=== PATIENT | male | born 1945 | race Caucasian/White ===

== ENCOUNTER 2017-04-15 16:57 | Inpatient (IN) | payer OTHER ==
[~2017-04-15] VITALS: Ht 182.9 cm; Wt 113.2 kg
[~2017-04-15 16:57] MED LIST: AMLO-114 PO; AMOX500C3 PO; APR25 PO; ASPEC81 PO; ATOR-54 PO; CHLO50TA PO; CTP/1 PO; INSU1INJ7 SC; LISI-725 PO; METF850T PO; METO100T14 PO; METO50TA16 PO; NTRGSL/4 SL; POTA-327 PO
[2017-04-15 17:59] LABS: VEN BLOOD GAS BASE EXCESS 4.3 mmol/L; VENOUS BLOOD GAS PCO2 46 mmHg (38.0-50.0); VENOUS BLOOD GAS PO2 23 mmHg
[2017-04-15 18:00] LABS: VEN BLD GAS O2 SATURATION < 60.0 %
[2017-04-15 18:16] LABS: INR 1.1 (0.9-1.1); PARTIAL THROMBOPLASTIN RATIO 0.9; PROTHROMBIN TIME (PATIENT) 12.1 SECONDS (9.0-12.0)
--- NOTE | 2017-04-15 18:16 | EMERGENCY ROOM VISIT NOTE ---
ED Visit Note First contact with patient: 17:09 I have seen and examined this patient with Mark Murillo and generally agree with the treatment plan as discussed. Problem List Medical Problems: (1) Benign hypertension Status: Chronic (2) Chronic kidney disease stage 2 Status: Chronic (3) DIAB ALESSANDRO WO COMPL, TYPE II OR UNSPEC TYPE, NOT UNCNTRLD Status: Chronic (4) Hyperlipidemia Status: Chronic (5) Hypersomnia with sleep apnea Status: Chronic (6) MITRAL VALVE DISORDER Status: Chronic Current/Historical Medications Scheduled Amlodipine (Norvasc), 10 MG PO DAILY Amoxicillin (Amoxil), 2,000 MG PO DIRECTED Aspirin Enteric Coated (Ecotrin Or Generic *), 81 MG PO QAM Atorvastatin (Lipitor), 20 MG PO DAILY Chlorthalidone (Chlorthalidone), 25 MG PO DAILY Clonidine Hcl (Catapres), 0.1 MG PO TID Hydralazine Hcl (Apresoline *), 25 MG PO BID Insulin Glargine (Lantus), 60 UNITS SC HS Lisinopril (Zestril), 40 MG PO QAM Metformin Hcl (Glucophage), 850 MG PO BID Metoprolol Tartrate (Lopressor) (Lopressor), 50 MG PO HS Metoprolol Tartrate (Lopressor) (Lopressor), 100 MG PO AM Nitroglycerin (Nitrostat), 1 TAB SL UD Potassium Chloride (Micro-K Ext Rel), 10 MEQ PO BID Allergies Coded Allergies: No Known Allergies (Unverified , NONE, 06/09/15) Vital Signs Date Time Temp Pulse Resp B/P (MAP) Pulse Ox O2 Delivery O2 Flow Rate FiO2 04/15/17 17:53 65 04/15/17 17:39 97 Room Air 04/15/17 17:03 36.7 66 16 172/83 94 Room Air Laboratory Results Test 04/15/17 17:45 Venous Blood pH 7.43 (7.36-7.41) Venous Blood Partial Pressure CO2 46 mmHg (38.0-50.0) Venous Blood Partial Pressure O2 23 mmHg Venous Blood HCO3 29 mmol/L Venous Blood Oxygen Saturation < 60.0 % Venous Blood Base Excess 4.3 mmol/L Departure Information Referrals Delaney Lopez M.D. (PCP) Forms HOME CARE DOCUMENTATION FORM, IMPORTANT VISIT INFORMATION Patient Instructions My [facility]
[2017-04-15 18:31] LABS: BUN/CREATININE RATIO 12.9 (10-20); CALCIUM 9.6 mg/dl (8.5-10.1); CREATININE 1.3 mg/dl (0.60-1.40); POTASSIUM 3.3 mmol/L (3.5-5.1)
[2017-04-15] MEDS ORDERED: SODIUM CHLORIDE 0.9% 500ML 500 ML IV STA (18:32)
[2017-04-15] MEDS ORDERED: POTASSIUM CHLORIDE 10 MEQ / 100ML WTR IV STA (18:32)
[2017-04-15 18:39] LABS: POINT OF CARE PRO-BNP 2446 pg/ml (0-900); POINT OF CARE TROPONIN I < 0.030 ng/ml (0-0.045)
[2017-04-15 18:41] LABS: ALB/GLOB RATIO 1.1 (0.9-2); THYROID STIMULATING HORMONE 3.62 uIu/ml (0.300-4.500)
[2017-04-15 18:48] LABS: URINE APPEARANCE CLEAR (CLEAR); URINE BILIRUBIN NEG (NEG); URINE COLOR YELLOW; URINE NITRITE NEG (NEG); URINE PH 7.5 (4.5-7.5); UROBILINOGEN NEG (NEG); ZZUR CULT IF INDIC CLEAN CATCH NO
[2017-04-15 18:53] LABS: MANUAL MICROSCOPIC REQUIRED? NO; REVIEW REQ? NO; SULFASALICYLIC ACID POS (NEG)
[2017-04-15] MEDS ORDERED: HYDR-4716 PO (18:53)
[2017-04-15] MEDS ORDERED: GLIM4TAB PO (18:53)
[2017-04-15] MEDS ORDERED: POTA20TA16 PO (18:53)
[2017-04-15] MEDS ORDERED: ASPI81TA28 PO (18:53)
[2017-04-15] MEDS ORDERED: TPRSR/50 PO (18:53)
[2017-04-15] MEDS ORDERED: MULTCHW PO (18:53)
[2017-04-15] MEDS ORDERED: TPRSR/100 PO (18:53)
[2017-04-15] MEDS ORDERED: HYG25 PO (18:53)
[2017-04-15 19:24] LABS: HEMATOCRIT 41.7 % (42-52); MEAN CELL VOLUME 86.5 fL (80-100); MEAN CORPUSCULAR HEMOGLOBIN 30.1 pg (25-34); MEAN CORPUSCULAR HGB CONC 34.8 g/dl (32-36); MEAN PLATELET VOLUME 10.4 fL (7.4-10.4); PLATELET COUNT 270 K/uL (130-400); RED BLOOD COUNT 4.82 M/uL (4.7-6.1); WHITE BLOOD COUNT 10.57 K/uL (4.8-10.8)
--- NOTE | 2017-04-15 19:43 | DIAGNOSTIC IMAGING REPORT ---
CHEST 2 VIEWS ROUTINE HISTORY: Short of breath. COMPARISON: Chest 05/06/2012. FINDINGS: Mild diffuse interstitial thickening and mild cardiomegaly. This is consistent with mild pulmonary edema. Left-sided dual-chamber pacemaker. No pneumothorax. Small bilateral pleural effusions. IMPRESSION: Mild pulmonary edema and small bilateral pleural effusions. Electronically signed by: Iglesia Luu M.D. 04/15/2017 7:42 PM Dictated Date/Time: 04/15/2017 7:41 PM
[2017-04-15 19:48] LABS: BASO % 0.4 %; BASO ABS # 0.04 K/uL (0-0.2); COMPLETE YES; EOS % 2.5 %; IG% 0.2 %; LYMPH % 37.5 %; LYMPH ABS # 3.96 K/uL (1.2-3.4); MONO % 5.1 %; NEUT % 54.3 %; PLT ESTIMATE NORMAL
--- NOTE | 2017-04-15 19:59 | DIAGNOSTIC IMAGING REPORT ---
CHEST CTA for PULMONARY ARTERIES CT DOSE: 707.82 mGy.cm HISTORY: Short of breath. Elevated d-dimer. TECHNIQUE: Multiaxial CT images of the chest were performed following the intravenous administration of contrast to evaluate the pulmonary arteries. Maximal intensity projection images were also obtained. COMPARISON STUDY: Chest 04/15/2017. FINDINGS: Normal caliber thoracic aorta. No evidence for dissection within the ascending aorta or aortic arch. Descending thoracic aorta is not well opacified. The heart is mildly enlarged. Small to moderate bilateral pleural effusions. Mitral and aortic valve calcifications. Questionable filling defect within the left atrial appendage is seen on images 166 through 182. However, this could be due to poor opacification. Mild respiratory motion artifact. However, no definite filling defects within the pulmonary arteries to suggest embolus. Slightly nodular contour to the liver consistent with mild cirrhosis. The visualized spleen is unremarkable. Left-sided pacemaker. No hilar lymphadenopathy. A few mildly enlarged. No lymph node. Dominant AP window lymph node measures 2.6 x 1.4 cm. No pneumothorax. The central airways are patent. Diffuse interlobular septal thickening with scattered groundglass opacities. IMPRESSION: 1. No evidence for pulmonary embolus. 2. Interlobular septal thickening, scattered groundglass airspace opacities, small to moderate bilateral pleural effusions, and cardiomegaly. This is consistent with pulmonary edema. 3. A few mildly enlarged mediastinal lymph nodes. This is nonspecific but can also be seen in the setting of long-standing pulmonary edema. 3. Mild hepatic cirrhosis. This could be due to long-standing cardiac congestion. 5. Questionable filling defect within the left atrial appendage which could be due to a nonopacified area. However, follow-up echocardiogram should be performed to exclude an area of thrombus. Electronically signed by: Iglesia Luu M.D. 04/15/2017 7:57 PM Dictated Date/Time: 04/15/2017 7:46 PM
[2017-04-15] MEDS ORDERED: FUROSEMIDE 40 MG/4 ML VIAL IV STA (21:06)
--- NOTE | 2017-04-15 22:13 | DIAGNOSTIC IMAGING REPORT ---
ABDOMINAL ULTRASOUND, RIGHT UPPER QUADRANT HISTORY: RUQ abd pain. COMPARISON: None. FINDINGS: Pancreas: The pancreatic tail is obscured by overlying bowel gas. The remaining portions of the pancreas are within normal limits. Liver: Nodular contour to the liver consistent with cirrhosis. No hepatic masses. Gallbladder: Borderline thickening of the gallbladder wall measuring 3 mm. There are few small stones within the gallbladder. There is a 6 mm gallbladder polyp. There is a negative sonographic Bhagat's sign. CBD: 2 mm. Right kidney: No hydronephrosis. Miscellaneous: Right pleural effusion. IMPRESSION: 1. Mild cirrhosis. 2. Borderline thickening of the gallbladder wall. There are few small stones within the gallbladder. The technologist reported a negative sonographic Bhagat's sign. 3. Right pleural effusion. Electronically signed by: Iglesia Luu M.D. 04/15/2017 10:12 PM Dictated Date/Time: 04/15/2017 10:10 PM
[2017-04-15] MEDS ORDERED: NITROGLYCERIN 0.4 MG SL PER TAB CHARGE SL PRN (23:30)
--- NOTE | 2017-04-15 23:35 | History and Physical ---
History & Physical Date & Time of Service: Apr 15, 2017 at 23:35 Chief Complaint: SOB Primary Care Physician: Delaney Lopez M.D. History of Present Illness Source: patient, family, clinic records, hospital records 71 yo Male with PMH of Type 2 DM, HTN, CAD, CKD stage 3, Dyslipidemia, Cardiac pacemaker in situ, Systolic HF present to the ER with c/o worsening dyspnea on exertion. Pt saw his cardiology Dr. Elias on 04/10, he said at that time he was doing fine. Pt lives alone and cooks his food. Pt said that the next day on Saturday he started to have SOB on exertion. Pt said that SOB got worst over the weekend. Pt said that he cannot even walk to the mailbox without puffing and stopping to catch his breath. Pt said that from to March he got 12 lbs weight gained and he just added another 7 lbs since he saw Dr. Elias on . Pt said that he ate pizza and 4 hot dogs few days ago. Pt said that he was having some abdominal discomfort because his abdomen was distended. Pt said that the abdominal discomfort seems to improve after received the Lasix because he has been going to the bathroom a lot to urinate. Pt denies any chest pain, palpitation, dizziness, fever, chills and urinary symptoms. Past Medical/Surgical History Medical Problems: (1) Benign hypertension Status: Chronic (2) Chronic kidney disease stage 2 Status: Chronic (3) DIAB ALESSANDRO WO COMPL, TYPE II OR UNSPEC TYPE, NOT UNCNTRLD Status: Chronic (4) Hyperlipidemia Status: Chronic (5) Hypersomnia with sleep apnea Status: Chronic (6) MITRAL VALVE DISORDER Status: Chronic Social History Smoking Status: Never Smoker Alcohol Use: none Drug Use: none Marital Status: Housing status: lives alone Occupational Status: retired Immunizations History of Influenza Vaccine: N/A History of Tetanus Vaccine?: utd Tetanus Immunization Date: Oct 03, 2009 History of Pneumococcal: ~2009 History of Hepatitis B Vaccine: No Multi-Drug Resistant Organisms History of MDRO: No Allergies Coded Allergies: No Known Allergies (Unverified , NONE, 06/09/15) Home Medications Scheduled Amlodipine (Norvasc), 10 MG PO DAILY Amoxicillin (Amoxil), 2,000 MG PO DIRECTED Aspirin (Aspirin Ec), 81 MG PO DAILY Atorvastatin (Lipitor), 20 MG PO DAILY Chlorthalidone (Chlorthalidone), 25 MG PO DAILY Clonidine Hcl (Catapres), 0.1 MG PO TID Glimepiride (Amaryl), 4 MG PO DAILY Hydralazine HCl (Hydralazine HCl), 25 MG PO BID Lisinopril (Zestril), 40 MG PO QAM Metformin Hcl (Glucophage), 850 MG PO BID Metoprolol Succinate (Metoprolol Succinate ER), 100 MG PO DAILY Metoprolol Succinate (Metoprolol Succinate ER), 50 MG PO DAILY Multiple Vitamins W/ Minerals (Centrum Silver), 1 TAB PO DAILY Nitroglycerin (Nitrostat), 1 TAB SL UD Potassium Ext Rel (Klor-Con), 20 MEQ PO BID Review of Systems Constitutional: No fever, No chills, No sweats Eyes: No worsening of vision, No eye pain ENT: No nasal symptoms, No sore throat Respiratory: + dyspnea on exertion, No sputum Cardiovascular: No chest pain, No claudication, No palpitations Abdomen: No pain, No nausea, No vomiting Musculoskeletal: No calf pain Genitourinary - Male: No hematuria, No dysuria Neurologic: No memory loss, No vertigo Endocrine: No excessive thirst Hematologic / Lymphatic: No night sweats Integumentary: No rash, No itch Physical Exam Vital Signs Date Time Temp Pulse Resp B/P (MAP) Pulse Ox O2 Delivery O2 Flow Rate FiO2 04/15/17 22:51 36.8 68 20 176/78 92 Room Air 04/15/17 22:18 88 04/15/17 21:53 76 04/15/17 21:07 69 20 186/67 91 Room Air 04/15/17 19:08 68 20 177/88 92 Room Air 04/15/17 18:37 67 18 182/86 94 04/15/17 18:22 96 Room Air 04/15/17 17:53 65 04/15/17 17:39 97 Room Air 04/15/17 17:03 36.7 66 16 172/83 94 Room Air General Appearance: WD/WN, no apparent distress Head: normocephalic, atraumatic Eyes: PERRL, sclerae normal ENT: hearing grossly normal Neck: supple, no JVD Respiratory/Chest: chest non-tender, no respiratory distress, no accessory muscle use Cardiovascular: no JVD, + systolic murmur Abdomen/GI: normal bowel sounds, + tenderness (mild) Back: no CVA tenderness Extremities/Musculoskelatal: no calf tenderness, + swelling (trace) Neurologic/Psych: area attendant II-XII nml as tested, alert, normal mood/affect, oriented x 3 Skin: warm/dry, no rash Diagnostics Laboratory Results Results Past 24 Hours Test 04/15/17 17:45 04/15/17 18:20 04/15/17 18:25 04/15/17 18:51 Range/Units Prothrombin Time 12.1 9.0-12.0 SECONDS Prothromb Time International Ratio 1.1 0.9-1.1 Activated Partial Thromboplast Time 23.3 21.0-31.0 SECONDS Partial Thromboplastin Ratio 0.9 D-Dimer 540 0-500 ug/L FEU Venous Blood pH 7.43 7.36-7.41 Venous Blood Partial Pressure CO2 46 38.0-50.0 mmHg Venous Blood Partial Pressure O2 23 mmHg Venous Blood HCO3 29 mmol/L Venous Blood Oxygen Saturation < 60.0 % Venous Blood Base Excess 4.3 mmol/L Sodium Level 136 136-145 mmol/L Potassium Level 3.3 3.5-5.1 mmol/L Chloride Level 101 98-107 mmol/L Carbon Dioxide Level 24 21-32 mmol/L Anion Gap 11.0 3-11 mmol/L Blood Urea Nitrogen 17 7-18 mg/dl Creatinine 1.30 0.60-1.40 mg/dl Est Creatinine Clear Calc Drug Dose 70.1 ml/min Estimated GFR () 64.1 Estimated GFR (Non- 55.3 BUN/Creatinine Ratio 12.9 10-20 Random Glucose 155 70-99 mg/dl Calcium Level 9.6 8.5-10.1 mg/dl Magnesium Level 2.0 1.8-2.4 mg/dl Total Bilirubin 1.7 0.2-1 mg/dl Aspartate Amino Transf (AST/SGOT) 21 15-37 U/L Alanine Aminotransferase (ALT/SGPT) 29 12-78 U/L Alkaline Phosphatase 141 45-117 U/L Total Protein 8.1 6.4-8.2 gm/dl Albumin 4.2 3.4-5.0 gm/dl Globulin 3.9 2.5-4.0 gm/dl Albumin/Globulin Ratio 1.1 0.9-2 Thyroid Stimulating Hormone (TSH) 3.620 0.300-4.500 uIu/ml Bedside Troponin I < 0.030 0-0.045 ng/ml VP-[id number]-Type Natriuretic Peptide 2446 0-900 pg/ml Urine Color YELLOW Urine Appearance CLEAR CLEAR Urine pH 7.5 4.5-7.5 Urine Specific [place] 1.010 1.000-1.030 Urine Protein 1+ NEG Urine Glucose (UA) NEG NEG Urine Ketones NEG NEG Urine Occult Blood NEG NEG Urine Nitrite NEG NEG Urine Bilirubin NEG NEG Urine Urobilinogen NEG NEG Urine Leukocyte Esterase NEG NEG Urine WBC (Auto) 0 0-5 /hpf Urine RBC (Auto) 0-4 0-4 /hpf Urine Hyaline Casts (Auto) 0 0-5 /lpf Urine Epithelial Cells (Auto) 5-10 0-5 /lpf Urine Bacteria (Auto) NEG NEG White Blood Count 10.57 4.8-10.8 K/uL Red Blood Count 4.82 4.7-6.1 M/uL Hemoglobin 14.5 14.0-18.0 g/dL Hematocrit 41.7 42-52 % Mean Corpuscular Volume 86.5 80-100 fL Mean Corpuscular Hemoglobin 30.1 25-34 pg Mean Corpuscular Hemoglobin Concent 34.8 32-36 g/dl Platelet Count 270 130-400 K/uL Mean Platelet Volume 10.4 7.4-10.4 fL Neutrophils (%) (Auto) 54.3 % Lymphocytes (%) (Auto) 37.5 % Monocytes (%) (Auto) 5.1 % Eosinophils (%) (Auto) 2.5 % Basophils (%) (Auto) 0.4 % Neutrophils # (Auto) 5.75 1.4-6.5 K/uL Lymphocytes # (Auto) 3.96 1.2-3.4 K/uL Monocytes # (Auto) 0.54 0.11-0.59 K/uL Eosinophils # (Auto) 0.26 0-0.5 K/uL Basophils # (Auto) 0.04 0-0.2 K/uL RDW Standard Deviation 41.4 36.4-46.3 fL RDW Coefficient of Variation 13.1 11.5-14.5 % Immature Granulocyte % (Auto) 0.2 % Immature Granulocyte # (Auto) 0.02 0.00-0.02 K/uL Platelet Estimate NORMAL Diagnostic Radiology CHEST 2 VIEWS ROUTINE HISTORY: Short of breath. COMPARISON: Chest 05/06/2012. FINDINGS: Mild diffuse interstitial thickening and mild cardiomegaly. This is consistent with mild pulmonary edema. Left-sided dual-chamber pacemaker. No pneumothorax. Small bilateral pleural effusions. IMPRESSION: Mild pulmonary edema and small bilateral pleural effusions. Electronically signed by: Iglesia Luu M.D. 04/15/2017 7:42 PM Dictated Date/Time: 04/15/2017 7:41 PM ABDOMINAL ULTRASOUND, RIGHT UPPER QUADRANT HISTORY: RUQ abd pain. COMPARISON: None. FINDINGS: Pancreas: The pancreatic tail is obscured by overlying bowel gas. The remaining portions of the pancreas are within normal limits. Liver: Nodular contour to the liver consistent with cirrhosis. No hepatic masses. Gallbladder: Borderline thickening of the gallbladder wall measuring 3 mm. There are few small stones within the gallbladder. There is a 6 mm gallbladder polyp. There is a negative sonographic Bhagat's sign. CBD: 2 mm. Right kidney: No hydronephrosis. Miscellaneous: Right pleural effusion. IMPRESSION: 1. Mild cirrhosis. 2. Borderline thickening of the gallbladder wall. There are few small stones within the gallbladder. The technologist reported a negative sonographic Bhagat's sign. 3. Right pleural effusion. Electronically signed by: Iglesia Luu M.D. 04/15/2017 10:12 PM Dictated Date/Time: 04/15/2017 10:10 PM CHEST CTA for PULMONARY ARTERIES CT DOSE: 707.82 mGy.cm HISTORY: Short of breath. Elevated d-dimer. TECHNIQUE: Multiaxial CT images of the chest were performed following the intravenous administration of contrast to evaluate the pulmonary arteries. Maximal intensity projection images were also obtained. COMPARISON STUDY: Chest 04/15/2017. FINDINGS: Normal caliber thoracic aorta. No evidence for dissection within the ascending aorta or aortic arch. Descending thoracic aorta is not well opacified. The heart is mildly enlarged. Small to moderate bilateral pleural effusions. Mitral and aortic valve calcifications. Questionable filling defect within the left atrial appendage is seen on images 166 through 182. However, this could be due to poor opacification. Mild respiratory motion artifact. However, no definite filling defects within the pulmonary arteries to suggest embolus. Slightly nodular contour to the liver consistent with mild cirrhosis. The visualized spleen is unremarkable. Left-sided pacemaker. No hilar lymphadenopathy. A few mildly enlarged. No lymph node. Dominant AP window lymph node measures 2.6 x 1.4 cm. No pneumothorax. The central airways are patent. Diffuse interlobular septal thickening with scattered groundglass opacities. IMPRESSION: 1. No evidence for pulmonary embolus. 2. Interlobular septal thickening, scattered groundglass airspace opacities, small to moderate bilateral pleural effusions, and cardiomegaly. This is consistent with pulmonary edema. 3. A few mildly enlarged mediastinal lymph nodes. This is nonspecific but can also be seen in the setting of long-standing pulmonary edema. 3. Mild hepatic cirrhosis. This could be due to long-standing cardiac congestion. 5. Questionable filling defect within the left atrial appendage which could be due to a nonopacified area. However, follow-up echocardiogram should be performed to exclude an area of thrombus. Electronically signed by: Iglesia Luu M.D. 04/15/2017 7:57 PM Dictated Date/Time: 04/15/2017 7:46 PM Impression Assessment and Plan DYSPNEA ON EXERTION Mostly due to acute decompensated systolic heart failure Elevated pro BNP 2446 CXR showed Mild pulmonary edema and small bilateral pleural effusions CTA chest showed No evidence for pulmonary embolus. small to moderate bilateral pleural effusions Questionable filling defect within the left atrial appendage which could be due to a nonopacified area. Received 40mg IV lasix Continue lasix for now 1st of troponin negative will monitor 2 more sets Cardiology consult monitor I/O 2D echo report 12/2016: Normal LV chamber size with mild concentric LVH. Normal LV systolic function. Calculated LV ejection Fraction = 53% (biplane method of discs). Mild to moderate hypokinesis of the inferior and inferoseptal anderson, otherwise, normal wall motion. The aortic valve has three leaflets. The aortic valve is mildly calcified. Moderate aortic valve stenosis is present. Mild aortic valve regurgitation is present. There is moderate mitral annular calcification. The mitral valve leaflets thickness is moderately increased. Mitral stenosis is absent. Mild mitral regurgitation is present. Mild tricuspid regurgitation. Mild left atrial enlargement. Borderline pulmonary hypertension. The estimated pulmonary artery systolic pressure is 40mm Hg. QUESTIONABLE FILLING DEFECT WITHIN THE LEFT ATRIAL APPENDAGE SEEN ON CTA CHEST Need to r/o thrombus will get an echo HTN BP elevated continue hydralazine 25mg BID, clonidine 0.1mg TID, amlodipine 10mg metoprolol xl 150mg, lisinopril 40mg, chlorthalidone 25mg PRN IV hydralazine for SBP greater than 170 ELEVATED D-DIMER CTA chest showed no evidence for PE Questionable filling defect within the left atrial appendage which could be due to a nonopacified area on CTA chest Not a candidate for 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 due to ICH secondary to amyloid angiopathy ABDOMINAL DISCOMFORT Abd u/s showed mild cirrhosis Clinical improved DM TYPE 2 Last HBA1C 7.7 on 06/05 Hold oral meds Start on insulin coverage Monitor BS CAD Denies any chest pain Continue metoprolol, aspirin, and lipitor stable PERMANENT AFIB Rate is controlled Not on 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 due to ICH/amyloid angiopathy SICK SINUS SYNDROME S/P PPM PLACEMENT Normal function with adequate battery life per most recent interrogation as per cardiology report DYSLIPIDEMIA Continue Lipitor 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 Y/N: Yes Risk Level: Moderate Given or contraindicated: SCD's Additional Copies To Delaney Lopez M.D.
[2017-04-15] MEDS ORDERED: HydrALAZINE HCL 20 MG/ML VIAL IV. PRN (23:45)
[2017-04-15] MEDS ORDERED: DEXTROSE 50% 50 ML SYR IV PRN (23:45)
[2017-04-15] MEDS ORDERED: GLUCOSE 40% GEL 15 GM TUBE PO PRN (23:45)
[2017-04-15] MEDS ORDERED: CLONIDINE HCL 0.1 MG TAB PO ONE (23:45)
[2017-04-15] MEDS ORDERED: GLUCOSE 10 TABS/TUBE PO PRN (23:45)
[2017-04-15] MEDS ORDERED: GLUCAGON FOR INJ 1 MG VIAL SQ PRN (23:45)
[2017-04-16] VITALS (8 sets, daily range): BP systolic 139–175; BP diastolic 59–86; PULSE 58–92; TEMP 36.4–36.7; O2SAT 91–96; Ht 182.9 cm; Wt 113.2 kg
[2017-04-16 06:55] LABS: HEMATOCRIT 41.2 % (42-52); MEAN CELL VOLUME 86.4 fL (80-100); MEAN CORPUSCULAR HEMOGLOBIN 30.2 pg (25-34); MEAN PLATELET VOLUME 9.6 fL (7.4-10.4); PLATELET COUNT 263 K/uL (130-400); RED BLOOD COUNT 4.77 M/uL (4.7-6.1); WHITE BLOOD COUNT 10.57 K/uL (4.8-10.8)
[2017-04-16 07:30] LABS: BUN/CREATININE RATIO 12.3 (10-20); CREATININE 1.2 mg/dl (0.60-1.40); POTASSIUM 2.8 mmol/L (3.5-5.1)
[2017-04-16] MEDS: CEROVITE ADV FORMULA TAB PO SCH (08:12)
[2017-04-16] MEDS: ASPIRIN 81 MG ECTAB PO SCH (08:12)
[2017-04-16] MEDS: AMLODIPINE BESYLATE 5 MG TAB PO SCH (08:13)
[2017-04-16] MEDS: CLONIDINE HCL 0.1 MG TAB PO SCH ×3 (08:13→20:46)
[2017-04-16] MEDS: ATORVASTATIN 20 MG TAB PO SCH (08:14)
[2017-04-16] MEDS: POTASSIUM CHLORIDE 20 MEQ TABCR PO SCH ×2 (08:14→20:47)
[2017-04-16] MEDS: METOPROLOL SUCC 50MG EXT REL TAB PO SCH (08:14)
[2017-04-16] MEDS: LISINOPRIL 20 MG TAB PO SCH (08:15)
[2017-04-16] MEDS: INSULIN ASPART 100 UNITS/ML 3 ML PEN SC SCH ×4 (08:17→20:48)
[2017-04-16] MEDS ORDERED: NON-FORMULARY MEDICATION (Metoprolol Succinate (Metoprolol Succinate ER) 100 MG) PO SCH (09:00)
[2017-04-16] MEDS ORDERED: CHLORTHALIDONE 25 MG TAB PO SCH (09:00)
[2017-04-16] MEDS ORDERED: POTASSIUM CHLORIDE 10 MEQ TABCR PO STA (09:24)
--- NOTE | 2017-04-16 09:32 | Progress Note ---
Internal Med Progress Note Date of Service: Apr 16, 2017. Provider Documentation: SUBJECTIVE: The patient was seen and examined Feels a lot better Diuresing a lot and lost a few pounds OBJECTIVE: Vital Signs-as noted below Exam: General-Minimal distress at rest Eyes-normal ENT-normal Neck-supple Lungs-decreased breath sound bilaterally ,minimal crackles at the bases Heart-Irregular Abdomen-Benign,no masses,bowel sound present Extremities-Trace edema bilaterally Neuro-AAOx3 Lab data as noted below. ASSESSMENT & PLAN: Acute Decompensated combined heart failure Complicated by Aortic stenosis Presented with Dyspnea on Exertion and weight gain Elevated pro BNP 2446 CXR showed Mild pulmonary edema and small bilateral pleural effusions CTA chest showed No evidence for pulmonary embolus. small to moderate bilateral pleural effusions Questionable filling defect within the left atrial appendage which could be due to a nonopacified area. Received 40mg IV lasix Continue Lasix for now Serial Troponins are not indicative of Acs Cardiology consult -APPRECIATE INPUT 2D echo report 12/2016: Normal LV chamber size with mild concentric LVH. Normal LV systolic function. Calculated LV ejection Fraction = 53% (biplane method of discs). Mild to moderate hypokinesis of the inferior and inferoseptal anderson, otherwise, normal wall motion. The aortic valve has three leaflets. The aortic valve is mildly calcified. Moderate aortic valve stenosis is present. Mild aortic valve regurgitation is present. There is moderate mitral annular calcification. The mitral valve leaflets thickness is moderately increased. Mitral stenosis is absent. Mild mitral regurgitation is present. Mild tricuspid regurgitation. Mild left atrial enlargement. Borderline pulmonary hypertension. The estimated pulmonary artery systolic pressure is 40mm Hg. Supplement potassium QUESTIONABLE FILLING DEFECT WITHIN THE LEFT ATRIAL APPENDAGE SEEN ON CTA CHEST Need to r/o thrombus Await ECHO HTN BP elevated continue hydralazine 25mg BID, clonidine 0.1mg TID, amlodipine 10mg metoprolol xl 150mg, lisinopril 40mg, chlorthalidone 25mg PRN IV hydralazine for SBP greater than 170 Seems to be improving ELEVATED D-DIMER CTA chest showed no evidence for PE Questionable filling defect within the left atrial appendage which could be due to a nonopacified area on CTA chest Not a candidate for 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 due to ICH secondary to amyloid angiopathy ABDOMINAL DISCOMFORT Abd u/s showed mild cirrhosis Clinical improved and or stones No evidence of Acute Cholecystitis DM TYPE 2 Last HBA1C 7.7 on 06/05 Orakl Start on insulin coverage Monitor BS CAD with Aortic Stenosis Denies any chest pain Continue metoprolol, aspirin, and lipitor stable PERMANENT AFIB WIITH SSS S/P PPM Rate is controlled Not on 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 due to ICH/amyloid angiopathy May need to have PPM checked DYSLIPIDEMIA Continue Lipitor 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 Stable JT Continue CPAP OBESITY Diet and exercise DVT PX will do SCDs for now due to hx of ICH/amyloid angiopathy CODE STATUS FULL CODE as per patient Discussed with the Daughter in detailed Vital Signs: Date Time Temp Pulse Resp B/P (MAP) Pulse Ox O2 Delivery O2 Flow Rate FiO2 04/16/17 08:36 36.6 70 16 149/64 (92) 92 Room Air 04/16/17 08:00 Room Air 04/16/17 05:17 139/59 (85) 04/16/17 04:00 36.6 74 18 172/86 (114) 96 CPAP 04/16/17 04:00 Room Air 04/16/17 01:14 36.4 76 18 175/73 Room Air 04/16/17 00:19 36.8 77 20 167/94 91 04/16/17 00:11 77 20 167/94 91 Room Air 04/15/17 22:51 36.8 68 20 176/78 92 Room Air 04/15/17 22:18 88 04/15/17 21:53 76 04/15/17 21:07 69 20 186/67 91 Room Air 04/15/17 19:08 68 20 177/88 92 Room Air 04/15/17 18:37 67 18 182/86 94 04/15/17 18:22 96 Room Air 04/15/17 17:53 65 04/15/17 17:39 97 Room Air 04/15/17 17:03 36.7 66 16 172/83 94 Room Air Lab Results: Results Past 24 Hours Test 04/15/17 17:45 04/15/17 18:20 04/15/17 18:25 04/15/17 18:51 Range/Units Prothrombin Time 12.1 9.0-12.0 SECONDS Prothromb Time International Ratio 1.1 0.9-1.1 Activated Partial Thromboplast Time 23.3 21.0-31.0 SECONDS Partial Thromboplastin Ratio 0.9 D-Dimer 540 0-500 ug/L FEU Venous Blood pH 7.43 7.36-7.41 Venous Blood Partial Pressure CO2 46 38.0-50.0 mmHg Venous Blood Partial Pressure O2 23 mmHg Venous Blood HCO3 29 mmol/L Venous Blood Oxygen Saturation < 60.0 % Venous Blood Base Excess 4.3 mmol/L Sodium Level 136 136-145 mmol/L Potassium Level 3.3 3.5-5.1 mmol/L Chloride Level 101 98-107 mmol/L Carbon Dioxide Level 24 21-32 mmol/L Anion Gap 11.0 3-11 mmol/L Blood Urea Nitrogen 17 7-18 mg/dl Creatinine 1.30 0.60-1.40 mg/dl Est Creatinine Clear Calc Drug Dose 70.1 ml/min Estimated GFR () 64.1 Estimated GFR (Non- 55.3 BUN/Creatinine Ratio 12.9 10-20 Random Glucose 155 70-99 mg/dl Calcium Level 9.6 8.5-10.1 mg/dl Magnesium Level 2.0 1.8-2.4 mg/dl Total Bilirubin 1.7 0.2-1 mg/dl Aspartate Amino Transf (AST/SGOT) 21 15-37 U/L Alanine Aminotransferase (ALT/SGPT) 29 12-78 U/L Alkaline Phosphatase 141 45-117 U/L Total Protein 8.1 6.4-8.2 gm/dl Albumin 4.2 3.4-5.0 gm/dl Globulin 3.9 2.5-4.0 gm/dl Albumin/Globulin Ratio 1.1 0.9-2 Thyroid Stimulating Hormone (TSH) 3.620 0.300-4.500 uIu/ml Bedside Troponin I < 0.030 0-0.045 ng/ml NN-Gfr-[id number]-Type Natriuretic Peptide 2446 0-900 pg/ml Urine Color YELLOW Urine Appearance CLEAR CLEAR Urine pH 7.5 4.5-7.5 Urine Specific [place] 1.010 1.000-1.030 Urine Protein 1+ NEG Urine Glucose (UA) NEG NEG Urine Ketones NEG NEG Urine Occult Blood NEG NEG Urine Nitrite NEG NEG Urine Bilirubin NEG NEG Urine Urobilinogen NEG NEG Urine Leukocyte Esterase NEG NEG Urine WBC (Auto) 0 0-5 /hpf Urine RBC (Auto) 0-4 0-4 /hpf Urine Hyaline Casts (Auto) 0 0-5 /lpf Urine Epithelial Cells (Auto) 5-10 0-5 /lpf Urine Bacteria (Auto) NEG NEG White Blood Count 10.57 4.8-10.8 K/uL Red Blood Count 4.82 4.7-6.1 M/uL Hemoglobin 14.5 14.0-18.0 g/dL Hematocrit 41.7 42-52 % Mean Corpuscular Volume 86.5 80-100 fL Mean Corpuscular Hemoglobin 30.1 25-34 pg Mean Corpuscular Hemoglobin Concent 34.8 32-36 g/dl Platelet Count 270 130-400 K/uL Mean Platelet Volume 10.4 7.4-10.4 fL Neutrophils (%) (Auto) 54.3 % Lymphocytes (%) (Auto) 37.5 % Monocytes (%) (Auto) 5.1 % Eosinophils (%) (Auto) 2.5 % Basophils (%) (Auto) 0.4 % Neutrophils # (Auto) 5.75 1.4-6.5 K/uL Lymphocytes # (Auto) 3.96 1.2-3.4 K/uL Monocytes # (Auto) 0.54 0.11-0.59 K/uL Eosinophils # (Auto) 0.26 0-0.5 K/uL Basophils # (Auto) 0.04 0-0.2 K/uL RDW Standard Deviation 41.4 36.4-46.3 fL RDW Coefficient of Variation 13.1 11.5-14.5 % Immature Granulocyte % (Auto) 0.2 % Immature Granulocyte # (Auto) 0.02 0.00-0.02 K/uL Platelet Estimate NORMAL Test 04/16/17 00:30 04/16/17 01:22 04/16/17 06:30 04/16/17 06:46 Range/Units Creatine Kinase MB Ratio 0-3.0 Creatine Kinase MB 1.8 0.5-3.6 ng/ml Troponin I 0.050 0.070 0-0.045 ng/ml White Blood Count 10.57 4.8-10.8 K/uL Red Blood Count 4.77 4.7-6.1 M/uL Hemoglobin 14.4 14.0-18.0 g/dL Hematocrit 41.2 42-52 % Mean Corpuscular Volume 86.4 80-100 fL Mean Corpuscular Hemoglobin 30.2 25-34 pg Mean Corpuscular Hemoglobin Concent 35.0 32-36 g/dl RDW Standard Deviation 41.2 36.4-46.3 fL RDW Coefficient of Variation 13.0 11.5-14.5 % Platelet Count 263 130-400 K/uL Mean Platelet Volume 9.6 7.4-10.4 fL Sodium Level 140 136-145 mmol/L Potassium Level 2.8 3.5-5.1 mmol/L Chloride Level 102 98-107 mmol/L Carbon Dioxide Level 27 21-32 mmol/L Anion Gap 11.0 3-11 mmol/L Blood Urea Nitrogen 15 7-18 mg/dl Creatinine 1.20 0.60-1.40 mg/dl Est Creatinine Clear Calc Drug Dose 74.2 ml/min Estimated GFR () 70.6 Estimated GFR (Non- 60.9 BUN/Creatinine Ratio 12.3 10-20 Random Glucose 153 70-99 mg/dl Bedside Glucose 142 70-99 mg/dl
[2017-04-16 09:59] LABS: ESTIMATED AVERAGE GLUCOSE 183 mg/dl; HA1C FLAG Normal (Normal)
--- NOTE | 2017-04-16 10:07 | Cardiology Consultation ---
Cardiology Consultation Date of Consultation: Apr 16, 2017 Requesting Physician: Patricia Attending Manager Leadership Development: Alex (Jose Manuel Triplett PA-C) History of Present Illness Mr. Guerrero is a 71 year old male who is being seen at the request of Dr. Gomez. Reason for Consultation is dyspnea on exertion. Primary Manager Leadership Development is Dr. Elias with last evaluation on April 10, 2017. Mr. Guerrero notes feeling relatively well. Shortly after evaluation by Dr. Elias the patient began to notice dyspnea, first when walking back from getting the mail and then with activities of daily living. He describes feeling "like I was running full tilt" just with ambulation to the mailbox. He notes abdominal distention, mild lower extremity edema, and weight gain of 12-15 pounds since routine follow-up by his PCP (Dr. Roseline Lopez) in December. Notes recent dietary indiscretion, eating pizza with his 6 and 8 year old grand kids as well as recently baking baked beans with four cut up hot dogs. Blood pressures were elevated on presentation to the emergency room. Patient received 40 mg IV furosemide was administered in the ER with mild improvement in the abdominal distention as well as dyspnea. He notes chronic issues with hypokalemia, potassium of 2.8 mmol/L this morning. He denies chest pain or tachypalpitations. No orthopnea or PND. No lightheadedness , dizziness, near syncope, or syncope. No fevers or chills. (Jose Manuel Triplett PA-C) History Past Medical and Surgical History: Longstanding hypertension, hypertensive heart disease Chronic coronary artery disease Medically treated inferior wall STEMI, 04/2012 Ischemic cardiomyopathy with follow-up echocardiograms revealing normalization of systolic function Chronic atrial fibrillation. Contraindications to anticoagulation secondary to ICH/amyloid angiopathy. Sick sinus syndrome s/p PPM placement Moderate aortic stenosis Mitral and tricuspid regurgitation Dyslipidemia History of intracranial hemorrhage in 2007 secondary to amyloid angiopathy Obesity JT, CPAP since 1998. Type II diabetes mellitus with proteinuria, stage III chronic kidney disease Colonoscopy with adenomatous polypectomy in 07/2010. Right tibia/ankle fracture status post surgical repair Penile implant, 1999 Family History: Father with emphysema at the age of 56. He was noted to smoke 5 ppd. Mother at 68 with emphysema. Four paternal uncles were killed in WWII. Five prior to the age of 60. One brother and sister without cardiac issues. Brother with prostate cancer. Sister with thyroid issues. Social History: Nonsmoker though with significant second hand smoke exposure via his mother and father. No smokeless tobacco use/abuse. Rare alcohol. . Grown children. Lives alone near [employer]. Raised in [place]. 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 (Jose Manuel Triplett PA-C) Review Of Systems General: 12-15 lb weight gain since December. No fever, chills, or soaking night sweats. HEENT: Glasses. No Headache. Cardiovascular: +ROSARIO. + Mild edema. No chest pain or discomfort. No orthopnea, PND, near syncope, syncope. Pulmonary: Nonproductive cough. Longstanding JT. No wheeze. No hemoptysis Gastrointestinal: Abdominal bloating/congestion. Loose BM's chronically, attributed to metformin. No nausea or vomiting. No melena or hematochezia. : Nocturia x 2-3. Skin: No rash. Musculoskeletal: The patient denies joint pain, joint swelling, myalgia, back pain, neck pain and prior injuries. Neurological: ICH. No seizures. Balance issues since the hemorrhage in 2007, gradually progressive. Complete review of systems is as stated above, negative, or noncontributory. (Jose Manuel Triplett PA-C) Allergies Coded Allergies: No Known Allergies (Unverified , NONE, 06/09/15) Medications Reported Home Medications Medications Dose Route/Sig Max Daily Dose Days Date Category Dose Instructions Centrum Silver (Multiple Vitamins W/ Minerals) 1 Chw Chw 1 Tab PO DAILY 04/15/17 Reported Aspirin Ec (Aspirin) 81 Mg Tab 81 Mg PO DAILY 04/15/17 Reported Chlorthalidone 25 Mg Tab 25 Mg PO DAILY 04/15/17 Reported Amaryl (Glimepiride) 4 Mg Tab 4 Mg PO DAILY 04/15/17 Reported Hydralazine HCl 25 Mg Tab 25 Mg PO BID 04/15/17 Reported Klor-Con (Potassium Chloride) 20 Meq Tabcr 20 Meq PO BID 04/15/17 Reported Metoprolol Succinate ER (Metoprolol Succinate) 50 Mg Tabcr 50 Mg PO DAILY 04/15/17 Reported Metoprolol Succinate ER (Metoprolol Succinate) 100 Mg Tabcr 100 Mg PO DAILY 04/15/17 Reported Amoxil (Amoxicillin) 500 Mg Cap 2,000 Mg PO DIRECTED 06/09/15 Reported use before dental procedure Nitrostat (Nitroglycerin) 0.4 Mg Tab 1 Tab SL UD 06/09/15 Reported Zestril (Lisinopril) 20 Mg Tab 40 Mg PO QAM 30 05/07/12 Rx Lipitor (Atorvastatin) 20 Mg Tab 20 Mg PO DAILY 04/08/12 Reported Catapres (Clonidine Hcl) 0.1 Mg Tab 0.1 Mg PO TID 04/08/12 Reported Norvasc (Amlodipine Besylate) 10 Mg Tab 10 Mg PO DAILY 04/08/12 Reported Glucophage (Metformin Hcl) 850 Mg Tab 850 Mg PO BID 04/08/12 Reported (Jose Manuel Triplett PA-C) Physical Exam Vital Signs (Last 8hrs): Last 8 Hrs Date Time Temp Pulse Resp B/P (MAP) Pulse Ox O2 Delivery O2 Flow Rate FiO2 04/16/17 08:36 36.6 70 16 149/64 (92) 92 Room Air 04/16/17 08:00 Room Air 04/16/17 05:17 139/59 (85) 04/16/17 04:00 36.6 74 18 172/86 (114) 96 CPAP 04/16/17 04:00 Room Air General Appearance: Alert and Oriented x3. NAD. Head: Normocephalic Atraumatic. Eyes: PER, EOMI, conjunctiva and sclera clear Neck: Elevated JVP. + HJR. Bilateral carotid bruits versus transmitted systolic murmur. Respiratory: Decreased breath sounds throughout with faint bibasilar rales. No wheeze. Cardiovascular: Irregularly irregular in the 80's. Occasional ectopic beat. Grade III/ systolic ejection murmur. Apical systolic murmur. Soft diastolic murmur heard at the lower left sternal border when upright. PMI was not palpable. Abdomen: Obese. +BS. No abdominal bruits. Soft. Nontender. Extremities: Mild edema. No clubbing. No cyanosis. distal pulses 2/4 bilaterally. Neuro: No focal deficits. Psychiatric: Normal affect. (Jose Manuel Triplett PA-C) Data Last 24 Hours Test 04/15/17 17:45 04/15/17 18:20 04/15/17 18:25 04/15/17 18:51 Prothrombin Time 12.1 SECONDS Prothromb Time International Ratio 1.1 Activated Partial Thromboplast Time 23.3 SECONDS Partial Thromboplastin Ratio 0.9 D-Dimer 540 ug/L FEU Venous Blood pH 7.43 Venous Blood Partial Pressure CO2 46 mmHg Venous Blood Partial Pressure O2 23 mmHg Venous Blood HCO3 29 mmol/L Venous Blood Oxygen Saturation < 60.0 % Venous Blood Base Excess 4.3 mmol/L Sodium Level 136 mmol/L Potassium Level 3.3 mmol/L Chloride Level 101 mmol/L Carbon Dioxide Level 24 mmol/L Anion Gap 11.0 mmol/L Blood Urea Nitrogen 17 mg/dl Creatinine 1.30 mg/dl Est Creatinine Clear Calc Drug Dose 70.1 ml/min Estimated GFR () 64.1 Estimated GFR (Non- 55.3 BUN/Creatinine Ratio 12.9 Random Glucose 155 mg/dl Calcium Level 9.6 mg/dl Magnesium Level 2.0 mg/dl Total Bilirubin 1.7 mg/dl Aspartate Amino Transf (AST/SGOT) 21 U/L Alanine Aminotransferase (ALT/SGPT) 29 U/L Alkaline Phosphatase 141 U/L Total Protein 8.1 gm/dl Albumin 4.2 gm/dl Globulin 3.9 gm/dl Albumin/Globulin Ratio 1.1 Thyroid Stimulating Hormone (TSH) 3.620 uIu/ml Bedside Troponin I < 0.030 ng/ml GB-[id number]-[id number]-Type Natriuretic Peptide 2446 pg/ml Urine Color YELLOW Urine Appearance CLEAR Urine pH 7.5 Urine Specific [place] 1.010 Urine Protein 1+ Urine Glucose (UA) NEG Urine Ketones NEG Urine Occult Blood NEG Urine Nitrite NEG Urine Bilirubin NEG Urine Urobilinogen NEG Urine Leukocyte Esterase NEG Urine WBC (Auto) 0 /hpf Urine RBC (Auto) 0-4 /hpf Urine Hyaline Casts (Auto) 0 /lpf Urine Epithelial Cells (Auto) 5-10 /lpf Urine Bacteria (Auto) NEG White Blood Count 10.57 K/uL Red Blood Count 4.82 M/uL Hemoglobin 14.5 g/dL Hematocrit 41.7 % Mean Corpuscular Volume 86.5 fL Mean Corpuscular Hemoglobin 30.1 pg Mean Corpuscular Hemoglobin Concent 34.8 g/dl Platelet Count 270 K/uL Mean Platelet Volume 10.4 fL Neutrophils (%) (Auto) 54.3 % Lymphocytes (%) (Auto) 37.5 % Monocytes (%) (Auto) 5.1 % Eosinophils (%) (Auto) 2.5 % Basophils (%) (Auto) 0.4 % Neutrophils # (Auto) 5.75 K/uL Lymphocytes # (Auto) 3.96 K/uL Monocytes # (Auto) 0.54 K/uL Eosinophils # (Auto) 0.26 K/uL Basophils # (Auto) 0.04 K/uL RDW Standard Deviation 41.4 fL RDW Coefficient of Variation 13.1 % Immature Granulocyte % (Auto) 0.2 % Immature Granulocyte # (Auto) 0.02 K/uL Platelet Estimate NORMAL Test 04/16/17 00:30 04/16/17 01:22 04/16/17 06:30 04/16/17 06:46 Creatine Kinase MB Ratio Creatine Kinase MB 1.8 ng/ml Troponin I 0.050 ng/ml 0.070 ng/ml White Blood Count 10.57 K/uL Red Blood Count 4.77 M/uL Hemoglobin 14.4 g/dL Hematocrit 41.2 % Mean Corpuscular Volume 86.4 fL Mean Corpuscular Hemoglobin 30.2 pg Mean Corpuscular Hemoglobin Concent 35.0 g/dl RDW Standard Deviation 41.2 fL RDW Coefficient of Variation 13.0 % Platelet Count 263 K/uL Mean Platelet Volume 9.6 fL Sodium Level 140 mmol/L Potassium Level 2.8 mmol/L Chloride Level 102 mmol/L Carbon Dioxide Level 27 mmol/L Anion Gap 11.0 mmol/L Blood Urea Nitrogen 15 mg/dl Creatinine 1.20 mg/dl Est Creatinine Clear Calc Drug Dose 74.2 ml/min Estimated GFR () 70.6 Estimated GFR (Non- 60.9 BUN/Creatinine Ratio 12.3 Random Glucose 153 mg/dl Bedside Glucose 142 mg/dl Pacemaker interrogation on April 08, 2017 demonstrated appropriate function. Battery voltage was 2.93 with an COLTON of 2.81 V. RV paced 96%. Underlying rhythm was chronic atrial fibrillation with complete heart block and a junctional escape rhythm. Admission CXR: Mild pulmonary edema and small bilateral pleural effusions. As per Dr. Luu Admission EKG revealed atrial fibrillation, ventricular paced rhythm with frequent PVC's. Telemetry: Atrial fibrillation. Ventricular paced rhythm. Occasional PVC's in singles. Chest CTA Impressions (as per Dr. Luu): 1. No evidence for pulmonary embolus. 2. Interlobular septal thickening, scattered groundglass airspace opacities, small to moderate bilateral pleural effusions, and cardiomegaly. This is consistent with pulmonary edema. 3. A few mildly enlarged mediastinal lymph nodes. This is nonspecific but can also be seen in the setting of long-standing pulmonary edema. 4. Mild hepatic cirrhosis. This could be due to long-standing cardiac congestion. 5. Questionable filling defect within the left atrial appendage which could be due to a nonopacified area. However, follow-up echocardiogram should be performed to exclude an area of thrombus. TTE: Pending (Jose Manuel Triplett PA-C) Assessment & Plan Presentation with acute on chronic dyspnea felt to be due to acute decompensated diastolic congestive heart failure secondary to dietary sodium indirection in the setting of uncontrolled hypertension, longstanding hypertensive heart disease, valvular heart disease (aortic stenosis), chronic atrial fibrillation. RECOMMENDATIONS/PLAN: Resting echocardiography to assess systolic function and valvular status as well as to assess the questionable filling defect within the left atrial appendage observed on CT scan Supplement potassium orally Initiate spironolactone 25 mg/day IV furosemide 40 mg/day daily Hold Chlorthalidone (25 mg/day), likely transitioning to oral furosemide or torsemide prior to discharge. Strict I/O's, sodium and fluid restrictions, daily weights on the same standing scale, daily metabolic panels Increase/change Clonidine to 0.2 mg twice a day for additional blood pressure control. Check magnesium level Continue antiplatelet therapy with caution. He is not a candidate for anticoagulation secondary to his history of intracranial hemorrhage and amyloid angiopathy Further recommendations pending (Jose Manuel Triplett PA-C) Cardiology attending: Pt seen and examined, agree with findings and assessment as per Jose Manuel Espinoza. Acute decompensated systolic heart failure due to dietary indiscretion and ongoing hypertension. Lasix IV daily and oral spironolactone started. Diuresing well. Echo pending. Follow volume status clinically. Follow and replete lytes as necessary. (Javid Johnson D.O.)
[2017-04-16] MEDS ORDERED: PERFLUTREN LIPID MICROSPHERE (DEFINITY) IV ONE (11:17)
[2017-04-16] MEDS: SPIRONOLACTONE 25 MG TAB PO SCH (11:34)
--- NOTE | 2017-04-16 12:26 | ECHOCARDIOGRAM REPORT ---
*NOTICE TO RECEIVING CONSTITUTION PARTY AGENCY This information is strictly Confidential and protected under [place] law. [place] law prohibits you from making any further disclosure of this information unless further disclosure is expressly permitted by the written consent of the person to whom it pertains or is authorized by law. A general authorization for the release of medical or other information is not sufficient for this purpose. Hospital accepts no responsibility if the information is made available to any other person, INCLUDING THE PATIENT. Interpretation Summary * Name: NAINA ROSE Study Date: 04/16/2017 10:45 AM BP: 149/64 mmHg * Patient Location: C.2E\S\E210\S\1 HR: 70 * : 1945 (M/d/yyyy) Gender: Male Height: 72 in * Age: 71 yrs Ethnicity: [place] Weight: 259 lb * Ordering Physician: Fredy Gomez * Referring Physician: Delaney Lopez * Performed By: Marie Rose * * Reason For Study: R/O ATRIAL THROMBUS * BSA: 2.4 m2 * -- Conclusions -- * No significant change compared to previous study of 01/15/17. * Normal LV chamber size with mild concentric LVH. * Normal LV systolic function, EF 55-60%. * Mild hypokinesis of the the inferior and inferolateral anderson. * Apical wall motion abnormality may reflect pacemaker activation. * The aortic valve is not well visualized. Moderately calcified aortic valve. There is no significant aortic regurgitation. Mild valvular aortic stenosis. * Mild left atrial enlargement. Procedure Details * A complete two-dimensional transthoracic echocardiogram was performed (2D, M-mode, Doppler and color flow Doppler). * The study was technically difficult. * A contrast injection of Definity was performed to improve assessment of LV function. * Contrast was injected into an intravenous site in the right arm. * One vial of Definity ultrasound contrast was diluted in normal saline to a total volume of 10 ml. A total of '3' ml of solution was administered during imaging. * Lot # [id number] of Definity utilized for procedure. * Expiration date 05/07. * The attending nurse who injected the contrast agent was MARTHA DHILLON RN. Left Ventricle * The left ventricle is normal in size. * There is mild concentric left ventricular hypertrophy. * Ejection Fraction = 55-60%. * Left ventricular systolic function is normal. * Mild hypokinesis of the the inferior and inferolateral anderson. * Apical wall motion abnormality may reflect pacemaker activation. Right Ventricle * The right ventricular cavity size is normal (basal dimension <4.2 cm in right ventricular apical 4-chamber view). * There is a pacemaker lead in the right ventricle. * The right ventricular systolic function is normal as assessed by tricuspid annular plane systolic excursion (TAPSE) (normal >1.5 cm). Atria * The left atrium is mildly dilated. * Right atrial size is normal. * No ASD detected; PFO is not assessed. Mitral Valve * There is moderate mitral annular calcification. * There is no mitral valve stenosis. * There is no mitral regurgitation noted. Tricuspid Valve * The tricuspid valve anatomy is normal. * There is no tricuspid stenosis. * There is mild tricuspid regurgitation. Aortic Valve * The aortic valve is not well visualized. * Moderately calcified aortic valve. * Mild valvular aortic stenosis. * There is no significant aortic regurgitation. Pulmonic Valve * The pulmonary valve is not well seen, but the Doppler examination is normal without significant regurgitation or stenosis. Great Vessels * The aortic root and proximal ascending aorta are normal sized. Pericardium/Pleural * There is no pericardial effusion. MMode 2D Measurements and Calculations IVSd 2.4 cm IVSs 2.8 cm LVIDd 4.7 cm LVIDs 3.2 cm LVPWd 1.5 cm LVPWs 2.2 cm IVS/LVPW 1.6 FS 32.0 % EDV(Teich) 102.3 ml ESV(Teich) 40.8 ml EF(Teich) 60.1 % EDV(cubed) 103.7 ml ESV(cubed) 32.7 ml EF(cubed) 68.5 % % IVS thick 16.9 % % LVPW thick 46.7 % LV mass(C)d 442.5 grams LV mass(C)dI 186.1 grams/m\S\2 LV mass(C)s 430.5 grams LV mass(C)sI 181.1 grams/m\S\2 CO(Teich) 3.6 l/min CI(Teich) 1.5 l/min/m\S\2 SV(Teich) 61.4 ml SI(Teich) 25.8 ml/m\S\2 CO(cubed) 4.2 l/min CI(cubed) 1.8 l/min/m\S\2 SV(cubed) 71.0 ml SI(cubed) 29.9 ml/m\S\2 LA dimension 3.9 cm asc Aorta Diam 3.0 cm LVOT diam 1.9 cm LVOT area 2.9 cm\S\2 LVAd ap4 35.4 cm\S\2 LVLd ap4 8.5 cm EDV(MOD-sp4) 119.0 ml LVAs ap4 21.3 cm\S\2 LVLs ap4 8.2 cm ESV(MOD-sp4) 45.6 ml EF(MOD-sp4) 61.7 % LVAd ap2 47.0 cm\S\2 LVLd ap2 9.2 cm EDV(MOD-sp2) 201.0 ml LVAs ap2 26.6 cm\S\2 LVLs ap2 8.1 cm ESV(MOD-sp2) 72.6 ml EF(MOD-sp2) 63.9 % CO(MOD-sp4) 4.3 l/min CI(MOD-sp4) 1.8 l/min/m\S\2 SV(MOD-sp4) 73.4 ml SI(MOD-sp4) 30.9 ml/m\S\2 CO(MOD-sp2) 7.6 l/min CI(MOD-sp2) 3.2 l/min/m\S\2 SV(MOD-sp2) 128.4 ml SI(MOD-sp2) 54.0 ml/m\S\2 Doppler Measurements and Calculations MV E max kelley 190.4 cm/sec MV dec time 0.32 sec Ao V2 max 295.4 cm/sec Ao max PG 34.9 mmHg Ao max PG (full) 32.9 mmHg Ao V2 mean 200.1 cm/sec Ao mean PG 18.4 mmHg Ao V2 VTI 72.6 cm LOLITA(V,A) 0.70 cm\S\2 LOLITA(V,D) 0.70 cm\S\2 LV V1 max PG 2.0 mmHg LV V1 max 71.1 cm/sec MR max kelley 494.7 cm/sec MR max PG 97.9 mmHg PA V2 max 73.7 cm/sec PA max PG 2.2 mmHg TR max kelley 357.5 cm/sec
[2017-04-16 13:02] LABS: CALCIUM 9.1 mg/dl (8.5-10.1)
--- NOTE | 2017-04-16 13:56 | EMERGENCY ROOM VISIT NOTE ---
History First contact with patient: 17:09 Chief Complaint: SHORTNESS OF BREATH Stated Complaint: DYSPNEA ON EXERTION History of Present Illness The patient is a 71 year old male who presents to the Emergency Room with complaints of worsening dyspnea on exertion over the past 3-4 days. The patient states that he had an appointment with his encyclopedia research worker, Dr. Elias, 4 days ago, and was feeling well at the time of the appointment. The patient has an extensive medical history including cardiac pacemaker, diabetes, kidney disease, and spontaneous intracranial hemorrhage. He states that since the time of his appointment he has had difficulty with activities of daily living. He states that when he walks 30 yards to his mailbox he becomes significantly short of breath, and begins to sweat and breathing heavy. He is not reporting distinct chest pain with these events. His symptoms improved with rest. Unfortunately over the past 2 days his symptoms have worsened, and he is unable to walk more than 10 yards without feeling short of breath. This makes it difficult for him to use the bathroom or to care for himself at home. The patient has not had new medication changes. He does not report fever or chills. No coughing. He is not a tobacco user. The patient rates his discomfort at rest a 0/10 and 8/10 when attempting to move. He has not taken anything [id number] for his symptoms. The patient did contact his encyclopedia research worker today by [employer] email, and he was referred to the ER for further management. Review of Systems More than 10 systems were reviewed and otherwise negative with the exception of history of present illness. Past Medical/Surgical History Medical Problems: (1) Benign hypertension (2) Chronic kidney disease stage 2 (3) DIAB ALESSANDRO WO COMPL, TYPE II OR UNSPEC TYPE, NOT UNCNTRLD (4) Dyspnea on exertion (5) Hyperlipidemia (6) Hypersomnia with sleep apnea (7) MITRAL VALVE DISORDER Family History No pertinent family history Social History Smoking Status: Never Smoker Alcohol Use: none Drug Use: none Marital Status: Occupation Status: retired Current/Historical Medications Scheduled Amlodipine (Norvasc), 10 MG PO DAILY Amoxicillin (Amoxil), 2,000 MG PO DIRECTED Aspirin (Aspirin Ec), 81 MG PO DAILY Atorvastatin (Lipitor), 20 MG PO DAILY Chlorthalidone (Chlorthalidone), 25 MG PO DAILY Clonidine Hcl (Catapres), 0.1 MG PO TID Glimepiride (Amaryl), 4 MG PO DAILY Hydralazine HCl (Hydralazine HCl), 25 MG PO BID Lisinopril (Zestril), 40 MG PO QAM Metformin Hcl (Glucophage), 850 MG PO BID Metoprolol Succinate (Metoprolol Succinate ER), 100 MG PO DAILY Metoprolol Succinate (Metoprolol Succinate ER), 50 MG PO DAILY Multiple Vitamins W/ Minerals (Centrum Silver), 1 TAB PO DAILY Nitroglycerin (Nitrostat), 1 TAB SL UD Potassium Ext Rel (Klor-Con), 20 MEQ PO BID Allergies Coded Allergies: No Known Allergies (Unverified , NONE, 06/09/15) Physical Exam Vital Signs Date Time Temp Pulse Resp B/P (MAP) Pulse Ox O2 Delivery O2 Flow Rate FiO2 04/15/17 22:51 36.8 68 20 176/78 92 Room Air 04/15/17 22:18 88 04/15/17 21:53 76 04/15/17 21:07 69 20 186/67 91 Room Air 04/15/17 19:08 68 20 177/88 92 Room Air 04/15/17 18:37 67 18 182/86 94 04/15/17 18:22 96 Room Air 04/15/17 17:53 65 04/15/17 17:39 97 Room Air 04/15/17 17:03 36.7 66 16 172/83 94 Room Air Pain Rating (0-10): 0 Physical Exam VITALS: Vitals are noted on the nurse's note and reviewed by myself. Vital signs as above with hypertension and hypoxia GENERAL: Pleasant elderly appearing male in no acute distress when resting in his emergency Department bed. With ambulation to and from the bathroom the patient comes very short of breath and speaks in few word sentences. HEAD: Normocephalic atraumatic. HEART: Regular rate and rhythm with coarse systolic murmurs throughout LUNGS: Clear to auscultation bilaterally without wheezes, rales or rhonchi. No retractions or accessory muscle use. ABDOMEN: Positive normal bowel sounds x 4. Soft with mild right sided and right upper quadrant tenderness with deep palpation. No CVA tenderness. MUSCULOSKELETAL: 1+ pretibial edema bilateral. Negative Homans sign. NEURO: Patient was alert and oriented to person place and time. CN II through XII grossly intact. Medical Decision & Procedures ER Provider Diagnostic Interpretation: CHEST CTA for PULMONARY ARTERIES CT DOSE: 707.82 mGy.cm HISTORY: Short of breath. Elevated d-dimer. TECHNIQUE: Multiaxial CT images of the chest were performed following the intravenous administration of contrast to evaluate the pulmonary arteries. Maximal intensity projection images were also obtained. COMPARISON STUDY: Chest 04/15/2017. FINDINGS: Normal caliber thoracic aorta. No evidence for dissection within the ascending aorta or aortic arch. Descending thoracic aorta is not well opacified. The heart is mildly enlarged. Small to moderate bilateral pleural effusions. Mitral and aortic valve calcifications. Questionable filling defect within the left atrial appendage is seen on images 166 through 182. However, this could be due to poor opacification. Mild respiratory motion artifact. However, no definite filling defects within the pulmonary arteries to suggest embolus. Slightly nodular contour to the liver consistent with mild cirrhosis. The visualized spleen is unremarkable. Left-sided pacemaker. No hilar lymphadenopathy. A few mildly enlarged. No lymph node. Dominant AP window lymph node measures 2.6 x 1.4 cm. No pneumothorax. The central airways are patent. Diffuse interlobular septal thickening with scattered groundglass opacities. IMPRESSION: 1. No evidence for pulmonary embolus. 2. Interlobular septal thickening, scattered groundglass airspace opacities, small to moderate bilateral pleural effusions, and cardiomegaly. This is consistent with pulmonary edema. 3. A few mildly enlarged mediastinal lymph nodes. This is nonspecific but can also be seen in the setting of long-standing pulmonary edema. 3. Mild hepatic cirrhosis. This could be due to long-standing cardiac congestion. 5. Questionable filling defect within the left atrial appendage which could be due to a nonopacified area. However, follow-up echocardiogram should be performed to exclude an area of thrombus. ABDOMINAL ULTRASOUND, RIGHT UPPER QUADRANT HISTORY: RUQ abd pain. COMPARISON: None. FINDINGS: Pancreas: The pancreatic tail is obscured by overlying bowel gas. The remaining portions of the pancreas are within normal limits. Liver: Nodular contour to the liver consistent with cirrhosis. No hepatic masses. Gallbladder: Borderline thickening of the gallbladder wall measuring 3 mm. There are few small stones within the gallbladder. There is a 6 mm gallbladder polyp. There is a negative sonographic Bhagat's sign. CBD: 2 mm. Right kidney: No hydronephrosis. Miscellaneous: Right pleural effusion. IMPRESSION: 1. Mild cirrhosis. 2. Borderline thickening of the gallbladder wall. There are few small stones within the gallbladder. The technologist reported a negative sonographic Bhagat's sign. 3. Right pleural effusion. CHEST 2 VIEWS ROUTINE HISTORY: Short of breath. COMPARISON: Chest 05/06/2012. FINDINGS: Mild diffuse interstitial thickening and mild cardiomegaly. This is consistent with mild pulmonary edema. Left-sided dual-chamber pacemaker. No pneumothorax. Small bilateral pleural effusions. IMPRESSION: Mild pulmonary edema and small bilateral pleural effusions. Laboratory Results Test 04/15/17 17:45 04/15/17 18:20 04/15/17 18:25 04/15/17 18:51 Prothrombin Time 12.1 SECONDS (9.0-12.0) Prothromb Time International Ratio 1.1 (0.9-1.1) Activated Partial Thromboplast Time 23.3 SECONDS (21.0-31.0) Partial Thromboplastin Ratio 0.9 D-Dimer 540 ug/L FEU (0-500) Venous Blood pH 7.43 (7.36-7.41) Venous Blood Partial Pressure CO2 46 mmHg (38.0-50.0) Venous Blood Partial Pressure O2 23 mmHg Venous Blood HCO3 29 mmol/L Venous Blood Oxygen Saturation < 60.0 % Venous Blood Base Excess 4.3 mmol/L Total Bilirubin 1.7 mg/dl (0.2-1) Aspartate Amino Transf (AST/SGOT) 21 U/L (15-37) Alanine Aminotransferase (ALT/SGPT) 29 U/L (12-78) Alkaline Phosphatase 141 U/L (45-117) Total Protein 8.1 gm/dl (6.4-8.2) Albumin 4.2 gm/dl (3.4-5.0) Globulin 3.9 gm/dl (2.5-4.0) Albumin/Globulin Ratio 1.1 (0.9-2) Thyroid Stimulating Hormone (TSH) 3.620 uIu/ml (0.300-4.500) Bedside Troponin I < 0.030 ng/ml (0-0.045) NY-Ntl-Z-Type Natriuretic Peptide 2446 pg/ml (0-900) Urine Color YELLOW Urine Appearance CLEAR (CLEAR) Urine pH 7.5 (4.5-7.5) Urine Specific [place] 1.010 (1.000-1.030) Urine Protein 1+ (NEG) Urine Glucose (UA) NEG (NEG) Urine Ketones NEG (NEG) Urine Occult Blood NEG (NEG) Urine Nitrite NEG (NEG) Urine Bilirubin NEG (NEG) Urine Urobilinogen NEG (NEG) Urine Leukocyte Esterase NEG (NEG) Urine WBC (Auto) 0 /hpf (0-5) Urine RBC (Auto) 0-4 /hpf (0-4) Urine Hyaline Casts (Auto) 0 /lpf (0-5) Urine Epithelial Cells (Auto) 5-10 /lpf (0-5) Urine Bacteria (Auto) NEG (NEG) Immature Granulocyte % (Auto) 0.2 % White Blood Count 10.57 K/uL (4.8-10.8) Red Blood Count 4.82 M/uL (4.7-6.1) Hemoglobin 14.5 g/dL (14.0-18.0) Hematocrit 41.7 % (42-52) Mean Corpuscular Volume 86.5 fL (80-100) Mean Corpuscular Hemoglobin 30.1 pg (25-34) Mean Corpuscular Hemoglobin Concent 34.8 g/dl (32-36) Platelet Count 270 K/uL (130-400) Mean Platelet Volume 10.4 fL (7.4-10.4) Neutrophils (%) (Auto) 54.3 % Lymphocytes (%) (Auto) 37.5 % Monocytes (%) (Auto) 5.1 % Eosinophils (%) (Auto) 2.5 % Basophils (%) (Auto) 0.4 % Neutrophils # (Auto) 5.75 K/uL (1.4-6.5) Lymphocytes # (Auto) 3.96 K/uL (1.2-3.4) Monocytes # (Auto) 0.54 K/uL (0.11-0.59) Eosinophils # (Auto) 0.26 K/uL (0-0.5) Basophils # (Auto) 0.04 K/uL (0-0.2) Immature Granulocyte # (Auto) 0.02 K/uL (0.00-0.02) Platelet Estimate NORMAL Medications Administered Medications (Trade) Dose Ordered Sig/Jarad Route Start Time Stop Time Status Last Admin Dose Admin Sodium Chloride 500 ml @ 999 mls/hr Q31M STAT IV 04/15/17 18:32 04/15/17 19:02 DC 04/15/17 19:41 999 MLS/HR Potassium Chloride (Kcl 10 Meq / Wtr) 10 meq NOW STAT IV 04/15/17 18:32 04/15/17 18:35 DC 04/15/17 19:41 10 MEQ Furosemide (Lasix Inj) 40 mg NOW STAT IV 04/15/17 21:06 04/15/17 21:07 DC 04/15/17 21:32 40 MG ECG Change: Ventricular-paced rhythm with frequent Premature ventricular complexes @64 bpm Abnormal ECG When compared with ECG of 07-MAY-2012 06:17, Electronic ventricular pacemaker is now present Confirmed by TONY SOTO MD ([id number]) on 04/16/2017 1:37:47 PM ED Course Physical exam and history were performed. Nursing notes and EMR were reviewed. Patient appears to have an extensive medical history with worsening dyspnea on exertion over the past 3 days. At rest the patient appears quite comfortable but he is slightly hypertensive. IV access was established and labs were obtained. Chest x-ray was performed. EKG showed ventricular paced rhythm with PVCs at 64 bpm. The patient was placed on the surveillance monitor. The case was discussed with my attending physician, Dr. Corbett, who also independently evaluated the patient and remain closely involved in patient care and decision making. The patient's blood work is as above and was reviewed. He does not have a significantly elevated white blood cell count, gross anemia, or gross electrolyte imbalance. His potassium is slightly low, and considering that he is with multiple PVCs I did elect to provide him potassium through his IV. The patient's troponin 1 is negative. His BNP and d-dimer are both elevated. Chest x-ray is with some pleural effusion. As the patient did have some tenderness of his abdomen a right upper quadrant ultrasound was performed and does not show evidence of biliary etiology for the patient's symptoms. Because of the patient's chronic kidney disease I did elect to gently hydrate him with 500 MLS normal saline and perform a CT scan of his chest to rule out PE as this was a primary concern by the patient's encyclopedia research worker. CT scan is without evidence of pneumonia or PE, but does show fluid and possible anomaly in the atria that will require echo. The patient continued to feel short of breath with exertion, and on ambulatory pulse ox he very rapidly desaturated to 88% on room air. He does use a C Pap at home but does not wear oxygen on a regular basis. Considering that he has an elevated BNP and dyspnea on exertion, he appears to have issues with acute decompensated congestive heart failure. The patient was given an initial dose of Lasix here in the department. The case was discussed with the on-call [facility] hospitalist, who agreed to evaluate the patient here in the emergency department for further management. Please see their dictation for further patient course, plan, and disposition. The chart was completed utilizing [employer] Voice Recognition Software. Grammatical errors, random word insertions, pronoun errors, and incomplete sentences are an occasional consequence of this system due to software limitations, ambient noise, and hardware issues. Any formal questions or concerns about the content, text, or information contained within the body of this dictation should be directly addressed to the provider for clarification. . Medical Decision Differential diagnosis: Etiologies such as infections, reactive airway disease, pneumonia, pneumothorax , COPD, CHF, cardiac ischemia, pulmonary embolism, musculoskeletal, gastrointestinal, as well as others were entertained. Impression Primary Impression: Dyspnea on exertion Additional Impression: Hypoxia Departure Information Dispostion Admitted as an inpatient Condition FAIR Referrals Delaney Lopez M.D. (PCP) Forms HOME CARE DOCUMENTATION FORM, IMPORTANT VISIT INFORMATION Patient Instructions [facility] Health Problem Qualifiers
[2017-04-17 00:24] VITALS: BP 139/76; PULSE 60; TEMP 36.6; O2SAT 97
[2017-04-17 04:48] VITALS: BP 147/74; PULSE 60; TEMP 36.5; O2SAT 98
[2017-04-17 07:58] VITALS: BP 143/67; PULSE 57; TEMP 36.7; O2SAT 96
[2017-04-17 08:12] LABS: HEMATOCRIT 44.5 % (42-52); MEAN CELL VOLUME 86.6 fL (80-100); MEAN CORPUSCULAR HEMOGLOBIN 29.2 pg (25-34); MEAN CORPUSCULAR HGB CONC 33.7 g/dl (32-36); MEAN PLATELET VOLUME 9.5 fL (7.4-10.4); PLATELET COUNT 290 K/uL (130-400); RED BLOOD COUNT 5.14 M/uL (4.7-6.1); WHITE BLOOD COUNT 8.78 K/uL (4.8-10.8)
[2017-04-17] MEDS: AMLODIPINE BESYLATE 5 MG TAB PO SCH (08:17)
[2017-04-17] MEDS: ATORVASTATIN 20 MG TAB PO SCH (08:17)
[2017-04-17] MEDS: ASPIRIN 81 MG ECTAB PO SCH (08:17)
[2017-04-17] MEDS: POTASSIUM CHLORIDE 20 MEQ TABCR PO SCH (08:18)
[2017-04-17] MEDS: SPIRONOLACTONE 25 MG TAB PO SCH (08:19)
[2017-04-17] MEDS: CLONIDINE HCL 0.1 MG TAB PO SCH (08:19)
[2017-04-17] MEDS: CEROVITE ADV FORMULA TAB PO SCH (08:19)
[2017-04-17] MEDS: METOPROLOL SUCC 50MG EXT REL TAB PO SCH (08:19)
[2017-04-17] MEDS: LISINOPRIL 20 MG TAB PO SCH (08:20)
[2017-04-17] MEDS: INSULIN ASPART 100 UNITS/ML 3 ML PEN SC SCH ×2 (08:21→11:39)
[2017-04-17 08:55] LABS: BUN/CREATININE RATIO 13.4 (10-20); CALCIUM 9.8 mg/dl (8.5-10.1); CREATININE 1.4 mg/dl (0.60-1.40); MAGNESIUM 2.1 mg/dl (1.8-2.4); POTASSIUM 3.6 mmol/L (3.5-5.1)
[2017-04-17] MEDS ORDERED: POTASSIUM CHLORIDE 10 MEQ TABCR PO STA (10:15)
--- NOTE | 2017-04-17 10:25 | Progress Note ---
Internal Med Progress Note Date of Service: Apr 17, 2017. Provider Documentation: SUBJECTIVE: The patient was seen and examined Feels a lot better Diuresing a lot and lost a few pounds Ready to go home OBJECTIVE: Vital Signs-as noted below Exam: General-No distress at rest Eyes-normal ENT-normal Neck-supple Lungs-decreased breath sound bilaterally ,minimal crackles at the bases Heart-Irregular,2/6 ESM AA Abdomen-Benign,no masses,bowel sound present Extremities-Trace edema bilaterally Neuro-AAOx3 Lab data as noted below. ASSESSMENT & PLAN: Acute Decompensated combined heart failure Complicated by Aortic stenosis Presented with Dyspnea on Exertion and weight gain Elevated pro BNP 2446 CXR showed Mild pulmonary edema and small bilateral pleural effusions CTA chest showed No evidence for pulmonary embolus. small to moderate bilateral pleural effusions Questionable filling defect within the left atrial appendage which could be due to a nonopacified area. Received 40mg IV lasix Continue Lasix for now Serial Troponins are not indicative of Acs Cardiology consult -APPRECIATE INPUT 2D echo report 12/2016: Normal LV chamber size with mild concentric LVH. Normal LV systolic function. Calculated LV ejection Fraction = 53% (biplane method of discs). Mild to moderate hypokinesis of the inferior and inferoseptal anderson, otherwise, normal wall motion. The aortic valve has three leaflets. The aortic valve is mildly calcified. Moderate aortic valve stenosis is present. Mild aortic valve regurgitation is present. There is moderate mitral annular calcification. The mitral valve leaflets thickness is moderately increased. Mitral stenosis is absent. Mild mitral regurgitation is present. Mild tricuspid regurgitation. Mild left atrial enlargement. Borderline pulmonary hypertension. The estimated pulmonary artery systolic pressure is 40mm Hg. Supplement potassium QUESTIONABLE FILLING DEFECT WITHIN THE LEFT ATRIAL APPENDAGE SEEN ON CTA CHEST Need to r/o thrombus Await ECHO _No LA clot and is moderate HTN BP elevated continue hydralazine 25mg BID, clonidine 0.1mg TID, amlodipine 10mg metoprolol xl 150mg, lisinopril 40mg, chlorthalidone 25mg PRN IV hydralazine for SBP greater than 170 Seems to be improving Medication has been changed ELEVATED D-DIMER CTA chest showed no evidence for PE Questionable filling defect within the left atrial appendage which could be due to a nonopacified area on CTA chest Not a candidate for 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 due to ICH secondary to amyloid angiopathy ABDOMINAL DISCOMFORT Abd u/s showed mild cirrhosis Clinical improved and or stones No evidence of Acute Cholecystitis DM TYPE 2 Last HBA1C 7.7 on 06/05 Orakl Start on insulin coverage Monitor BS CAD with Aortic Stenosis Denies any chest pain Continue metoprolol, aspirin, and lipitor stable PERMANENT AFIB WIITH SSS S/P PPM Rate is controlled Not on 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 due to ICH/amyloid angiopathy May need to have PPM checked No acute issue DYSLIPIDEMIA Continue Lipitor 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 Stable JT Continue CPAP OBESITY Diet and exercise DVT PX will do SCDs for now due to hx of ICH/amyloid angiopathy CODE STATUS FULL CODE as per patient Discussed with the Daughter in detailed Likely home today Vital Signs: Date Time Temp Pulse Resp B/P (MAP) Pulse Ox O2 Delivery O2 Flow Rate FiO2 04/17/17 08:00 Room Air 04/17/17 07:58 36.7 57 18 143/67 (92) 96 Room Air 04/17/17 04:48 36.5 60 16 147/74 (98) 98 CPAP 04/17/17 04:00 Room Air 04/17/17 00:24 36.6 60 16 139/76 (97) 97 CPAP 04/17/17 00:00 Room Air 04/16/17 20:10 Room Air 04/16/17 19:10 36.7 92 20 156/72 (100) 96 CPAP 04/16/17 16:05 36.4 58 22 139/63 (88) 93 Room Air 04/16/17 16:00 Room Air 04/16/17 12:11 36.6 69 18 151/71 (97) 93 Room Air 04/16/17 12:00 Room Air Lab Results: Results Past 24 Hours Test 04/16/17 11:35 04/16/17 16:12 04/16/17 20:19 04/17/17 07:16 Range/Units Bedside Glucose 213 195 194 201 70-99 mg/dl Test 04/17/17 07:45 Range/Units White Blood Count 8.78 4.8-10.8 K/uL Red Blood Count 5.14 4.7-6.1 M/uL Hemoglobin 15.0 14.0-18.0 g/dL Hematocrit 44.5 42-52 % Mean Corpuscular Volume 86.6 80-100 fL Mean Corpuscular Hemoglobin 29.2 25-34 pg Mean Corpuscular Hemoglobin Concent 33.7 32-36 g/dl RDW Standard Deviation 41.2 36.4-46.3 fL RDW Coefficient of Variation 12.9 11.5-14.5 % Platelet Count 290 130-400 K/uL Mean Platelet Volume 9.5 7.4-10.4 fL Sodium Level 138 136-145 mmol/L Potassium Level 3.6 3.5-5.1 mmol/L Chloride Level 100 98-107 mmol/L Carbon Dioxide Level 30 21-32 mmol/L Anion Gap 8.0 3-11 mmol/L Blood Urea Nitrogen 19 7-18 mg/dl Creatinine 1.40 0.60-1.40 mg/dl Est Creatinine Clear Calc Drug Dose 63.8 ml/min Estimated GFR () 58.6 Estimated GFR (Non- 50.5 BUN/Creatinine Ratio 13.4 10-20 Random Glucose 201 70-99 mg/dl Calcium Level 9.8 8.5-10.1 mg/dl Magnesium Level 2.1 1.8-2.4 mg/dl
--- NOTE | 2017-04-17 11:16 | Cardiology Follow-Up ---
Subjective General Date of Service: Apr 17, 2017. Chief Complaint: Shortness of breath Pt evaluation today including: conversation w/ patient, conversation w/ family , physical exam, chart review, lab review, review of studies, review of inpatient medication list History of Present Illness Patient seen and examined. Multiple family members present at bedside No complaints. Feels back to baseline Slept well, without difficulty overnight. Denies chest pain or palpitations. Telemetry: Chronic atrial fibrillation. Ventricular paced. Occasional PVC's in singles. April 16, 2017 TTE Interpretation Summary ([facility], Dr. Johnson): No significant change compared to previous study of 01/15/17. Normal LV chamber size with mild concentric LVH. Normal LV systolic function, EF 55-60%. Mild hypokinesis of the the inferior and inferolateral anderson. Apical wall motion abnormality may reflect pacemaker activation. The aortic valve is not well visualized. Moderately calcified aortic valve. There is no significant aortic regurgitation. Mild valvular aortic stenosis. Mild left atrial enlargement. Allergies Coded Allergies: No Known Allergies (Unverified , NONE, 06/09/15) Social History Smoking Status: Never Smoker Hx Tobacco Use In Past Year?: No Hx Alcohol Use - Type And Amou: No Hx Substance Use - Type And Am: No Problem List Medical Problems: (1) Hypoxia Status: Acute Physical Exam Vital Signs Last Vital Signs Documentation Date Time Temp Pulse Resp B/P (MAP) Pulse Ox O2 Delivery O2 Flow Rate FiO2 04/17/17 08:00 Room Air 04/17/17 07:58 36.7 57 18 143/67 (92) 96 Physical Exam Psychiatric: Mental Status: active & alert Orientation: to time, to place, to person Memory: recent memory normal, remote memory normal Head: normocephalic, atraumatic Eyes: Pupils: PERRLA Neck: pertinent finding (Normal JVP) Lungs: Respiratory effort: no dyspnea Auscultation: breath sounds normal, no wheezing, no rales/crackles, no rhonchi Cardiovascular: Heart Auscultation: no rubs, III/ JANUARY, irregular rate rhythm Peripheral Pulses: Dorsalis Pedis Pulse: decreased on the left, decreased on the right Abdomen: Bowel Sounds: normal Inspection & Palpation: soft Extremities: no cyanosis, no edema, no clubbing Neurologic: Cranial Nerves: grossly intact Assessment and Plan Assessment and Plan Presentation with acute on chronic dyspnea felt to be due to acute decompensated diastolic congestive heart failure secondary to dietary sodium indirection in the setting of uncontrolled hypertension, longstanding hypertensive heart disease, valvular heart disease (aortic stenosis), chronic atrial fibrillation. RECOMMENDATIONS/PLAN: Discontinue IV furosemide Start oral furosemide, 20 mg/day Spironolactone 25 mg/day added this admission. Chlorthalidone (25 mg/day) discontinued. Clonidine changed/increased to 0.2 mg twice a day this admission. CHF tools discussed. Sodium and fluid restriction reviewed. Continue antiplatelet therapy with caution. He is not a candidate for anticoagulation secondary to his history of intracranial hemorrhage and amyloid angiopathy Close outpatient follow-up. Will arrange for hospital follow-up evaluation early next week. Laboratory Results Last 24 Hours Test 04/16/17 11:35 04/16/17 16:12 04/16/17 20:19 04/17/17 07:16 Bedside Glucose 213 mg/dl 195 mg/dl 194 mg/dl 201 mg/dl Test 04/17/17 07:45 White Blood Count 8.78 K/uL Red Blood Count 5.14 M/uL Hemoglobin 15.0 g/dL Hematocrit 44.5 % Mean Corpuscular Volume 86.6 fL Mean Corpuscular Hemoglobin 29.2 pg Mean Corpuscular Hemoglobin Concent 33.7 g/dl RDW Standard Deviation 41.2 fL RDW Coefficient of Variation 12.9 % Platelet Count 290 K/uL Mean Platelet Volume 9.5 fL Sodium Level 138 mmol/L Potassium Level 3.6 mmol/L Chloride Level 100 mmol/L Carbon Dioxide Level 30 mmol/L Anion Gap 8.0 mmol/L Blood Urea Nitrogen 19 mg/dl Creatinine 1.40 mg/dl Est Creatinine Clear Calc Drug Dose 63.8 ml/min Estimated GFR () 58.6 Estimated GFR (Non- 50.5 BUN/Creatinine Ratio 13.4 Random Glucose 201 mg/dl Calcium Level 9.8 mg/dl Magnesium Level 2.1 mg/dl
[2017-04-17 11:59] VITALS: BP 145/79; PULSE 63; TEMP 36.7; O2SAT 94
[2017-04-17] MEDS ORDERED: FUROSEMIDE 20 MG TAB PO SCH (12:00)
[2017-04-17] MEDS ORDERED: LSX20 PO (13:12)
[2017-04-17] MEDS ORDERED: SPR25 PO (13:12)
--- NOTE | 2017-04-17 13:14 | Discharge Instructions ---
Discharge Instructions Date of Service Apr 17, 2017. Admission Reason for Admission: Dyspnea On Exertion Discharge Discharge Diagnosis / Problem: Acute decompensated Combind Heart Failure Discharge Goals Goal(s): Prevent Disease Progression Activity Recommendations Activity Limitations: resume your previous activity . Instructions / Follow-Up Instructions / Follow-Up Dr Khoi Lopez on 04/25/17 at 11AM,Cardiology will call with appointment Call your Primary Care doctor if any of the following symptoms or problems start or get worse: * Shortness of breath or difficulty breathing * Wake up at night short of breath * Chest pain * Cough * Swelling of your hands, feet, or legs * More fatigued or tired with your normal activity * Palpitations - sudden fast heart beats WEIGHT * Weigh yourself every morning after using the bathroom. * Use the same scale. * Wear the same amount of clothing. * Write your weight down on a chart. * Call your Primary Care doctor if you gain more than 2-3 pounds in 1-2 days. MEDICATIONS * Use this discharge instruction sheet for medication instructions. * Take your medications at the time your doctor ordered. * Do not skip a dose of your medicines. * If you miss a dose of medicine, take it as soon as possible, but DO NOT DOUBLE A DOSE. * Read your medicine information when you get home. * Know all of the side effects of your medicine. If in doubt, ask your pharmacist * Call your Primary Care doctor's office if you have any side effects. * Be sure all of your doctors know what medicine and herbs you take (including cold, flu, and herbal medicine). Take the following with you to your follow-up doctor appointments: * Weight Chart * Medication List * List of questions Do not drink excessive alcohol, beer or wine. Current Hospital Diet Patient's current hospital diet: AHA Diet (Heart Healthy), Diabetes Type 2 Diet , Low Sodium Diet (2gm Na) Discharge Diet Recommended Diet: AHA Diet (Heart Healthy), Low Sodium Diet (2gm Na), Diabetes Type 2 Diet Fluid Restriction: 1500 ml (6 cups) Pending Studies Studies pending at discharge: no Laboratory Results Hemoglobin A1c Test 04/16/17 06:30 Range/Units Estimated Average Glucose 183 mg/dl Hemoglobin A1c 8.0 H 4.5-5.6 % Medical Emergencies . Who to Call and When: Call 911 or go to the Emergency Room if: * If at any time you feel your situation is an emergency * You have tightness or pain in your chest that does not go away with rest or Nitroglycerin * You are very short of breath even with rest . Non-Emergent Contact Non-Emergency issues call your: Primary Care Provider . 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 "Provider Documentation" section prepared by Aime Murphy. . VTE Core Measure Inpt VTE Proph given/why not?: SCD's
[2017-04-17 13:46] VITALS: BP 145/79; PULSE 63; TEMP 36.7; O2SAT 94
--- NOTE | 2017-04-18 07:07 | Discharge Summary ---
Discharge Summary Date of Service Apr 18, 2017. Discharge Summary Admission Date: Apr 15, 2017 at 23:34 Discharge Date: Apr 17, 2017 Discharge Disposition: Home Principal Diagnosis: Acute decompensated Combined Heart Failure Secondary Diagnoses/Problems: Please see H&P and Hospital Progress note Consultations: Cardiology Medication Reconciliation New Medications: Furosemide (Furosemide) 20 Mg Tab 20 MG PO QAM for 30 Days, #30 TAB Spironolactone (Spironolactone) 25 Mg Tab 25 MG PO QAM for 30 Days, #30 TAB Continued Medications: Amlodipine (Norvasc) 10 Mg Tab 10 MG PO DAILY, TAB Amoxicillin (Amoxil) 500 Mg Cap 2000 MG PO DIRECTED, #21 CAP use before dental procedure Aspirin (Aspirin Ec) 81 Mg Tab 81 MG PO DAILY Atorvastatin (Lipitor) 20 Mg Tab 20 MG PO DAILY, TAB Clonidine Hcl (Catapres) 0.1 Mg Tab 0.2 MG PO BID, TAB Glimepiride (Amaryl) 4 Mg Tab 4 MG PO DAILY Hydralazine HCl (Hydralazine HCl) 25 Mg Tab 25 MG PO BID Lisinopril (Zestril) 20 Mg Tab 40 MG PO QAM for 30 Days Metformin Hcl (Glucophage) 850 Mg Tab 850 MG PO BID, TAB Metoprolol Succinate (Metoprolol Succinate ER) 100 Mg Tabcr 100 MG PO DAILY Metoprolol Succinate (Metoprolol Succinate ER) 50 Mg Tabcr 50 MG PO DAILY Multiple Vitamins W/ Minerals (Centrum Silver) 1 Chw Chw 1 TAB PO DAILY Nitroglycerin (Nitrostat) 0.4 Mg Tab 1 TAB SL UD for Chest Pain, #100 TAB 3 Refills Potassium Ext Rel (Klor-Con) 20 Meq Tabcr 20 MEQ PO BID Discontinued Medications: Chlorthalidone (Chlorthalidone) 25 Mg Tab 25 MG PO DAILY Admission Information HPI (per Admitting provider): 71 yo Male with PMH of Type 2 DM, HTN, CAD, CKD stage 3, Dyslipidemia, Cardiac pacemaker in situ, Systolic HF present to the ER with c/o worsening dyspnea on exertion. Pt saw his cardiology Dr. Elias on 04/10, he said at that time he was doing fine. Pt lives alone and cooks his food. Pt said that the next day on Saturday he started to have SOB on exertion. Pt said that SOB got worst over the weekend. Pt said that he cannot even walk to the mailbox without puffing and stopping to catch his breath. Pt said that from to March he got 12 lbs weight gained and he just added another 7 lbs since he saw Dr. Elias on . Pt said that he ate pizza and 4 hot dogs few days ago. Pt said that he was having some abdominal discomfort because his abdomen was distended. Pt said that the abdominal discomfort seems to improve after received the Lasix because he has been going to the bathroom a lot to urinate. Pt denies any chest pain, palpitation, dizziness, fever, chills and urinary symptoms. Past Medical/Surgical History Medical Problems: (1) Benign hypertension Status: Chronic (2) Chronic kidney disease stage 2 Status: Chronic (3) DIAB ALESSANDRO WO COMPL, TYPE II OR UNSPEC TYPE, NOT UNCNTRLD Status: Chronic (4) Hyperlipidemia Status: Chronic (5) Hypersomnia with sleep apnea Status: Chronic (6) MITRAL VALVE DISORDER Status: Chronic Social History Smoking Status: Never Smoker Alcohol Use: none Drug Use: none Marital Status: Housing status: lives alone Occupational Status: retired Immunizations History of Influenza Vaccine: N/A History of Tetanus Vaccine?: utd Tetanus Immunization Date: Oct 03, 2009 History of Pneumococcal: ~2009 History of Hepatitis B Vaccine: No Multi-Drug Resistant Organisms History of MDRO: No Allergies Coded Allergies: No Known Allergies (Unverified , NONE, 06/09/15) Home Medications Scheduled Amlodipine (Norvasc), 10 MG PO DAILY Amoxicillin (Amoxil), 2,000 MG PO DIRECTED Aspirin (Aspirin Ec), 81 MG PO DAILY Atorvastatin (Lipitor), 20 MG PO DAILY Chlorthalidone (Chlorthalidone), 25 MG PO DAILY Clonidine Hcl (Catapres), 0.1 MG PO TID Glimepiride (Amaryl), 4 MG PO DAILY Hydralazine HCl (Hydralazine HCl), 25 MG PO BID Lisinopril (Zestril), 40 MG PO QAM Metformin Hcl (Glucophage), 850 MG PO BID Metoprolol Succinate (Metoprolol Succinate ER), 100 MG PO DAILY Metoprolol Succinate (Metoprolol Succinate ER), 50 MG PO DAILY Multiple Vitamins W/ Minerals (Centrum Silver), 1 TAB PO DAILY Nitroglycerin (Nitrostat), 1 TAB SL UD Potassium Ext Rel (Klor-Con), 20 MEQ PO BID Review of Systems Constitutional: No fever, No chills, No sweats Eyes: No worsening of vision, No eye pain ENT: No nasal symptoms, No sore throat Respiratory: + dyspnea on exertion, No sputum Cardiovascular: No chest pain, No claudication, No palpitations Abdomen: No pain, No nausea, No vomiting Musculoskeletal: No calf pain Genitourinary - Male: No hematuria, No dysuria Neurologic: No memory loss, No vertigo Endocrine: No excessive thirst Hematologic / Lymphatic: No night sweats Integumentary: No rash, No itch Physical Ex - H&P Physical Exam Vital Signs Date Time Temp Pulse Resp B/P (MAP) Pulse Ox O2 Delivery O2 Flow Rate FiO2 04/15/17 22:51 36.8 68 20 176/78 92 Room Air 04/15/17 22:18 88 04/15/17 21:53 76 04/15/17 21:07 69 20 186/67 91 Room Air 04/15/17 19:08 68 20 177/88 92 Room Air 04/15/17 18:37 67 18 182/86 94 04/15/17 18:22 96 Room Air 04/15/17 17:53 65 04/15/17 17:39 97 Room Air 04/15/17 17:03 36.7 66 16 172/83 94 Room Air General Appearance: WD/WN, no apparent distress Head: normocephalic, atraumatic Eyes: PERRL, sclerae normal ENT: hearing grossly normal Neck: supple, no JVD Respiratory/Chest: chest non-tender, no respiratory distress, no accessory muscle use Cardiovascular: no JVD, + systolic murmur Abdomen/GI: normal bowel sounds, + tenderness (mild) Back: no CVA tenderness Extremities/Musculoskelatal: no calf tenderness, + swelling (trace) 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, alert, normal mood/affect, oriented x 3 Skin: warm/dry, no rash Diagnostics - H&P Diagnostics Laboratory Results Results Past 24 Hours Test 04/15/17 17:45 04/15/17 18:20 04/15/17 18:25 04/15/17 18:51 Range/Units Prothrombin Time 12.1 9.0-12.0 SECONDS Prothromb Time International Ratio 1.1 0.9-1.1 Activated Partial Thromboplast Time 23.3 21.0-31.0 SECONDS Partial Thromboplastin Ratio 0.9 D-Dimer 540 0-500 ug/L FEU Venous Blood pH 7.43 7.36-7.41 Venous Blood Partial Pressure CO2 46 38.0-50.0 mmHg Venous Blood Partial Pressure O2 23 mmHg Venous Blood HCO3 29 mmol/L Venous Blood Oxygen Saturation < 60.0 % Venous Blood Base Excess 4.3 mmol/L Sodium Level 136 136-145 mmol/L Potassium Level 3.3 3.5-5.1 mmol/L Chloride Level 101 98-107 mmol/L Carbon Dioxide Level 24 21-32 mmol/L Anion Gap 11.0 3-11 mmol/L Blood Urea Nitrogen 17 7-18 mg/dl Creatinine 1.30 0.60-1.40 mg/dl Est Creatinine Clear Calc Drug Dose 70.1 ml/min Estimated GFR () 64.1 Estimated GFR (Non- 55.3 BUN/Creatinine Ratio 12.9 10-20 Random Glucose 155 70-99 mg/dl Calcium Level 9.6 8.5-10.1 mg/dl Magnesium Level 2.0 1.8-2.4 mg/dl Total Bilirubin 1.7 0.2-1 mg/dl Aspartate Amino Transf (AST/SGOT) 21 15-37 U/L Alanine Aminotransferase (ALT/SGPT) 29 12-78 U/L Alkaline Phosphatase 141 45-117 U/L Total Protein 8.1 6.4-8.2 gm/dl Albumin 4.2 3.4-5.0 gm/dl Globulin 3.9 2.5-4.0 gm/dl Albumin/Globulin Ratio 1.1 0.9-2 Thyroid Stimulating Hormone (TSH) 3.620 0.300-4.500 uIu/ml Bedside Troponin I < 0.030 0-0.045 ng/ml RV-[id number]-H-Type Natriuretic Peptide 2446 0-900 pg/ml Urine Color YELLOW Urine Appearance CLEAR CLEAR Urine pH 7.5 4.5-7.5 Urine Specific [place] 1.010 1.000-1.030 Urine Protein 1+ NEG Urine Glucose (UA) NEG NEG Urine Ketones NEG NEG Urine Occult Blood NEG NEG Urine Nitrite NEG NEG Urine Bilirubin NEG NEG Urine Urobilinogen NEG NEG Urine Leukocyte Esterase NEG NEG Urine WBC (Auto) 0 0-5 /hpf Urine RBC (Auto) 0-4 0-4 /hpf Urine Hyaline Casts (Auto) 0 0-5 /lpf Urine Epithelial Cells (Auto) 5-10 0-5 /lpf Urine Bacteria (Auto) NEG NEG White Blood Count 10.57 4.8-10.8 K/uL Red Blood Count 4.82 4.7-6.1 M/uL Hemoglobin 14.5 14.0-18.0 g/dL Hematocrit 41.7 42-52 % Mean Corpuscular Volume 86.5 80-100 fL Mean Corpuscular Hemoglobin 30.1 25-34 pg Mean Corpuscular Hemoglobin Concent 34.8 32-36 g/dl Platelet Count 270 130-400 K/uL Mean Platelet Volume 10.4 7.4-10.4 fL Neutrophils (%) (Auto) 54.3 % Lymphocytes (%) (Auto) 37.5 % Monocytes (%) (Auto) 5.1 % Eosinophils (%) (Auto) 2.5 % Basophils (%) (Auto) 0.4 % Neutrophils # (Auto) 5.75 1.4-6.5 K/uL Lymphocytes # (Auto) 3.96 1.2-3.4 K/uL Monocytes # (Auto) 0.54 0.11-0.59 K/uL Eosinophils # (Auto) 0.26 0-0.5 K/uL Basophils # (Auto) 0.04 0-0.2 K/uL RDW Standard Deviation 41.4 36.4-46.3 fL RDW Coefficient of Variation 13.1 11.5-14.5 % Immature Granulocyte % (Auto) 0.2 % Immature Granulocyte # (Auto) 0.02 0.00-0.02 K/uL Platelet Estimate NORMAL Diagnostic Radiology CHEST 2 VIEWS ROUTINE HISTORY: Short of breath. COMPARISON: Chest 05/06/2012. FINDINGS: Mild diffuse interstitial thickening and mild cardiomegaly. This is consistent with mild pulmonary edema. Left-sided dual-chamber pacemaker. No pneumothorax. Small bilateral pleural effusions. IMPRESSION: Mild pulmonary edema and small bilateral pleural effusions. Electronically signed by: Iglesia Luu M.D. 04/15/2017 7:42 PM Dictated Date/Time: 04/15/2017 7:41 PM ABDOMINAL ULTRASOUND, RIGHT UPPER QUADRANT HISTORY: RUQ abd pain. COMPARISON: None. FINDINGS: Pancreas: The pancreatic tail is obscured by overlying bowel gas. The remaining portions of the pancreas are within normal limits. Liver: Nodular contour to the liver consistent with cirrhosis. No hepatic masses. Gallbladder: Borderline thickening of the gallbladder wall measuring 3 mm. There are few small stones within the gallbladder. There is a 6 mm gallbladder polyp. There is a negative sonographic Bhagat's sign. CBD: 2 mm. Right kidney: No hydronephrosis. Miscellaneous: Right pleural effusion. IMPRESSION: 1. Mild cirrhosis. 2. Borderline thickening of the gallbladder wall. There are few small stones within the gallbladder. The technologist reported a negative sonographic Bhagat's sign. 3. Right pleural effusion. Electronically signed by: Iglesia Luu M.D. 04/15/2017 10:12 PM Dictated Date/Time: 04/15/2017 10:10 PM CHEST CTA for PULMONARY ARTERIES CT DOSE: 707.82 mGy.cm HISTORY: Short of breath. Elevated d-dimer. TECHNIQUE: Multiaxial CT images of the chest were performed following the intravenous administration of contrast to evaluate the pulmonary arteries. Maximal intensity projection images were also obtained. COMPARISON STUDY: Chest 04/15/2017. FINDINGS: Normal caliber thoracic aorta. No evidence for dissection within the ascending aorta or aortic arch. Descending thoracic aorta is not well opacified. The heart is mildly enlarged. Small to moderate bilateral pleural effusions. Mitral and aortic valve calcifications. Questionable filling defect within the left atrial appendage is seen on images 166 through 182. However, this could be due to poor opacification. Mild respiratory motion artifact. However, no definite filling defects within the pulmonary arteries to suggest embolus. Slightly nodular contour to the liver consistent with mild cirrhosis. The visualized spleen is unremarkable. Left-sided pacemaker. No hilar lymphadenopathy. A few mildly enlarged. No lymph node. Dominant AP window lymph node measures 2.6 x 1.4 cm. No pneumothorax. The central airways are patent. Diffuse interlobular septal thickening with scattered groundglass opacities. IMPRESSION: 1. No evidence for pulmonary embolus. 2. Interlobular septal thickening, scattered groundglass airspace opacities, small to moderate bilateral pleural effusions, and cardiomegaly. This is consistent with pulmonary edema. 3. A few mildly enlarged mediastinal lymph nodes. This is nonspecific but can also be seen in the setting of long-standing pulmonary edema. 3. Mild hepatic cirrhosis. This could be due to long-standing cardiac congestion. 5. Questionable filling defect within the left atrial appendage which could be due to a nonopacified area. However, follow-up echocardiogram should be performed to exclude an area of thrombus. Electronically signed by: Iglesia Luu M.D. 04/15/2017 7:57 PM Dictated Date/Time: 04/15/2017 7:46 PM Impression - H&P Impression Assessment and Plan DYSPNEA ON EXERTION Mostly due to acute decompensated systolic heart failure Elevated pro BNP 2446 CXR showed Mild pulmonary edema and small bilateral pleural effusions CTA chest showed No evidence for pulmonary embolus. small to moderate bilateral pleural effusions Questionable filling defect within the left atrial appendage which could be due to a nonopacified area. Received 40mg IV lasix Continue lasix for now 1st of troponin negative will monitor 2 more sets Cardiology consult monitor I/O 2D echo report 12/2016: Normal LV chamber size with mild concentric LVH. Normal LV systolic function. Calculated LV ejection Fraction = 53% (biplane method of discs). Mild to moderate hypokinesis of the inferior and inferoseptal anderson, otherwise, normal wall motion. The aortic valve has three leaflets. The aortic valve is mildly calcified. Moderate aortic valve stenosis is present. Mild aortic valve regurgitation is present. There is moderate mitral annular calcification. The mitral valve leaflets thickness is moderately increased. Mitral stenosis is absent. Mild mitral regurgitation is present. Mild tricuspid regurgitation. Mild left atrial enlargement. Borderline pulmonary hypertension. The estimated pulmonary artery systolic pressure is 40mm Hg. QUESTIONABLE FILLING DEFECT WITHIN THE LEFT ATRIAL APPENDAGE SEEN ON CTA CHEST Need to r/o thrombus will get an echo HTN BP elevated continue hydralazine 25mg BID, clonidine 0.1mg TID, amlodipine 10mg metoprolol xl 150mg, lisinopril 40mg, chlorthalidone 25mg PRN IV hydralazine for SBP greater than 170 ELEVATED D-DIMER CTA chest showed no evidence for PE Questionable filling defect within the left atrial appendage which could be due to a nonopacified area on CTA chest Not a candidate for 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 due to ICH secondary to amyloid angiopathy ABDOMINAL DISCOMFORT Abd u/s showed mild cirrhosis Clinical improved DM TYPE 2 Last HBA1C 7.7 on 06/05 Hold oral meds Start on insulin coverage Monitor BS CAD Denies any chest pain Continue metoprolol, aspirin, and lipitor stable PERMANENT AFIB Rate is controlled Not on 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 due to ICH/amyloid angiopathy SICK SINUS SYNDROME S/P PPM PLACEMENT Normal function with adequate battery life per most recent interrogation as per cardiology report DYSLIPIDEMIA Continue Lipitor 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 Y/N: Yes Risk Level: Moderate Given or contraindicated: SCD's Additional Copies To Delaney Lopez M.D. 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 small to moderate bilateral pleural effusions Questionable filling defect within the left atrial appendage which could be due to a nonopacified area. Received 40mg IV lasix Continue Lasix for now Serial Troponins are not indicative of Acs Cardiology consult -APPRECIATE INPUT 2D echo report 12/2016: Normal LV chamber size with mild concentric LVH. Normal LV systolic function. Calculated LV ejection Fraction = 53% (biplane method of discs). Mild to moderate hypokinesis of the inferior and inferoseptal anderson, otherwise, normal wall motion. The aortic valve has three leaflets. The aortic valve is mildly calcified. Moderate aortic valve stenosis is present. Mild aortic valve regurgitation is present. There is moderate mitral annular calcification. The mitral valve leaflets thickness is moderately increased. Mitral stenosis is absent. Mild mitral regurgitation is present. Mild tricuspid regurgitation. Mild left atrial enlargement. Borderline pulmonary hypertension. The estimated pulmonary artery systolic pressure is 40mm Hg. Supplement potassium QUESTIONABLE FILLING DEFECT WITHIN THE LEFT ATRIAL APPENDAGE SEEN ON CTA CHEST Need to r/o thrombus Await ECHO _No LA clot and is moderate HTN BP elevated continue hydralazine 25mg BID, clonidine 0.1mg TID, amlodipine 10mg metoprolol xl 150mg, lisinopril 40mg, chlorthalidone 25mg PRN IV hydralazine for SBP greater than 170 Seems to be improving Medication has been changed ELEVATED D-DIMER CTA chest showed no evidence for PE Questionable filling defect within the left atrial appendage which could be due to a nonopacified area on CTA chest Not a candidate for 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 due to ICH secondary to amyloid angiopathy ABDOMINAL DISCOMFORT Abd u/s showed mild cirrhosis Clinical improved and or stones No evidence of Acute Cholecystitis DM TYPE 2 Last HBA1C 7.7 on 06/05 Orakl Start on insulin coverage Monitor BS CAD with Aortic Stenosis Denies any chest pain Continue metoprolol, aspirin, and lipitor stable PERMANENT AFIB WIITH SSS S/P PPM Rate is controlled Not on 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 due to ICH/amyloid angiopathy May need to have PPM checked No acute issue DYSLIPIDEMIA Continue Lipitor 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 Discharge Instructions Date of Service Apr 17, 2017. Admission Reason for Admission: Dyspnea On Exertion Discharge Discharge Diagnosis / Problem: Acute decompensated Combind Heart Failure Discharge Goals Goal(s): Prevent Disease Progression Activity Recommendations Activity Limitations: resume your previous activity . Instructions / Follow-Up Instructions / Follow-Up Dr Khoi Lopez on 04/25/17 at 11AM,Cardiology will call with appointment Call your Primary Care doctor if any of the following symptoms or problems start or get worse: * Shortness of breath or difficulty breathing * Wake up at night short of breath * Chest pain * Cough * Swelling of your hands, feet, or legs * More fatigued or tired with your normal activity * Palpitations - sudden fast heart beats WEIGHT * Weigh yourself every morning after using the bathroom. * Use the same scale. * Wear the same amount of clothing. * Write your weight down on a chart. * Call your Primary Care doctor if you gain more than 2-3 pounds in 1-2 days. MEDICATIONS * Use this discharge instruction sheet for medication instructions. * Take your medications at the time your doctor ordered. * Do not skip a dose of your medicines. * If you miss a dose of medicine, take it as soon as possible, but DO NOT DOUBLE A DOSE. * Read your medicine information when you get home. * Know all of the side effects of your medicine. If in doubt, ask your pharmacist * Call your Primary Care doctor's office if you have any side effects. * Be sure all of your doctors know what medicine and herbs you take (including cold, flu, and herbal medicine). Take the following with you to your follow-up doctor appointments: * Weight Chart * Medication List * List of questions Do not drink excessive alcohol, beer or wine. Current Hospital Diet Patient's current hospital diet: AHA Diet (Heart Healthy), Diabetes Type 2 Diet , Low Sodium Diet (2gm Na) Discharge Diet Recommended Diet: AHA Diet (Heart Healthy), Low Sodium Diet (2gm Na), Diabetes Type 2 Diet Fluid Restriction: 1500 ml (6 cups) Pending Studies Studies pending at discharge: no Laboratory Results Hemoglobin A1c Test 04/16/17 06:30 Range/Units Estimated Average Glucose 183 mg/dl Hemoglobin A1c 8.0 H 4.5-5.6 % Medical Emergencies . Who to Call and When: Call 911 or go to the Emergency Room if: * If at any time you feel your situation is an emergency * You have tightness or pain in your chest that does not go away with rest or Nitroglycerin * You are very short of breath even with rest . Non-Emergent Contact Non-Emergency issues call your: Primary Care Provider . 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 "Provider Documentation" section prepared by Aime Murphy. . VTE Core Measure Inpt VTE Proph given/why not?: SCD's <Electronically signed by Aime Murphy M.D.> Signed: 04/17/17 [id number] Signed: The status of this report is Signed * If report status is Draft, the document has not been finalized by the responsible provider. Additional Copies To Delaney Lopez M.D.
== END 2017-04-17 14:22 | disposition home or self-care (01) | DRG 291 ==
LOC: C.EDB 16:58 → C.2E 23:34 → ENRESERV 23:51
PROVIDERS: ADMIT Internal Medicine; ATTEND Internal Medicine
DX: I13.0 Hypertensive heart and chronic kidney disease with heart failure and stage 1 through stage 4 chronic kidney disease, or unspecified chronic kidney disease (principal); I50.43 Acute on chronic combined systolic (congestive) and diastolic (congestive) heart failure; E85.4 Organ-limited amyloidosis; I68.0 Cerebral amyloid angiopathy; I48.2 Chronic atrial fibrillation; I35.0 Nonrheumatic aortic (valve) stenosis; I25.10 Atherosclerotic heart disease of native coronary artery without angina pectoris; R79.1 Abnormal coagulation profile; K74.60 Unspecified cirrhosis of liver; E11.9 Type 2 diabetes mellitus without complications; N18.3 Chronic kidney disease, stage 3 (moderate); E78.5 Hyperlipidemia, unspecified; G47.33 Obstructive sleep apnea (adult) (pediatric); I25.2 Old myocardial infarction; E66.9 Obesity, unspecified; Z79.899 Other long term (current) drug therapy; Z79.4 Long term (current) use of insulin; Z79.82 Long term (current) use of aspirin; Z95.0 Presence of cardiac pacemaker; Z86.79 Personal history of other diseases of the circulatory system; Z68.33 Body mass index [BMI] 33.0-33.9, adult; Z77.22 Contact with and (suspected) exposure to environmental tobacco smoke (acute) (chronic); Z82.5 Family history of asthma and other chronic lower respiratory diseases; Z80.42 Family history of malignant neoplasm of prostate; Z83.49 Family history of other endocrine, nutritional and metabolic diseases

== ENCOUNTER 2019-10-08 12:35 | Inpatient (IN) ==
[2019-10-08 13:27] LABS: Hematocrit (blood only) 29.5 % (42-52); Mean Corpuscular Hgb Conc 33.9 g/dL (32-36); Mean Corpuscular Volume 88.6 fL (80-100); Mean Platelet Volume 9.7 fL (7.4-10.4); Platelet Count 310 K/uL (130-400); RDW Coefficient of Variation 13.3 % (11.5-14.5); RDW Standard Deviation 42.9 fL (36.4-46.3); Red Blood Count 3.33 M/uL (4.7-6.1); White Blood Count 12.96 K/uL (4.8-10.8)
[2019-10-08] MEDS: XYLOCAINE 1%/SOD BICARB 20 ML VIAL INFIL ONE ×2 (13:34→15:15)
[2019-10-08 13:43] LABS: BUN Creatinine Ratio 10.7 (10-20); Creatinine Clr Calc Pharmacy 35.5 ml/min; Est GFR (Non-African American) 25.8; Potassium 3.6 mmol/L (3.5-5.1)
--- NOTE | 2019-10-08 13:45 | XRay Report ---
XR toe LT min 2V HISTORY: 73 years-old Male trauma eval for fx acute left great toe pain status post trauma COMPARISON: None available TECHNIQUE: 3 views of the left great toe FINDINGS: Acute comminuted intra-articular fracture involves the central and medial base of the first distal ph alanx with several centimeters of fracture separation seen best on the lateral projection. Subtle acu te nondisplaced linear longitudinal fracture involves the medial base of the first proximal phalanx. Moderate multifocal osteoarthritis. Subcortical cystic changes versus erosions involve the first tars al metatarsal joint. IMPRESSION: 1. Acute comminuted intra-articular minimally displaced fracture of the first distal phalanx. 2. Subtle acute nondisplaced fracture involves the medial base of the first proximal phalanx. ACT 112: Negative or not required by law. The above report was generated using voice recognition software. It may contain grammatical, syntax o r spelling errors. Electronically signed by: Herbert Mendoza M.D. 10/08/2019 1:43 PM
[2019-10-08 13:46] LABS: INR 4.4 (0.9-1.1); Partial Thromboplastin Ratio 1.6; Partial Thromboplastin Time 42.8 Seconds (21.0-31.0); Prothrombin Time 40.9 Seconds (9.0-12.0)
[2019-10-08] MEDS ORDERED: CEFAZOLIN 2000MG 2,000 MG/15 ML SYR IV STA (13:49)
[2019-10-08 14:12] LABS: Basophils # (auto) 0.04 K/uL (0-0.2); Basophils % (auto) 0.3 %; Eosinophils # (auto) 0.03 K/uL (0-0.5); Eosinophils % (auto) 0.2 %; Immature Granulocytes # (auto) 0.05 K/uL (0.00-0.02); Immature Granulocytes % (auto) 0.4 %; Lymphocytes # (auto) 5.33 K/uL (1.2-3.4); Lymphocytes % (auto) 41.1 %; Monocytes # (auto) 0.35 K/uL (0.11-0.59); Monocytes % (auto) 2.7 %; Neutrophils # (auto) 7.16 K/uL (1.4-6.5); Neutrophils % (auto) 55.3 %
[2019-10-08] MEDS ORDERED: PHYTONADIONE 5 MG in SODIUM CHLORIDE 0.9% 50 ML IV ONE (14:45)
[2019-10-08] MEDS: SODIUM CHLORIDE 0.9% 1000ML 1,000 ML IV SCH (15:33)
--- NOTE | 2019-10-08 16:09 | History & Physical Report ---
Date of Service October 08, 2019 Assessment & Plan (1) Open fracture of left great toe: This is a 73-year-old male who has significant PMH of IDDM type II, CAD, combined systolic and diastolic CHF, history of aortic valve stenosis status post TAVR, chronic atrial fibrillation anticoagulated on warfarin, history of SSS status post PPM, HTN, HLD, history of CVA, JT on CPAP who presents to ED secondary to, "stubbing my big toe," with laceration. In ED patient's INR was 4.4. He was noted to have significant laceration above left great toe nailbed, with open fracture of left great toe distal phalanx. His WBC 12.96, H&H 10.0 29.5, platelet 310, BUN 26, creatinine 2.41, glucose 269. Toe Xray: IMPRESSION: 1. Acute comminuted intra-articular minimally displaced fracture of the first distal phalanx. 2. Subtle acute nondisplaced fracture involves the medial base of the first proximal phalanx. Compressive dressing was placed to L great toe. He received 5mg IV Vit k, along with IV Ancef. admit to med/surg tele Continue IV antibiotics with IV cefepime for pseudomonal coverage given diabetic Did receive tetanus vaccination 06/2019 at local pharmacy per patient IVF 100 cc/h x 2 L Repeat H&H and INR at [address] Alvarado consulted -likely to OR in a.m. if medically stable N.p.o. after midnight Blood cultures consult cardiology for pre op clearance given co morbidities and new ecg changes (2) Supratherapeutic INR: INR 4.4 Hold warfarin Received 5 mg vitamin K in ED Repeat INR at 8 PM, if greater than 2.0 repeat K as patient likely to have surgical intervention in a.m. if medically cleared (3) BRIAN (acute kidney injury): Baseline creatinine 1.2 Bun/creatinine 26 and 2.41 today Obtain urinalysis and spot protein creatinine ratio Hold nephrotoxic agents including metformin, lisinopril, Lasix Gentle IV hydration 100 cc/h x 2 L, repeat BMP in a.m. (4) Anemia: H&H 10.0/ 29.5 Repeat H&H at 8 PM secondary to blood loss Last H&H 16.1 36.5 07/06/2019 (5) T2DM (type 2 diabetes mellitus): Last A1c 10 Home regimen Lantus 80 units in the morning, metformin 2 g daily Hold metformin given BRIAN Lantus/NovoLog per protocol A1c in the a.m. (6) Chronic atrial fibrillation: Continue Coreg with parameters INR supratherapeutic Hold warfarin Repeat INR at 8 PM and in a.m. ? If patient safe for warfarin, appears to have some underlying cognitive deficits as he does not recall seeing Coumadin clinic yesterday in which his INR was 5.0 and he was educated to hold warfarin until 10/10. He states he took 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: As above (8) CAD (coronary artery disease): History of medically treated inferior wall STEMI, 04/2012 Ischemic cardiomyopathy, last echo 10/2017 revealed EF 45% with combined diastolic and systolic dysfunction, biatrial enlargement and reduced right ventricular systolic function Last cardiac cath 05/2018 revealed nonobstructive CAD On ASA, Coreg, statin, lisinopril as outpatient hold ASA until hemostasis achieved Hold Lisinopril given BRIAN ecg changes as noted below - work up as noted below (9) Abnormal ECG: EKG reveals T wave inversions V3 through V6, leads II, III and aVF Patient denies chest pain, shortness of breath or cardiac symptoms New from prior tracing Obtain troponin every 6x3 Repeat ECG tonight and in a.m. Obtain echocardiogram percent of the morning, prior to surgical intervention of left great toe Possibly in setting of demand ischemia secondary to blood loss and BRIAN (10) Systolic heart failure secondary to coronary artery disease: Currently euvolemic Admit weight 110 kg Given BRIAN hold Lasix, lisinopril Heart healthy, low-sodium diet Daily weights, strict I's and O's Echocardiogram in a.m. (11) JT on CPAP: CPAP at HS (12) Cardiac pacemaker: pacer interrogation (13) DVT prophylaxis: SCD/TEDS to RLE Hold Coumadin given supratherapeutic INR INR at 8 PM Disposition: Admit to MedSurg/telemetry Follow-up: PCP Dr. Lopez upon discharge Patient was seen and examined in collaboration with Dr. Gomez, please see addendum History of Present Illness Chief Complaint: Status post fall with laceration to left great toe. Primary Care Provider: Delaney Lopez MD This is a 73-year-old male who has significant PMH of IDDM type II, CAD, combined systolic and diastolic CHF, history of aortic valve stenosis status post TAVR, chronic atrial fibrillation anticoagulated on warfarin, history of SSS status post PPM, HTN, HLD, history of CVA, JT on CPAP who presents to ED secondary to, "stubbing my big toe," with laceration. Sister is at bedside. Patient states he hit his L great toe on a piece of furniture two days ago. Last evening around 12am he was walking and hit his L great toe on a metal desk. He then got into bath tub to run cold water on it and hit it off the bath tub. This caused significant bleeding. Due to bleeding and unable to stop bleeding he presented to ED. He does complain of mild pain to L great toe, 3/10, lightheadedness. He denies fever, chills, sweats, dizziness, syncope, chest pain, shortness breath, shortness breath at rest, chills, cough, nausea, vomiting, abdominal pain, dysuria, increased urgency (urination, hematuria, melena, hematochezia. "I have broken bones moving toes twice in the past before." "I need to learn to wear shoes around."Last tetanus shot was 06/2019. He denies taking any medication this morning, except his insulin 80 units. Appetite has been normal. He lives alone at home. He currently is on warfarin secondary to chronic atrial fibrillation and stroke prevention. According to patient he thinks he missed his coagulation clinic appointment yesterday. According to [facility] records he was seen and INR was 5.0. He was instructed to continue holding his warfarin until 10/10. However, he states he took 10 mg last evening. Sister is at bedside who elicits that he has been coming increasingly more confused over the past year, "I think it is his old age." In ED patient's INR was 4.4. He was noted to have significant laceration above left great toe nailbed, with open fracture of left great toe distal phalanx. His WBC 12.96, H&H 10.0 29.5, platelet 310, BUN 26, creatinine 2.41, glucose 269. Toe Xray: IMPRESSION: 1. Acute comminuted intra-articular minimally displaced fracture of the first distal phalanx. 2. Subtle acute nondisplaced fracture involves the medial base of the first proximal phalanx. Compressive dressing was placed to L great toe. He received 5mg IV Vit k, along with IV Ancef. Allergies Allergy/AdvReac Type Severity Reaction Status Date / Time No Known Allergies Allergy Unknown NONE Verified 10/08/19 13:24 Home Medications Home Medications Medication Instructions Recorded Confirmed Type amlodipine 10 mg PO DAILY 10/08/19 10/08/19 History aspirin [Aspirin Low Dose] 81 mg PO DAILY 10/08/19 10/08/19 History atorvastatin 40 mg PO DAILY 10/08/19 10/08/19 History carvedilol 3.125 mg PO BID 10/08/19 10/08/19 History furosemide 40 mg PO DAILY 10/08/19 10/08/19 History insulin glargine [Lantus Solostar 0 unit SUBCUT DAILY 10/08/19 10/08/19 History U-100 Insulin] lisinopril 40 mg PO DAILY 10/08/19 10/08/19 History metformin 2,000 mg PO UD 10/08/19 10/08/19 History warfarin 0 mg PO UD 10/08/19 10/08/19 History Past Med/Surg History Medical History Aortic valve stenosis (Chronic) s/p TAVR Gregory esophagus (Chronic) CAD (coronary artery disease) (Chronic) Cardiac pacemaker (Chronic) Chronic atrial fibrillation CKD (chronic kidney disease), stage III (Chronic) Gastritis (Chronic) Hiatal hernia (Chronic) History of sick sinus syndrome s/p PPM HLD (hyperlipidemia) Intracerebral hemorrhage (Resolved) 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 of 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 JT on CPAP Systolic heart failure secondary to coronary artery disease (Chronic) T2DM (type 2 diabetes mellitus) Surgical History History of fracture of right ankle s/p ORIF History of orthopedic surgery (Chronic) "repair of fracture right ankle" History of throat surgery (Chronic) Hx of aortic valve replacement TAVR 2018 S/P placement of cardiac pacemaker (Chronic) Family History Father Coronary heart disease Stroke Brother Prostate cancer Social History Preferred Language: Wallisian Communication Ability: Effective Beliefs That Will Affect Care: None Current Living Situation: Alone Other Information That Helps Us Care for You: No Feels Safe at Home: Yes Safety Concerns: Feels Safe At This Time Smoking Status: Never smoker Hx Alcohol Use: No Hx Substance Use: No Review of Systems Review of Systems: All systems reviewed & are unremarkable except as noted in HPI & below Physical Exam Physical Exam: Constitutional: WD/WN, Morbidly obese, M, vitals as above, NAD, sitting up in bed, pleasant, conversing easily Head: Normocephalic, Atraumatic Eyes: PERRL, conjunctivae normal, anicteric sclerae ENMT: external ear and nose normal, oropharynx normal Neck: trachea midline, no thyromegaly normal visual inspection Respiratory: normal respiratory effort, lungs clear to auscultation, no wheeze, rales, rhonchi. Normal insp/exp effort, no accessory muscle use Cardiovascular: IRR/IRR, no murmur, no edema Vessels: no JVD or carotid bruit Chest: normal inspection of chest Abdomen: protuberant abd, +BS x 4, firm, nontender, no hepatosplenomegaly Musculoskeletal: no cyanosis or clubbing, extremities motor strength 5/5 except LLE not tested, L Great toe laceration to superior aspect of nail bed, open fx, significant serosanginous drainage, poor toe hygiene b/l Skin: no rashes, warm and dry normal turgor Neurologic: PERRL, EOMI, accommodation nl, no face palsy, no dysarthria CN's II-XI intact bilaterally and moves all extremities Psychiatric: A+Ox3, however, pt did repeat himself multiple times euthymic affect Lymphatic: no cervical or axillary lymphadenopathy : deferred Results & Data Vital Signs (Past 12 Hours) Vital Signs Temp Pulse Pulse Resp BP BP Pulse Ox 10/08/19 15:33 79 18 112/69 99 10/08/19 15:25 88 20 98/50 L 100 10/08/19 15:09 76 20 98/50 L 100 10/08/19 14:01 84 20 102/45 L 95 10/08/19 12:46 36.4 C L 87 18 106/61 100 Laboratory Results Short CBC 10/08/19 10/08/19 Range/Units 13:18 13:18 WBC 12.96 H (4.8-10.8) K/uL Hgb 10.0 L (14.0-18.0) g/dL Hct 29.5 L (42-52) % Plt Count 310 (130-400) K/uL Creatinine 2.41 H (0.6-1.4) mg/dl [facility] 10/08/19 13:18 Sodium 137 Potassium 3.6 Chloride 101 Carbon Dioxide 24 BUN 26 H Creatinine 2.41 H Glucose 269 H Calcium 9.0 Diagnostic Findings Toe Xray: IMPRESSION: 1. Acute comminuted intra-articular minimally displaced fracture of the first distal phalanx. 2. Subtle acute nondisplaced fracture involves the medial base of the first proximal phalanx. Medications Administered Sodium Chloride (Nss 1000ml) 1,000 mls @ 100 mls/hr IV .Q10H NEISHA Stop: 10/09/19 11:29 Last Admin: 10/08/19 15:33 Dose: 100 mls/hr Documented by: [id number] Discontinued Medications Cefazolin Sodium (Ancef 2000mg) 2,000 mg in 15 mls @ 3.75 mls/min IV NOW STA Stop: 10/08/19 13:52 Last Admin: 10/08/19 14:00 Dose: 3.75 mls/min Documented by: [id number] Phytonadione 5 mg/ Sodium (Chloride) 50.5 mls @ 101 mls/hr IV ONE ONE Stop: 10/08/19 15:14 Last Infusion: 10/08/19 15:46 Dose: 0 mls/hr Documented by: [id number] Admin: 10/08/19 15:10 Dose: 101 mls/hr Documented by: [id number] Lidocaine HCl (Buffered Lidocaine 1%) 20 ml INFIL NOW ONE Stop: 10/08/19 13:05 Last Admin: 10/08/19 15:15 Dose: Not Given Documented by: [id number] ECG Rate (beats per minute): 77 Rhythm: atrial fibrillation Findings: + nonspecific-ST abn Additional Comments: T wave depressions anterolaterally Code Status & VTE Plan Code Status Full Code VTE Prophylaxis Plan VTE Prophylaxis will be ordered: Yes Reason for no VTE drug order: Contraindicated Supervising Physician Co-Signing Physician Notes Pt was seen and examined. Agreed with Yessenia AVALOS exam, assessment and plan. 73-year-old male who has significant PMH of IDDM type II, CAD, combined systolic and diastolic CHF, history of aortic valve stenosis status post TAVR, chronic atrial fibrillation anticoagulated on warfarin, history of SSS status post PPM, HTN, HLD, history of CVA, JT on CPAP who presents to ED with toe laceration. Patient states he hit his L great toe on a piece of metal desk two days ago. Then last night he said that he hit the L great toe again. He said that he was bleeding a lot. Left toe xray showed acute comminuted intra-articular minimally displaced fracture of the first distal phalanx and subtle acute nondisplaced fracture involves the medial base of the first proximal phalanx. INR on admission 4.4 and hgb 10. Received vit K 5 mg IV. Received Ancef IV in the ER. Will continue cefepime IV for now. Orthopedic consult for eval of the acute nondisplaced fracture of the first proximal phalanx. EKG on admission showed T wave inversions in multiple lead. Will check troponin. Echo in am. Will monitor H/H and INR. Will make NPO after midnight in case if pt will require any surgical procedure. Continue monitor closely. MD Patricia (1) Anemia Anemia type: unspecified type Qualified Code(s): D64.9 - Anemia, unspecified (2) Open fracture of left great toe Encounter type: initial encounter Fracture alignment: displaced Phalanx: distal Qualified Code(s): S92.422B - Displaced fracture of distal phalanx of left great toe, initial encounter for open fracture
[2019-10-08] MEDS ORDERED: GLUCOSE 10 TABS/TUBE PO PRN (16:48)
[2019-10-08] MEDS ORDERED: DEXTROSE 50% 50 ML SYRINGE IV PRN (16:48)
[2019-10-08] MEDS ORDERED: POLYETHYLENE (MIRALAX) 17 GM PACK PO PRN (16:48)
[2019-10-08] MEDS ORDERED: ONDANSETRON INJ 2 MG/ML 2 ML VIAL IV PRN (16:48)
[2019-10-08] MEDS ORDERED: GLUCAGON FOR INJ 1 MG VIAL SQ PRN (16:48)
[2019-10-08] MEDS ORDERED: GLUCOSE 40% GEL 15 GM TUBE PO PRN (16:48)
[2019-10-08] MEDS ORDERED: CEFEPIME CONSULT ACTIVE PRN (16:48)
[2019-10-08] MEDS ORDERED: ACETAMINOPHEN 325 MG TAB PO PRN (16:48)
[2019-10-08] MEDS ORDERED: CARBOHYDRATES FOR HYPOGLYCEMIA PO PRN (16:48)
--- NOTE | 2019-10-08 17:10 | Emergency Department Note ---
Entered by Rambo Lopez acting as a scribe for Jose Voss MD History of Present Illness General Chief complaint: Foot Injury/Pain Time Seen by Provider: 10/08/19 12:55 Source: patient Limitations: no limitations History of Present Illness Onset (ago): hour(s) 2 Location: left (toe) Pain Consistency: + constant Quality: + constant (bleeding) Relieved By: not by cold therapy and not by other (direct pressure) Associated symptoms: + denies other symptoms (black or bloody stools) The patient is a 73 year old male who presents to the Emergency Room with complaints of constant bleeding from his left toe starting two days ago. The patient states two nights ago he was getting up out of bed and hit his toe against a metal object. He notes he developed a small cut at that time. He has had persistent intermittent bleeding from the toe. He states yesterday he was cleaning his toe in the bathtub when he slipped and fell. He notes his toe opened up more after he slipped and he hit his toe pretty hard. He states he ran cold water under his toe which did not help. He states he held direct pressure to the toe for a long time which did not help. He states he had a TAVR on Dece2017 and was put on Coumadin. He later admits that he was on Coumadin prior to this. He states he had a pacemaker installed in 2007. He notes his tetanus shot is UTD. The patient denies having headaches and black or bloody stools. He does bruise easily. Home Medications Home Medications Medication Instructions Recorded Confirmed Type amlodipine 10 mg PO DAILY 10/08/19 10/08/19 History aspirin [Aspirin Low Dose] 81 mg PO DAILY 10/08/19 10/08/19 History atorvastatin 40 mg PO DAILY 10/08/19 10/08/19 History carvedilol 3.125 mg PO BID 10/08/19 10/08/19 History furosemide 40 mg PO DAILY 10/08/19 10/08/19 History insulin glargine [Lantus Solostar 0 unit SUBCUT DAILY 10/08/19 10/08/19 History U-100 Insulin] lisinopril 40 mg PO DAILY 10/08/19 10/08/19 History metformin 2,000 mg PO UD 10/08/19 10/08/19 History warfarin 0 mg PO UD 10/08/19 10/08/19 History Allergies Allergy/AdvReac Type Severity Reaction Status Date / Time No Known Allergies Allergy Unknown NONE Verified 10/08/19 13:24 Past Med/Surg History Medical History Aortic valve stenosis (Chronic) s/p TAVR Gregory esophagus (Chronic) CAD (coronary artery disease) (Chronic) Cardiac pacemaker (Chronic) Chronic atrial fibrillation CKD (chronic kidney disease), stage III (Chronic) Gastritis (Chronic) Hiatal hernia (Chronic) History of sick sinus syndrome s/p PPM HLD (hyperlipidemia) Intracerebral hemorrhage (Resolved) 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 JT on CPAP Systolic heart failure secondary to coronary artery disease (Chronic) T2DM (type 2 diabetes mellitus) Surgical History History of fracture of right ankle s/p ORIF History of orthopedic surgery (Chronic) "repair of fracture right ankle" History of throat surgery (Chronic) Hx of aortic valve replacement TAVR 2018 S/P placement of cardiac pacemaker (Chronic) Family History Father Coronary heart disease Stroke Brother Prostate cancer Social History Preferred Language: Greenlandic Communication Ability: Effective Beliefs That Will Affect Care: None Current Living Situation: Alone Other Information That Helps Us Care for You: No Feels Safe at Home: Yes Safety Concerns: Feels Safe At This Time Smoking Status: Never smoker Hx Alcohol Use: No Hx Substance Use: No Review of Systems See HPI for pertinent positives & negatives. and A total of 10 systems reviewed and were otherwise negative Physical Exam Vital Signs Vital Signs - 24 hr 10/08/19 12:46 10/08/19 14:01 10/08/19 15:09 Temperature 36.4 C L Temperature Source Oral Pulse Rate 87 Pulse Rate [Right Finger] 84 76 Respiratory Rate 18 20 20 Respiratory Effort / Characteristics Non-Labored Non-Labored Non-Labored Spontaneous Respiratory Depth Normal Normal Normal Respiratory Pattern Regular Blood Pressure 106/61 Blood Pressure [Right Arm] 102/45 L 98/50 L Blood Pressure Mean 76 Blood Pressure Mean [Right Arm] 64 66 Blood Pressure Position [Right Arm] Lying Pulse Oximetry 100 95 100 Oxygen Delivery Method Room Air Room Air Room Air Sepsis Recent Fever Within 48 Hours No Sepsis Action Taken by Nursing No Action Required 10/08/19 15:25 10/08/19 15:33 Temperature Temperature Source Pulse Rate Pulse Rate [Right Finger] 88 79 Respiratory Rate 20 18 Respiratory Effort / Characteristics Non-Labored Spontaneous Non-Labored Spontaneous Respiratory Depth Normal Normal Respiratory Pattern Blood Pressure Blood Pressure [Right Arm] 98/50 L 112/69 Blood Pressure Mean Blood Pressure Mean [Right Arm] 66 83 Blood Pressure Position [Right Arm] Lying Lying Pulse Oximetry 100 99 Oxygen Delivery Method Room Air Room Air Sepsis Recent Fever Within 48 Hours Sepsis Action Taken by Nursing Constitutional: Vital signs reviewed. Eyes: Pupils are equal round reactive to light. Conjunctiva are noninjected. ENT: Pharynx is clear without erythema or exudate. Mucous membranes are moist. Neck supple without meningeal signs. Respiratory: Clear to auscultation bilaterally. Breath sounds are equal bilaterally. Cardiovascular: Regular rate and rhythm. No rubs or gallops. GI: Soft, nondistended and nontender. Bowel sounds are present. Musculoskeletal: Left toe with 3 laceration across the dorsum of the toe just proximal to the nail bed, with active bleeding. Integumentary: No cyanosis. Scattered bruising to the extremities. Neurological: The patient is awake and alert. No focal deficits. Psychiatric: Normal affect. Course Course 1258: The patient was evaluated in room C8, and a complete history and physical examination were performed. [id number]: I reevaluated the patient. He states he takes 10 mg of Coumadin everyday. I obtained blood work from [facility] [employer]. The patient had an INR of 5 yesterday. Creatinine from June was 1.2. Hemoglobin in June was 16. The patient sees [facility] for a right leg injury. 1408: I reevaluated the patient. I discussed the test results with the patient. 1416: I spoke with the pharmacist who states the patient takes 10 mg of Coumadin on Wednesdays and 5 mg every other day. When I asked the patient if that is what he takes he stated that is what he takes. The patient states he is sure he did not take any more Coumadin than what he is supposed to. He is on anticoagulation medication for a history of PE and STACI thrombus in 2017. 1422: The patient is bleeding through her bandage, so I reapplied the bandage and applied pressure. 1441: I spoke with Dr. Pippa Thakkar. She recommends giving the patient 5 mg Vitamin K IV. 1454: I spoke with Yessenia Oseguera PA-C. Dr. Gomez will further manage the care of the patient. 1552: I re-paged Dr. Christiano Oseguera Orthopedic Surgery. José Carlos, Orthopedic surgery ROBBIE, has been down to see the patient. 1557: I spoke with José Carlos. He states he would not take the patient to the OR today, but it is possible he takes the patient to the OR tomorrow. 1609: I spoke with Yessenia Cummings about my conversation with José Carlos. Administered Medications Sodium Chloride (Nss 1000ml) 1,000 mls @ 100 mls/hr IV .Q10H NEISHA Stop: 10/09/19 11:29 Last Admin: 10/08/19 15:33 Dose: 100 mls/hr Documented by: [id number] Discontinued Medications Cefazolin Sodium (Ancef 2000mg) 2,000 mg in 15 mls @ 3.75 mls/min IV NOW STA Stop: 10/08/19 13:52 Last Admin: 10/08/19 14:00 Dose: 3.75 mls/min Documented by: [id number] Phytonadione 5 mg/ Sodium (Chloride) 50.5 mls @ 101 mls/hr IV ONE ONE Stop: 10/08/19 15:14 Last Infusion: 10/08/19 15:46 Dose: 0 mls/hr Documented by: [id number] Admin: 10/08/19 15:10 Dose: 101 mls/hr Documented by: [id number] Lidocaine HCl (Buffered Lidocaine 1%) 20 ml INFIL NOW ONE Stop: 10/08/19 13:05 Last Admin: 10/08/19 15:15 Dose: Not Given Documented by: [id number] Critical Care Time Critical Care Time: Yes Total Critical Care Time: 35 I have personally spent approximately 35 minutes of critical care time in the direct management of this patient. This includes bedside care, interpretation of diagnostic studies, and testing, discussion with consultants, patient, and family members, and other required patient management activities. This 35 minutes is in excess of all separately billable procedures. Medical Decision Making Differential Diagnosis Differential Diagnosis includes but is not limited to open fracture, toe laceration, nail avulsion, supratherapeutic INR, and anemia. Medical Records Attestation: I reviewed the patient's medical records. I did perform a limited focused review of portions of the patient's old chart on the electronic medical record. The patient has had no recent pertinent visits to this hospital. Home Medications Current Medication List: was personally reviewed by me Laboratory Data Attestation: I reviewed the patient's lab results. Result diagrams: 10/08/19 13:18 10/08/19 13:18 Lab Results 10/08/19 10/08/19 10/08/19 Range/Units 13:18 13:18 13:18 WBC 12.96 H (4.8-10.8) K/uL RBC 3.33 L (4.7-6.1) M/uL Hgb 10.0 L (14.0-18.0) g/dL Hct 29.5 L (42-52) % MCV 88.6 (80-100) fL MCH 30.0 (25-34) pg MCHC 33.9 (32-36) g/dL RDW Std Deviation 42.9 (36.4-46.3) fL RDW Coeff of Solis 13.3 (11.5-14.5) % Plt Count 310 (130-400) K/uL MPV 9.7 (7.4-10.4) fL Immature Gran % (Auto) 0.4 % Neut % (Auto) 55.3 % Lymph % (Auto) 41.1 % Swift % (Auto) 2.7 % Eos % (Auto) 0.2 % Baso % (Auto) 0.3 % Immature Gran # (Auto) 0.05 H (0.00-0.02) K/uL Neut # (Auto) 7.16 H (1.4-6.5) K/uL Lymph # (Auto) 5.33 H (1.2-3.4) K/uL Swift # (Auto) 0.35 (0.11-0.59) K/uL Eos # (Auto) 0.03 (0-0.5) K/uL Baso # (Auto) 0.04 (0-0.2) K/uL PT 40.9 H (9.0-12.0) Seconds INR 4.4 H (0.9-1.1) APTT 42.8 H (21.0-31.0) Seconds PTT Ratio 1.6 Sodium 137 (136-145) mmol/L Potassium 3.6 (3.5-5.1) mmol/L Chloride 101 (98-107) mmol/L Carbon Dioxide 24 (21-32) mmol/L Anion Gap 11.0 (3-11) BUN 26 H (7-18) mg/dl Creatinine 2.41 H (0.6-1.4) mg/dl Est Cr Clr Drug Dosing 35.5 ml/min Est GFR ( Amer) 30.0 Est GFR (Non-Af Amer) 25.8 BUN/Creatinine Ratio 10.7 (10-20) Glucose 269 H (70-99) mg/dl Calcium 9.0 (8.5-10.1) mg/dl Imaging Data Radiologist's Impression: Radiology results as stated below per my review and the radiologist's interpretation: XR toe LT min 2V HISTORY: 73 years-old Male trauma eval for fx acute left great toe pain status post trauma COMPARISON: None available TECHNIQUE: 3 views of the left great toe FINDINGS: Acute comminuted intra-articular fracture involves the central and medial base of the first distal phalanx with several centimeters of fracture separation seen best on the lateral projection. Subtle acute nondisplaced linear longitudinal fracture involves the medial base of the first proximal phalanx. Moderate multifocal osteoarthritis. Subcortical cystic changes versus erosions involve the first tarsal metatarsal joint. IMPRESSION: 1. Acute comminuted intra-articular minimally displaced fracture of the first distal phalanx. 2. Subtle acute nondisplaced fracture involves the medial base of the first proximal phalanx. ACT 112: Negative or not required by law. The above report was generated using voice recognition software. It may contain grammatical, syntax or spelling errors. Electronically signed by: Herbert Mendoza M.D. 10/08/2019 1:43 PM Blood Pressure Blood Pressure Findings: Normal blood pressure Blood Pressure Disposition: further management by hospitalist RELL Ontiveros I did evaluate the patient as noted above. The patient is presenting with bleeding from a toe injury which originally occurred over 48 hours ago. He was washing it earlier today and reinjured it causing a greater laceration and likely fracture. He is on Coumadin and has not been able to control the bleeding. I was concerned about an open fracture. I did place a pressure bandage over it. His tetanus is up-to-date. He does state that he has lost a lot of blood since he injured his toe but denies being lightheaded or short of breath. IV access was established.I did order and personally reviewed the images of the patient's toe x-ray as described above. He has a comminuted int ra-articular fracture of the distal phalanx and a nondisplaced fracture of the proximal phalanx. I did treat the patient with Ancef IV. I did order and review the patient's blood work as noted in the electronic medical record. He is anemic with a hemoglobin of 10. His last hemoglobin in the [employer] system was 16.4 in June of this year. I am concerned this drop in hemoglobin is at least in part due to acute blood loss. He does remain hemodynamically stable. He also has acute kidney injury with an elevated creatinine of 2.4. His last creatinine was 1.2 in June of this year. He also has an INR of 4.4. According to the [employer] system it was 5 yesterday. He originally told me he took 10 mg of Coumadin daily. Review of the [employer] system shows that he takes 10 mg of Coumadin on Wednesdays and 5 mg every other day. He also stated that he had been placed on Coumadin for aortic valve replacement but he had a TAVR. I reviewed the old chart again and apparently he had a PE last year as well as a left atrial appendage thrombus for which she was placed on Coumadin. I did discuss the case with Dr. Das who recommended 5 mg of vitamin K IV. I did treat the patient with vitamin K IV. I did make several attempts to call orthopedics but was unsuccessful. I therefore discussed case with the hospitalist. They did evaluate the patient in the emergency department and hospitalized him. I did later get a hold of orthopedics who stated that they would likely take him to the OR tomorrow. I did reassess the patient multiple times. Hemostasis was achieved with pressure bandage. I did discuss the orthopedic recommendations with the hospitalist service and the patient. Impression & Plan Open fracture, Open fracture of left great toe, Supratherapeutic INR, Anemia, BRIAN (acute kidney injury) Discharge Plan Visit Data *Final* Discharge Date/Time: 10/08/19 16:19 Chief Complaint: Foot Injury/Pain ED Provider: Jose Voss Discharge Problem: Open fracture, Open fracture of left great toe, Supratherapeutic INR, Anemia, BRIAN (acute kidney injury) Patient Disposition: Admitted As Inpatient Discharge Instructions Interventions: ED Discharge Assessment Last Done: 10/08/19 16:19 Discharge Problem: Open fracture of left great toe Qualifiers: Encounter type: initial encounter Phalanx: distal Fracture alignment: displaced Qualified Code(s): S92.422B - Displaced fracture of distal phalanx of left great toe, initial encounter for open fracture Anemia Qualifiers: Anemia type: unspecified type Qualified Code(s): D64.9 - Anemia, unspecified The scribe's documentation has been prepared under my direction and personally reviewed by me in its entirety. I confirm that the note above accurately reflects all work, treatment, procedures, and medical decision making performed by me.
[2019-10-08] MEDS: INSULIN ASPART 100 UNITS/ML 3 ML PEN SC SCH ×2 (17:31→21:42)
[2019-10-08] MEDS: CEFEPIME 1,000 MG in SYRINGE 0 ML IV SCH (17:41)
[2019-10-08 20:20] LABS: Hemoglobin 8.6 g/dL (14.0-18.0)
[2019-10-08 20:30] LABS: Prothrombin Time 19.9 Seconds (9.0-12.0)
[2019-10-08] MEDS: INSULIN GLARGINE SOLOSTAR 100 UNITS/ML 3 ML PEN SC SCH (21:42)
[2019-10-08] MEDS: carvediloL 3.125 MG TAB PO SCH (21:43)
[2019-10-08] MEDS ORDERED: SODIUM CHLORIDE 0.9% 250 ML IV PRN (21:44)
[2019-10-08] MEDS ORDERED: PHYTONADIONE 2.5 MG in SODIUM CHLORIDE 0.9% 50 ML IV ONE (21:45)
[2019-10-08 21:55] LABS: Protein Creatinine Ratio Urine 0.3 (0-0.2); Total Protein Urine Random 70.4 mg/dl (0-11.9)
[2019-10-08 22:00] LABS: Appearance Urine Clear (Clear); Bacteria Urine Automated Negative (Negative); Bilirubin Urine Negative (Negative); Blood Urine Negative (Negative); Color Urine Dark Yellow; Glucose Urine UA 1+ (Negative); Ketones Urine Trace (Negative); Leukocyte Esterase Urine Negative (Negative); Nitrite Urine Negative (Negative); Protein Urine 2+ (Negative); RBC Urine Automated 0-4 /hpf (0-4); Urobilinogen Urine Negative (Negative)
[2019-10-08 22:19] LABS: Calcium Oxalate Crystals Urine Present (None Prsent); Cast Urine Automated 0 /lpf (0-5)
[2019-10-09] MEDS: SODIUM CHLORIDE 0.9% 1000ML 1,000 ML IV SCH (02:34)
[2019-10-09 05:05] LABS: Hematocrit (blood only) 25.2 % (42-52); Hemoglobin 8.8 g/dL (14.0-18.0); Mean Corpuscular Hgb Conc 34.9 g/dL (32-36); Mean Corpuscular Volume 88.7 fL (80-100); Mean Platelet Volume 9.3 fL (7.4-10.4); Platelet Count 228 K/uL (130-400); RDW Coefficient of Variation 13.3 % (11.5-14.5); RDW Standard Deviation 43.2 fL (36.4-46.3); Red Blood Count 2.84 M/uL (4.7-6.1); White Blood Count 15.14 K/uL (4.8-10.8)
[2019-10-09] MEDS: CEFEPIME 1,000 MG in SYRINGE 0 ML IV SCH ×2 (05:11→17:55)
[2019-10-09 05:14] LABS: INR 1.5 (0.9-1.1); Prothrombin Time 14.9 Seconds (9.0-12.0)
[2019-10-09 05:22] LABS: Albumin Level 2.8 gm/dl (3.4-5.0); BUN Creatinine Ratio 14.5 (10-20); Calcium 8.1 mg/dl (8.5-10.1); Creatinine Clr Calc Pharmacy 38.9 ml/min; Est GFR (African American) 32.9; Est GFR (Non-African American) 28.4; Potassium 3.4 mmol/L (3.5-5.1)
[2019-10-09 05:33] LABS: Albumin Globulin Ratio 0.9 (0.9-2); Bilirubin,Total 1.3 mg/dl (0.2-1); Globulin 3.1 gm/dl (2.5-4.0); Total Protein 5.9 gm/dl (6.4-8.2); Troponin I 0.056 ng/ml (0-0.045)
[2019-10-09 05:54] LABS: Basophils # (auto) 0.05 K/uL (0-0.2); Basophils % (auto) 0.3 %; Eosinophils # (auto) 0.37 K/uL (0-0.5); Eosinophils % (auto) 2.4 %; Immature Granulocytes # (auto) 0.04 K/uL (0.00-0.02); Immature Granulocytes % (auto) 0.3 %; Lymphocytes # (auto) 7.81 K/uL (1.2-3.4); Lymphocytes % (auto) 51.6 %; Monocytes # (auto) 0.82 K/uL (0.11-0.59); Monocytes % (auto) 5.4 %; Neutrophils # (auto) 6.05 K/uL (1.4-6.5)
[2019-10-09 06:39] LABS: Estimated Average Glucose 186 mg/dl; Hemoglobin A1C 8.1 % (4.5-5.6)
[2019-10-09] MEDS: INSULIN ASPART 100 UNITS/ML 3 ML PEN SC SCH ×4 (08:35→20:39)
[2019-10-09] MEDS: carvediloL 3.125 MG TAB PO SCH ×2 (08:39→20:37)
[2019-10-09] MEDS: AMLODIPINE BESYLATE 5 MG TAB PO SCH (08:39)
[2019-10-09] MEDS: ATORVASTATIN 40 MG TAB PO SCH (08:40)
[2019-10-09] MEDS: INSULIN GLARGINE SOLOSTAR 100 UNITS/ML 3 ML PEN SC SCH ×2 (08:41→20:40)
--- NOTE | 2019-10-09 08:46 | Cardiology Consultation ---
Date of Consultation October 09, 2019 Assessment & Plan (1) Preop cardiovascular exam: Currently Mr. Guerrero is without active cardiac complaint but he does have a longstanding history of coronary artery disease, mild ischemic cardiomyopathy, sick sinus syndrome status post permanent pacemaker placement, aortic stenosis status post Terrie TAVR, severe obstructive sleep apnea and chronic atrial fibrillation. Given the above the patient was counseled that I placed him as a moderate risk f or any adverse perioperative cardiovascular event with his wrist being approximately less than 5%. He was further counseled that no further cardiac testing or intervention would further lower that risk. He states he understands, he is accepting of the risk and wishes to proceed with the surgery. No need to delay from a cardiac standpoint. Obviously his Coumadin will be held for now. Otherwise, would continue his outpatient medical regimen specifically his beta-blockade to help reduce the risk of perioperative adverse events. (2) Abnormal ECG: Currently he is in a ventricularly paced rhythm Echocardiogram with unchanged wall motion I do not believe this represents any active cardiac pathology (3) Chronic atrial fibrillation: Rate controlled and asymptomatic. Obviously his Coumadin will be held for now Mr. Guerrero is questioning if he may be a candidate for an alternative 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 due to the significant bruising that he is occurring with Coumadin. We will consider initiation of direct oral 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 once his postoperative bleeding risk is acceptable (4) Aortic valve stenosis: Stable Functioning well by echocardiogram (5) CAD (coronary artery disease): Stable (6) Ischemic cardiomyopathy: Stable History of Present Illness Attending Physician: Roxane Ricks, DO History of Present Illness It was my pleasure to see Mr. Guerrero in consultation today October 09, 2019. He is a very pleasant 73-year-old gentleman who follows very closely with Dr. Castro and Jose Manuel Triplett of our cardiology practice. He presented to [facility] on 10/08/2019 with complaints of left foot pain. Patient states he got up in the middle the night to use the restroom and he hit his foot on the bedpost. He does have neuropathy at baseline and was not in any significant discomfort but he did have significant bleeding. He went to the bathroom tended to his foot and then try to go back to sleep upon awakening there is a significant mental blood and he came into the emergency department. Cardiac campoverde he states he feels fine. He has no complaints of chest pain, shortness of breath, palpitations, lightheadedness, dizziness or syncope. Unfortunately his INR was supratherapeutic. There is a tentative plan for surgical repair of his toe and cardiology was consulted for preop risk assessment. Again, he states he is been feeling well lately without any cardiac complaints. Past medical hx per Jose Manuel Triplett's note of 09/07/19: 1. Longstanding hypertension, hypertensive heart disease 2. Medically treated inferior wall STEMI, 04/2012 3. Ischemic cardiomyopathy with follow-up echocardiograms revealing normalization of systolic function 4. June 12, 2018 cardiac catheterization with diffuse minor irregularities, non-obstructive coronary artery disease. The left circumflex was noted to arise from the left sinus of valsalva and has a separate ostium. 5. Post catheterization patient hospitalized with renal dysfunction and diabetic issues, pulmonary embolism as well as a left atrial appendage thrombus. He was referred to Neurology and was evaluated by Dr. Nguyen who felt that there were no contraindications to anticoagulation despite is history of intracranial hemorrhage and the history of cerebral amyloid angiopathy. 6. Chronic atrial fibrillation. Coumadin anticoagulation managed by the [facility] anticoagulation clinic (see above) 7. Sick sinus syndrome s/p PPM placement 8. Aortic stenosis status post October 07, 2018 transcatheter aortic valve replacement with a 26 mm Robbins Terrie S3 valve 9. Dyslipidemia 10. Obesity 11. JT, CPAP since 1998. 12. Type II diabetes mellitus with proteinuria, stage III chronic kidney disease Allergies Allergy/AdvReac Type Severity Reaction Status Date / Time No Known Allergies Allergy Unknown NONE Verified 10/08/19 13:24 Home Medications Home Medications Medication Instructions Recorded Confirmed Type amlodipine 10 mg PO DAILY 10/08/19 10/08/19 History aspirin [Aspirin Low Dose] 81 mg PO DAILY 10/08/19 10/08/19 History atorvastatin 40 mg PO DAILY 10/08/19 10/08/19 History carvedilol 3.125 mg PO BID 10/08/19 10/08/19 History furosemide 40 mg PO DAILY 10/08/19 10/08/19 History insulin glargine [Lantus Solostar 0 unit SUBCUT DAILY 10/08/19 10/08/19 History U-100 Insulin] lisinopril 40 mg PO DAILY 10/08/19 10/08/19 History metformin 2,000 mg PO UD 10/08/19 10/08/19 History warfarin 0 mg PO UD 10/08/19 10/08/19 History Patient History Medical History Aortic valve stenosis (Chronic) s/p TAVR Gregory esophagus (Chronic) CAD (coronary artery disease) (Chronic) Cardiac pacemaker (Chronic) Chronic atrial fibrillation CKD (chronic kidney disease), stage III (Chronic) Gastritis (Chronic) Hiatal hernia (Chronic) History of sick sinus syndrome s/p PPM HLD (hyperlipidemia) Intracerebral hemorrhage (Resolved) group home current use of 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 TJ on CPAP Systolic heart failure secondary to coronary artery disease (Chronic) T2DM (type 2 diabetes mellitus) Surgical History History of fracture of right ankle s/p ORIF History of orthopedic surgery (Chronic) "repair of fracture right ankle" History of throat surgery (Chronic) Hx of aortic valve replacement TAVR 2018 S/P placement of cardiac pacemaker (Chronic) Family History Father Coronary heart disease Stroke Brother Prostate cancer Social History Preferred Language: Lithuanian Communication Ability: Effective Beliefs That Will Affect Care: None Current Living Situation: Alone Other Information That Helps Us Care for You: No Feels Safe at Home: Yes Safety Concerns: Feels Safe At This Time Smoking Status: Never smoker Hx Alcohol Use: No Hx Substance Use: No Review of Systems Review of Systems: All systems reviewed & are unremarkable except as noted in HPI & below Physical Exam Physical Exam: General: Awake, alert and oriented x 3. No acute distress. HEENT: Normocephalic, atraumatic. Pupils equal, round and reactive to light and accommodation. Extraocular muscles are intact. Anicteric sclera. Moist mucous membranes. Neck: No JVD. No bruit. Cardiovascular: irregularly irregular, unable to appreciate murmur, rub or gallop. Pulmonary: Clear to auscultation bilaterally. No rales, rhonchi, or wheezing. Abdomen: Bowel sounds x 4, soft. No rebound, guarding or tenderness. No organomegaly. Extremities: No clubbing, cyanosis or edema. +2 pedal pulses bilaterally. Skin: Warm and dry. Results & Data Vital Signs (Past 12 Hours) Vital Signs Temp Pulse Pulse Resp BP BP Pulse Ox 10/09/19 07:46 65 10/09/19 07:44 36.8 C 82 18 122/63 97 10/09/19 03:30 76 14 96 10/09/19 03:06 36.6 C 64 16 115/69 98 10/09/19 02:25 36.6 C 63 16 113/70 98 10/09/19 01:57 63 14 107/66 96 10/09/19 01:27 36.5 C 78 14 161/75 H 98 10/09/19 01:12 80 16 119/70 98 10/09/19 00:57 36.5 C 70 16 123/69 98 10/09/19 00:42 36.5 C 72 16 125/69 10/09/19 00:32 36.6 C 72 16 128/75 98 10/09/19 00:00 72 10/08/19 23:01 36.5 C 72 16 121/61 98 10/08/19 22:03 86 16 98 Laboratory Results Current Inpatient Medications Acetaminophen (Tylenol) 650 mg PO Q4H PRN PRN Reason: Pain or Fever Stop: 11/07/19 16:47 Amlodipine Besylate (Norvasc) 10 mg PO DAILY [facility] Stop: 11/08/19 08:59 Last Admin: 10/09/19 08:39 Dose: 10 mg Documented by: Atorvastatin Calcium (Lipitor) 40 mg PO DAILY [facility] Stop: 11/08/19 08:59 Last Admin: 10/09/19 08:40 Dose: 40 mg Documented by: Carvedilol (Coreg) 3.125 mg PO BID [facility] Stop: 11/07/19 20:59 Last Admin: 10/09/19 08:39 Dose: 3.125 mg Documented by: Dextrose (Dextrose 50%) 25 - 50 ml IV UD PRN; Protocol PRN Reason: Hypoglycemia Protocol Stop: 11/07/19 16:47 Glucagon (Glucagen) 1 mg SQ UD PRN; Protocol PRN Reason: Hypoglycemia Protocol Stop: 11/07/19 16:47 Glucose (Dex4 Glucose) 4 - 8 tabs PO UD PRN; Protocol PRN Reason: Hypoglycemia Protocol Stop: 11/07/19 16:47 Glucose (Glucose 40%) 15 - 30 gm PO UD PRN; Protocol PRN Reason: Hypoglycemia Protocol Stop: 11/07/19 16:47 Sodium Chloride (Nss 1000ml) 1,000 mls @ 100 mls/hr IV .Q10H [facility] Stop: 10/09/19 11:29 Last Admin: 10/09/19 02:34 Dose: 100 mls/hr Documented by: Cefepime HCl 1,000 mg/ Syringe 11.3 mls @ 5.5 mls/min IV Q12H [facility]; Protocol Stop: 10/18/19 17:59 Last Admin: 10/09/19 05:11 Dose: 5.5 mls/min Documented by: Insulin Aspart (Novolog Flexpen) 0 units SC ACHS [facility] Stop: 11/07/19 16:59 Last Admin: 10/09/19 08:35 Dose: 8 units Documented by: Insulin Glargine (Lantus Solostar Pen) 0 - 30 units SC BID [facility] Stop: 11/07/19 20:59 Last Admin: 10/09/19 08:41 Dose: 15 units Documented by: Miscellaneous (Carbohydrates For Hypoglycemia) 15 - 30 gm PO UD PRN PRN Reason: Hypoglycemia Protocol Stop: 11/07/19 16:47 Miscellaneous Information (Cefepime Consult Active) 1 ea N/A UD PRN PRN Reason: Consult Stop: 11/07/19 16:47 Ondansetron HCl (Zofran) 4 mg IV Q6H PRN PRN Reason: Nausea Stop: 11/07/19 16:47 Polyethylene Glycol (Miralax Powder Packet) 17 gm PO DAILY PRN PRN Reason: Constipation Stop: 11/07/19 16:47 Medications Administered Laboratory Results - last 24 hr 10/08/19 10/08/19 10/08/19 13:18 13:18 13:18 WBC 12.96 H RBC 3.33 L Hgb 10.0 L Hct 29.5 L MCV 88.6 MCH 30.0 MCHC 33.9 RDW Std Deviation 42.9 RDW Coeff of Solis 13.3 Plt Count 310 MPV 9.7 Immature Gran % (Auto) 0.4 Neut % (Auto) 55.3 Lymph % (Auto) 41.1 [place] % (Auto) 2.7 Eos % (Auto) 0.2 Baso % (Auto) 0.3 Immature Gran # (Auto) 0.05 H Neut # (Auto) 7.16 H Lymph # (Auto) 5.33 H [place] # (Auto) 0.35 Eos # (Auto) 0.03 Baso # (Auto) 0.04 Blood Smear Review PT 40.9 H INR 4.4 H APTT 42.8 H PTT Ratio 1.6 Sodium 137 Potassium 3.6 Chloride 101 Carbon Dioxide 24 Anion Gap 11.0 BUN 26 H Creatinine 2.41 H Est Cr Clr Drug Dosing 35.5 Est GFR ( Amer) 30.0 Est GFR (Non-Af Amer) 25.8 BUN/Creatinine Ratio 10.7 Glucose 269 H POC Glucose Estimat Average Glucose Hemoglobin A1c Calcium 9.0 Total Bilirubin AST ALT Alkaline Phosphatase Troponin I Total Protein Albumin Globulin Albumin/Globulin Ratio Urine Color Urine Appearance Urine pH Ur Specific [place] Urine Protein Urine Glucose (UA) Urine Ketones Urine Blood Urine Nitrite Urine Bilirubin Urine Urobilinogen Ur Leukocyte Esterase Urine WBC (Auto) Urine RBC (Auto) U Hyaline Cast (Auto) U Epithel Cells (Auto) Urine Bacteria (Auto) Urine Crystals Calcium Oxalate Crystal Ur Random Creatinine U Random Total Protein Protein/Creatinin Ratio ZAP70 Flow Cytometry Comment Blood Type Blood Type Recheck Antibody Screen Crossmatch 10/08/19 10/08/19 10/08/19 17:03 17:23 19:59 WBC RBC Hgb 8.6 L Hct 25.0 L MCV MCH MCHC RDW Std Deviation RDW Coeff of Solis Plt Count MPV Immature Gran % (Auto) Neut % (Auto) Lymph % (Auto) [place] % (Auto) Eos % (Auto) Baso % (Auto) Immature Gran # (Auto) Neut # (Auto) Lymph # (Auto) [place] # (Auto) Eos # (Auto) Baso # (Auto) Blood Smear Review PT INR APTT PTT Ratio Sodium Potassium Chloride Carbon Dioxide Anion Gap BUN Creatinine Est Cr Clr Drug Dosing Est GFR ( Amer) Est GFR (Non-Af Amer) BUN/Creatinine Ratio Glucose POC Glucose 299 H Estimat Average Glucose Hemoglobin A1c Calcium Total Bilirubin AST ALT Alkaline Phosphatase Troponin I 0.030 Total Protein Albumin Globulin Albumin/Globulin Ratio Urine Color Urine Appearance Urine pH Ur Specific [place] Urine Protein Urine Glucose (UA) Urine Ketones Urine Blood Urine Nitrite Urine Bilirubin Urine Urobilinogen Ur Leukocyte Esterase Urine WBC (Auto) Urine RBC (Auto) U Hyaline Cast (Auto) U Epithel Cells (Auto) Urine Bacteria (Auto) Urine Crystals Calcium Oxalate Crystal Ur Random Creatinine U Random Total Protein Protein/Creatinin Ratio ZAP70 Flow Cytometry Comment Blood Type Blood Type Recheck Antibody Screen Crossmatch 10/08/19 10/08/19 10/08/19 19:59 21:10 21:10 WBC RBC Hgb Hct MCV MCH MCHC RDW Std Deviation RDW Coeff of Slois Plt Count MPV Immature Gran % (Auto) Neut % (Auto) Lymph % (Auto) [place] % (Auto) Eos % (Auto) Baso % (Auto) Immature Gran # (Auto) Neut # (Auto) Lymph # (Auto) [place] # (Auto) Eos # (Auto) Baso # (Auto) Blood Smear Review PT 19.9 H INR 2.0 H APTT PTT Ratio Sodium Potassium Chloride Carbon Dioxide Anion Gap BUN Creatinine Est Cr Clr Drug Dosing Est GFR ( Amer) Est GFR (Non-Af Amer) BUN/Creatinine Ratio Glucose POC Glucose Estimat Average Glucose Hemoglobin A1c Calcium Total Bilirubin AST ALT Alkaline Phosphatase Troponin I Total Protein Albumin Globulin Albumin/Globulin Ratio Urine Color Dark Yellow Urine Appearance Clear Urine pH 5.0 Ur Specific [place] 1.020 Urine Protein 2+ H Urine Glucose (UA) 1+ H Urine Ketones Trace H Urine Blood Negative Urine Nitrite Negative Urine Bilirubin Negative Urine Urobilinogen Negative Ur Leukocyte Esterase Negative Urine WBC (Auto) 1-5 Urine RBC (Auto) 0-4 U Hyaline Cast (Auto) 0 U Epithel Cells (Auto) 10-20 H Urine Bacteria (Auto) Negative Urine Crystals Calcium Oxalate A Calcium Oxalate Crystal Present A Ur Random Creatinine 217.0 U Random Total Protein 70.4 H Protein/Creatinin Ratio 0.3 H ZAP70 Flow Cytometry Comment Blood Type Blood Type Recheck Antibody Screen Crossmatch 10/08/19 10/08/19 10/08/19 21:24 22:27 22:27 WBC RBC Hgb Hct MCV MCH MCHC RDW Std Deviation RDW Coeff of Solis Plt Count MPV Immature Gran % (Auto) Neut % (Auto) Lymph % (Auto) [place] % (Auto) Eos % (Auto) Baso % (Auto) Immature Gran # (Auto) Neut # (Auto) Lymph # (Auto) [place] # (Auto) Eos # (Auto) Baso # (Auto) Blood Smear Review PT INR APTT PTT Ratio Sodium Potassium Chloride Carbon Dioxide Anion Gap BUN Creatinine Est Cr Clr Drug Dosing Est GFR ( Amer) Est GFR (Non-Af Amer) BUN/Creatinine Ratio Glucose POC Glucose 240 H Estimat Average Glucose Hemoglobin A1c Calcium Total Bilirubin AST ALT Alkaline Phosphatase Troponin I 0.050 H* Total Protein Albumin Globulin Albumin/Globulin Ratio Urine Color Urine Appearance Urine pH Ur Specific [place] Urine Protein Urine Glucose (UA) Urine Ketones Urine Blood Urine Nitrite Urine Bilirubin Urine Urobilinogen Ur Leukocyte Esterase Urine WBC (Auto) Urine RBC (Auto) U Hyaline Cast (Auto) U Epithel Cells (Auto) Urine Bacteria (Auto) Urine Crystals Calcium Oxalate Crystal Ur Random Creatinine U Random Total Protein Protein/Creatinin Ratio ZAP70 Flow Cytometry Comment Blood Type A Positive Blood Type Recheck Antibody Screen NEGATIVE Crossmatch See Detail 10/08/19 10/09/19 10/09/19 23:12 04:53 04:53 WBC 15.14 H RBC 2.84 L Hgb 8.8 L Hct 25.2 L MCV 88.7 MCH 31.0 MCHC 34.9 RDW Std Deviation 43.2 RDW Coeff of Solis 13.3 Plt Count 228 MPV 9.3 Immature Gran % (Auto) 0.3 Neut % (Auto) 40.0 Lymph % (Auto) 51.6 [place] % (Auto) 5.4 Eos % (Auto) 2.4 Baso % (Auto) 0.3 Immature Gran # (Auto) 0.04 H Neut # (Auto) 6.05 Lymph # (Auto) 7.81 H [place] # (Auto) 0.82 H Eos # (Auto) 0.37 Baso # (Auto) 0.05 Blood Smear Review Pending PT 14.9 H INR 1.5 H APTT PTT Ratio Sodium Potassium Chloride Carbon Dioxide Anion Gap BUN Creatinine Est Cr Clr Drug Dosing Est GFR ( Amer) Est GFR (Non-Af Amer) BUN/Creatinine Ratio Glucose POC Glucose Estimat Average Glucose Hemoglobin A1c Calcium Total Bilirubin AST ALT Alkaline Phosphatase Troponin I Total Protein Albumin Globulin Albumin/Globulin Ratio Urine Color Urine Appearance Urine pH Ur Specific [place] Urine Protein Urine Glucose (UA) Urine Ketones Urine Blood Urine Nitrite Urine Bilirubin Urine Urobilinogen Ur Leukocyte Esterase Urine WBC (Auto) Urine RBC (Auto) U Hyaline Cast (Auto) U Epithel Cells (Auto) Urine Bacteria (Auto) Urine Crystals Calcium Oxalate Crystal Ur Random Creatinine U Random Total Protein Protein/Creatinin Ratio ZAP70 Flow Cytometry Comment Blood Type Blood Type Recheck A Positive Antibody Screen Crossmatch 10/09/19 10/09/19 10/09/19 04:53 04:53 04:53 WBC RBC Hgb Hct MCV MCH MCHC RDW Std Deviation RDW Coeff of Solis Plt Count MPV Immature Gran % (Auto) Neut % (Auto) Lymph % (Auto) [place] % (Auto) Eos % (Auto) Baso % (Auto) Immature Gran # (Auto) Neut # (Auto) Lymph # (Auto) [place] # (Auto) Eos # (Auto) Baso # (Auto) Blood Smear Review PT INR APTT PTT Ratio Sodium 138 Potassium 3.4 L Chloride 106 Carbon Dioxide 30 Anion Gap 2.0 L BUN 32 H Creatinine 2.23 H Est Cr Clr Drug Dosing 38.9 Est GFR ( Amer) 32.9 Est GFR (Non-Af Amer) 28.4 BUN/Creatinine Ratio 14.5 Glucose 128 H POC Glucose Estimat Average Glucose 186 Hemoglobin A1c 8.1 H Calcium 8.1 L Total Bilirubin 1.3 H AST 34 ALT 28 Alkaline Phosphatase 94 Troponin I 0.056 H* Total Protein 5.9 L Albumin 2.8 L Globulin 3.1 Albumin/Globulin Ratio 0.9 Urine Color Urine Appearance Urine pH Ur Specific [place] Urine Protein Urine Glucose (UA) Urine Ketones Urine Blood Urine Nitrite Urine Bilirubin Urine Urobilinogen Ur Leukocyte Esterase Urine WBC (Auto) Urine RBC (Auto) U Hyaline Cast (Auto) U Epithel Cells (Auto) Urine Bacteria (Auto) Urine Crystals Calcium Oxalate Crystal Ur Random Creatinine U Random Total Protein Protein/Creatinin Ratio ZAP70 Pending Flow Cytometry Comment Pending Blood Type Blood Type Recheck Antibody Screen Crossmatch
--- NOTE | 2019-10-09 08:52 | Orthopedic Consultation ---
Date of Consultation October 09, 2019 Assessment & Plan (1) Open fracture of left great toe: Patient's INR has been brought down to 1.5. Plans will be to irrigate and debride the lacerations with closure and either plan for ORIF versus question of need of distal phalanx amputation of the great toe. I will discuss the case today with Dr. Alvarado who is here to make further plans. Patient did eat his breakfast this morning and will have to wait approximately 8 hours most likely to do any surgery today. We will discuss it with anesthesia. If not today then we will plan for the OR tomorrow. Thank you for this consult. History of Present Illness Reason for Consultation: Left open comminuted distal first phalanx fracture Attending Physician: Roxane Ricks, History of Present Illness Patient is a 73-year-old white male who came to the emergency room last night after stubbing his toe on the corner of a desk at his home. The patient states that he was ambulating he did stub his toe and noticed some bleeding. He went into his bathroom and put the foot into the bathtub. He noticed a fair amount of bleeding from the great toe mostly secondary to him being on Coumadin. He states that his toenail was dangling off of the toe and he pulled it off. He noticed that there was some deformity to the toe and a laceration and felt he should be seen. He came into the emergency room and was seen by the staff. X- rays were taken and was found to have a first distal phalanx comminuted fracture that was likely open with also a laceration between the first and second toes. They were able to get the bleeding under control and put a compression dressing over the toe itself. Vitamin K was given. INR at the time was 4.4. This morning is 1.5. Currently, the patient is not having much in the way of pain. 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 We have been asked to see him for his great toe fracture/laceration. Allergies Allergy/AdvReac Type Severity Reaction Status Date / Time No Known Allergies Allergy Unknown NONE Verified 10/08/19 13:24 Home Medications Home Medications Medication Instructions Recorded Confirmed Type amlodipine 10 mg PO DAILY 10/08/19 10/08/19 History aspirin [Aspirin Low Dose] 81 mg PO DAILY 10/08/19 10/08/19 History atorvastatin 40 mg PO DAILY 10/08/19 10/08/19 History carvedilol 3.125 mg PO BID 10/08/19 10/08/19 History furosemide 40 mg PO DAILY 10/08/19 10/08/19 History insulin glargine [Lantus Solostar 0 unit SUBCUT DAILY 10/08/19 10/08/19 History U-100 Insulin] lisinopril 40 mg PO DAILY 10/08/19 10/08/19 History metformin 2,000 mg PO UD 10/08/19 10/08/19 History warfarin 0 mg PO UD 10/08/19 10/08/19 History Patient History Medical History Aortic valve stenosis (Chronic) s/p TAVR Gregory esophagus (Chronic) CAD (coronary artery disease) (Chronic) Cardiac pacemaker (Chronic) Chronic atrial fibrillation CKD (chronic kidney disease), stage III (Chronic) Gastritis (Chronic) Hiatal hernia (Chronic) History of sick sinus syndrome s/p PPM HLD (hyperlipidemia) Intracerebral hemorrhage (Resolved) 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 JT on CPAP Systolic heart failure secondary to coronary artery disease (Chronic) T2DM (type 2 diabetes mellitus) Surgical History History of fracture of right ankle s/p ORIF History of orthopedic surgery (Chronic) "repair of fracture right ankle" History of throat surgery (Chronic) Hx of aortic valve replacement TAVR 2018 S/P placement of cardiac pacemaker (Chronic) Family History Father Coronary heart disease Stroke Brother Prostate cancer Social History Preferred Language: German Communication Ability: Effective Beliefs That Will Affect Care: None Current Living Situation: Alone Other Information That Helps Us Care for You: No Feels Safe at Home: Yes Safety Concerns: Feels Safe At This Time Smoking Status: Never smoker Hx Alcohol Use: No Hx Substance Use: No Physical Exam Physical Exam: On examination, the toe is wrapped in gauze, Kerlix and Coban. This was all removed fairly easily. There is no active bleeding noted at this time. He has some moderate ecchymosis of the great toe that goes back to the first MP joint. He has a laceration that starts laterally at the base of the nailbed and crosses over to the medial aspect. He also has a approximately 2 cm laceration in the webspace of the first and second toes. He has decreased sensation noted at this time which she states is normal for him. Slightly manipulating the great toe does not cause him any discomfort. Capillary refill is less than 2 seconds. Results & Data Vital Signs (Past 12 Hours) Vital Signs Temp Pulse Pulse Resp BP BP Pulse Ox 10/09/19 07:46 65 10/09/19 07:44 36.8 C 82 18 122/63 97 10/09/19 03:30 76 14 96 10/09/19 03:06 36.6 C 64 16 115/69 98 10/09/19 02:25 36.6 C 63 16 113/70 98 10/09/19 01:57 63 14 107/66 96 10/09/19 01:27 36.5 C 78 14 161/75 H 98 10/09/19 01:12 80 16 119/70 98 10/09/19 00:57 36.5 C 70 16 123/69 98 10/09/19 00:42 36.5 C 72 16 125/69 10/09/19 00:32 36.6 C 72 16 128/75 98 10/09/19 00:00 72 10/08/19 23:01 36.5 C 72 16 121/61 98 10/08/19 22:03 86 16 98 Diagnostic Findings atient: NAINA ROSE AAdmit Date: 10/08/19 MR#: [id number]: [address] Acct ID:[id number]: Date: 1945[facility] Zip: [place] [address] Age: 73Location: ED Sex: M Room/Bed: Att Phy:Diagnosis: LT FOOT INJURY Bessy Phy: Delaney Lopez, MDService Date: 10/08/19 Fam Phy:Interpreting Phy: Merlin Mendoza Admit Phy: Ordering Phy: Jose Voss MD cc: ~ XR toe LT min 2V HISTORY: 73 years-old Male trauma eval for fx acute left great toe pain status post trauma COMPARISON: None available TECHNIQUE: 3 views of the left great toe FINDINGS: Acute comminuted intra-articular fracture involves the central and medial base of the first distal phalanx with several centimeters of fracture separation seen best on the lateral projection. Subtle acute nondisplaced linear longitudinal fracture involves the medial base of the first proximal phalanx. Moderate multifocal osteoarthritis. Subcortical cystic changes versus erosions involve the first tarsal metatarsal joint. IMPRESSION: 1. Acute comminuted intra-articular minimally displaced fracture of the first distal phalanx. 2. Subtle acute nondisplaced fracture involves the medial base of the first proximal phalanx. ACT 112: Negative or not required by law. The above report was generated using voice recognition software. It may contain grammatical, syntax or spelling errors. Electronically signed by: Herbert Mendoza M.D. 10/08/2019 1:43 PM (1) Open fracture of left great toe Encounter type: initial encounter Fracture alignment: displaced Phalanx: distal Qualified Code(s): S92.422B - Displaced fracture of distal phalanx of left great toe, initial encounter for open fracture
--- NOTE | 2019-10-09 16:29 | Hospitalist Progress Note ---
Date of Service October 09, 2019 Assessment & Plan (1) Open fracture of left great toe: Fracture 2/2 trauma. Ortho consulted and plans to take him to OR. NPO now. Cont pain control efforts as needed. Currently not in much pain. (2) Acute blood loss anemia: No need for blood transfusion. Cont to monitor H/H (3) Supratherapeutic INR: reversed with vitamin K and INR this am is 1.5. Cont to hold warfarin (4) BRIAN (acute kidney injury): Baseline creatinine 1.2, slightly improved, cont IVF and holding lisinopril and lasix. Trend BMP (5) T2DM (type 2 diabetes mellitus): cont basal bolus insulin, glucose numbers reflect good inpatient control. (6) Chronic atrial fibrillation: Cont holding warfarin, continue Coreg for rate control. (7) Elevated troponin: mild elevation of troponin. Echo performed and revealed EF 40-45% with chronic wall motion abnormalities. Cardiology reviewed the information and assessed the patient and recommended no further cardiac workup prior to the procedure which has acceptable perioperative risk to proceed. (8) CAD (coronary artery disease): Cont Coreg, statin and holding lisinopril in setting of BRIAN. ASA was also held. Will restart postoperatively. (9) Systolic heart failure secondary to coronary artery disease: holding Lasix in setting of BRIAN. Restart once creatinine improved. Cont daily weights and low sodium diet. (10) JT on CPAP: CPAP at HS (11) DVT prophylaxis: SCD/TEDS full Dispo-pending recovery post-operatively. Roxane Ricks DO [facility] Hospitalist Subjective doing well denies pain feeling well denies CP/SOB states that he goes on regular walks around his apt bldg without any symptoms or issues. awaiting procedure today Review of Systems Review of Systems: All systems reviewed & are unremarkable except as noted in HPI & below Physical Exam Physical Exam: CONSTITUTIONAL: WNWD, vitals as above, generally well- appearing EYES: normal conjunctivae, no scleral icterus ENT: MMM RESPIRATORY: clear to auscultation bilaterally, no crackles, rales or wheezes, normal respiratory effort CARDIOVASCULAR: regular rate and rhythm, 3/6 JANUARY heard, no gallops or rubs, no JVD, no peripheral edema GASTROINTESTINAL: soft, nontender, nondistended MUSCULOSKELETAL: strength 5/5 throughout, head is normocephalic and atraumatic SKIN: warm and dry, L toe injury that is wrapped-wound not visualized. No surrounding erythema. NEUROLOGIC: CN 2-12 grossly intact, no sensory deficit, normal cognition, no gross focal deficits. PSYCHIATRIC: alert cooperative and oriented to person, place and time. Results & Data Vital Signs (Past 12 Hours) Vital Signs Temp Pulse Pulse Pulse Resp BP Pulse Ox 10/09/19 15:18 36.4 C L 69 18 148/72 H 100 10/09/19 11:59 36.8 C 76 16 129/62 98 10/09/19 07:46 65 10/09/19 07:44 36.8 C 82 18 122/63 97 Laboratory Results Short CBC 10/08/19 10/09/19 Range/Units 19:59 04:53 WBC 15.14 H (4.8-10.8) K/uL Hgb 8.6 L 8.8 L (14.0-18.0) g/dL Hct 25.0 L 25.2 L (42-52) % Plt Count 228 (130-400) K/uL BMP 10/09/19 04:53 Sodium 138 Potassium 3.4 L Chloride 106 Carbon Dioxide 30 BUN 32 H Creatinine 2.23 H Glucose 128 H Calcium 8.1 L Cardiac Enzymes 10/08/19 10/08/19 10/09/19 Range/Units 17:23 22:27 04:53 Troponin I 0.030 0.050 H* 0.056 H* (0-0.045) ng/ml Liver Function 10/09/19 Range/Units 04:53 Total Bilirubin 1.3 H (0.2-1) mg/dl AST 34 (15-37) U/L ALT 28 (12-78) U/L Alkaline Phosphatase 94 (45-117) U/L Albumin 2.8 L (3.4-5.0) gm/dl Urine 10/08/19 Range/Units 21:10 Urine Color Dark Yellow Urine Appearance Clear (Clear) Urine pH 5.0 (4.5-7.5) Ur Specific [place] 1.020 (1.000-1.030) Urine Protein 2+ H (Negative) Urine Glucose (UA) 1+ H (Negative) Medications Administered Current Inpatient Medications Acetaminophen (Tylenol) 650 mg PO Q4H PRN PRN Reason: Pain or Fever Stop: 11/07/19 16:47 Amlodipine Besylate (Norvasc) 10 mg PO DAILY NEISHA Stop: 11/08/19 08:59 Last Admin: 10/09/19 08:39 Dose: 10 mg Documented by: Atorvastatin Calcium (Lipitor) 40 mg PO DAILY NEISHA Stop: 11/08/19 08:59 Last Admin: 10/09/19 08:40 Dose: 40 mg Documented by: Carvedilol (Coreg) 3.125 mg PO BID NEISHA Stop: 11/07/19 20:59 Last Admin: 10/09/19 08:39 Dose: 3.125 mg Documented by: Dextrose (Dextrose 50%) 25 - 50 ml IV UD PRN; Protocol PRN Reason: Hypoglycemia Protocol Stop: 11/07/19 16:47 Glucagon (Glucagen) 1 mg SQ UD PRN; Protocol PRN Reason: Hypoglycemia Protocol Stop: 11/07/19 16:47 Glucose (Dex4 Glucose) 4 - 8 tabs PO UD PRN; Protocol PRN Reason: Hypoglycemia Protocol Stop: 11/07/19 16:47 Glucose (Glucose 40%) 15 - 30 gm PO UD PRN; Protocol PRN Reason: Hypoglycemia Protocol Stop: 11/07/19 16:47 Cefepime HCl 1,000 mg/ Syringe 11.3 mls @ 5.5 mls/min IV Q12H [facility]; Protocol Stop: 10/18/19 17:59 Last Admin: 10/09/19 05:11 Dose: 5.5 mls/min Documented by: Insulin Aspart (Novolog Flexpen) 0 units SC ACHS NEISHA Stop: 11/07/19 16:59 Last Admin: 10/09/19 16:44 Dose: Not Given Documented by: Insulin Glargine (Lantus Solostar Pen) 0 - 30 units SC BID NEISHA Stop: 11/07/19 20:59 Last Admin: 10/09/19 08:41 Dose: 15 units Documented by: Miscellaneous (Carbohydrates For Hypoglycemia) 15 - 30 gm PO UD PRN PRN Reason: Hypoglycemia Protocol Stop: 11/07/19 16:47 Miscellaneous Information (Cefepime Consult Active) 1 ea N/A UD PRN PRN Reason: Consult Stop: 11/07/19 16:47 Ondansetron HCl (Zofran) 4 mg IV Q6H PRN PRN Reason: Nausea Stop: 11/07/19 16:47 Polyethylene Glycol (Miralax Powder Packet) 17 gm PO DAILY PRN PRN Reason: Constipation Stop: 11/07/19 16:47 (1) Open fracture of left great toe Encounter type: initial encounter Fracture alignment: displaced Phalanx: distal Qualified Code(s): S92.422B - Displaced fracture of distal phalanx of left great toe, initial encounter for open fracture
--- NOTE | 2019-10-09 18:03 | Anesthesiology Consultation ---
Date of Service October 09, 2019 Assessment & Plan Chart Review Chart Review: Acceptable Risk for Surgery Consults Requested none History Surgery Operation Date: 10/10/19 07:30 Proposed Procedures p Left Distal Great Toe Incision and Drainage, Possible Amputation - Sterling Alvarado DO Height/Weight Height: 6 ft Weight: 116.7 kg Allergies Allergy/AdvReac Type Severity Reaction Status Date / Time No Known Allergies Allergy Unknown NONE Verified 10/08/19 13:24 Medications Home Medications Medication Instructions Recorded Confirmed Last Taken amlodipine 10 mg PO DAILY 10/08/19 10/08/19 Unknown aspirin [Aspirin Low Dose] 81 mg PO DAILY 10/08/19 10/08/19 Unknown atorvastatin 40 mg PO DAILY 10/08/19 10/08/19 Unknown carvedilol 3.125 mg PO BID 10/08/19 10/08/19 Unknown furosemide 40 mg PO DAILY 10/08/19 10/08/19 Unknown insulin glargine [Lantus Solostar 0 unit SUBCUT DAILY 10/08/19 10/08/19 Unknown U-100 Insulin] lisinopril 40 mg PO DAILY 10/08/19 10/08/19 Unknown metformin 2,000 mg PO UD 10/08/19 10/08/19 Unknown warfarin 0 mg PO UD 10/08/19 10/08/19 Unknown Active Medications Generic Name Dose Route Start Last Admin Trade Name Yifan PRN Reason Stop Dose Admin Amlodipine Besylate 10 mg 10/09/19 09:00 10/09/19 08:39 Norvasc PO 11/08/19 08:59 10 mg DAILY NEISHA Administration Atorvastatin Calcium 40 mg 10/09/19 09:00 10/09/19 08:40 Lipitor PO 11/08/19 08:59 40 mg DAILY NEISHA Administration Carvedilol 3.125 mg 10/08/19 21:00 10/09/19 08:39 Coreg PO 11/07/19 20:59 3.125 mg BID NEISHA Administration Cefepime HCl 1,000 mg/ Syringe 11.3 mls @ 5.5 mls/min 10/08/19 18:00 10/09/19 17:55 IV 10/18/19 17:59 5.5 mls/min Q12H NEISHA Administration Protocol Insulin Aspart 0 units 10/08/19 17:00 10/09/19 16:44 Novolog Flexpen SC 11/07/19 16:59 Not Given ACHS [facility] Insulin Glargine 0 - 30 units 10/08/19 21:00 10/09/19 08:41 Lantus Solostar Pen SD 11/07/19 20:59 15 units BID NEISHA Administration Past Medical History Medical History Aortic valve stenosis (Chronic) s/p TAVR Gregory esophagus (Chronic) CAD (coronary artery disease) (Chronic) Cardiac pacemaker (Chronic) Chronic atrial fibrillation CKD (chronic kidney disease), stage III (Chronic) Gastritis (Chronic) Hiatal hernia (Chronic) History of sick sinus syndrome s/p PPM HLD (hyperlipidemia) Intracerebral hemorrhage (Resolved) residential current use of 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 JT on CPAP Systolic heart failure secondary to coronary artery disease (Chronic) T2DM (type 2 diabetes mellitus) Past Family History Family History Father Coronary heart disease Stroke Brother Prostate cancer Past Surgical History Surgical History History of fracture of right ankle s/p ORIF History of orthopedic surgery (Chronic) "repair of fracture right ankle" History of throat surgery (Chronic) Hx of aortic valve replacement TAVR 2018 S/P placement of cardiac pacemaker (Chronic) Social History Smoking Status: Never smoker Hx Alcohol Use: No Hx Substance Use: No Physical Exam Vital Signs Last Vital Signs Temp 36.4 C L 10/09/19 15:18 Pulse 69 10/09/19 15:18 Resp 18 10/09/19 15:18 BP 148/72 H 10/09/19 15:18 Pulse Ox 100 10/09/19 15:18 Testing Laboratory Results 10/09/19 04:53 10/09/19 04:53 PT 14.9 Seconds (9.0-12.0) H 10/09/19 04:53 INR 1.5 (0.9-1.1) H 10/09/19 04:53 APTT 42.8 Seconds (21.0-31.0) H 10/08/19 13:18 Hemoglobin A1c 8.1 % (4.5-5.6) H 10/09/19 04:53 Urine Color Dark Yellow 10/08/19 21:10 Urine Appearance Clear (Clear) 10/08/19 21:10 Urine pH 5.0 (4.5-7.5) 10/08/19 21:10 Ur Specific [place] 1.020 (1.000-1.030) 10/08/19 21:10 Urine Protein 2+ (Negative) H 10/08/19 21:10 Urine Glucose (UA) 1+ (Negative) H 10/08/19 21:10 Urine Ketones Trace (Negative) H 10/08/19 21:10 Urine Nitrite Negative (Negative) 10/08/19 21:10 Ur Leukocyte Esterase Negative (Negative) 10/08/19 21:10 Urine WBC (Auto) 1-5 /hpf (0-5) 10/08/19 21:10 Urine RBC (Auto) 0-4 /hpf (0-4) 10/08/19 21:10 U Hyaline Cast (Auto) 0 /lpf (0-5) 10/08/19 21:10 U Epithel Cells (Auto) 10-20 /lpf (0-5) H 10/08/19 21:10 Urine Bacteria (Auto) Negative (Negative) 10/08/19 21:10 Blood Type A Positive 10/08/19 22:27 Antibody Screen NEGATIVE 10/08/19 22:27 10/08/19 17:23 Aerobic Blood Culture - Preliminary Blood No growth in Aerobic bottle after 24 hours. Anaerobic Blood Culture - Preliminary No growth in Anaerobic bottle after 24 hours. 10/08/19 17:37 Aerobic Blood Culture - Preliminary Blood No growth in Aerobic bottle after 24 hours. Anaerobic Blood Culture - Preliminary No growth in Anaerobic bottle after 24 hours. 10/09/19 10/09/19 10/09/19 16:11 12:07 11:22 POC Glucose 142 H 210 H 233 H 10/09/19 07:28 POC Glucose 148 H
[2019-10-10] MEDS: CEFEPIME 1,000 MG in SYRINGE 0 ML IV SCH ×2 (05:21→17:21)
[2019-10-10 06:49] LABS: Est GFR (African American) 50.7; Est GFR (Non-African American) 43.7
[2019-10-10] MEDS ORDERED: fentaNYL citrate 100 MCG/2 ML VIAL ONE (08:57)
[2019-10-10] MEDS: AMLODIPINE BESYLATE 5 MG TAB PO SCH (08:59)
[2019-10-10] MEDS: ATORVASTATIN 40 MG TAB PO SCH (08:59)
[2019-10-10] MEDS: carvediloL 3.125 MG TAB PO SCH ×2 (08:59→20:20)
[2019-10-10] MEDS: INSULIN ASPART 100 UNITS/ML 3 ML PEN SC SCH ×4 (09:00→20:24)
[2019-10-10] MEDS: INSULIN GLARGINE SOLOSTAR 100 UNITS/ML 3 ML PEN SC SCH ×2 (09:54→20:21)
[2019-10-10] MEDS ORDERED: BACITRACIN INJ 50,000 UNIT VIAL ONE (10:13)
[2019-10-10] MEDS ORDERED: BUPIVACAINE 0.5 % 5 MG/1 ML MPF 30ML VIAL ONE (10:13)
--- NOTE | 2019-10-10 10:49 | History & Physical Bridge Note ---
Date of Service October 10, 2019 History & Physical Bridge Note I have examined the patient, reviewed the History & Physical and in the interval since the performance of the History & Physical I have noted the following changes of clinical significance:Will take to the OR for irrigation and debridement left great toe open fracture.
[2019-10-10] MEDS ORDERED: LIDOCAINE HCL 2% 2 ML VIAL/AMP(20MG/ML) INFIL ONE (11:12)
[2019-10-10] MEDS ORDERED: PROPOFOL IV EMULSION 10 MG/ML 20 ML VIAL IV ONE (11:12)
[2019-10-10] MEDS ORDERED: ePHEDrine sulfate 50 MG/ML AMP IV PRN (11:16)
[2019-10-10] MEDS ORDERED: ATROPINE SULFATE 0.1 MG/ML 10ML SYR IV PRN (11:16)
[2019-10-10] MEDS ORDERED: fentaNYL citrate 100 MCG/2 ML VIAL IV PRN (11:16)
--- NOTE | 2019-10-10 12:03 | Fluoroscopy Report ---
FL toe LT 2V CLINICAL HISTORY: 73 years-old Male presenting with LEFT GREAT TOE PINNING. TECHNIQUE: 2 fluoroscopic image(s) recorded as part of an intraoperative procedure. COMPARISON: Plain radiographs from 10/08/2019. FINDINGS/IMPRESSION: 2 K wire fixation across the interphalangeal joint of the first toe for the intra-articular fracture of the lateral base of the distal phalanx of the first toe. The previously demonstrated extra-articul ar fracture of the medial base of the proximal phalanx is not demonstrated on these fluoroscopic imag es. Please see surgical report for further details. Fluoroscopy dosage (mGy): 0.34. Fluoroscopy time: 20.8 seconds. Number or time of high level fluoroscopy (HLF), digital spot, or digital subtraction images: 0. ACT 112: Negative or not required by law. Electronically signed by: Orlin Diaz M.D. 10/10/2019 12:02 PM
--- NOTE | 2019-10-10 12:12 | Post Operative Brief Note ---
Immediate Post Op Note v1 Date of Surgery October 10, 2019 Pre & Post Diagnosis Operation Date: 10/10/19 07:30 Pre-Op Diagnosis: OPEN FX DISTAL PHALANX OF Left GREAT TOE, NAILBED LACERATION LEFT GREAT TOE Post-Op Diagnosis: OPEN FX DISTAL PHALANX OF Left GREAT TOE, NAILBED LACERATION LEFT GREAT TOE I identified the patient and participated in the time-out.: Yes Procedure Operation Date: 10/10/19 07:30 Actual Procedures p Left Distal Phalanx Great Toe irrigation and debridement of open fracture, Op en reduction internal fixation left great toe open distal phalanx fracture, repair nailbed left great toe (Left) - Sterling Alvarado DO Surgeon Sterling Alvarado DO [employer] None Estimated Blood Loss 1 Findings Consistent with Post-Op Diagnosis Specimens None Anesthesia Type MAC Regional Complications none Disposition Accompanied Patient To Recovery: Yes Disposition: Recovery Room
--- NOTE | 2019-10-10 12:20 | Anesthesiology Progress Note ---
Date of Service October 10, 2019 Anesthesia Post Procedure Vital Signs Vital Signs: Temp Pulse Pulse Pulse Resp BP BP 10/10/19 12:15 63 15 141/63 H 10/10/19 12:05 69 15 131/59 L 10/10/19 11:59 36.7 C 65 16 127/58 L 10/10/19 07:41 36.6 C 69 18 125/57 L 10/10/19 04:39 69 14 10/10/19 03:17 36.7 C 64 20 144/73 H 10/10/19 01:56 74 10/10/19 01:23 74 16 10/09/19 23:19 36.6 C 61 20 132/70 10/09/19 22:11 76 18 10/09/19 19:02 36.5 C 76 16 159/79 H 10/09/19 15:18 36.4 C L 69 18 148/72 H Pulse Ox 10/10/19 12:15 100 10/10/19 12:05 99 10/10/19 11:59 100 10/10/19 07:41 99 10/10/19 04:39 95 10/10/19 03:17 100 10/10/19 01:56 10/10/19 01:23 97 10/09/19 23:19 100 10/09/19 22:11 96 10/09/19 19:02 99 10/09/19 15:18 100 Pain Intensity Left Toe: Pain Intensity: 2 Transfer of Care Handoff Completed per policy Notes Mental Status: alert / awake / arousable and participated in evaluation Patient Amnestic to Procedure: Yes Nausea / Vomiting: adequately controlled Pain: adequately controlled Airway Patency, RR, SpO2: stable & adequate BP & HR: stable & adequate Hydration State: stable & adequate Anesthetic Complications: no major complications apparent
--- NOTE | 2019-10-10 12:49 | Operative Report ---
DATE OF OPERATION: 10/10/2019 PREOPERATIVE DIAGNOSES: 1. Left great toe open fracture of the distal phalanx. 2. Nail bed laceration, left great toe. POSTOPERATIVE DIAGNOSES: 1. Left great toe open fracture of the distal phalanx. 2. Nail bed laceration, left great toe. PROCEDURE: 1. Left foot irrigation and debridement, open fracture distal phalanx of the great toe. 2. Open reduction internal fixation open fracture distal phalanx, left great toe. 3. Repair of nail bed, left great toe. SURGEON: Sterling Alvarado DO STEEL ANALYST: None. ANESTHESIA: Regional with sedation monitored anesthesia care. SPECIMENS: None. DRAINS: None. COMPLICATIONS: None. BLOOD LOSS: 2 mL. PERTINENT HISTORY: This is a 73-year-old gentleman who sustained an injury to his left foot and great toe with an open fracture of his left great toe. He was stabilized and admitted to the hospital. He had other medical comorbidities, we stabilized and prepared for surgery. The patient was then scheduled for surgery as indicated. DESCRIPTION OF PROCEDURE: The patient was taken to the operative suite and placed supine on the operating room table. I reviewed consent and identification of proper operative site. The patient was sedated and the left great toe was then sterilely prepped and draped in usual fashion. Foot was elevated and exsanguinated with an Esmarch bandage and Esmarch tourniquet applied over sterile surgical towel at the level of the ankle. Next, a digital block was then performed at the base of the left great toe using approximately 10 mL 0.5% Marcaine plain. Next, the left great toe open fracture was then displaced slightly to gain visualization with a house retractor and then the open fracture was then carefully debrided using a rongeur and a small curette. Once the clot and locally devitalized tissue was then removed, the open fracture was then copiously irrigated with sterile normal saline with a pulsatile lavage In addition, there was noted to be a nail bed laceration at the base of the nail bed which was also carefully debrided with a 15 blade scalpel and forceps. Next, the nail bed was reduced and the fracture was also reduced under live fluoroscopic assistance after 3 liters total irrigation was performed. No significant tissue devitalization was noted at the fracture site nor at the eponychial fold. The great toe open fracture was then stabilized with 2 buried 0.062 inch K wires placed from the tip of the great toe through the distal phalanx and crossing into the proximal phalanx of the great toe correcting the alignment of the fracture, stabilizing the fracture into near anatomic reduction and position under live fluoroscopic assistance. Next, the pins were cut at the level of the distal toe and then a small bone tamp was then used to tamp the pins under the skin to avoid any skin irritation or any open areas for possible infection. Next, the nail bed laceration was then repaired using a through and through 4-0 nylon suture through the nail plate into the nail bed and into the proximal nail fold. This was gently tied and cut. Next, the medial and lateral eponychial folds were then reduced and closed using interrupted 4-0 nylon sutures. The final radiographs were obtained, AP and lateral projections. This was then followed by application of a sterile compressive forefoot dressing placed over the left forefoot. Tourniquet was released. Toes are pink and warm. The foot was then placed into a hard postoperative shoe and the patient was then awakened and taken to recovery in stable condition. I attest to the content of the Intraoperative Record and any orders documented therein. Any exception s are noted below.
--- NOTE | 2019-10-10 19:06 | Hospitalist Progress Note ---
Date of Service October 10, 2019 Assessment & Plan (1) Open fracture of left great toe: Fracture 2/2 trauma. Had procedure in OR today and is recovering well. Tolerating diet. Cont monitoring on telemetry for today and then transfer to Ortho floor for continued recovery. Pain is controlled now. (2) Acute blood loss anemia: No need for blood transfusion. Cont to monitor H/H (3) Supratherapeutic INR: reversed with vitamin K on admission. Cont to hold warfarin. (4) BRIAN (acute kidney injury): Baseline creatinine 1.2, slightly improved to 1.5 today. Cont IVF and holding lisinopril and lasix. Trend BMP (5) T2DM (type 2 diabetes mellitus): cont basal bolus insulin, glucose numbers reflect good inpatient control. (6) Chronic atrial fibrillation: Cont holding warfarin, continue Coreg for rate control. (7) Elevated troponin: mild elevation of troponin. Echo performed and revealed EF 40-45% with chronic wall motion abnormalities. Cardiology reviewed the information and assessed the patient and recommended no further cardiac workup at this time. (8) CAD (coronary artery disease): Cont Coreg, statin and holding lisinopril in setting of BRIAN. ASA was also held. Will restart postoperatively when ok with surgery. (9) Systolic heart failure secondary to coronary artery disease: holding Lasix in setting of BRIAN. Restart once creatinine improved. Cont daily weights and low sodium diet. (10) JT on CPAP: CPAP at HS (11) DVT prophylaxis: SCD/TEDS, will start chemoprophylaxis when ok with surgery. full Dispo-cont tele today and to Ortho floor in am. Roxane Ricks DO [facility] Hospitalist Subjective doing well post-op denies nausea or pain but feels the anesthesia is starting to wear off. denies chest pain Review of Systems Review of Systems: All systems reviewed & are unremarkable except as noted in HPI & below Physical Exam Physical Exam: CONSTITUTIONAL: WNWD, vitals as above, generally well- appearing EYES: normal conjunctivae, no scleral icterus ENT: MMM RESPIRATORY: clear to auscultation bilaterally, no crackles, rales or wheezes, normal respiratory effort CARDIOVASCULAR: regular rate and rhythm, 3/6 JANUARY heard, no gallops or rubs, no JVD, no peripheral edema GASTROINTESTINAL: soft, nontender, nondistended MUSCULOSKELETAL: strength 5/5 throughout, head is normocephalic and atraumatic SKIN: warm and dry, L toe injury that is wrapped-wound not visualized. No surrounding erythema. NEUROLOGIC: CN 2-12 grossly intact, no sensory deficit, normal cognition, no gross focal deficits. PSYCHIATRIC: alert cooperative and oriented to person, place and time. Results & Data Vital Signs (Past 12 Hours) Vital Signs Temp Pulse Pulse Pulse Pulse Resp BP 10/10/19 19:01 37.1 C 79 20 139/65 10/10/19 16:49 65 10/10/19 15:30 64 17 112/57 L 10/10/19 15:15 77 20 132/62 10/10/19 14:31 62 10/10/19 14:30 63 17 115/52 L 10/10/19 14:26 67 18 147/68 H 10/10/19 14:00 70 17 130/66 10/10/19 13:30 67 18 149/68 H 10/10/19 13:00 73 17 138/63 10/10/19 12:45 36.5 C 67 17 153/68 H 10/10/19 12:25 36.5 C 72 20 143/61 H 10/10/19 12:15 63 15 141/63 H 10/10/19 12:05 69 15 131/59 L 10/10/19 11:59 36.7 C 65 16 127/58 L 10/10/19 07:41 36.6 C 69 18 BP Pulse Ox 10/10/19 19:01 10/10/19 16:49 10/10/19 15:30 100 10/10/19 15:15 99 10/10/19 14:31 10/10/19 14:30 98 10/10/19 14:26 100 10/10/19 14:00 98 10/10/19 13:30 100 10/10/19 13:00 91 10/10/19 12:45 98 10/10/19 12:25 97 10/10/19 12:15 100 10/10/19 12:05 99 10/10/19 11:59 100 10/10/19 07:41 125/57 L 99 Laboratory Results BMP 10/10/19 05:40 Creatinine 1.56 H D Medications Administered Current Inpatient Medications Acetaminophen (Tylenol) 650 mg PO Q4H PRN PRN Reason: Pain or Fever Stop: 11/07/19 16:47 Amlodipine Besylate (Norvasc) 10 mg PO DAILY [facility] Stop: 11/08/19 08:59 Last Admin: 10/10/19 08:59 Dose: 10 mg Documented by: Atorvastatin Calcium (Lipitor) 40 mg PO DAILY [facility] Stop: 11/08/19 08:59 Last Admin: 10/10/19 08:59 Dose: 40 mg Documented by: Carvedilol (Coreg) 3.125 mg PO BID [facility] Stop: 11/07/19 20:59 Last Admin: 10/10/19 08:59 Dose: 3.125 mg Documented by: Dextrose (Dextrose 50%) 25 - 50 ml IV UD PRN; Protocol PRN Reason: Hypoglycemia Protocol Stop: 11/07/19 16:47 Glucagon (Glucagen) 1 mg SQ UD PRN; Protocol PRN Reason: Hypoglycemia Protocol Stop: 11/07/19 16:47 Glucose (Dex4 Glucose) 4 - 8 tabs PO UD PRN; Protocol PRN Reason: Hypoglycemia Protocol Stop: 11/07/19 16:47 Glucose (Glucose 40%) 15 - 30 gm PO UD PRN; Protocol PRN Reason: Hypoglycemia Protocol Stop: 11/07/19 16:47 Cefepime HCl 1,000 mg/ Syringe 11.3 mls @ 5.5 mls/min IV Q12H [facility]; Protocol Stop: 10/18/19 17:59 Last Admin: 10/10/19 17:21 Dose: 5.5 mls/min Documented by: Insulin Aspart (Novolog Flexpen) 0 units SC ACHS [facility] Stop: 11/07/19 16:59 Last Admin: 10/10/19 17:20 Dose: 12 units Documented by: Insulin Glargine (Lantus Solostar Pen) 0 - 30 units SC BID [facility] Stop: 11/07/19 20:59 Last Admin: 10/10/19 09:54 Dose: Not Given Documented by: Miscellaneous (Carbohydrates For Hypoglycemia) 15 - 30 gm PO UD PRN PRN Reason: Hypoglycemia Protocol Stop: 11/07/19 16:47 Miscellaneous Information (Cefepime Consult Active) 1 ea N/A UD PRN PRN Reason: Consult Stop: 11/07/19 16:47 Ondansetron HCl (Zofran) 4 mg IV Q6H PRN PRN Reason: Nausea Stop: 11/07/19 16:47 Polyethylene Glycol (Miralax Powder Packet) 17 gm PO DAILY PRN PRN Reason: Constipation Stop: 11/07/19 16:47 (1) Open fracture of left great toe Encounter type: initial encounter Fracture alignment: displaced Phalanx: distal Qualified Code(s): S92.422B - Displaced fracture of distal phalanx of left great toe, initial encounter for open fracture
[2019-10-11] MEDS: CEFEPIME 1,000 MG in SYRINGE 0 ML IV SCH (05:36)
[2019-10-11 06:13] LABS: Hematocrit (blood only) 24.1 % (42-52); Hemoglobin 8.1 g/dL (14.0-18.0); Mean Corpuscular Hemoglobin 30.3 pg (25-34); Mean Corpuscular Hgb Conc 33.6 g/dL (32-36); Mean Corpuscular Volume 90.3 fL (80-100); Mean Platelet Volume 9.4 fL (7.4-10.4); Platelet Count 223 K/uL (130-400); RDW Coefficient of Variation 13.8 % (11.5-14.5); RDW Standard Deviation 44.3 fL (36.4-46.3); Red Blood Count 2.67 M/uL (4.7-6.1)
[2019-10-11 06:49] LABS: BUN Creatinine Ratio 14.3 (10-20); Calcium 8.4 mg/dl (8.5-10.1); Creatinine Clr Calc Pharmacy 59.1 ml/min; Est GFR (African American) 53.6; Est GFR (Non-African American) 46.2; Potassium 3.1 mmol/L (3.5-5.1)
[2019-10-11] MEDS: ATORVASTATIN 40 MG TAB PO SCH (08:56)
[2019-10-11] MEDS: carvediloL 3.125 MG TAB PO SCH ×2 (08:56→20:44)
[2019-10-11] MEDS: AMLODIPINE BESYLATE 5 MG TAB PO SCH (08:57)
[2019-10-11] MEDS: INSULIN GLARGINE SOLOSTAR 100 UNITS/ML 3 ML PEN SC SCH ×2 (08:58→21:20)
[2019-10-11] MEDS: INSULIN ASPART 100 UNITS/ML 3 ML PEN SC SCH ×4 (08:59→21:14)
[2019-10-11] MEDS: POTASSIUM CHLORIDE 20 MEQ TABCR PO SCH ×2 (09:00→16:01)
--- NOTE | 2019-10-11 09:52 | Orthopedic Progress Note ---
Date of Service October 11, 2019 Assessment & Plan (1) Open fracture of left great toe: POD #1 s/p 1. Left foot irrigation and debridement, open fracture distal phalanx of the great toe. 2. Open reduction internal fixation open fracture distal phalanx, left great toe. 3. Repair of nail bed, left great toe WBAT LLE in post op shoe. Dressing can remain in place until follow up in office in 1 weeks. If dressing becomes saturated, may change with gauze dressing. Ice and elevate. Pain control D/C planning--per medicine. OK to discharge from ortho standpoint. Ortho to sign off and follow up in 1 week. Subjective States the left foot feels good. No pain within the great toe. States sometimes he has good sensation in his feet and he had significant pain at the time of the injury to the great toe. The pain is now controlled post operatively. No other complaints. Physical Exam Constitutional: WD/WN, vitals as above no acute distress Musculoskeletal: Left foot: Dressing clean/dry/intact on the great toe. No drainage noted. Toe well aligned. NV intact. Chronic venous stasis changes noted of the LLE. Psychiatric: A+Ox3, euthymic affect Speech: normal rate/rhythm/volume of speech Results & Data Vital Signs (Past 12 Hours) Vital Signs Temp Pulse Pulse Pulse Resp BP Pulse Ox 10/11/19 07:43 36.9 C 78 16 154/69 H 98 10/11/19 04:20 78 16 95 10/11/19 03:29 37.6 C H 66 16 159/70 H 96 10/10/19 23:51 74 18 96 10/10/19 23:20 65 10/10/19 23:06 36.3 C L 69 18 126/62 98 (1) Open fracture of left great toe Encounter type: initial encounter Fracture alignment: displaced Phalanx: distal Qualified Code(s): S92.422B - Displaced fracture of distal phalanx of left great toe, initial encounter for open fracture
--- NOTE | 2019-10-11 11:46 | Hospitalist Progress Note ---
Date of Service October 11, 2019 Assessment & Plan (1) Open fracture of left great toe: Fracture 2/2 trauma. POD#1 ORIF and is recovering well. Ortho recommends keeping dressing in place until follow-up in one week. Cont pain control efforts as needed. WBAT. PT/OT to assess in am. (2) Acute blood loss anemia: No need for blood transfusion. H/H stable. Warfarin reinitiated. PRP to monitor as outpatient. (3) BRIAN (acute kidney injury): Baseline creatinine 1.2, continues to improve. Cont holding lisinopril and lasix. Trend BMP (4) T2DM (type 2 diabetes mellitus): cont basal bolus insulin, glucose numbers reflect good inpatient control. (5) Chronic atrial fibrillation: Warfarin restarted, continue Coreg for rate control. (6) Elevated troponin: mild elevation of troponin. Echo performed and revealed EF 40-45% with chronic wall motion abnormalities. Cardiology reviewed the information and assessed the patient and recommended no further cardiac workup at this time. (7) CAD (coronary artery disease): Cont Coreg, statin and holding lisinopril in setting of BRIAN. Plan to restart ASA now. (8) Systolic heart failure secondary to coronary artery disease: chronic, holding Lasix in setting of BRIAN. Restart once creatinine improved. Cont daily weights and low sodium diet. (9) Hypokalemia: replace and repeat in am with magnesium. (10) JT on CPAP: CPAP at HS (11) DVT prophylaxis: SCD/TEDS, warfarin reinitiated. full Dispo-to Ortho floor. Likely to home in am. Roxane Ricks DO [facility] Hospitalist Subjective POD#1 s/p ORIF of left toe Doing well overall Denies any pain Tolerating PO Afebrile Review of Systems Review of Systems: All systems reviewed & are unremarkable except as noted in HPI & below Physical Exam Physical Exam: CONSTITUTIONAL: WNWD, vitals as above, generally well- appearing EYES: normal conjunctivae, no scleral icterus ENT: MMM RESPIRATORY: clear to auscultation bilaterally, no crackles, rales or wheezes, normal respiratory effort CARDIOVASCULAR: regular rate and rhythm, 3/6 JANUARY heard, no gallops or rubs, no JVD, no peripheral edema GASTROINTESTINAL: soft, nontender, nondistended MUSCULOSKELETAL: strength 5/5 throughout, head is normocephalic and atraumatic SKIN: warm and dry, L toe injury that is wrapped-wound not visualized. No surrounding erythema. NEUROLOGIC: CN 2-12 grossly intact, no sensory deficit, normal cognition, no gross focal deficits. PSYCHIATRIC: alert cooperative and oriented to person, place and time. Results & Data Vital Signs (Past 12 Hours) Vital Signs Temp Pulse Pulse Pulse Resp BP Pulse Ox 10/11/19 11:32 120/71 10/11/19 11:26 36.9 C 88 16 158/72 H 98 10/11/19 07:43 36.9 C 78 16 154/69 H 98 10/11/19 04:20 78 16 95 10/11/19 03:29 37.6 C H 66 16 159/70 H 96 10/10/19 23:51 74 18 96 Laboratory Results Short CBC 10/11/19 Range/Units 05:52 WBC 12.30 H (4.8-10.8) K/uL Hgb 8.1 L (14.0-18.0) g/dL Hct 24.1 L (42-52) % Plt Count 223 (130-400) K/uL [facility] 10/11/19 05:52 Sodium 139 Potassium 3.1 L Chloride 108 H Carbon Dioxide 27 BUN 21 H Creatinine 1.49 H Glucose 135 H Calcium 8.4 L Medications Administered Current Inpatient Medications Acetaminophen (Tylenol) 650 mg PO Q4H PRN PRN Reason: Pain or Fever Stop: 11/07/19 16:47 Amlodipine Besylate (Norvasc) 10 mg PO DAILY [facility] Stop: 11/08/19 08:59 Last Admin: 10/11/19 08:57 Dose: 10 mg Documented by: Atorvastatin Calcium (Lipitor) 40 mg PO DAILY [facility] Stop: 11/08/19 08:59 Last Admin: 10/11/19 08:56 Dose: 40 mg Documented by: Carvedilol (Coreg) 3.125 mg PO BID [facility] Stop: 11/07/19 20:59 Last Admin: 10/11/19 08:56 Dose: 3.125 mg Documented by: Dextrose (Dextrose 50%) 25 - 50 ml IV UD PRN; Protocol PRN Reason: Hypoglycemia Protocol Stop: 11/07/19 16:47 Glucagon (Glucagen) 1 mg SQ UD PRN; Protocol PRN Reason: Hypoglycemia Protocol Stop: 11/07/19 16:47 Glucose (Dex4 Glucose) 4 - 8 tabs PO UD PRN; Protocol PRN Reason: Hypoglycemia Protocol Stop: 11/07/19 16:47 Glucose (Glucose 40%) 15 - 30 gm PO UD PRN; Protocol PRN Reason: Hypoglycemia Protocol Stop: 11/07/19 16:47 Insulin Aspart (Novolog Flexpen) 0 units SC ACHS [facility] Stop: 11/07/19 16:59 Last Admin: 10/11/19 08:59 Dose: 9 units Documented by: Insulin Glargine (Lantus Solostar Pen) 0 - 30 units SC BID [facility] Stop: 11/07/19 20:59 Last Admin: 10/11/19 08:58 Dose: 15 units Documented by: Miscellaneous (Carbohydrates For Hypoglycemia) 15 - 30 gm PO UD PRN PRN Reason: Hypoglycemia Protocol Stop: 11/07/19 16:47 Ondansetron HCl (Zofran) 4 mg IV Q6H PRN PRN Reason: Nausea Stop: 11/07/19 16:47 Polyethylene Glycol (Miralax Powder Packet) 17 gm PO DAILY PRN PRN Reason: Constipation Stop: 11/07/19 16:47 Potassium Chloride (Klor-Con M20) 40 meq PO Q6H [facility] Stop: 10/11/19 15:01 Last Admin: 10/11/19 09:00 Dose: 40 meq Documented by: (1) Open fracture of left great toe Encounter type: initial encounter Fracture alignment: displaced Phalanx: distal Qualified Code(s): S92.422B - Displaced fracture of distal phalanx of left great toe, initial encounter for open fracture
--- NOTE | 2019-10-11 14:39 | Cardiology Progress Note ---
Date of Service October 11, 2019 Assessment & Plan (1) Preop cardiovascular exam: Tolerated procedure well Okay to discharge to home from a cardiac standpoint (2) Abnormal ECG: Currently he is in a ventricularly paced rhythm Echocardiogram with unchanged wall motion I do not believe this represents any active cardiac pathology (3) Chronic atrial fibrillation: Rate controlled and asymptomatic. Obviously his Coumadin will be held for now Mr. Guerrero is questioning if he may be a candidate for an alternative 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 due to the significant bruising that he is occurring with Coumadin. Unfortunately given his impaired renal function I do not believe he is a candidate for DOAC at this time. Coumadin should be restarted at this time. (4) Aortic valve stenosis: Stable Functioning well by echocardiogram (5) CAD (coronary artery disease): Stable (6) Ischemic cardiomyopathy: Stable Subjective Patient seen and examined with daughter at bedside states he is feeling well. Denies any cardiac complaints of chest pain, shortness of breath, palpitations, lightheadedness, dizziness or syncope. Telemetry reviewed: Atrial fibrillation rate controlled Review of Systems Review of Systems: All systems reviewed & are unremarkable except as noted in HPI & below Physical Exam Physical Exam: General: Awake, alert and oriented x 3. No acute distress. HEENT: Normocephalic, atraumatic. Pupils equal, round and reactive to light and accommodation. Extraocular muscles are intact. Anicteric sclera. Moist mucous membranes. Neck: No JVD. No bruit. Cardiovascular: irregularly irregular, unable to appreciate murmur, rub or gallop. Pulmonary: Clear to auscultation bilaterally. No rales, rhonchi, or wheezing. Abdomen: Bowel sounds x 4, soft. No rebound, guarding or tenderness. No organomegaly. Extremities: No clubbing, cyanosis or edema. +2 pedal pulses bilaterally. Left foot bandaged Skin: Warm and dry. Results & Data Vital Signs (Past 12 Hours) Vital Signs Temp Pulse Pulse Pulse Resp BP Pulse Ox 10/11/19 12:14 69 10/11/19 11:32 120/71 10/11/19 11:26 36.9 C 88 16 158/72 H 98 10/11/19 07:43 36.9 C 78 16 154/69 H 98 10/11/19 04:20 78 16 95 10/11/19 03:29 37.6 C H 66 16 159/70 H 96
[2019-10-11] MEDS: WARFARIN SOD 5 MG TAB PO SCH (16:00)
[2019-10-12 06:17] LABS: INR 1.1 (0.9-1.1); Prothrombin Time 11.4 Seconds (9.0-12.0)
[2019-10-12 06:30] LABS: BUN Creatinine Ratio 13.2 (10-20); Calcium 8.8 mg/dl (8.5-10.1); Creatinine Clr Calc Pharmacy 59.5 ml/min; Est GFR (Non-African American) 46.6; Magnesium 2.1 mg/dl (1.8-2.4); Potassium 3.6 mmol/L (3.5-5.1)
[2019-10-12 07:07] LABS: Hematocrit (blood only) 23.3 % (42-52); Hemoglobin 7.8 g/dL (14.0-18.0); Mean Corpuscular Hemoglobin 30.6 pg (25-34); Mean Corpuscular Volume 91.4 fL (80-100); Mean Platelet Volume 9.7 fL (7.4-10.4); Platelet Count 194 K/uL (130-400); RDW Coefficient of Variation 14.3 % (11.5-14.5); RDW Standard Deviation 44.9 fL (36.4-46.3); Red Blood Count 2.55 M/uL (4.7-6.1); White Blood Count 9.44 K/uL (4.8-10.8)
[2019-10-12 07:09] LABS: Mean Corpuscular Hgb Conc 33.5 g/dL (32-36)
[2019-10-12] MEDS ORDERED: ACETAMINOPHEN 325 MG TAB PO PRN (07:44)
[2019-10-12] MEDS: AMLODIPINE BESYLATE 5 MG TAB PO SCH (08:35)
[2019-10-12] MEDS: ATORVASTATIN 40 MG TAB PO SCH (08:35)
[2019-10-12] MEDS: carvediloL 3.125 MG TAB PO SCH (08:36)
[2019-10-12] MEDS: INSULIN GLARGINE SOLOSTAR 100 UNITS/ML 3 ML PEN SC SCH (08:40)
[2019-10-12] MEDS: INSULIN ASPART 100 UNITS/ML 3 ML PEN SC SCH (08:42)
[2019-10-12] MEDS ORDERED: ASPIRIN 81 MG ECTAB PO SCH (09:00)
--- NOTE | 2019-10-12 12:40 | Hospitalist Progress Note ---
Date of Service October 12, 2019 Assessment & Plan (1) Open fracture of left great toe: Open fracture of left great toe -on 10/10/19 had inpatient orthopedic procedure of: Left Distal Phalanx Great Toe irrigation and debridement of open fracture, Open reduction internal fixation left great toe open distal phalanx fracture, repair nailbed left great toe) -Patient may take acetaminphen 325 mg every 6 hours as needed for mild pain or fever Patient may take oxycodone 5 mg every 6 hours as needed for moderate to severe pain (16 tablets prescribed) [facility] [place] [address] 10/12/19 labs of Hemoglobin 7.8, creatinine 1.48, INR 1.1. Patient can resume coumadin and follow up with primary care doctor for repeat labs and pain control management as needed Patient has primary care doctor follow up scheduled: 10/19/2019 12:00 PM Provider Javier Patrick MD Department General Internal Medicine [facility] -ORTHOPEDIC ACTIVITY RECOMMENDATIONS: Limitations: Full weight bearing only if able to tolerate. SPECIAL CARE INSTRUCTIONS: * Some drainage onto the dressing is normal and is no cause for alarm. * Some swelling is natural especially after walking. * When resting, keep your foot elevated above the level of your heart. * Call [facility] if you notice: -Increased drainage -Fever over 101 degrees F -Severe constant pain BANDAGE: * Leave bandage/cast in place unless otherwise directed. * Keep bandage/cast dry at all times. PIN CARE: * Leave pins alone. * If pins come loose or fall out, notify physician. FOLLOW UP VISIT WITH DR. LEACH If appointment is not already scheduled: Please call [facility] after you get home today to schedule a follow-up appointment for [address] Leach at . (2) Acute blood loss anemia: -admission Hgb 10 -blood transfusions not needed on this hospital stay -10/12/19 labs of Hemoglobin 7.8, creatinine 1.48, INR 1.1. Patient can resume coumadin and follow up with primary care doctor for repeat labs and pain control management as needed (3) BRIAN (acute kidney injury): -Baseline creatinine 1.2 -admission creatinine 2.4 -creatinine downtrended and with holding lisinopril and lasix -10/12/19 labs of Hemoglobin 7.8, creatinine 1.48, INR 1.1 -patient may resume home dose lisinopril and Lasix and follow up with primary care doctor for repeat labs and pain control management as needed (4) T2DM (type 2 diabetes mellitus): Type 2 diabetes mellitus with nursing home current use of insulin -managed with insulin in the hospital -patient may resume home dose insulin and metformin on discharge (5) Chronic atrial fibrillation: 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 -10/12/19 labs of Hemoglobin 7.8, creatinine 1.48, INR 1.1 (6) Elevated troponin: -mild elevation of troponin on this admission. Echo performed and re vealed EF 40-45% with chronic wall motion abnormalities. Cardiology reviewed the information and assessed the patient and recommended no further cardiac workup at this time. (7) CAD (coronary artery disease): -Cont Coreg, statin, -continue aspirin -can resume lisinopril on discharge as renal function improved (8) Systolic heart failure secondary to coronary artery disease: chronic systolic and diastolic congestive heart failure (Ischemic cardiomyopathy), -can resume Lasix on discharge as renal function has improved (9) Hypokalemia: resolved (10) JT on CPAP: CPAP at HS (11) DVT prophylaxis: -SCD/TEDS while inpatient, warfarin reinitiated. 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 generally the feet are pain free. denies chest pain. no palpitations. no shortness of breath. no nausea. no vomiting. no dizziness. no headache. Review of Systems Review of Systems: All systems reviewed & are unremarkable except as noted in HPI & below Physical Exam Eyes: PERRL, conjunctivae normal, anicteric sclerae EOM intact bilaterally ENMT: external ear and nose normal, oropharynx normal Neck: normal visual inspection Respiratory: normal respiratory effort, lungs clear to auscultation Cardiovascular: Rate/Rhythm: regular rate Gastrointestinal (Abdomen): normal bowel sounds, soft, nontender, no hepatosplenomegaly Musculoskeletal: Head/Neck/Chest: normocephalic and head atraumatic Extremities: + lower leg abnormality (left foot in boot) Neurologic: PERRL, EOMI, accommodation nl, no face palsy, no dysarthria CN's II-XI intact bilaterally Psychiatric: A+Ox3, euthymic affect Results & Data Vital Signs (Past 12 Hours) Vital Signs Temp Pulse Pulse Resp BP Pulse Ox 10/12/19 07:05 36.8 C 60 18 137/75 99 10/12/19 03:40 61 16 95 10/12/19 01:30 66 15 95 (1) Open fracture of left great toe Encounter type: initial encounter Fracture alignment: displaced Phalanx: distal Qualified Code(s): S92.422B - Displaced fracture of distal phalanx of left great toe, initial encounter for open fracture
--- NOTE | 2019-10-12 12:53 | Discharge Summary ---
Date of Service October 12, 2019 Admission HPI Per Admitting Provider This is a 73-year-old male who has significant PMH of IDDM type II, CAD, combined systolic and diastolic CHF, history of aortic valve stenosis status post TAVR, chronic atrial fibrillation anticoagulated on warfarin, history of SSS status post PPM, HTN, HLD, history of CVA, JT on CPAP who presents to ED secondary to, "stubbing my big toe," with laceration. Sister is at bedside. Patient states he hit his L great toe on a piece of furniture two days ago. Last evening around 12am he was walking and hit his L great toe on a metal desk. He then got into bath tub to run cold water on it and hit it off the bath tub. This caused significant bleeding. Due to bleeding and unable to stop bleeding he presented to ED. He does complain of mild pain to L great toe, 3/10, lightheadedness. He denies fever, chills, sweats, dizziness, syncope, chest pain, shortness breath, shortness breath at rest, chills, cough, nausea, vomiting, abdominal pain, dysuria, increased urgency (urination, hematuria, melena, hematochezia. "I have broken bones moving toes twice in the past before." "I need to learn to wear shoes around."Last tetanus shot was 06/2019. He denies taking any medication this morning, except his insulin 80 units. Appetite has been normal. He lives alone at home. He currently is on warfarin secondary to chronic atrial fibrillation and stroke prevention. According to patient he thinks he missed his coagulation clinic appointment yesterday. According to [facility] records he was seen and INR was 5.0. He was instructed to continue holding his warfarin until 10/10. However, he states he took 10 mg last evening. Sister is at bedside who elicits that he has been coming increasingly more confused over the past year, "I think it is his old age." In ED patient's INR was 4.4. He was noted to have significant laceration above left great toe nailbed, with open fracture of left great toe distal phalanx. His WBC 12.96, H&H 10.0 29.5, platelet 310, BUN 26, creatinine 2.41, glucose 269. Toe Xray: IMPRESSION: 1. Acute comminuted intra-articular minimally displaced fracture of the first distal phalanx. 2. Subtle acute nondisplaced fracture involves the medial base of the first proximal phalanx. Compressive dressing was placed to L great toe. He received 5mg IV Vit k, along with IV Ancef. Admission Exam Per Admitting Provider Constitutional: WD/WN, Morbidly obese, M, vitals as above, NAD, sitting up in bed, pleasant, conversing easily Head: Normocephalic, Atraumatic Eyes: PERRL, conjunctivae normal, anicteric sclerae ENMT: external ear and nose normal, oropharynx normal Neck: trachea midline, no thyromegaly normal visual inspection Respiratory: normal respiratory effort, lungs clear to auscultation, no wheeze, rales, rhonchi. Normal insp/exp effort, no accessory muscle use Cardiovascular: IRR/IRR, no murmur, no edema Vessels: no JVD or carotid bruit Chest: normal inspection of chest Abdomen: protuberant abd, +BS x 4, firm, nontender, no hepatosplenomegaly Musculoskeletal: no cyanosis or clubbing, extremities motor strength 5/5 except LLE not tested, L Great toe laceration to superior aspect of nail bed, open fx, significant serosanginous drainage, poor toe hygiene b/l Skin: no rashes, warm and dry normal turgor Neurologic: PERRL, EOMI, accommodation nl, no face palsy, no dysarthria CN's II-XI intact bilaterally and moves all extremities Psychiatric: A+Ox3, however, pt did repeat himself multiple times euthymic affect Lymphatic: no cervical or axillary lymphadenopathy : deferred Principal Diagnosis Open fracture of left great toe (on 10/10/19 had inpatient orthopedic procedure of: Left Distal Phalanx Great Toe irrigation and debridement of open fracture, Open reduction internal fixation left great toe open distal phalanx fracture, repair nailbed left great toe), acute blood loss anemia, chronic atrial fibrillation with care home use of coumadin anticoagulation, supratherapeutic INR (resolved), acute kidney injury (treated), coronary artery disease, chronic systolic and diastolic congestive heart failure (Ischemic cardiomyopathy), Type 2 diabetes mellitus with care home current use of insulin Discharge Exam Eyes PERRL, conjunctivae normal, anicteric sclerae EOM intact bilaterally ENMT external ear and nose normal, oropharynx normal Neck normal visual inspection Respiratory normal respiratory effort, lungs clear to auscultation Cardiovascular Rate/Rhythm: regular rate Gastrointestinal (Abdomen) normal bowel sounds, soft, nontender, no hepatosplenomegaly Musculoskeletal Head/Neck/Chest: normocephalic and head atraumatic Extremities: + lower leg abnormality (left foot in boot) Neurologic PERRL, EOMI, accommodation nl, no face palsy, no dysarthria CN's II-XI intact bilaterally Psychiatric A+Ox3, euthymic affect Discharge Data Allergies Allergy/AdvReac Type Severity Reaction Status Date / Time No Known Allergies Allergy Unknown NONE Verified 10/08/19 13:24 Consultations 10/08/19 15:00 ED Decision to Admit Stat 10/08/19 15:55 Consult Orthopedic Surgery Routine 10/08/19 16:48 Consult Case Management - Discharge Planning Routine 10/08/19 16:50 Consult Cardiology Routine Procedures Performed Operation Date: 10/10/19 07:30 Actual Procedures p Left Distal Great Toe Incision and Drainage, Open reduction internal fixation(Left) - Sterling Alvarado DO Ordered Studies 10/10/19 10:49 FL fluoroscopy <1hr Routine FL toe LT 2V Routine Hospital Course (1) Open fracture of left great toe: Open fracture of left great toe -on 10/10/19 had inpatient orthopedic procedure of: Left Distal Phalanx Great Toe irrigation and debridement of open fracture, Open reduction internal fixation left great toe open distal phalanx fracture, repair nailbed left great toe) -Patient may take acetaminphen 325 mg every 6 hours as needed for mild pain or fever Patient may take oxycodone 5 mg every 6 hours as needed for moderate to severe pain (16 tablets prescribed) [facility] [place] [address] 10/12/19 labs of Hemoglobin 7.8, creatinine 1.48, INR 1.1. Patient can resume coumadin and follow up with primary care doctor for repeat labs and pain control management as needed Patient has primary care doctor follow up scheduled: 10/19/2019 12:00 PM Provider Javier Patrick MD Department General Internal Medicine [facility] -ORTHOPEDIC ACTIVITY RECOMMENDATIONS: Limitations: Full weight bearing only if able to tolerate. SPECIAL CARE INSTRUCTIONS: * Some drainage onto the dressing is normal and is no cause for alarm. * Some swelling is natural especially after walking. * When resting, keep your foot elevated above the level of your heart. * Call [facility] if you notice: -Increased drainage -Fever over 101 degrees F -Severe constant pain BANDAGE: * Leave bandage/cast in place unless otherwise directed. * Keep bandage/cast dry at all times. PIN CARE: * Leave pins alone. * If pins come loose or fall out, notify physician. FOLLOW UP VISIT WITH DR. ALVARADO If appointment is not already scheduled: Please call [facility] after you get home today to schedule a follow-up appointment for [address] Alvarado at . (2) Acute blood loss anemia: -admission Hgb 10 -blood transfusions not needed on this hospital stay -10/12/19 labs of Hemoglobin 7.8, creatinine 1.48, INR 1.1. Patient can resume coumadin and follow up with primary care doctor for repeat labs and pain control management as needed (3) BRIAN (acute kidney injury): -Baseline creatinine 1.2 -admission creatinine 2.4 -creatinine downtrended and with holding lisinopril and lasix -10/12/19 labs of Hemoglobin 7.8, creatinine 1.48, INR 1.1 -patient may resume home dose lisinopril and Lasix and follow up with primary care doctor for repeat labs and pain control management as needed (4) T2DM (type 2 diabetes mellitus): Type 2 diabetes mellitus with care home current use of insulin -managed with insulin in the hospital -patient may resume home dose insulin and metformin on discharge (5) Chronic atrial fibrillation: 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 -10/12/19 labs of Hemoglobin 7.8, creatinine 1.48, INR 1.1 (6) Elevated troponin: -mild elevation of troponin on this admission. Echo performed and revealed EF 40-45% with chronic wall motion abnormalities. Cardiology reviewed the information and assessed the patient and recommended no further cardiac workup at this time. (7) CAD (coronary artery disease): -Cont Coreg, statin, -continue aspirin -can resume lisinopril on discharge as renal function improved (8) Systolic heart failure secondary to coronary artery disease: chronic systolic and diastolic congestive heart failure (Ischemic cardiomyopathy), -can resume Lasix on discharge as renal function has improved (9) Hypokalemia: resolved (10) JT on CPAP: CPAP at HS (11) DVT prophylaxis: -SCD/TEDS while inpatient, warfarin reinitiated. Discharge Diagnosis: Open fracture of left great toe (on 10/10/19 had inpatient orthopedic procedure of: Left Distal Phalanx Great Toe irrigation and debridement of open fracture, Open reduction internal fixation left great toe open distal phalanx fracture, repair nailbed left great toe), acute blood loss anemia, chronic atrial fibrillation with care home use of coumadin anticoagulation, supratherapeutic INR (resolved), acute kidney injury (treated), coronary artery disease, chronic systolic and diastolic congestive heart failure (Ischemic cardiomyopathy), Type 2 diabetes mellitus with care home current use of insulin Total Time Total Time Spent Total Time Spent (In Minutes): 40 minutes Total Time Includes: Examination of the Patient, Discharge Planning, Medication Reconciliation and Communication With Other Providers Discharge Plan Discharge Items Patient Disposition: Home - Self-Care Reason For Visit: OPEN FX OF L GREAT TOE,SUPRATHERAPEUTIC INR Discharge Diagnosis: Open fracture of left great toe (on 10/10/19 had inpatient orthopedic procedure of: Left Distal Phalanx Great Toe irrigation and debridement of open fracture, Open reduction internal fixation left great toe open distal phalanx fracture, repair nailbed left great toe), acute blood loss anemia, chronic atrial fibrillation with roasterman use of 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 anticoagulation, supratherapeutic INR (resolved), acute kidney injury (treated), coronary artery disease, chronic systolic and diastolic congestive heart failure (Ischemic cardiomyopathy), Type 2 diabetes mellitus with care home current use of insulin Condition on Discharge: Good Activity: Per Instructions section Weightbearing: Full weightbearing Non-emergency contact: Primary Care Provider and Surgeon Call non-emergency contact if: you have any medication questions Follow-up/Referrals: Sterling Alvarado DO [Surgeon] - (Call to schedule a follow up for in 1 week for dressing change and wound evaluation.) Delaney Lopez MD [Primary Care Provider] - Diet: Carb Consistent or DM2 and Low Sodium (2gm) Addtl Attending Provider Instructions: Patient may take acetaminphen 325 mg every 6 hours as needed for mild pain or fever Patient may take oxycodone 5 mg every 6 hours as needed for moderate to severe pain (16 tablets prescribed) 10/12/19 labs of Hemoglobin 7.8, creatinine 1.48, INR 1.1. Patient can resume coumadin and follow up with primary care doctor for repeat labs and pain control management as needed Take warfarin 5 mg daily for now [facility] [place] [address] Patient has primary care doctor follow up scheduled: 10/19/2019 12:00 PM Provider Javier Patrick MD Department General Internal Medicine [facility] [employer] Provider Instructions: ORTHOPEDIC ACTIVITY RECOMMENDATIONS: Limitations: Full weight bearing only if able to tolerate. SPECIAL CARE INSTRUCTIONS: * Some drainage onto the dressing is normal and is no cause for alarm. * Some swelling is natural especially after walking. * When resting, keep your foot elevated above the level of your heart. * Call [facility] if you notice: -Increased drainage -Fever over 101 degrees F -Severe constant pain BANDAGE: * Leave bandage/cast in place unless otherwise directed. * Keep bandage/cast dry at all times. PIN CARE: * Leave pins alone. * If pins come loose or fall out, notify physician. FOLLOW UP VISIT WITH DR. ALVARADO If appointment is not already scheduled: Please call [facility] after you get home today to schedule a follow-up appointment for [address] Alvarado at . Pending Studies at Discharge: No Stand-Alone Forms: My [facility], Opioid Pain Management, Smoking Cessation Medications and DC Order Prescriptions: New oxycodone 5 mg tablet 5 mg PO Q6H PRN (Reason: moderate to severe pain) 4 Days Qty: 16 RF: 0 warfarin [Coumadin] 5 mg Tablet 5 mg PO DAILY@1600 10 Days Qty: 10 RF: 0 Continued furosemide 40 mg tablet 40 mg PO DAILY RF: 0 atorvastatin 40 mg tablet 40 mg PO DAILY RF: 0 carvedilol 3.125 mg tablet 3.125 mg PO BID RF: 0 amlodipine 10 mg tablet 10 mg PO DAILY RF: 0 warfarin 5 mg tablet 0 mg PO UD RF: 0 lisinopril 40 mg tablet 40 mg PO DAILY RF: 0 metformin 500 mg tablet extended release 24 hr 2,000 mg PO UD RF: 0 Lantus Solostar U-100 Insulin 100 unit/mL (3 mL) insulin pen 0 unit SUBCUT DAILY RF: 0 aspirin [Aspirin Low Dose] 81 mg Tablet,Delayed Release (Dr/Ec) 81 mg PO DAILY RF: 0 Discharge Orders: Discharge Order (Routine); Ordered 10/12/19 Ordered By: Danny Chavarria/Other Patient Handouts: Surgery Prevent DVT After Admission Data Admit Date/Time: 10/08/19 15:55 Attending Provider: Danny Self Admit Provider: Fredy Gomez Primary Care Provider: Delaney Lopez Other Providers: Fredy Gomez ; Sterling Alvarado ; Guillermo Villeda
[2019-10-12] MEDS: WARFARIN SOD 5 MG TAB PO SCH (14:20)
--- NOTE | 2019-10-23 10:09 | Coding Query ---
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 Please assist us with the question(s) below: Please place an X in the parenthesis (x). If other, please document the findin. This patient, diagnosed with open left great toe distal phalanx fracture, underwent open reduction with internal fixation (ORIF) of the distal phalanx bone. There is documentation that there was irrigation and debridement with removal of clot and devitalized tissue. Please specify below, as to the specific location and reason for the debridement (whether a separate excisional debridement versus cleaning of the open wound was done). ( ) Reason for Debridement was for cleaning of the open fracture wound ( ) Reason for Debridement was a separate excisional debridement (X ) Other: Please Specify__*debridement of devitalized tissue adjacent to and surrounding the open fracture of the great toe was performed. Debridement of nail bed laceration and eponychial fold was also performed. 2. Depth of Debridement: ( ) Skin ( X) Skin and Subcutaneous Tissue, eponychial fold and nail bed great toe ( ) Skin, Subcutaneous Tissue and Muscle ( ) Skin, Subcutaneous Tissue, Muscle and Bone ( ) Other (pl Thank you Gianna CHOW
--- NOTE | 2019-10-24 09:33 | Communication Note ---
Date of Service: October 24, 2019 Abnormal Flow cytometry reviewed by me. I placed a staff message in [employer] for his PCP, Dr. Delaney Lopez, and his Oyster Sorter, Ms. Camille Lua, for re ferral to Hematology. I also reached out to Dr. Artemio Lopez, architecture professor, who will try to work him onto the schedule in the next few weeks. I discussed the findings with the patient by phone, who verbalized understanding with intent to comply with follow-up. Rambo, DO
== END 2019-10-12 15:09 | disposition home or self-care (01) | DRG 464 ==
LOC: ED 12:35 → 2S 15:55 → SUATTDRO 15:55 → 2S 16:19 → 3N 10-11 16:11

== ENCOUNTER 2022-10-08 16:24 | Inpatient (IN) ==
[2022-10-08 18:43] LABS: Alanine Aminotransferase 21 U/L (7-52); Albumin Globulin Ratio 0.8 (0.9-2); Albumin Level 3.3 gm/dl (3.4-5.0); Alkaline Phosphatase 200 U/L (34-104); Anion Gap 9 (3-11); BUN Creatinine Ratio 18.1 (10-20); Bilirubin,Total 2.3 mg/dl (0.2-1.0); Blood Urea Nitrogen 31 mg/dl (6-23); Calcium 8.9 mg/dl (8.5-10.1); Carbon Dioxide 27 mmol/L (21-32); Chloride 103 mmol/L (98-107); Est GFR (African American) 44.4 ml/min; Est GFR (Non-African American) 38.3 ml/min; Globulin 4.2 gm/dl (2.5-4.0); Glucose 135 mg/dl (70-99(Fasting)); Sodium 139 mmol/L (136-145); Total Protein 7.5 gm/dl (6.0-8.3)
--- NOTE | 2022-10-08 19:17 | XRay Report ---
XR chest 1V portable CLINICAL HISTORY: weakness TECHNIQUE: Single frontal radiograph of the chest was obtained. Comparison: Comparison is made to chest radiograph 05/06/2012 FINDINGS: Dual lead pacemaker is seen. Cardiomegaly is noted. The aortic arch is calcified. The lungs are clear . Small bilateral pleural effusions are seen. IMPRESSION: Small bilateral pleural effusions are seen. There is cardiomegaly without acute pulmonary abnormality . ACT 112: Negative or not required by law. Electronically signed by: Rasta Dumont M.D. 10/08/2022 7:14 PM
--- NOTE | 2022-10-08 19:28 | Emergency Department Note ---
History of Present Illness General Chief complaint: Weakness Stated complaint: "sleeping a lot" Time Seen by Provider: 10/08/22 19:03 Source: patient and family Mode of arrival: EMS Limitations: altered mental status History of Present Illness Provider complaint: Confusion, weakness, fatigue This is a 76-year-old male presents emergency department due to family's concern for increased fatigue and sleeping a lot, edema, as well as confusion. Family bedside states they noticed this last week. They state over the weekend he did not respond to phone calls from multiple people and eventually today they sent police to perform a well check due to their concern. Patient was noted by family to be confused as well as to have increased edema. They state patient has a history of heart problems and is a diabetic. Patient denies any overt pain. Family states he doesn't always take him medication correctly. Home Medications Medication Instructions Recorded Confirmed Type atorvastatin 40 mg tablet 40 mg PO QAM 10/08/19 10/08/22 History furosemide 40 mg tablet 40 mg PO QAM 10/08/19 10/08/22 History lisinopril 40 mg tablet 40 mg PO QAM 10/08/19 10/08/22 History metformin 500 mg tablet,extended 500 mg PO QAM 10/08/19 10/08/22 History release 24 hr cyanocobalamin (vitamin B-12) 1,000 mcg PO QAM 12/06/20 10/08/22 History 1,000 mcg tablet ferrous sulfate 325 mg (65 mg 325 mg PO DAILY 12/06/20 10/08/22 History iron) tablet nitroglycerin 0.4 mg sublingual 0.4 mg sublingual UD PRN Chest Pain 12/06/20 10/08/22 History tablet amlodipine 10 mg tablet 5 mg PO QAM 06/02/21 10/08/22 History amoxicillin 500 mg capsule 2,000 mg PO DIRECTED PRN PRIOR 06/02/21 10/08/22 History TO DENTAL APPT. insulin glargine 100 unit/mL (3 66 unit subcut DAILY 06/02/21 10/08/22 History mL) subcutaneous pen (Lantus Solostar U-100 Insulin) omeprazole 20 mg capsule,delayed 20 mg PO DAILY 06/02/21 10/08/22 History release carvedilol 12.5 mg tablet 6.25 mg PO BID 10/08/22 10/08/22 History Allergies Allergy/AdvReac Type Severity Reaction Status Date / Time No Known Allergies Allergy Unknown NONE Verified 10/08/22 20:31 Past Med/Surg History Medical History Acute blood loss anemia BRIAN (acute kidney injury) Brain bleed 2010 CAD (coronary artery disease) Cardiac pacemaker "SINCE 1973" FOLLOWS WITH DR. 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 PROCEDURE History of colonoscopy History of esophagogastroduodenoscopy (EGD) History of orthopedic surgery "repair of fracture right ankle" History of throat surgery History of tonsillectomy and adenoidectomy History of tooth extraction Hx of aortic valve replacement TAVR 2017 AT [facility] (FOLLOWED BY [facility]) Family History Father Coronary heart disease Stroke Brother Prostate cancer Sister Family history of diabetes mellitus Other No family history of adverse response to anesthesia Social History Smoking Status: Never smoker Second Hand Exposure: Yes ( A CHILD); Hx Alcohol Use: Yes Alcohol type: wine Alcohol Intake Frequency Comment: very very rarely Hx Substance Use: No Preferred Language: Nigerien Communication Ability: Effective Visual Impairment: Limited Hearing Ability: Hard of Hearing Records Coordinator Required: No Beliefs That Will Affect Care: None marital status: Current Living Situation: Alone current occupational status: retired How many Children do You have: 3 How many Children do You have Comment: family involved with care and able to assist with care Feels Safe at Home: Yes during the past year weight has: decreased > 10 lbs Assistive Devices: CPAP and Glasses Review of Systems A total of 10 systems reviewed and were otherwise negative All systems reviewed & are unremarkable except as noted in HPI & below Physical Exam Vital Signs Vital Signs - 24 hr 10/08/22 16:26 10/08/22 19:23 10/08/22 20:12 Temperature 36.9 C Temperature Source Temporal Artery Scan Pulse Rate 90 Pulse Rate [Apical] 96 H Pulse Rhythm [Apical] Regular Respiratory Rate 16 18 Respiratory Effort / Characteristics Non-Labored Spontaneous Respiratory Depth Normal Blood Pressure 193/100 H Blood Pressure [Right Arm] 198/108 H Blood Pressure Mean 131 Blood Pressure Mean [Right Arm] 138 Pulse Oximetry 99 99 Oxygen Delivery Method Room Air Room Air Room Air Sepsis Recent Fever Within 48 Hours No Sepsis New/Unexplained Change in Mental Status N/A Sepsis Action Taken by Nursing No Action Required 10/08/22 20:50 10/08/22 21:19 10/08/22 21:52 Temperature Temperature Source Pulse Rate Pulse Rate [Apical] 71 75 64 Pulse Rhythm [Apical] Respiratory Rate 20 18 18 Respiratory Effort / Characteristics Non-Labored Respiratory Depth Normal Blood Pressure Blood Pressure [Right Arm] 197/98 H 202/96 H 156/99 H Blood Pressure Mean Blood Pressure Mean [Right Arm] 131 131 118 Pulse Oximetry 96 97 Oxygen Delivery Method Room Air Sepsis Recent Fever Within 48 Hours Sepsis New/Unexplained Change in Mental Status Sepsis Action Taken by Nursing 10/08/22 22:25 10/08/22 22:43 Temperature Temperature Source Pulse Rate Pulse Rate [Apical] 62 60 Pulse Rhythm [Apical] Respiratory Rate 20 18 Respiratory Effort / Characteristics Non-Labored Respiratory Depth Normal Blood Pressure Blood Pressure [Right Arm] 209/98 H 181/107 H Blood Pressure Mean Blood Pressure Mean [Right Arm] 135 131 Pulse Oximetry 98 98 Oxygen Delivery Method Room Air Room Air Sepsis Recent Fever Within 48 Hours Sepsis New/Unexplained Change in Mental Status Sepsis Action Taken by Nursing GENERAL: alert, well appearing, well nourished, no distress, non-toxic HEAD: nc/at EYE EXAM: normal conjunctiva, PERRL and EOM's grossly intact OROPHARYNX: no exudate, no erythema, lips, buccal mucosa, and tongue normal and mucous membranes are moist NECK: supple, no nuchal rigidity, no adenopathy, non-tender LUNGS: Decreased to auscultation. Normal chest wall mechanics, no w/r/r HEART: no murmurs, S1 normal and S2 normal ABDOMEN: abdomen soft, non-tender, normo-active bowel sounds, no masses, no rebound or guarding. Edema noted to lower abdomen. : edema noted at scrotum and penis, mild erythema to inferior aspect of scrotum, not consistent with acute cellulitis, no evidence of Shanna's BACK: Back is symmetrical on inspection and there is no deformity, no midline tenderness, no CVA tenderness. SKIN: no rashes and no bruising UPPER EXTREMITIES: upper extremities are grossly normal. FROM, nml pulses b/l. NO evidence of trauma or deformity. Pitting edema noted b/l UE, L>R. LOWER EXTREMITIES: No pitting edema. FROM, nml pulses b/l. No evidence of trauma or deformity. Chronic appearing skin changes b/l LE. NEURO EXAM: Oriented to person and place, confused to chronology of events and why he is here tonight, cranial nerves II-XII grossly intact, normal speech, no gross weakness of arms, no gross weakness of legs. Gross sensation intact. Course Course 2114: BP still elevated. Pt didn't take his meds today. Administered Medications Discontinued Medications Carvedilol (Carvedilol 6.25 Mg Tab) 6.25 mg PO NOW STA Stop: 10/09/22 00:03 Last Admin: 10/09/22 01:05 Dose: 6.25 mg Documented By: DANNY Furosemide (Furosemide 40 Mg/4 Ml Vial) 40 mg IV ONE ONE Stop: 10/08/22 22:31 Last Admin: 10/08/22 22:43 Dose: 40 mg Documented By: LISA Albumin Human (Albumin 25% 100 Ml) 25 gm in 100 mls @ 50 mls/hr IV ONE ONE Stop: 10/09/22 01:41 Last Admin: 10/09/22 01:05 Dose: 50 mls/hr Documented By: DANNY Labetalol HCl (Labetalol Hcl Iv 5 Mg/Ml 20ml) 10 mg IV NOW STA Stop: 10/08/22 21:25 Last Admin: 10/08/22 21:38 Dose: 10 mg Documented By: LISA Co-signed By: HERBERTH Medical Decision Making Differential Diagnosis Differential diagnoses includes but is not limited to toxic, metabolic, in fectious, traumatic, cardiac, neurologic, hematologic, psychiatric and inflammatory etiologies. Medical Records Attestation: I reviewed the patient's medical records. Home Medications Current Medication List: was personally reviewed by me Laboratory Data Attestation: I reviewed the patient's lab results. Result diagrams: 10/08/22 19:45 10/08/22 19:45 Lab Results 10/08/22 10/08/22 10/08/22 Range/Units 17:51 17:57 17:57 WBC Cancelled RBC Cancelled Hgb Cancelled Hct Cancelled MCV Cancelled MCH Cancelled MCHC Cancelled RDW Std Deviation Cancelled RDW Coeff of Solis Cancelled Plt Count Cancelled MPV Cancelled Immature Gran % (Auto) Cancelled Neut % (Auto) Cancelled Lymph % (Auto) Cancelled [place] % (Auto) Cancelled Eos % (Auto) Cancelled Baso % (Auto) Cancelled Neut # (Auto) Cancelled Lymph # (Auto) Cancelled [place] # (Auto) Cancelled Eos # (Auto) Cancelled Baso # (Auto) Cancelled Immature Gran # (Auto) Cancelled Absolute Nucleated RBC Cancelled Nucleated RBC % (auto) Cancelled Neutrophils % (Manual) Cancelled Band Neutrophils % Cancelled Lymphocytes % (Manual) Cancelled Prolymphocyte % Cancelled Reactive Lymphs % (Man) Cancelled Monocytes % (Manual) Cancelled Eosinophils % (Manual) Cancelled Basophils % (Manual) Cancelled Metamyelocytes % (Man) Cancelled Myelocytes % (Man) Cancelled Promyelocytes % (Man) Cancelled Blast Cells % (Manual) Cancelled Plasma Cell % (Manual) Cancelled Other Cells % Cancelled Nucleated RBC % Cancelled Neutrophils # (Manual) Cancelled Band Neutrophils # Cancelled Total Absolute Neuts Cancelled Lymphocytes # (Manual) Cancelled Prolymphocyte # Cancelled Reactive Lymphs # Cancelled Total Abs Lymphocytes Cancelled Monocytes # (Manual) Cancelled Eosinophils # (Manual) Cancelled Basophils # (Manual) Cancelled Metamyelocytes # (Man) Cancelled Myelocytes # (Manual) Cancelled Promyelocytes # (Man) Cancelled Blast Cells # (Man) Cancelled Plasma Cell # (Manual) Cancelled Other Cells # Cancelled Nucleated RBCs # (Man) Cancelled Hypersegmented Neuts Cancelled Hyposegmented Neuts Cancelled Hypogranular Neuts Cancelled Large Granular Lymphs Cancelled # Lrg Granular Lymphs Cancelled Hairy Cells Cancelled Smudge Cells Cancelled Toxic Granulation Cancelled Toxic Vacuolation Cancelled Dohle Bodies Cancelled Porsha Rods Cancelled Platelet Estimate Cancelled Hypogranular Platelets Cancelled Clumped Platelets Cancelled Giant Platelets Cancelled Platelet Satelliting Cancelled RBC Morphology Cancelled Polychromasia Cancelled Hypochromasia Cancelled Poikilocytosis Cancelled Basophilic Stippling Cancelled Anisocytosis Cancelled Microcytosis Cancelled Macrocytosis Cancelled Spherocytes Cancelled Pappenheimer Bodies Cancelled Sickle Cells Cancelled Target Cells Cancelled Tear Drop Cells Cancelled Ovalocytes Cancelled Stomatocytes Cancelled [place] Bodies Cancelled Echinocytes Cancelled Acanthocytes (Spur) Cancelled Rouleaux Cancelled RBC Agglutinates Cancelled Schistocytes Cancelled Sezary Cell Cancelled PT (9.0-12.0) Seconds INR (0.9-1.1) Sodium 139 (136-145) mmol/L Potassium TNP Chloride 103 (98-107) mmol/L Carbon Dioxide 27 (21-32) mmol/L Anion Gap 9 (3-11) BUN 31 H (6-23) mg/dl Creatinine 1.71 H (0.6-1.4) mg/dl Est Cr Clr Drug Dosing Not Reportable Est GFR ( Amer) 44.4 ml/min Est GFR (Non-Af Amer) 38.3 ml/min BUN/Creatinine Ratio 18.1 (10-20) Glucose 135 H (70-99(Fasting)) mg/dl Calcium 8.9 (8.5-10.1) mg/dl Magnesium (1.7-2.4) mg/dl Total Bilirubin 2.3 H (0.2-1.0) mg/dl AST TNP ALT 21 (7-52) U/L Alkaline Phosphatase 200 H (34-104) U/L Ammonia Troponin I High Sens 55.0 H* (0-20) pg/ml B-Natriuretic Peptide 1437 H (0-100) pg/ml Total Protein 7.5 (6.0-8.3) gm/dl Albumin 3.3 L (3.4-5.0) gm/dl Globulin 4.2 H (2.5-4.0) gm/dl Albumin/Globulin Ratio 0.8 L (0.9-2) Lipase (11-82) U/L TSH (0.300-4.500) uIu/ml Free T4 (0.61-1.60) ng/dl SARS-CoV-2 (PCR) (Negative) Influenza Type A (PCR) (Neg) Influenza Type B (PCR) (Neg) RSV (RT-PCR) (Neg) SARS-CoV-2, RNA, NAAT (NEGATIVE) Blood Parasites ID Cancelled 10/08/22 10/08/22 10/08/22 Range/Units 17:57 17:57 17:57 WBC RBC Hgb Hct MCV MCH MCHC RDW Std Deviation RDW Coeff of Solis Plt Count MPV Immature Gran % (Auto) Neut % (Auto) Lymph % (Auto) [place] % (Auto) Eos % (Auto) Baso % (Auto) Neut # (Auto) Lymph # (Auto) [place] # (Auto) Eos # (Auto) Baso # (Auto) Immature Gran # (Auto) Absolute Nucleated RBC Nucleated RBC % (auto) Neutrophils % (Manual) Band Neutrophils % Lymphocytes % (Manual) Prolymphocyte % Reactive Lymphs % (Man) Monocytes % (Manual) Eosinophils % (Manual) Basophils % (Manual) Metamyelocytes % (Man) Myelocytes % (Man) Promyelocytes % (Man) Blast Cells % (Manual) Plasma Cell % (Manual) Other Cells % Nucleated RBC % Neutrophils # (Manual) Band Neutrophils # Total Absolute Neuts Lymphocytes # (Manual) Prolymphocyte # Reactive Lymphs # Total Abs Lymphocytes Monocytes # (Manual) Eosinophils # (Manual) Basophils # (Manual) Metamyelocytes # (Man) Myelocytes # (Manual) Promyelocytes # (Man) Blast Cells # (Man) Plasma Cell # (Manual) Other Cells # Nucleated RBCs # (Man) Hypersegmented Neuts Hyposegmented Neuts Hypogranular Neuts Large Granular Lymphs # Lrg Granular Lymphs Hairy Cells Smudge Cells Toxic Granulation Toxic Vacuolation Dohle Bodies Porsha Rods Platelet Estimate Hypogranular Platelets Clumped Platelets Giant Platelets Platelet Satelliting RBC Morphology Polychromasia Hypochromasia Poikilocytosis Basophilic Stippling Anisocytosis Microcytosis Macrocytosis Spherocytes Pappenheimer Bodies Sickle Cells Target Cells Tear Drop Cells Ovalocytes Stomatocytes [place] Bodies Echinocytes Acanthocytes (Spur) Rouleaux RBC Agglutinates Schistocytes Sezary Cell PT 13.9 H (9.0-12.0) Seconds INR 1.3 H (0.9-1.1) Sodium (136-145) mmol/L Potassium Chloride (98-107) mmol/L Carbon Dioxide (21-32) mmol/L Anion Gap (3-11) BUN (6-23) mg/dl Creatinine (0.6-1.4) mg/dl Est Cr Clr Drug Dosing Est GFR ( Amer) ml/min Est GFR (Non-Af Amer) ml/min BUN/Creatinine Ratio (10-20) Glucose (70-99(Fasting)) mg/dl Calcium (8.5-10.1) mg/dl Magnesium (1.7-2.4) mg/dl Total Bilirubin (0.2-1.0) mg/dl AST ALT (7-52) U/L Alkaline Phosphatase (34-104) U/L Ammonia Troponin I High Sens (0-20) pg/ml B-Natriuretic Peptide (0-100) pg/ml Total Protein (6.0-8.3) gm/dl Albumin (3.4-5.0) gm/dl Globulin (2.5-4.0) gm/dl Albumin/Globulin Ratio (0.9-2) Lipase (11-82) U/L TSH 12.853 H (0.300-4.500) uIu/ml Free T4 (0.61-1.60) ng/dl SARS-CoV-2 (PCR) (Negative) Influenza Type A (PCR) (Neg) Influenza Type B (PCR) (Neg) RSV (RT-PCR) (Neg) SARS-CoV-2, RNA, NAAT NEGATIVE (NEGATIVE) Blood Parasites ID 10/08/22 10/08/22 10/08/22 Range/Units 17:57 19:45 19:45 WBC 5.35 RBC 4.80 Hgb 14.6 Hct 45.1 MCV 94.0 MCH 30.4 MCHC 32.4 RDW Std Deviation 55.8 H RDW Coeff of Solis 16.3 H Plt Count 149 MPV 11.1 Immature Gran % (Auto) 0.2 Neut % (Auto) 51.7 Lymph % (Auto) 40.0 [place] % (Auto) 6.2 Eos % (Auto) 1.5 Baso % (Auto) 0.4 Neut # (Auto) 2.77 Lymph # (Auto) 2.14 [place] # (Auto) 0.33 Eos # (Auto) 0.08 Baso # (Auto) 0.02 Immature Gran # (Auto) 0.01 Absolute Nucleated RBC Nucleated RBC % (auto) Neutrophils % (Manual) Band Neutrophils % Lymphocytes % (Manual) Prolymphocyte % Reactive Lymphs % (Man) Monocytes % (Manual) Eosinophils % (Manual) Basophils % (Manual) Metamyelocytes % (Man) Myelocytes % (Man) Promyelocytes % (Man) Blast Cells % (Manual) Plasma Cell % (Manual) Other Cells % Nucleated RBC % Neutrophils # (Manual) Band Neutrophils # Total Absolute Neuts Lymphocytes # (Manual) Prolymphocyte # Reactive Lymphs # Total Abs Lymphocytes Monocytes # (Manual) Eosinophils # (Manual) Basophils # (Manual) Metamyelocytes # (Man) Myelocytes # (Manual) Promyelocytes # (Man) Blast Cells # (Man) Plasma Cell # (Manual) Other Cells # Nucleated RBCs # (Man) Hypersegmented Neuts Hyposegmented Neuts Hypogranular Neuts Large Granular Lymphs # Lrg Granular Lymphs Hairy Cells Smudge Cells Toxic Granulation Toxic Vacuolation Dohle Bodies Porsha Rods Platelet Estimate Hypogranular Platelets Clumped Platelets Giant Platelets Platelet Satelliting RBC Morphology Polychromasia Hypochromasia Poikilocytosis Basophilic Stippling Anisocytosis Microcytosis Macrocytosis Spherocytes Pappenheimer Bodies Sickle Cells Target Cells Tear Drop Cells Ovalocytes Stomatocytes [place] Bodies Echinocytes Acanthocytes (Spur) Rouleaux RBC Agglutinates Schistocytes Sezary Cell PT (9.0-12.0) Seconds INR (0.9-1.1) Sodium (136-145) mmol/L Potassium 3.9 Chloride (98-107) mmol/L Carbon Dioxide (21-32) mmol/L Anion Gap (3-11) BUN (6-23) mg/dl Creatinine (0.6-1.4) mg/dl Est Cr Clr Drug Dosing Est GFR ( Amer) ml/min Est GFR (Non-Af Amer) ml/min BUN/Creatinine Ratio (10-20) Glucose (70-99(Fasting)) mg/dl Calcium (8.5-10.1) mg/dl Magnesium 2.0 (1.7-2.4) mg/dl Total Bilirubin (0.2-1.0) mg/dl AST 33 ALT (7-52) U/L Alkaline Phosphatase (34-104) U/L Ammonia Troponin I High Sens 58.7 H* (0-20) pg/ml B-Natriuretic Peptide (0-100) pg/ml Total Protein (6.0-8.3) gm/dl Albumin (3.4-5.0) gm/dl Globulin (2.5-4.0) gm/dl Albumin/Globulin Ratio (0.9-2) Lipase 7 L (11-82) U/L TSH 12.237 H (0.300-4.500) uIu/ml Free T4 1.23 (0.61-1.60) ng/dl SARS-CoV-2 (PCR) (Negative) Influenza Type A (PCR) (Neg) Influenza Type B (PCR) (Neg) RSV (RT-PCR) (Neg) SARS-CoV-2, RNA, NAAT (NEGATIVE) Blood Parasites ID 10/08/22 10/08/22 10/08/22 Range/Units 19:47 19:47 20:53 WBC RBC Hgb Hct MCV MCH MCHC RDW Std Deviation RDW Coeff of Solis Plt Count MPV Immature Gran % (Auto) Neut % (Auto) Lymph % (Auto) [place] % (Auto) Eos % (Auto) Baso % (Auto) Neut # (Auto) Lymph # (Auto) [place] # (Auto) Eos # (Auto) Baso # (Auto) Immature Gran # (Auto) Absolute Nucleated RBC Nucleated RBC % (auto) Neutrophils % (Manual) Band Neutrophils % Lymphocytes % (Manual) Prolymphocyte % Reactive Lymphs % (Man) Monocytes % (Manual) Eosinophils % (Manual) Basophils % (Manual) Metamyelocytes % (Man) Myelocytes % (Man) Promyelocytes % (Man) Blast Cells % (Manual) Plasma Cell % (Manual) Other Cells % Nucleated RBC % Neutrophils # (Manual) Band Neutrophils # Total Absolute Neuts Lymphocytes # (Manual) Prolymphocyte # Reactive Lymphs # Total Abs Lymphocytes Monocytes # (Manual) Eosinophils # (Manual) Basophils # (Manual) Metamyelocytes # (Man) Myelocytes # (Manual) Promyelocytes # (Man) Blast Cells # (Man) Plasma Cell # (Manual) Other Cells # Nucleated RBCs # (Man) Hypersegmented Neuts Hyposegmented Neuts Hypogranular Neuts Large Granular Lymphs # Lrg Granular Lymphs Hairy Cells Smudge Cells Toxic Granulation Toxic Vacuolation Dohle Bodies Porsha Rods Platelet Estimate Hypogranular Platelets Clumped Platelets Giant Platelets Platelet Satelliting RBC Morphology Polychromasia Hypochromasia Poikilocytosis Basophilic Stippling Anisocytosis Microcytosis Macrocytosis Spherocytes Pappenheimer Bodies Sickle Cells Target Cells Tear Drop Cells Ovalocytes Stomatocytes [place] Bodies Echinocytes Acanthocytes (Spur) Rouleaux RBC Agglutinates Schistocytes Sezary Cell PT (9.0-12.0) Seconds INR (0.9-1.1) Sodium (136-145) mmol/L Potassium Chloride (98-107) mmol/L Carbon Dioxide (21-32) mmol/L Anion Gap (3-11) BUN (6-23) mg/dl Creatinine (0.6-1.4) mg/dl Est Cr Clr Drug Dosing Est GFR ( Amer) ml/min Est GFR (Non-Af Amer) ml/min BUN/Creatinine Ratio (10-20) Glucose (70-99(Fasting)) mg/dl Calcium (8.5-10.1) mg/dl Magnesium (1.7-2.4) mg/dl Total Bilirubin (0.2-1.0) mg/dl AST ALT (7-52) U/L Alkaline Phosphatase (34-104) U/L Ammonia TNP 16.0 L Troponin I High Sens (0-20) pg/ml B-Natriuretic Peptide (0-100) pg/ml Total Protein (6.0-8.3) gm/dl Albumin (3.4-5.0) gm/dl Globulin (2.5-4.0) gm/dl Albumin/Globulin Ratio (0.9-2) Lipase (11-82) U/L TSH (0.300-4.500) uIu/ml Free T4 (0.61-1.60) ng/dl SARS-CoV-2 (PCR) NEGATIVE (Negative) Influenza Type A (PCR) Negative (Neg) Influenza Type B (PCR) Negative (Neg) RSV (RT-PCR) Negative (Neg) SARS-CoV-2, RNA, NAAT (NEGATIVE) Blood Parasites ID Imaging Data Radiologist's Impression: Chest X-Ray 10/08/22 16:29 XR chest 1V portable CLINICAL HISTORY: weakness TECHNIQUE: Single frontal radiograph of the chest was obtained. Comparison: Comparison is made to chest radiograph 05/06/2012 FINDINGS: Dual lead pacemaker is seen. Cardiomegaly is noted. The aortic arch is calcified. The lungs are clear. Small bilateral pleural effusions are seen. IMPRESSION: Small bilateral pleural effusions are seen. There is cardiomegaly without acute pulmonary abnormality. ACT 112: Negative or not required by law. Electronically signed by: Rasta Dumont M.D. 10/08/2022 7:[address] 10/08/22 19:10 CT head/brain wo con CLINICAL HISTORY: confusion Technique: Contiguous axial CT images of the head were acquired from the base of the skull to the vertex without intravenous contrast administration. Images were viewed in brain, subdural and bone windows. Automated dose lowering techniques and/or adjustment according to patient size were utilized for this exam. Comparison: Comparison is made to CT head 05/04/2012 Findings: Areas of decreased attenuation are present in the periventricular and subcortical white matter bilaterally consistent with small vessel ischemic disease. Generalized cerebral atrophy with commensurate enlargement of the ventricles, sulci, and cisterns is also present. There is no acute intracranial hemorrhage or evidence of acute territorial infarction. No shift of the midline structures, mass effect, or extra-axial abnormalities are shown. Atherosclerotic calcifications are present in the intracranial segments of the internal carotid arteries. Focal encephalomalacia is seen in the right parieto-occipital lobe and left parietal lobe. Imaged portions of the paranasal sinuses and mastoid air cells are clear. The orbits appear normal. There are no acute fractures of the calvaria or scalp swelling. Impression: No acute intracranial hemorrhage, no evidence of acute territorial infarction or other acute intracranial disease process. ACT 112: Negative or not required by law. Electronically signed by: Rasta Dumont M.D. 10/08/2022 7:51 PM ECG Data Attestation: I personally reviewed and interpreted this ECG as follows: Indication: + weakness Rate (beats per minute): 71 Rhythm: + atrial fibrillation and + other ECG Intervals/blocks: + IVCD and + Normal QT ECG [place]: + Right axis deviation ECG ST segments: + Nonspecific ST abnormalities MDM Narrative An order was placed for continuous cardiac monitoring. The monitor shows a rate of 78__ with _.afib__ rhythm. This is a 76-year-old male presents emergency department with family at bedside due to concern for confusion, weakness, and edema after performing a well check on the patient as he had not responded in 3 days. Patient with significant past medical history. Patient here with evidence of anasarca, and did seem confused to recent events. Patient found to have multiple lab abnormalities. Patient's creatinine appears close to baseline given history of CKD, patient found to have an elevated troponin, abnormal LFTs, and an elevated BNP. Patient's TSH was also elevated however free T4 was normal. CT and x-ray imaging reassuring. Patient remained hemodynamically stable in the emergency room. Due to multiple abnormalities and unclear overall etiology of the patient's confusion and recent increased weakness, case discussed with hospitalist for additional evaluation and management. Impression & Plan Confusion, Generalized weakness, Elevated troponin, Abnormal LFTs, Anasarca, Elevated brain natriuretic peptide (BNP) level, CKD (chronic kidney disease), stage III Discharge Plan Visit Data Chief Complaint: Weakness Stated Complaint: "sleeping a lot" ED Provider: Amalia Curran Discharge Problem: Confusion, Generalized weakness, Elevated troponin, Abnormal LFTs, Anasarca, Elevated brain natriuretic peptide (BNP) level, CKD (chronic kidney disease), stage III Discharge Instructions Interventions: ED Discharge Assessment Last Done: 10/09/22 02:54
[2022-10-08 19:46] LABS: INR 1.3 (0.9-1.1); Prothrombin Time 13.9 Seconds (9.0-12.0)
--- NOTE | 2022-10-08 19:52 | CT Scan Report ---
CT head/brain wo con CLINICAL HISTORY: confusion Technique: Contiguous axial CT images of the head were acquired from the base of the skull to the meli sonya without intravenous contrast administration. Images were viewed in brain, subdural and bone [facility] Automated dose lowering techniques and/or adjustment according to patient size were utilized for this exam. Comparison: Comparison is made to CT head 05/04/2012 Findings: Areas of decreased attenuation are present in the periventricular and subcortical white matter bilate rally consistent with small vessel ischemic disease. Generalized cerebral atrophy with commensurate e nlargement of the ventricles, sulci, and cisterns is also present. There is no acute intracranial hem orrhage or evidence of acute territorial infarction. No shift of the midline structures, mass effect, or extra-axial abnormalities are shown. Atherosclerotic calcifications are present in the intracran ial segments of the internal carotid arteries. Focal encephalomalacia is seen in the right parieto-oc cipital lobe and left parietal lobe. Imaged portions of the paranasal sinuses and mastoid air cells are clear. The orbits appear normal. There are no acute fractures of the calvaria or scalp swelling. Impression: No acute intracranial hemorrhage, no evidence of acute territorial infarction or other acute intracra nial disease process. ACT 112: Negative or not required by law. Electronically signed by: Rasta Dumont M.D. 10/08/2022 7:51 PM
[2022-10-08 19:59] LABS: Thyroid Stimulating Hormone 12.237 uIu/ml (0.300-4.500)
[2022-10-08 20:01] LABS: Basophils # (auto) 0.02 K/uL (0-0.2); Basophils % (auto) 0.4 %; Eosinophils # (auto) 0.08 K/uL (0-0.50); Eosinophils % (auto) 1.5 %; Hematocrit (blood only) 45.1 % (40.1-51.0); Hemoglobin 14.6 g/dl (14.0-18.0); Immature Granulocytes # (auto) 0.01 K/uL (0.00-0.02); Immature Granulocytes % (auto) 0.2 %; Lymphocytes # (auto) 2.14 K/uL (1.2-3.4); Mean Corpuscular Hemoglobin 30.4 pg (25.0-34.0); Mean Corpuscular Hgb Conc 32.4 g/dL (32.0-36.0); Mean Platelet Volume 11.1 fL (9.4-12.4); Monocytes # (auto) 0.33 K/uL (0.24-0.82); Monocytes % (auto) 6.2 %; Neutrophils # (auto) 2.77 K/uL (1.4-6.5); Neutrophils % (auto) 51.7 %; Platelet Count 149 K/uL (130-400); RDW Coefficient of Variation 16.3 % (11.5-14.5); RDW Standard Deviation 55.8 fL (36.4-46.3); White Blood Count 5.35 K/ul (4.8-10.8)
[2022-10-08 20:01] LABS: T4 Free Thyroxine 1.23 ng/dl (0.61-1.60)
[2022-10-08 20:21] LABS: Potassium 3.9 mmol/L (3.5-5.1)
[2022-10-08 20:32] LABS: Troponin I High Sensitivity 58.7 pg/ml (0-20)
[2022-10-08 20:50] LABS: Influenza A virus by PCR Negative (Neg); Influenza B virus by PCR Negative (Neg); RSV by PCR Negative (Neg); SARS CoV2 RNA(COVID-19) Ceph NEGATIVE (Negative)
[2022-10-08] MEDS ORDERED: LABETALOL HCL IV 5 MG/ML 20ML IV STA (21:24)
[2022-10-08] MEDS ORDERED: FUROSEMIDE 40 MG/4 ML VIAL IV ONE (22:30)
[2022-10-08] MEDS ORDERED: ALBUMIN 25% 100 mL 25 GM/100 ML VIAL IV ONE (23:42)
[2022-10-09] MEDS ORDERED: carvediloL 6.25 MG TAB PO STA (00:02)
--- NOTE | 2022-10-09 02:31 | History & Physical Report ---
Date of Service October 09, 2022 Assessment & Plan (1) Encephalopathy: Plan: Underlying cognitive impairment and functional disability Multifactorial : hypertensive crisis, secondary to medication noncompliance Decompensated heart failure, history systolic dysfunction, predominant subacute right-sided heart failure symptoms, underlying pulmonary hypertension, JT on CPAP ARF on CKD New onset hypothyroidism Abnormal CT chest initial read findings (right upper lobe density, mediastinal adenopathy) aortic stenosis status post bioprosthetic AVR valvular heart disease (moderate TR, mild MR, mild paravalvular aortic valve prosthesis regurgitation) SSS status post PPM, PAF not on anticoagulation secondary to bleeding risk DM2 insulin requiring, suboptimal control as of recent hemoglobin A1c of 8.7 last May 2022 hx CLL, per observation by local oncologist chronic anemia, hemoglobin better than baseline hx ICH, cerebral amyloid angiopathy as per records PCU Facilitate home BP meds and titrate as needed Lasix albumin Cardiology consult Re: Subacute heart failure Follow renal function; renal ultrasound, Nephrology consultation if with progressive kidney dysfunction Outpatient sleep medicine follow-up to check on current CPAP settings (patient overdue for visit, last visit was 2016) Initiate low-dose levothyroxine, TSH recheck outpatient next month Follow official CT chest results Basal bolus insulin, ISS BG goal 1 10-1 40, carb count coverage, update hemoglobin A1c PT OT eval DVT prophylaxis. Heparin subcu Full code Patient daughters requesting updates from providers. Ms. Sarthak Guerrero, contact #[phone]faye, contact #[phone] Text document was generated using [employer] voice recognition software. It may contain grammatical or spelling errors. Kindly contact undersigned for clarification of any documentation item in question. Admission and Anticipated Discharge Date Admission Date: October 09, 2022 History of Present Illness Chief Complaint: Weakness, swelling both arms, confusion as per records Primary Care Provider: Delaney Lopez MD History obtained from patient, family, and records. Medical history significant for chronic systolic heart failure (EF 40 to 44%, 2021), aortic stenosis status post bioprosthetic AVR, valvular heart disease (moderate TR, mild MR, mild paravalvular aortic valve prosthesis regurgitation), SSS status post PPM, PAF not on anticoagulation secondary to risk, pulmonary hypertension, JT on CPAP, DM2 insulin requiring, CRI (baseline creatinine 1.3- 1.4), CLL, chronic anemia (baseline hemoglobin 13), hx ICH/cerebral amyloid angiopathy as per records, memory changes as per records. Last confinement 2018 for open fracture left great toe status post surgery. Patient noted by family to be increasingly tired and fatigued the last 2 weeks. Patient sleeping a lot as per daughter. Patient did not respond to multiple phone calls from family members over the weekend. Patient son-in-law checked on patient today at his apartment. Patient noted to be somewhat confused. Patient denies chest pain. Usual shortness of breath on exertion as per patient. Patient not sure about weight gain. Both arms more swollen than usual. No headaches. Patient cannot recall the last time he took his medications. Family thinks patient not able to take his meds like he should. SBP 190s upon arrival at the ER. IV Lasix administered for CHF. 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 Allergies Allergy/AdvReac Type Severity Reaction Status Date / Time No Known Allergies Allergy Unknown NONE Verified 10/08/22 20:31 Home Medications Medication Instructions Recorded Confirmed Type atorvastatin 40 mg tablet 40 mg PO QAM 10/08/19 10/08/22 History furosemide 40 mg tablet 40 mg PO QAM 10/08/19 10/08/22 History lisinopril 40 mg tablet 40 mg PO QAM 10/08/19 10/08/22 History metformin 500 mg tablet,extended 500 mg PO QAM 10/08/19 10/08/22 History release 24 hr cyanocobalamin (vitamin B-12) 1,000 mcg PO QAM 12/06/20 10/08/22 History 1,000 mcg tablet ferrous sulfate 325 mg (65 mg 325 mg PO DAILY 12/06/20 10/08/22 History iron) tablet nitroglycerin 0.4 mg sublingual 0.4 mg sublingual UD PRN Chest Pain 12/06/20 10/08/22 History tablet amlodipine 10 mg tablet 5 mg PO QAM 06/02/21 10/08/22 History amoxicillin 500 mg capsule 2,000 mg PO DIRECTED PRN PRIOR 06/02/21 10/08/22 History TO DENTAL APPT. insulin glargine 100 unit/mL (3 66 unit subcut DAILY 06/02/21 10/08/22 History mL) subcutaneous pen (Lantus Solostar U-100 Insulin) omeprazole 20 mg capsule,delayed 20 mg PO DAILY 06/02/21 10/08/22 History release carvedilol 12.5 mg tablet 6.25 mg PO BID 10/08/22 10/08/22 History Past Med/Surg History Medical History Acute blood loss anemia BRIAN (acute kidney injury) Brain bleed 2010 CAD (coronary artery disease) Cardiac pacemaker "SINCE 1973" FOLLOWS WITH DR. POZO Chronic atrial fibrillation CKD (chronic kidney disease), stage III PT DENIES Diabetes mellitus, type 2 Diabetic peripheral neuropathy associated with type 2 diabetes mellitus History of sick sinus syndrome s/p PPM HLD (hyperlipidemia) Hx of gastritis Hypertension Intracerebral hemorrhage Memory deficit Myocardial Infarction 1973 JT on CPAP SEVERE SLEEP APNEA Poor historian Stroke 1973 AND 1978 (DENIES ANY RESIDENTIAL PROBLEMS FROM EVENTS) Surgical History History of anesthesia reaction PT STATES "THEY HAD A HARD TIME PUTTING ME TO SLEEP" 1973 ? PROCEDURE History of colonoscopy History of esophagogastroduodenoscopy (EGD) History of orthopedic surgery "repair of fracture right ankle" History of throat surgery History of tonsillectomy and adenoidectomy History of tooth extraction Hx of aortic valve replacement [facility]AVR 2017 AT [facility] (FOLLOWED BY [facility]) Family History Father Coronary heart disease Stroke Brother Prostate cancer Sister Family history of diabetes mellitus Other No family history of adverse response to anesthesia Social History Smoking Status: Never smoker Second Hand Exposure: Yes ( A CHILD); Hx Alcohol Use: Yes Alcohol type: wine Alcohol Intake Frequency Comment: very very rarely Hx Substance Use: No Preferred Language: Divehi Communication Ability: Effective Visual Impairment: Limited Hearing Ability: Hard of Hearing Webbing Weaver Required: No Beliefs That Will Affect Care: None marital status: Current Living Situation: Alone and Personal Care Facility current occupational status: retired How many Children do You have: 3 How many Children do You have Comment: family involved with care and able to assist with care Feels Safe at Home: Yes Safety Concerns: Feels Safe At This Time during the past year weight has: decreased > 10 lbs Assistive Devices: CPAP and Glasses Review of Systems Review of Systems: As per HPI, all other systems reviewed and negative Physical Exam Physical Exam: GENERAL: Comfortable, pleasant, morbidly obese, unkempt, no respiratory distress SKIN: Pallor, warm HEENT: Partial alopecia, bespectacled, pale palpebral conjunctivae, no ptosis, dry buccal mucosa NECK : Supple, short neck, no tenderness CHEST : Decreased breath sounds, no tenderness HEART : Irregular, no obvious murmurs ABDOMEN: distention, nontender EXTREMITIES : Bilateral upper extremity swelling (L>R), bilateral LE venous stasis, no LE tenderness, no other conspicuous deformities noted NEUROLOGIC : Coherent, no facial asymmetry, gait and stance not assessed Results & Data Results & Data ([facility]) Vital Signs (Past 12 Hours) Vital Signs Temp Pulse Pulse Resp BP BP Pulse Ox 10/08/22 22:43 60 18 181/107 H 98 10/08/22 22:25 62 20 209/98 H 98 10/08/22 21:52 64 18 156/99 H 10/08/22 21:19 75 18 202/96 H 97 10/08/22 20:50 71 20 197/98 H 96 10/08/22 20:12 96 H 18 198/108 H 99 10/08/22 19:23 10/08/22 16:26 36.9 C 90 16 193/100 H 99 O2 Del Method 10/08/22 22:43 Room Air 10/08/22 22:25 Room Air 10/08/22 21:52 10/08/22 21:19 Room Air 10/08/22 20:50 10/08/22 20:12 Room Air 10/08/22 19:23 Room Air 10/08/22 16:26 Room Air Laboratory Results 10/08/22 10/08/22 10/08/22 17:51 17:57 17:57 WBC Cancelled RBC Cancelled Hgb Cancelled Hct Cancelled MCV Cancelled MCH Cancelled MCHC Cancelled RDW Std Deviation Cancelled RDW Coeff of Solis Cancelled Plt Count Cancelled MPV Cancelled Immature Gran % (Auto) Cancelled Neut % (Auto) Cancelled Lymph % (Auto) Cancelled [place] % (Auto) Cancelled Eos % (Auto) Cancelled Baso % (Auto) Cancelled Neut # (Auto) Cancelled Lymph # (Auto) Cancelled [place] # (Auto) Cancelled Eos # (Auto) Cancelled Baso # (Auto) Cancelled Immature Gran # (Auto) Cancelled Absolute Nucleated RBC Cancelled Nucleated RBC % (auto) Cancelled Neutrophils % (Manual) Cancelled Band Neutrophils % Cancelled Lymphocytes % (Manual) Cancelled Prolymphocyte % Cancelled Reactive Lymphs % (Man) Cancelled Monocytes % (Manual) Cancelled Eosinophils % (Manual) Cancelled Basophils % (Manual) Cancelled Metamyelocytes % (Man) Cancelled Myelocytes % (Man) Cancelled Promyelocytes % (Man) Cancelled Blast Cells % (Manual) Cancelled Plasma Cell % (Manual) Cancelled Other Cells % Cancelled Nucleated RBC % Cancelled Neutrophils # (Manual) Cancelled Band Neutrophils # Cancelled Total Absolute Neuts Cancelled Lymphocytes # (Manual) Cancelled Prolymphocyte # Cancelled Reactive Lymphs # Cancelled Total Abs Lymphocytes Cancelled Monocytes # (Manual) Cancelled Eosinophils # (Manual) Cancelled Basophils # (Manual) Cancelled Metamyelocytes # (Man) Cancelled Myelocytes # (Manual) Cancelled Promyelocytes # (Man) Cancelled Blast Cells # (Man) Cancelled Plasma Cell # (Manual) Cancelled Other Cells # Cancelled Nucleated RBCs # (Man) Cancelled Hypersegmented Neuts Cancelled Hyposegmented Neuts Cancelled Hypogranular Neuts Cancelled Large Granular Lymphs Cancelled # Lrg Granular Lymphs Cancelled Hairy Cells Cancelled Smudge Cells Cancelled Toxic Granulation Cancelled Toxic Vacuolation Cancelled Dohle Bodies Cancelled Porsha Rods Cancelled Platelet Estimate Cancelled Hypogranular Platelets Cancelled Clumped Platelets Cancelled Giant Platelets Cancelled Platelet Satelliting Cancelled RBC Morphology Cancelled Polychromasia Cancelled Hypochromasia Cancelled Poikilocytosis Cancelled Basophilic Stippling Cancelled Anisocytosis Cancelled Microcytosis Cancelled Macrocytosis Cancelled Spherocytes Cancelled Pappenheimer Bodies Cancelled Sickle Cells Cancelled Target Cells Cancelled Tear Drop Cells Cancelled Ovalocytes Cancelled Stomatocytes Cancelled [place] Bodies Cancelled Echinocytes Cancelled Acanthocytes (Spur) Cancelled Rouleaux Cancelled RBC Agglutinates Cancelled Schistocytes Cancelled Sezary Cell Cancelled PT INR Sodium 139 Potassium TNP Chloride 103 Carbon Dioxide 27 Anion Gap 9 BUN 31 H Creatinine 1.71 H Est Cr Clr Drug Dosing Not Reportable Est GFR ( Amer) 44.4 Est GFR (Non-Af Amer) 38.3 BUN/Creatinine Ratio 18.1 Glucose 135 H Calcium 8.9 Magnesium Total Bilirubin 2.3 H AST TNP ALT 21 Alkaline Phosphatase 200 H Ammonia Troponin I High Sens 55.0 H* B-Natriuretic Peptide 1437 H Total Protein 7.5 Albumin 3.3 L Globulin 4.2 H Albumin/Globulin Ratio 0.8 L Lipase TSH Free T4 SARS-CoV-2 (PCR) Influenza Type A (PCR) Influenza Type B (PCR) RSV (RT-PCR) SARS-CoV-2, RNA, NAAT Blood Parasites ID Cancelled 10/08/22 10/08/22 10/08/22 17:57 17:57 17:57 WBC RBC Hgb Hct MCV MCH MCHC RDW Std Deviation RDW Coeff of Solis Plt Count MPV Immature Gran % (Auto) Neut % (Auto) Lymph % (Auto) [place] % (Auto) Eos % (Auto) Baso % (Auto) Neut # (Auto) Lymph # (Auto) [place] # (Auto) Eos # (Auto) Baso # (Auto) Immature Gran # (Auto) Absolute Nucleated RBC Nucleated RBC % (auto) Neutrophils % (Manual) Band Neutrophils % Lymphocytes % (Manual) Prolymphocyte % Reactive Lymphs % (Man) Monocytes % (Manual) Eosinophils % (Manual) Basophils % (Manual) Metamyelocytes % (Man) Myelocytes % (Man) Promyelocytes % (Man) Blast Cells % (Manual) Plasma Cell % (Manual) Other Cells % Nucleated RBC % Neutrophils # (Manual) Band Neutrophils # Total Absolute Neuts Lymphocytes # (Manual) Prolymphocyte # Reactive Lymphs # Total Abs Lymphocytes Monocytes # (Manual) Eosinophils # (Manual) Basophils # (Manual) Metamyelocytes # (Man) Myelocytes # (Manual) Promyelocytes # (Man) Blast Cells # (Man) Plasma Cell # (Manual) Other Cells # Nucleated RBCs # (Man) Hypersegmented Neuts Hyposegmented Neuts Hypogranular Neuts Large Granular Lymphs # Lrg Granular Lymphs Hairy Cells Smudge Cells Toxic Granulation Toxic Vacuolation Dohle Bodies Porsha Rods Platelet Estimate Hypogranular Platelets Clumped Platelets Giant Platelets Platelet Satelliting RBC Morphology Polychromasia Hypochromasia Poikilocytosis Basophilic Stippling Anisocytosis Microcytosis Macrocytosis Spherocytes Pappenheimer Bodies Sickle Cells Target Cells Tear Drop Cells Ovalocytes Stomatocytes [place] Bodies Echinocytes Acanthocytes (Spur) Rouleaux RBC Agglutinates Schistocytes Sezary Cell PT 13.9 H INR 1.3 H Sodium Potassium Chloride Carbon Dioxide Anion Gap BUN Creatinine Est Cr Clr Drug Dosing Est GFR ( Amer) Est GFR (Non-Af Amer) BUN/Creatinine Ratio Glucose Calcium Magnesium Total Bilirubin AST ALT Alkaline Phosphatase Ammonia Troponin I High Sens B-Natriuretic Peptide Total Protein Albumin Globulin Albumin/Globulin Ratio Lipase TSH 12.853 H Free T4 SARS-CoV-2 (PCR) Influenza Type A (PCR) Influenza Type B (PCR) RSV (RT-PCR) SARS-CoV-2, RNA, NAAT NEGATIVE Blood Parasites ID 10/08/22 10/08/22 10/08/22 17:57 19:45 19:45 WBC 5.35 RBC 4.80 Hgb 14.6 Hct 45.1 MCV 94.0 MCH 30.4 MCHC 32.4 RDW Std Deviation 55.8 H RDW Coeff of Solis 16.3 H Plt Count 149 MPV 11.1 Immature Gran % (Auto) 0.2 Neut % (Auto) 51.7 Lymph % (Auto) 40.0 [place] % (Auto) 6.2 Eos % (Auto) 1.5 Baso % (Auto) 0.4 Neut # (Auto) 2.77 Lymph # (Auto) 2.14 [place] # (Auto) 0.33 Eos # (Auto) 0.08 Baso # (Auto) 0.02 Immature Gran # (Auto) 0.01 Absolute Nucleated RBC Nucleated RBC % (auto) Neutrophils % (Manual) Band Neutrophils % Lymphocytes % (Manual) Prolymphocyte % Reactive Lymphs % (Man) Monocytes % (Manual) Eosinophils % (Manual) Basophils % (Manual) Metamyelocytes % (Man) Myelocytes % (Man) Promyelocytes % (Man) Blast Cells % (Manual) Plasma Cell % (Manual) Other Cells % Nucleated RBC % Neutrophils # (Manual) Band Neutrophils # Total Absolute Neuts Lymphocytes # (Manual) Prolymphocyte # Reactive Lymphs # Total Abs Lymphocytes Monocytes # (Manual) Eosinophils # (Manual) Basophils # (Manual) Metamyelocytes # (Man) Myelocytes # (Manual) Promyelocytes # (Man) Blast Cells # (Man) Plasma Cell # (Manual) Other Cells # Nucleated RBCs # (Man) Hypersegmented Neuts Hyposegmented Neuts Hypogranular Neuts Large Granular Lymphs # Lrg Granular Lymphs Hairy Cells Smudge Cells Toxic Granulation Toxic Vacuolation Dohle Bodies Porsha Rods Platelet Estimate Hypogranular Platelets Clumped Platelets Giant Platelets Platelet Satelliting RBC Morphology Polychromasia Hypochromasia Poikilocytosis Basophilic Stippling Anisocytosis Microcytosis Macrocytosis Spherocytes Pappenheimer Bodies Sickle Cells Target Cells Tear Drop Cells Ovalocytes Stomatocytes [place] Bodies Echinocytes Acanthocytes (Spur) Rouleaux RBC Agglutinates Schistocytes Sezary Cell PT INR Sodium Potassium 3.9 Chloride Carbon Dioxide Anion Gap BUN Creatinine Est Cr Clr Drug Dosing Est GFR ( Amer) Est GFR (Non-Af Amer) BUN/Creatinine Ratio Glucose Calcium Magnesium 2.0 Total Bilirubin AST 33 ALT Alkaline Phosphatase Ammonia Troponin I High Sens 58.7 H* B-Natriuretic Peptide Total Protein Albumin Globulin Albumin/Globulin Ratio Lipase 7 L TSH 12.237 H Free T4 1.23 SARS-CoV-2 (PCR) Influenza Type A (PCR) Influenza Type B (PCR) RSV (RT-PCR) SARS-CoV-2, RNA, NAAT Blood Parasites ID 10/08/22 10/08/22 10/08/22 19:47 19:47 20:53 WBC RBC Hgb Hct MCV MCH MCHC RDW Std Deviation RDW Coeff of Solis Plt Count MPV Immature Gran % (Auto) Neut % (Auto) Lymph % (Auto) [place] % (Auto) Eos % (Auto) Baso % (Auto) Neut # (Auto) Lymph # (Auto) [place] # (Auto) Eos # (Auto) Baso # (Auto) Immature Gran # (Auto) Absolute Nucleated RBC Nucleated RBC % (auto) Neutrophils % (Manual) Band Neutrophils % Lymphocytes % (Manual) Prolymphocyte % Reactive Lymphs % (Man) Monocytes % (Manual) Eosinophils % (Manual) Basophils % (Manual) Metamyelocytes % (Man) Myelocytes % (Man) Promyelocytes % (Man) Blast Cells % (Manual) Plasma Cell % (Manual) Other Cells % Nucleated RBC % Neutrophils # (Manual) Band Neutrophils # Total Absolute Neuts Lymphocytes # (Manual) Prolymphocyte # Reactive Lymphs # Total Abs Lymphocytes Monocytes # (Manual) Eosinophils # (Manual) Basophils # (Manual) Metamyelocytes # (Man) Myelocytes # (Manual) Promyelocytes # (Man) Blast Cells # (Man) Plasma Cell # (Manual) Other Cells # Nucleated RBCs # (Man) Hypersegmented Neuts Hyposegmented Neuts Hypogranular Neuts Large Granular Lymphs # Lrg Granular Lymphs Hairy Cells Smudge Cells Toxic Granulation Toxic Vacuolation Dohle Bodies Porsha Rods Platelet Estimate Hypogranular Platelets Clumped Platelets Giant Platelets Platelet Satelliting RBC Morphology Polychromasia Hypochromasia Poikilocytosis Basophilic Stippling Anisocytosis Microcytosis Macrocytosis Spherocytes Pappenheimer Bodies Sickle Cells Target Cells Tear Drop Cells Ovalocytes Stomatocytes [place] Bodies Echinocytes Acanthocytes (Spur) Rouleaux RBC Agglutinates Schistocytes Sezary Cell PT INR Sodium Potassium Chloride Carbon Dioxide Anion Gap BUN Creatinine Est Cr Clr Drug Dosing Est GFR ( Amer) Est GFR (Non-Af Amer) BUN/Creatinine Ratio Glucose Calcium Magnesium Total Bilirubin AST ALT Alkaline Phosphatase Ammonia TNP 16.0 L Troponin I High Sens B-Natriuretic Peptide Total Protein Albumin Globulin Albumin/Globulin Ratio Lipase TSH Free T4 SARS-CoV-2 (PCR) NEGATIVE Influenza Type A (PCR) Negative Influenza Type B (PCR) Negative RSV (RT-PCR) Negative SARS-CoV-2, RNA, NAAT Blood Parasites ID Diagnostic Findings CT chest initial read: Possible pulmonaryarterial hypertension. Moderate-sized bilateral pleural effusionswith compressive atelectasis or pneumonia. Mild bronchiectasis in the lingula and left lower lobe maybe due to chronic aspiration and/or DANIA infection. Next a mild nonspecific mediastinal adenopathy. 2.3 cmovoid opacityin the base of the right upper lobe could represent atelectasis, fibrosis, pneumonia or mass. Moderate ascites. Possible anasarca. EKG as per my interpretation : Rate 70, A. fib with paced complexes, RAD, diffuse T wave flattening with PVCs, low voltage Code Status & VTE Plan VTE Prophylaxis Plan VTE Prophylaxis will be ordered: Yes
[2022-10-09] MEDS ORDERED: PROMETHAZINE HCL 12.5 MG in SODIUM CHLORIDE 0.9% 50 ML IV PRN (02:53)
[2022-10-09] MEDS ORDERED: DEXTROSE 50% 50 ML SYRINGE IV PRN (02:53)
[2022-10-09] MEDS ORDERED: GLUCOSE 10 TAB/TUBE PO PRN (02:53)
[2022-10-09] MEDS ORDERED: GLUCAGON FOR INJ 1 MG VIAL SQ PRN (02:53)
[2022-10-09] MEDS ORDERED: NITROGLYCERIN SL 0.4 MG/TAB TAB SL PRN (02:53)
[2022-10-09] MEDS ORDERED: ACETAMINOPHEN 325 MG TAB PO PRN (02:53)
[2022-10-09] MEDS ORDERED: INFLUENZA VACCINE HIGH DOSE PF 65+ 0.7 ML SYR IM ONE (03:51)
[2022-10-09] MEDS: INSULIN ASPART PER UNIT SC SCH ×4 (04:19→16:30)
[2022-10-09 04:26] LABS: Appearance Urine Clear (Clear); Bacteria Urine Automated Negative (Negative); Bilirubin Urine Negative (Negative); Blood Urine Trace (Negative); Color Urine Yellow; Glucose Urine UA Negative (Negative); Ketones Urine Negative (Negative); Leukocyte Esterase Urine Negative (Negative); Nitrite Urine Negative (Negative); Protein Urine 2+ (Negative); RBC Urine Automated 0-4 /hpf (0-4); Specific Gravity Urine 1.008 (1.000-1.030); Urobilinogen Urine Negative (Negative)
[2022-10-09] MEDS: amLODIPine BESYLATE 5 MG TAB PO SCH (05:54)
[2022-10-09] MEDS: MICONAZOLE NITRATE POWDER 43 GM EXT SCH ×2 (05:55→21:54)
[2022-10-09] MEDS: HEPARIN SOD 5,000 UNIT/0.5 ML VIAL SQ SCH ×3 (06:32→21:55)
[2022-10-09] MEDS: LEVOTHYROXINE SODIUM 25 MCG TABLET PO SCH (06:32)
[2022-10-09 07:16] LABS: Basophils # (auto) 0.02 K/uL (0-0.2); Basophils % (auto) 0.4 %; Eosinophils # (auto) 0.08 K/uL (0-0.50); Eosinophils % (auto) 1.7 %; Hematocrit (blood only) 43.4 % (40.1-51.0); Hemoglobin 13.8 g/dl (14.0-18.0); Immature Granulocytes # (auto) 0.01 K/uL (0.00-0.02); Immature Granulocytes % (auto) 0.2 %; Lymphocytes # (auto) 1.77 K/uL (1.2-3.4); Lymphocytes % (auto) 37.8 %; Mean Corpuscular Hemoglobin 30.2 pg (25.0-34.0); Mean Corpuscular Hgb Conc 31.8 g/dL (32.0-36.0); Mean Platelet Volume 11.3 fL (9.4-12.4); Monocytes # (auto) 0.15 K/uL (0.24-0.82); Monocytes % (auto) 3.2 %; Neutrophils # (auto) 2.65 K/uL (1.4-6.5); Neutrophils % (auto) 56.7 %; Platelet Count 141 K/uL (130-400); RDW Coefficient of Variation 16.4 % (11.5-14.5); RDW Standard Deviation 56.4 fL (36.4-46.3); Red Blood Count 4.57 M/uL (4.63-6.08); White Blood Count 4.68 K/ul (4.8-10.8)
[2022-10-09 07:48] LABS: Anion Gap 7 (3-11); BUN Creatinine Ratio 17.1 (10-20); Blood Urea Nitrogen 31 mg/dl (6-23); Carbon Dioxide 31 mmol/L (21-32); Chloride 102 mmol/L (98-107); Creatinine Clr Calc Pharmacy 46.7 ml/min; Est GFR (African American) 41.5 ml/min; Est GFR (Non-African American) 35.8 ml/min; Glucose 147 mg/dl (70-99(Fasting)); Sodium 140 mmol/L (136-145)
--- NOTE | 2022-10-09 07:51 | CT Scan Report ---
CT OF THE CHEST WITHOUT IV CONTRAST CLINICAL HISTORY: Bilateral arm swelling. Evaluate for central venous obstruction. COMPARISON STUDY: Chest CT April 15, 2017 and chest radiograph October 08, 2022. CT DOSE: 728.49 mGy.cm TECHNIQUE: Axial images of the chest were obtained without IV contrast. Images were reviewed in the axial, sagittal, and coronal planes. IV contrast was not administered for this examination. Automat ed exposure control was utilized for the study. A dose lowering technique was utilized adhering to t he principles of ALARA. FINDINGS: A dual-lead left subclavian pacemaker is in place. Prosthetic aortic valve is noted. There is moderate cardiomegaly and coronary artery calcification. No pericardial effusion is present. Ther e is no pneumothorax. Moderate bilateral pleural effusions, right larger than left, are noted. Subple ural opacity represents compressive atelectasis. Although suboptimally assessed on this unenhanced ex am, there is no evidence for central venous occlusion. A 2.4 cm water attenuation focus within the ri ght middle lobe is noted. This is new since prior CT. There is mild bronchiectasis within the right m iddle lobe and lingula. Mild groundglass opacities within the superior segment of the right lower lob e are present. Central airways are patent. Prominent mediastinal and left axillary lymph nodes are no jamaal. These are likely benign. There is pulmonary vascular congestion with possible mild pulmonary glenn ma. Anasarca is noted. Small to moderate upper abdominal ascites is partially imaged on this exam. IMPRESSION: 1. Moderate bilateral pleural effusions, right larger than left. Anasarca with small to moderate uppe r abdominal ascites. Suspected mild pulmonary edema. 2. No evidence for central venous occlusion on unenhanced exam. 3. 2.4 cm water attenuation focus within the right middle lobe. This is likely benign. However, a fol low-up chest CT in 3 months to ensure resolution is recommended. 4. Mild lingular and right middle lobe bronchiectasis. Mild groundglass opacity within the superior s egment of right lower lobe. This may reflect a chronic infectious/inflammatory process. ACT 112: Negative or not required by law. Electronically signed by: Sebastian An M.D. 10/09/2022 7:49 AM
[2022-10-09] MEDS: FUROSEMIDE 40 MG/4 ML VIAL IV SCH ×2 (08:36→21:54)
[2022-10-09] MEDS: ATORVASTATIN 40 MG TAB PO SCH (08:36)
[2022-10-09] MEDS: ALBUMIN 25% 12.5 GM/50 ML VIAL IV SCH ×2 (08:39→21:53)
[2022-10-09] MEDS: FERROUS SULFATE 325 MG TAB PO SCH (08:41)
[2022-10-09] MEDS: carvediloL 6.25 MG TAB PO SCH ×2 (08:41→21:54)
[2022-10-09] MEDS: CYANOCOBALAMIN (B-12) 500 MCG TABLET PO SCH (08:41)
--- NOTE | 2022-10-09 08:55 | Cardiology Consultation ---
Date of Consultation October 09, 2022 Assessment & Plan (1) Encephalopathy: (2) Confusion: (3) Generalized weakness: (4) Aortic valve stenosis: (5) Ischemic cardiomyopathy: (6) Systolic heart failure secondary to coronary artery disease: Plan The patient will most likely need placement long-term. The patient's family seems to be agreeable and headed in that direction. I would make sure that she resume his cardiac meds. No additional recommendations at this time. History of Present Illness Attending Physician: Fredy Gomez MD History of Present Illness This is a 76-year-old male patient with the below past medical history. He lives at a independent half-way area. His family was not able to get a hold of him for the past 3 days and went over to his apartment and found him somnolent with mental status to changes. Unknown as to how many days he was without his medications. The apartment was also in disarray. Currently in the emergency department he is stable and expresses no complaints. He is alert but confused. Past Medical and Surgical History: 1.Longstanding hypertension, hypertensive heart disease 2.Medically treated inferior wall STEMI, 04/2012 3.Ischemic cardiomyopathy 4.Systolic heart failure 5.June 12, 2018 cardiac catheterization with diffuse minor irregularities, non-obstructive coronary artery disease. The left circumflex was noted to arise from the left sinus of valsalva and has a separate ostium. 6.Post catheterization patient hospitalized with renal dysfunction and diabetic issues, pulmonary embolism as well as a left atrial appendage thrombus. 7.Chronic atrial fibrillation. Anticoagulation risks felt to be greater than the benefit secondary to ambulatory dysfunction, iron deficiency anemia, history of intracranial hemorrhage, history of amyloid angiopathy 8.Sick sinus syndrome s/p permanent pacemaker implantation. 9.Aortic stenosis status post October 07, 2018 transcatheter aortic valve replacement with a 26 mm Robbins Terrie S3 valve 10.Cerebral amyloid angiopathy. 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 20.Type II diabetes mellitus with retinopathy, proteinuria 21.Stage III chronic kidney disease 22.Right tibia/ankle fracture status post surgical repair 23.Penile implant, 1999 Allergies Allergy/AdvReac Type Severity Reaction Status Date / Time No Known Allergies Allergy Unknown NONE Verified 12/19/22 20:31 Home Medications Medication Instructions Recorded Confirmed Type atorvastatin 40 mg tablet 40 mg PO QAM 10/08/19 10/08/22 History furosemide 40 mg tablet 40 mg PO QAM 10/08/19 10/08/22 History lisinopril 40 mg tablet 40 mg PO QAM 10/08/19 10/08/22 History metformin 500 mg tablet,extended 500 mg PO QAM 10/08/19 10/08/22 History release 24 hr cyanocobalamin (vitamin B-12) 1,000 mcg PO QAM 12/06/20 10/08/22 History 1,000 mcg tablet ferrous sulfate 325 mg (65 mg 325 mg PO DAILY 12/06/20 10/08/22 History iron) tablet nitroglycerin 0.4 mg sublingual 0.4 mg sublingual UD PRN Chest Pain 12/06/20 10/08/22 History tablet amlodipine 10 mg tablet 5 mg PO QAM 06/02/21 10/08/22 History amoxicillin 500 mg capsule 2,000 mg PO DIRECTED PRN PRIOR 06/02/21 10/08/22 History TO DENTAL APPT. omeprazole 20 mg capsule,delayed 20 mg PO DAILY 06/02/21 10/08/22 History release carvedilol 12.5 mg tablet 6.25 mg PO BID 10/08/22 10/08/22 History Patient History Medical History Acute blood loss anemia BRIAN (acute kidney injury) Brain bleed 2010 CAD (coronary artery disease) Cardiac pacemaker "SINCE 1973" FOLLOWS WITH DR. POZO Chronic atrial fibrillation CKD (chronic kidney disease), stage III PT DENIES Diabetes mellitus, type 2 Diabetic peripheral neuropathy associated with type 2 diabetes mellitus History of sick sinus syndrome s/p PPM HLD (hyperlipidemia) Hx of gastritis Hypertension Intracerebral hemorrhage Memory deficit Myocardial Infarction 1973 JT on CPAP SEVERE SLEEP APNEA Poor historian Stroke 1973 AND 1978 (DENIES ANY [employer]IMINAL [employer]ENSE [employer]ER PROBLEMS FROM EVENTS) Surgical History History of anesthesia reaction PT STATES "THEY HAD A HARD TIME PUTTING ME TO SLEEP" 1973 ? PROCEDURE History of colonoscopy History of esophagogastroduodenoscopy (EGD) History of orthopedic surgery "repair of fracture right ankle" History of throat surgery History of tonsillectomy and adenoidectomy History of tooth extraction Hx of aortic valve replacement TAVR 2018 AT [facility] (FOLLOWED BY [facility]) Family History Father Coronary heart disease Stroke Brother Prostate cancer Sister Family history of diabetes mellitus Other No family history of adverse response to anesthesia Social History Smoking Status: Never smoker Second Hand Exposure: Yes ( A CHILD); Hx Alcohol Use: Yes Alcohol type: wine Alcohol Intake Frequency Comment: very very rarely Hx Substance Use: No Preferred Language: Mosotho Communication Ability: Effective Visual Impairment: Limited Hearing Ability: Hard of Hearing Glove Boarder Required: No Beliefs That Will Affect Care: None marital status: Current Living Situation: Alone and Personal Care Facility current occupational status: retired How many Children do You have: 3 How many Children do You have Comment: family involved with care and able to assist with care Feels Safe at Home: Yes Safety Concerns: Feels Safe At This Time during the past year weight has: decreased > 10 lbs Assistive Devices: CPAP Review of Systems Review of Systems: Review of Systems: See HPI for pertinent positives. All other 10 point review of systems are negative. Physical Exam Physical Exam: General: no acute distress and stated age Head: normocephalic, no masses, lesions, tenderness or abnormalities Eyes: conjunctiva are pink and non-injected, sclera clear Neck: supple, no adenopathy, no bruits, normal jugular venous pulse, no hepatojugular reflux Chest: normal shape and normal respiratory effort Lungs: clear to auscultation and percussion Cardiac Exam: - regular rate & rhythm, no murmurs gallops or rubs - normal S1, normal S2 Pulses: 2(+) throughout Abdomen: abdomen soft, non-tender, no abnormal masses and no hepatosplenomegaly Musculoskeletal: no gait disturbance, no joint inflammation, no deforming arthritis Extremities: no edema and no cyanosis Neuro: grossly normal exam Results & Data ([facility]) Vital Signs (Past 12 Hours) Vital Signs Temp Pulse Pulse Resp BP BP Pulse Ox 10/09/22 08:32 65 18 162/90 H 97 10/09/22 08:00 10/09/22 05:55 64 18 173/105 H 96 10/09/22 04:12 65 22 166/92 H 96 10/09/22 03:53 10/09/22 03:28 36.7 C 66 20 182/117 H 96 10/09/22 01:02 75 19 190/118 H 99 10/08/22 22:43 60 18 181/107 H 98 10/08/22 22:25 62 20 209/98 H 98 10/08/22 21:52 64 18 156/99 H 10/08/22 21:19 75 18 202/96 H 97 Pulse Ox O2 Del Method O2 Del Method 10/09/22 08:32 Room Air 10/09/22 08:00 97 Room Air 10/09/22 05:55 Room Air 10/09/22 04:12 Room Air 10/09/22 03:53 96 Room Air 10/09/22 03:28 Room Air 10/09/22 01:02 Room Air 10/08/22 22:43 Room Air 10/08/22 22:25 Room Air 10/08/22 21:52 10/08/22 21:19 Room Air Laboratory Results Laboratory Results - last 24 hr 10/08/22 10/08/22 10/08/22 17:51 17:57 17:57 WBC Cancelled RBC Cancelled Hgb Cancelled Hct Cancelled MCV Cancelled MCH Cancelled MCHC Cancelled RDW Std Deviation Cancelled RDW Coeff of Solis Cancelled Plt Count Cancelled MPV Cancelled Immature Gran % (Auto) Cancelled Neut % (Auto) Cancelled Lymph % (Auto) Cancelled Snyder % (Auto) Cancelled Eos % (Auto) Cancelled Baso % (Auto) Cancelled Neut # (Auto) Cancelled Lymph # (Auto) Cancelled Snyder # (Auto) Cancelled Eos # (Auto) Cancelled Baso # (Auto) Cancelled Immature Gran # (Auto) Cancelled Absolute Nucleated RBC Cancelled Nucleated RBC % (auto) Cancelled Neutrophils % (Manual) Cancelled Band Neutrophils % Cancelled Lymphocytes % (Manual) Cancelled Prolymphocyte % Cancelled Reactive Lymphs % (Man) Cancelled Monocytes % (Manual) Cancelled Eosinophils % (Manual) Cancelled Basophils % (Manual) Cancelled Metamyelocytes % (Man) Cancelled Myelocytes % (Man) Cancelled Promyelocytes % (Man) Cancelled Blast Cells % (Manual) Cancelled Plasma Cell % (Manual) Cancelled Other Cells % Cancelled Nucleated RBC % Cancelled Neutrophils # (Manual) Cancelled Band Neutrophils # Cancelled Total Absolute Neuts Cancelled Lymphocytes # (Manual) Cancelled Prolymphocyte # Cancelled Reactive Lymphs # Cancelled Total Abs Lymphocytes Cancelled Monocytes # (Manual) Cancelled Eosinophils # (Manual) Cancelled Basophils # (Manual) Cancelled Metamyelocytes # (Man) Cancelled Myelocytes # (Manual) Cancelled Promyelocytes # (Man) Cancelled Blast Cells # (Man) Cancelled Plasma Cell # (Manual) Cancelled Other Cells # Cancelled Nucleated RBCs # (Man) Cancelled Hypersegmented Neuts Cancelled Hyposegmented Neuts Cancelled Hypogranular Neuts Cancelled Large Granular Lymphs Cancelled # Lrg Granular Lymphs Cancelled Hairy Cells Cancelled Smudge Cells Cancelled Toxic Granulation Cancelled Toxic Vacuolation Cancelled Dohle Bodies Cancelled Porsha Rods Cancelled Platelet Estimate Cancelled Hypogranular Platelets Cancelled Clumped Platelets Cancelled Giant Platelets Cancelled Platelet Satelliting Cancelled RBC Morphology Cancelled Polychromasia Cancelled Hypochromasia Cancelled Poikilocytosis Cancelled Basophilic Stippling Cancelled Anisocytosis Cancelled Microcytosis Cancelled Macrocytosis Cancelled Spherocytes Cancelled Pappenheimer Bodies Cancelled Sickle Cells Cancelled Target Cells Cancelled Tear Drop Cells Cancelled Ovalocytes Cancelled Stomatocytes Cancelled [place] Bodies Cancelled Echinocytes Cancelled Acanthocytes (Spur) Cancelled Rouleaux Cancelled RBC Agglutinates Cancelled Schistocytes Cancelled Sezary Cell Cancelled PT INR Sodium 139 Potassium TNP Chloride 103 Carbon Dioxide 27 Anion Gap 9 BUN 31 H Creatinine 1.71 H Est Cr Clr Drug Dosing Not Reportable Est GFR ( Amer) 44.4 Est GFR (Non-Af Amer) 38.3 BUN/Creatinine Ratio 18.1 Glucose 135 H POC Glucose Calcium 8.9 Magnesium Total Bilirubin 2.3 H AST TNP ALT 21 Alkaline Phosphatase 200 H Ammonia Troponin I High Sens 55.0 H* B-Natriuretic Peptide 1437 H Total Protein 7.5 Albumin 3.3 L Globulin 4.2 H Albumin/Globulin Ratio 0.8 L Lipase TSH Free T4 Urine Color Urine Appearance Urine pH Ur Specific [place] Urine Protein Urine Glucose (UA) Urine Ketones Urine Blood Urine Nitrite Urine Bilirubin Urine Urobilinogen Ur Leukocyte Esterase Urine WBC (Auto) Urine RBC (Auto) U Hyaline Cast (Auto) U Epithel Cells (Auto) Urine Bacteria (Auto) SARS-CoV-2 (PCR) Influenza Type A (PCR) Influenza Type B (PCR) RSV (RT-PCR) SARS-CoV-2, RNA, NAAT Blood Parasites ID Cancelled 10/08/22 10/08/22 10/08/22 17:57 17:57 17:57 WBC RBC Hgb Hct MCV MCH MCHC RDW Std Deviation RDW Coeff of Solis Plt Count MPV Immature Gran % (Auto) Neut % (Auto) Lymph % (Auto) Snyder % (Auto) Eos % (Auto) Baso % (Auto) Neut # (Auto) Lymph # (Auto) Snyder # (Auto) Eos # (Auto) Baso # (Auto) Immature Gran # (Auto) Absolute Nucleated RBC Nucleated RBC % (auto) Neutrophils % (Manual) Band Neutrophils % Lymphocytes % (Manual) Prolymphocyte % Reactive Lymphs % (Man) Monocytes % (Manual) Eosinophils % (Manual) Basophils % (Manual) Metamyelocytes % (Man) Myelocytes % (Man) Promyelocytes % (Man) Blast Cells % (Manual) Plasma Cell % (Manual) Other Cells % Nucleated RBC % Neutrophils # (Manual) Band Neutrophils # Total Absolute Neuts Lymphocytes # (Manual) Prolymphocyte # Reactive Lymphs # Total Abs Lymphocytes Monocytes # (Manual) Eosinophils # (Manual) Basophils # (Manual) Metamyelocytes # (Man) Myelocytes # (Manual) Promyelocytes # (Man) Blast Cells # (Man) Plasma Cell # (Manual) Other Cells # Nucleated RBCs # (Man) Hypersegmented Neuts Hyposegmented Neuts Hypogranular Neuts Large Granular Lymphs # Lrg Granular Lymphs Hairy Cells Smudge Cells Toxic Granulation Toxic Vacuolation Dohle Bodies Porsha Rods Platelet Estimate Hypogranular Platelets Clumped Platelets Giant Platelets Platelet Satelliting RBC Morphology Polychromasia Hypochromasia Poikilocytosis Basophilic Stippling Anisocytosis Microcytosis Macrocytosis Spherocytes Pappenheimer Bodies Sickle Cells Target Cells Tear Drop Cells Ovalocytes Stomatocytes [place] Bodies Echinocytes Acanthocytes (Spur) Rouleaux RBC Agglutinates Schistocytes Sezary Cell PT 13.9 H INR 1.3 H Sodium Potassium Chloride Carbon Dioxide Anion Gap BUN Creatinine Est Cr Clr Drug Dosing Est GFR ( Amer) Est GFR (Non-Af Amer) BUN/Creatinine Ratio Glucose POC Glucose Calcium Magnesium Total Bilirubin AST ALT Alkaline Phosphatase Ammonia Troponin I High Sens B-Natriuretic Peptide Total Protein Albumin Globulin Albumin/Globulin Ratio Lipase TSH 12.853 H Free T4 Urine Color Urine Appearance Urine pH Ur Specific [place] Urine Protein Urine Glucose (UA) Urine Ketones Urine Blood Urine Nitrite Urine Bilirubin Urine Urobilinogen Ur Leukocyte Esterase Urine WBC (Auto) Urine RBC (Auto) U Hyaline Cast (Auto) U Epithel Cells (Auto) Urine Bacteria (Auto) SARS-CoV-2 (PCR) Influenza Type A (PCR) Influenza Type B (PCR) RSV (RT-PCR) SARS-CoV-2, RNA, NAAT NEGATIVE Blood Parasites ID 10/08/22 10/08/22 10/08/22 17:57 19:45 19:45 WBC 5.35 RBC 4.80 Hgb 14.6 Hct 45.1 MCV 94.0 MCH 30.4 MCHC 32.4 RDW Std Deviation 55.8 H RDW Coeff of Solis 16.3 H Plt Count 149 MPV 11.1 Immature Gran % (Auto) 0.2 Neut % (Auto) 51.7 Lymph % (Auto) 40.0 Snyder % (Auto) 6.2 Eos % (Auto) 1.5 Baso % (Auto) 0.4 Neut # (Auto) 2.77 Lymph # (Auto) 2.14 Snyder # (Auto) 0.33 Eos # (Auto) 0.08 Baso # (Auto) 0.02 Immature Gran # (Auto) 0.01 Absolute Nucleated RBC Nucleated RBC % (auto) Neutrophils % (Manual) Band Neutrophils % Lymphocytes % (Manual) Prolymphocyte % Reactive Lymphs % (Man) Monocytes % (Manual) Eosinophils % (Manual) Basophils % (Manual) Metamyelocytes % (Man) Myelocytes % (Man) Promyelocytes % (Man) Blast Cells % (Manual) Plasma Cell % (Manual) Other Cells % Nucleated RBC % Neutrophils # (Manual) Band Neutrophils # Total Absolute Neuts Lymphocytes # (Manual) Prolymphocyte # Reactive Lymphs # Total Abs Lymphocytes Monocytes # (Manual) Eosinophils # (Manual) Basophils # (Manual) Metamyelocytes # (Man) Myelocytes # (Manual) Promyelocytes # (Man) Blast Cells # (Man) Plasma Cell # (Manual) Other Cells # Nucleated RBCs # (Man) Hypersegmented Neuts Hyposegmented Neuts Hypogranular Neuts Large Granular Lymphs # Lrg Granular Lymphs Hairy Cells Smudge Cells Toxic Granulation Toxic Vacuolation Dohle Bodies Porsha Rods Platelet Estimate Hypogranular Platelets Clumped Platelets Giant Platelets Platelet Satelliting RBC Morphology Polychromasia Hypochromasia Poikilocytosis Basophilic Stippling Anisocytosis Microcytosis Macrocytosis Spherocytes Pappenheimer Bodies Sickle Cells Target Cells Tear Drop Cells Ovalocytes Stomatocytes [place] Bodies Echinocytes Acanthocytes (Spur) Rouleaux RBC Agglutinates Schistocytes Sezary Cell PT INR Sodium Potassium 3.9 Chloride Carbon Dioxide Anion Gap BUN Creatinine Est Cr Clr Drug Dosing Est GFR ( Amer) Est GFR (Non-Af Amer) BUN/Creatinine Ratio Glucose POC Glucose Calcium Magnesium 2.0 Total Bilirubin AST 33 ALT Alkaline Phosphatase Ammonia Troponin I High Sens 58.7 H* B-Natriuretic Peptide Total Protein Albumin Globulin Albumin/Globulin Ratio Lipase 7 L TSH 12.237 H Free T4 1.23 Urine Color Urine Appearance Urine pH Ur Specific [place] Urine Protein Urine Glucose (UA) Urine Ketones Urine Blood Urine Nitrite Urine Bilirubin Urine Urobilinogen Ur Leukocyte Esterase Urine WBC (Auto) Urine RBC (Auto) U Hyaline Cast (Auto) U Epithel Cells (Auto) Urine Bacteria (Auto) SARS-CoV-2 (PCR) Influenza Type A (PCR) Influenza Type B (PCR) RSV (RT-PCR) SARS-CoV-2, RNA, NAAT Blood Parasites ID 10/08/22 10/08/22 10/08/22 19:47 19:47 20:53 WBC RBC Hgb Hct MCV MCH MCHC RDW Std Deviation RDW Coeff of Solis Plt Count MPV Immature Gran % (Auto) Neut % (Auto) Lymph % (Auto) Snyder % (Auto) Eos % (Auto) Baso % (Auto) Neut # (Auto) Lymph # (Auto) Snyder # (Auto) Eos # (Auto) Baso # (Auto) Immature Gran # (Auto) Absolute Nucleated RBC Nucleated RBC % (auto) Neutrophils % (Manual) Band Neutrophils % Lymphocytes % (Manual) Prolymphocyte % Reactive Lymphs % (Man) Monocytes % (Manual) Eosinophils % (Manual) Basophils % (Manual) Metamyelocytes % (Man) Myelocytes % (Man) Promyelocytes % (Man) Blast Cells % (Manual) Plasma Cell % (Manual) Other Cells % Nucleated RBC % Neutrophils # (Manual) Band Neutrophils # Total Absolute Neuts Lymphocytes # (Manual) Prolymphocyte # Reactive Lymphs # Total Abs Lymphocytes Monocytes # (Manual) Eosinophils # (Manual) Basophils # (Manual) Metamyelocytes # (Man) Myelocytes # (Manual) Promyelocytes # (Man) Blast Cells # (Man) Plasma Cell # (Manual) Other Cells # Nucleated RBCs # (Man) Hypersegmented Neuts Hyposegmented Neuts Hypogranular Neuts Large Granular Lymphs # Lrg Granular Lymphs Hairy Cells Smudge Cells Toxic Granulation Toxic Vacuolation Dohle Bodies Porsha Rods Platelet Estimate Hypogranular Platelets Clumped Platelets Giant Platelets Platelet Satelliting RBC Morphology Polychromasia Hypochromasia Poikilocytosis Basophilic Stippling Anisocytosis Microcytosis Macrocytosis Spherocytes Pappenheimer Bodies Sickle Cells Target Cells Tear Drop Cells Ovalocytes Stomatocytes [place] Bodies Echinocytes Acanthocytes (Spur) Rouleaux RBC Agglutinates Schistocytes Sezary Cell PT INR Sodium Potassium Chloride Carbon Dioxide Anion Gap BUN Creatinine Est Cr Clr Drug Dosing Est GFR ( Amer) Est GFR (Non-Af Amer) BUN/Creatinine Ratio Glucose POC Glucose Calcium Magnesium Total Bilirubin AST ALT Alkaline Phosphatase Ammonia TNP 16.0 L Troponin I High Sens B-Natriuretic Peptide Total Protein Albumin Globulin Albumin/Globulin Ratio Lipase TSH Free T4 Urine Color Urine Appearance Urine pH Ur Specific [place] Urine Protein Urine Glucose (UA) Urine Ketones Urine Blood Urine Nitrite Urine Bilirubin Urine Urobilinogen Ur Leukocyte Esterase Urine WBC (Auto) Urine RBC (Auto) U Hyaline Cast (Auto) U Epithel Cells (Auto) Urine Bacteria (Auto) SARS-CoV-2 (PCR) NEGATIVE Influenza Type A (PCR) Negative Influenza Type B (PCR) Negative RSV (RT-PCR) Negative SARS-CoV-2, RNA, NAAT Blood Parasites ID 10/09/22 10/09/22 10/09/22 01:09 04:01 04:14 WBC RBC Hgb Hct MCV MCH MCHC RDW Std Deviation RDW Coeff of Solis Plt Count MPV Immature Gran % (Auto) Neut % (Auto) Lymph % (Auto) Snyder % (Auto) Eos % (Auto) Baso % (Auto) Neut # (Auto) Lymph # (Auto) Snyder # (Auto) Eos # (Auto) Baso # (Auto) Immature Gran # (Auto) Absolute Nucleated RBC Nucleated RBC % (auto) Neutrophils % (Manual) Band Neutrophils % Lymphocytes % (Manual) Prolymphocyte % Reactive Lymphs % (Man) Monocytes % (Manual) Eosinophils % (Manual) Basophils % (Manual) Metamyelocytes % (Man) Myelocytes % (Man) Promyelocytes % (Man) Blast Cells % (Manual) Plasma Cell % (Manual) Other Cells % Nucleated RBC % Neutrophils # (Manual) Band Neutrophils # Total Absolute Neuts Lymphocytes # (Manual) Prolymphocyte # Reactive Lymphs # Total Abs Lymphocytes Monocytes # (Manual) Eosinophils # (Manual) Basophils # (Manual) Metamyelocytes # (Man) Myelocytes # (Manual) Promyelocytes # (Man) Blast Cells # (Man) Plasma Cell # (Manual) Other Cells # Nucleated RBCs # (Man) Hypersegmented Neuts Hyposegmented Neuts Hypogranular Neuts Large Granular Lymphs # Lrg Granular Lymphs Hairy Cells Smudge Cells Toxic Granulation Toxic Vacuolation Dohle Bodies Porsha Rods Platelet Estimate Hypogranular Platelets Clumped Platelets Giant Platelets Platelet Satelliting RBC Morphology Polychromasia Hypochromasia Poikilocytosis Basophilic Stippling Anisocytosis Microcytosis Macrocytosis Spherocytes Pappenheimer Bodies Sickle Cells Target Cells Tear Drop Cells Ovalocytes Stomatocytes [place] Bodies Echinocytes Acanthocytes (Spur) Rouleaux RBC Agglutinates Schistocytes Sezary Cell PT INR Sodium Potassium Chloride Carbon Dioxide Anion Gap BUN Creatinine Est Cr Clr Drug Dosing Est GFR ( Amer) Est GFR (Non-Af Amer) BUN/Creatinine Ratio Glucose POC Glucose 122 H Calcium Magnesium Total Bilirubin AST ALT Alkaline Phosphatase Ammonia Troponin I High Sens 52.2 H* B-Natriuretic Peptide Total Protein Albumin Globulin Albumin/Globulin Ratio Lipase TSH Free T4 Urine Color Yellow Urine Appearance Clear Urine pH 5.0 Ur Specific [place] 1.008 Urine Protein 2+ H Urine Glucose (UA) Negative Urine Ketones Negative Urine Blood Trace H Urine Nitrite Negative Urine Bilirubin Negative Urine Urobilinogen Negative Ur Leukocyte Esterase Negative Urine WBC (Auto) 1-5 Urine RBC (Auto) 0-4 U Hyaline Cast (Auto) 1-5 U Epithel Cells (Auto) 5-10 H Urine Bacteria (Auto) Negative SARS-CoV-2 (PCR) Influenza Type A (PCR) Influenza Type B (PCR) RSV (RT-PCR) SARS-CoV-2, RNA, NAAT Blood Parasites ID 10/09/22 10/09/22 10/09/22 06:42 06:42 08:29 WBC 4.68 L RBC 4.57 L Hgb 13.8 L Hct 43.4 MCV 95.0 MCH 30.2 MCHC 31.8 L RDW Std Deviation 56.4 H RDW Coeff of Solis 16.4 H Plt Count 141 MPV 11.3 Immature Gran % (Auto) 0.2 Neut % (Auto) 56.7 Lymph % (Auto) 37.8 Snyder % (Auto) 3.2 Eos % (Auto) 1.7 Baso % (Auto) 0.4 Neut # (Auto) 2.65 Lymph # (Auto) 1.77 Snyder # (Auto) 0.15 L Eos # (Auto) 0.08 Baso # (Auto) 0.02 Immature Gran # (Auto) 0.01 Absolute Nucleated RBC Nucleated RBC % (auto) Neutrophils % (Manual) Band Neutrophils % Lymphocytes % (Manual) Prolymphocyte % Reactive Lymphs % (Man) Monocytes % (Manual) Eosinophils % (Manual) Basophils % (Manual) Metamyelocytes % (Man) Myelocytes % (Man) Promyelocytes % (Man) Blast Cells % (Manual) Plasma Cell % (Manual) Other Cells % Nucleated RBC % Neutrophils # (Manual) Band Neutrophils # Total Absolute Neuts Lymphocytes # (Manual) Prolymphocyte # Reactive Lymphs # Total Abs Lymphocytes Monocytes # (Manual) Eosinophils # (Manual) Basophils # (Manual) Metamyelocytes # (Man) Myelocytes # (Manual) Promyelocytes # (Man) Blast Cells # (Man) Plasma Cell # (Manual) Other Cells # Nucleated RBCs # (Man) Hypersegmented Neuts Hyposegmented Neuts Hypogranular Neuts Large Granular Lymphs # Lrg Granular Lymphs Hairy Cells Smudge Cells Toxic Granulation Toxic Vacuolation Dohle Bodies Porsha Rods Platelet Estimate Hypogranular Platelets Clumped Platelets Giant Platelets Platelet Satelliting RBC Morphology Polychromasia Hypochromasia Poikilocytosis Basophilic Stippling Anisocytosis Microcytosis Macrocytosis Spherocytes Pappenheimer Bodies Sickle Cells Target Cells Tear Drop Cells Ovalocytes Stomatocytes [place] Bodies Echinocytes Acanthocytes (Spur) Rouleaux RBC Agglutinates Schistocytes Sezary Cell PT INR Sodium 140 Potassium TNP Chloride 102 Carbon Dioxide 31 Anion Gap 7 BUN 31 H Creatinine 1.81 H Est Cr Clr Drug Dosing 46.7 Est GFR ( Amer) 41.5 Est GFR (Non-Af Amer) 35.8 BUN/Creatinine Ratio 17.1 Glucose 147 H POC Glucose 137 H Calcium 9.0 Magnesium Total Bilirubin AST ALT Alkaline Phosphatase Ammonia Troponin I High Sens B-Natriuretic Peptide Total Protein Albumin Globulin Albumin/Globulin Ratio Lipase TSH Free T4 Urine Color Urine Appearance Urine pH Ur Specific [place] Urine Protein Urine Glucose (UA) Urine Ketones Urine Blood Urine Nitrite Urine Bilirubin Urine Urobilinogen Ur Leukocyte Esterase Urine WBC (Auto) Urine RBC (Auto) U Hyaline Cast (Auto) U Epithel Cells (Auto) Urine Bacteria (Auto) SARS-CoV-2 (PCR) Influenza Type A (PCR) Influenza Type B (PCR) RSV (RT-PCR) SARS-CoV-2, RNA, NAAT Blood Parasites ID 10/09/22 10/09/22 08:51 13:11 WBC RBC Hgb Hct MCV MCH MCHC RDW Std Deviation RDW Coeff of Solis Plt Count MPV Immature Gran % (Auto) Neut % (Auto) Lymph % (Auto) Snyder % (Auto) Eos % (Auto) Baso % (Auto) Neut # (Auto) Lymph # (Auto) Snyder # (Auto) Eos # (Auto) Baso # (Auto) Immature Gran # (Auto) Absolute Nucleated RBC Nucleated RBC % (auto) Neutrophils % (Manual) Band Neutrophils % Lymphocytes % (Manual) Prolymphocyte % Reactive Lymphs % (Man) Monocytes % (Manual) Eosinophils % (Manual) Basophils % (Manual) Metamyelocytes % (Man) Myelocytes % (Man) Promyelocytes % (Man) Blast Cells % (Manual) Plasma Cell % (Manual) Other Cells % Nucleated RBC % Neutrophils # (Manual) Band Neutrophils # Total Absolute Neuts Lymphocytes # (Manual) Prolymphocyte # Reactive Lymphs # Total Abs Lymphocytes Monocytes # (Manual) Eosinophils # (Manual) Basophils # (Manual) Metamyelocytes # (Man) Myelocytes # (Manual) Promyelocytes # (Man) Blast Cells # (Man) Plasma Cell # (Manual) Other Cells # Nucleated RBCs # (Man) Hypersegmented Neuts Hyposegmented Neuts Hypogranular Neuts Large Granular Lymphs # Lrg Granular Lymphs Hairy Cells Smudge Cells Toxic Granulation Toxic Vacuolation Dohle Bodies Porsha Rods Platelet Estimate Hypogranular Platelets Clumped Platelets Giant Platelets Platelet Satelliting RBC Morphology Polychromasia Hypochromasia Poikilocytosis Basophilic Stippling Anisocytosis Microcytosis Macrocytosis Spherocytes Pappenheimer Bodies Sickle Cells Target Cells Tear Drop Cells Ovalocytes Stomatocytes [place] Bodies Echinocytes Acanthocytes (Spur) Rouleaux RBC Agglutinates Schistocytes Sezary Cell PT INR Sodium Potassium 3.2 L Chloride Carbon Dioxide Anion Gap BUN Creatinine Est Cr Clr Drug Dosing Est GFR ( Amer) Est GFR (Non-Af Amer) BUN/Creatinine Ratio Glucose POC Glucose 94 Calcium Magnesium Total Bilirubin AST ALT Alkaline Phosphatase Ammonia Troponin I High Sens B-Natriuretic Peptide Total Protein Albumin Globulin Albumin/Globulin Ratio Lipase TSH Free T4 Urine Color Urine Appearance Urine pH Ur Specific [place] Urine Protein Urine Glucose (UA) Urine Ketones Urine Blood Urine Nitrite Urine Bilirubin Urine Urobilinogen Ur Leukocyte Esterase Urine WBC (Auto) Urine RBC (Auto) U Hyaline Cast (Auto) U Epithel Cells (Auto) Urine Bacteria (Auto) SARS-CoV-2 (PCR) Influenza Type A (PCR) Influenza Type B (PCR) RSV (RT-PCR) SARS-CoV-2, RNA, NAAT Blood Parasites ID Medications Administered Current Inpatient Medications Acetaminophen (Acetaminophen 325 Mg Tab) 650 mg PO Q4H PRN PRN Reason: Pain or Fever Stop: 11/08/22 02:52 Amlodipine Besylate (Amlodipine Besylate 5 Mg Tab) 5 mg PO QAM [facility] Stop: 11/08/22 04:09 Last Admin: 10/09/22 05:54 Dose: 5 mg Atorvastatin Calcium (Atorvastatin 40 Mg Tab) 40 mg PO QAM [facility] Stop: 11/08/22 08:59 Last Admin: 10/09/22 08:36 Dose: 40 mg Carvedilol (Carvedilol 6.25 Mg Tab) 6.25 mg PO BID [facility] Stop: 11/08/22 08:59 Last Admin: 10/09/22 08:41 Dose: 6.25 mg Cyanocobalamin (Cyanocobalamin (B-12) 500 Mcg Tablet) 1,000 mcg PO QAM [facility] Stop: 11/08/22 08:59 Last Admin: 10/09/22 08:41 Dose: 1,000 mcg Dextrose (Dextrose 50% 50 Ml Syringe) 25 - 50 ml IV UD PRN; Protocol PRN Reason: Hypoglycemia Protocol Stop: 11/08/22 02:52 Ferrous Sulfate (Ferrous Sulfate 325 Mg Tab) 325 mg PO DAILY [facility] Stop: 11/08/22 08:59 Last Admin: 10/09/22 08:41 Dose: 325 mg Furosemide (Furosemide 40 Mg/4 Ml Vial) 60 mg IV BID [facility] Stop: 10/10/22 08:59 Last Admin: 10/09/22 08:36 Dose: 60 mg Glucagon (Glucagon For Inj 1 Mg Vial) 1 mg SQ UD PRN; Protocol PRN Reason: Hypoglycemia Protocol Stop: 11/08/22 02:52 Glucose (Glucose 40% Gel 15 Gm Tube) 15 - 30 gm PO UD PRN; Protocol PRN Reason: Hypoglycemia Protocol Stop: 11/08/22 02:52 Glucose (Glucose 10 Tab/Tube) 4 - 8 tab PO UD PRN; Protocol PRN Reason: Hypoglycemia Treatment Stop: 11/08/22 02:52 Heparin Sodium (Porcine) (Heparin Sod 5,000 Unit/0.5 Ml Vial) 5,000 units SQ Q8 [facility] Stop: 11/08/22 05:59 Last Admin: 10/09/22 13:40 Dose: 5,000 units Albumin Human (Albumin 25%) 12.5 gm in 50 mls @ 50 mls/hr IV BID [facility] Stop: 10/10/22 08:59 Last Infusion: 10/09/22 10:24 Dose: Infused Promethazine HCl 12.5 mg/ (Sodium Chloride) 50.5 mls @ 202 mls/hr IV Q6H PRN PRN Reason: Nausea And Vomiting Stop: 11/08/22 02:52 Insulin Aspart (Insulin Aspart Per Unit) 0 units SC ACHS [facility] Stop: 11/08/22 02:52 Last Admin: 10/09/22 13:40 Dose: 2 units Insulin Glargine (Lantus Per Unit Charge) 60 units SQ DAILY [facility] Stop: 11/08/22 08:59 Last Admin: 10/09/22 10:34 Dose: 60 units Levothyroxine Sodium (Levothyroxine Sodium 25 Mcg Tablet) 25 mcg PO DAILYBB [facility] Stop: 11/08/22 06:29 Last Admin: 10/09/22 06:32 Dose: 25 mcg Miconazole Nitrate (Miconazole Nitrate Powder 43 Gm) 1 appln EXT BID [facility] Stop: 11/08/22 04:09 Last Admin: 10/09/22 05:55 Dose: 1 appln Miscellaneous (Carbohydrates For Hypoglycemia ) 15 - 30 gm PO UD PRN PRN Reason: Hypoglycemia Protocol Stop: 11/08/22 02:52 Nitroglycerin (Nitroglycerin Sl 0.4 Mg/Tab Tab) 0.4 mg SL UD PRN PRN Reason: Chest Pain Stop: 11/08/22 02:52
[2022-10-09] MEDS ORDERED: LANTUS PER UNIT CHARGE SQ SCH (09:00)
[2022-10-09] MEDS ORDERED: amLODIPine BESYLATE 5 MG TAB PO SCH (09:00)
[2022-10-09] MEDS: CARBOHYDRATES FOR HYPOGLYCEMIA PO PRN ×3 (16:31→20:15)
[2022-10-09] MEDS: GLUCOSE 40% GEL 15 GM TUBE PO PRN ×2 (16:32→16:51)
--- NOTE | 2022-10-09 17:01 | Communication Note ---
Date of Service: October 09, 2022 Patient was seen and examined. Lying in bed with no acute distress watching TV with 2 sisters at bedside. Patient said that his breathing feels a lot better. Daughter said his left arm and his lower extremities are swollen. CT chest showed Moderate bilateral pleural effusions, right larger than left. Anasarca with small to moderate upper abdominal ascites. Suspected mild pulmonary edema. 2.4 cm water attenuation focus within the right middle lobe. BNP on admission elevated at 1437 troponin mildly elevated at 55 then trending down to 52.2. Received Lasix 40 mg IV on admission. Cardiology on board. Continue IV Lasix 60 mg IV twice daily. Monitor input and output while on IV diuretic. Will not repeat echo since he was done 1 month ago. Potassium 3.4 this morning. K replaced. Continue monitor BMP while on IV Lasix. Recent echo on 09/05/22 showed LV wall thickness is moderately increased. There was mild diffuse LV hypokinesis. Ejection fraction 40 to 44% (mildly reduced). He has an episode of hypoglycemia with blood sugar in the 60s. Most recent hemoglobin A1c 8.4 on 06/14/2022. we will discontinue insulin sliding scale and basal insulin for now. Will consult pharmacy for glycemic management. Continue monitor BS. CT chest showed 2.4 cm water attenuation focus within the right middle lobe. He will need follow-up chest CT in 3 months to ensure resolution is recommended. Patient care discussed in detail with 2 daughters at bedside and answered all the questions. MD Patricia
[2022-10-09] MEDS ORDERED: PHARMACY GLYCEMIC MGMT CONSULT PRN (17:36)
[2022-10-09] MEDS ORDERED: Nursing to Pharmacy Communication SCH (17:45)
--- NOTE | 2022-10-09 17:48 | Pharmacy Report ---
Pharmacy Glycemic Sign Off Nt - Date of Service October 09, 2022 - Assessment & Plan ASSESSMENT: * Pharmacy was consulted by Dr. Gomez on 10/09/22 for glycemic control and to write orders per [facility] inpatient glycemic control protocol. * Major changes made by pharmacy to antidiabetic regimen include: * Discontinuing all insulin * Starting Metformin from home * Patient does not take insulin at home but med rec did show 66 units of Lantus daily. * Patient received 60 units of Lantus today and now is experiencing hypoglycemia. * Hypoglycemia is being treated appropriately. * Do not anticipate further changes in patient status that would quickly deteriorate glycemic control (i.e. patient to be NPO for upcoming procedure, steroids tapering, starting tube feedings, etc). PLAN FOR INPATIENT GLYCEMIC CONTROL: * Discontinue all insulin while inpatient. * Will resume home Metformin ER 500 mg PO AM - resume this upon discharge * Pharmacy is signing off of glycemic consult and will no longer be making adjustments to inpatient regimen. Please feel free to re-consult if needed. Thank you.
[2022-10-09] MEDS: D5W AND 1/2NSS 1,000 ML IV SCH (20:53)
[2022-10-09] MEDS ORDERED: POTASSIUM CHLORIDE CRTAB 20 MEQ TABCR PO STA (22:06)
[2022-10-10] MEDS ORDERED: DEXTROSE 50% 50 ML SYRINGE IV STA (01:06)
[2022-10-10] MEDS: NITROGLYCERIN 2% OINTMENT 30GM TUBE EXT SCH ×4 (02:47→20:41)
[2022-10-10] MEDS: LEVOTHYROXINE SODIUM 25 MCG TABLET PO SCH (06:07)
[2022-10-10] MEDS: HEPARIN SOD 5,000 UNIT/0.5 ML VIAL SQ SCH ×3 (06:07→22:47)
[2022-10-10] MEDS: metFORMIN HCL ER 500 MG TABCR PO SCH (07:25)
[2022-10-10] MEDS: amLODIPine BESYLATE 5 MG TAB PO SCH (07:25)
[2022-10-10] MEDS: ATORVASTATIN 40 MG TAB PO SCH (07:25)
[2022-10-10] MEDS: CYANOCOBALAMIN (B-12) 500 MCG TABLET PO SCH (07:25)
[2022-10-10] MEDS: carvediloL 6.25 MG TAB PO SCH ×2 (07:25→20:26)
[2022-10-10] MEDS: FERROUS SULFATE 325 MG TAB PO SCH (07:26)
[2022-10-10] MEDS: MICONAZOLE NITRATE POWDER 43 GM EXT SCH ×2 (07:26→20:27)
[2022-10-10 08:40] LABS: Estimated Average Glucose 180 mg/dl; Hemoglobin A1C 7.9 % (4.5-5.6)
--- NOTE | 2022-10-10 08:41 | Communication Note ---
Date of Service: October 10, 2022 placed on fluids d5ns@80ml/hr for perisistent hypoglycemia. Placed on nitro paste for elevated BP. Notified am providers. thanks
[2022-10-10] MEDS: D5W AND 1/2NSS 1,000 ML IV SCH ×2 (08:53→22:47)
--- NOTE | 2022-10-10 09:18 | Cardiology Progress Note ---
Date of Service October 10, 2022 Assessment & Plan (1) Encephalopathy: (2) Confusion: (3) Generalized weakness: (4) Aortic valve stenosis: (5) Ischemic cardiomyopathy: (6) Systolic heart failure secondary to coronary artery disease: Plan From a cardiac standpoint the patient is stable however, he has been having nausea and vomiting. He has not been able to take his pills. It seems like a continuation of problems starting at home prior to admission. GI work-up for at least KUB may be indicated. I have consulted case management to start placement process. Admission and Anticipated Discharge Date Admission Date: October 09, 2022 Subjective The patient is sleeping. His daughters in the room and she states he has been sleeping now for several hours. Earlier he had vomiting and has not been able to take his medications. Review of Systems Review of Systems: Review of Systems: See HPI for pertinent positives. All other 10 point review of systems are negative. Physical Exam Physical Exam: General: no acute distress and stated age Head: normocephalic, no masses, lesions, tenderness or abnormalities Eyes: conjunctiva are pink and non-injected, sclera clear Neck: supple, no adenopathy, no bruits, normal jugular venous pulse, no hepatojugular reflux Chest: normal shape and normal respiratory effort Lungs: clear to auscultation and percussion Cardiac Exam: - regular rate & rhythm, no murmurs gallops or rubs - normal S1, normal S2 Pulses: 2(+) throughout Abdomen: abdomen soft, non-tender, no abnormal masses and no hepatosplenomegaly Musculoskeletal: no gait disturbance, no joint inflammation, no deforming arthritis Extremities: no edema and no cyanosis Neuro: grossly normal exam Results & Data ([facility]) Vital Signs (Past 12 Hours) Vital Signs Temp Pulse Pulse Resp BP Pulse Ox Pulse Ox 10/10/22 07:59 60 18 176/96 H 98 10/10/22 07:45 60 10/10/22 07:45 10/10/22 07:45 99 10/10/22 06:08 182/102 H 10/10/22 02:19 36.8 C 61 18 194/113 H 99 10/10/22 02:12 62 15 95 10/10/22 00:47 60 10/09/22 22:59 60 15 96 10/09/22 23:35 12/20/22 22:33 36.7 C 61 16 162/71 H 97 O2 Del Method O2 Del Method FiO2 10/10/22 07:59 CPAP 10/10/22 07:45 10/10/22 07:45 Room Air, CPAP 10/10/22 07:45 CPAP 10/10/22 06:08 10/10/22 02:19 CPAP 10/10/22 02:12 21 10/10/22 00:47 10/09/22 22:59 21 10/09/22 23:35 Room Air 10/09/22 22:33 Room Air Laboratory Results Laboratory Results - last 24 hr 10/09/22 10/09/22 10/09/22 08:51 13:11 16:28 Potassium 3.2 L POC Glucose 94 61 L* Estimat Average Glucose Hemoglobin A1c 10/09/22 10/09/22 10/09/22 16:29 16:48 16:49 Potassium POC Glucose 62 L* 66 L* 62 L* Estimat Average Glucose Hemoglobin A1c 10/09/22 10/09/22 10/09/22 17:08 17:09 17:30 Potassium POC Glucose 62 L* 61 L* 74 Estimat Average Glucose Hemoglobin A1c 10/09/22 10/09/22 10/09/22 19:54 19:56 20:15 Potassium POC Glucose 54 L* 54 L* 62 L* Estimat Average Glucose Hemoglobin A1c 10/09/22 10/09/22 10/10/22 20:33 20:55 00:57 Potassium POC Glucose 61 L* 94 70 Estimat Average Glucose Hemoglobin A1c 10/10/22 10/10/22 10/10/22 01:45 06:49 07:22 Potassium POC Glucose 96 94 Estimat Average Glucose 180 Hemoglobin A1c 7.9 H Medications Administered Current Inpatient Medications Acetaminophen (Acetaminophen 325 Mg Tab) 650 mg PO Q4H PRN PRN Reason: Pain or Fever Stop: 11/08/22 02:52 Amlodipine Besylate (Amlodipine Besylate 5 Mg Tab) 5 mg PO [facility] Stop: 11/08/22 04:09 Last Admin: 10/10/22 07:25 Dose: 5 mg Atorvastatin Calcium (Atorvastatin 40 Mg Tab) 40 mg PO [facility] Stop: 11/08/22 08:59 Last Admin: 10/10/22 07:25 Dose: 40 mg Carvedilol (Carvedilol 6.25 Mg Tab) 6.25 mg PO BID [facility] Stop: 11/08/22 08:59 Last Admin: 10/10/22 07:25 Dose: 6.25 mg Cyanocobalamin (Cyanocobalamin (B-12) 500 Mcg Tablet) 1,000 mcg PO QAM [facility] Stop: 11/08/22 08:59 Last Admin: 10/10/22 07:25 Dose: 1,000 mcg Dextrose (Dextrose 50% 50 Ml Syringe) 25 - 50 ml IV UD PRN; Protocol PRN Reason: Hypoglycemia Protocol Stop: 11/08/22 02:52 Last Admin: 10/09/22 20:40 Dose: 25 ml Ferrous Sulfate (Ferrous Sulfate 325 Mg Tab) 325 mg PO DAILY [facility] Stop: 11/08/22 08:59 Last Admin: 10/10/22 07:26 Dose: 325 mg Glucagon (Glucagon For Inj 1 Mg Vial) 1 mg SQ UD PRN; Protocol PRN Reason: Hypoglycemia Protocol Stop: 11/08/22 02:52 Glucose (Glucose 40% Gel 15 Gm Tube) 15 - 30 gm PO UD PRN; Protocol PRN Reason: Hypoglycemia Protocol Stop: 11/08/22 02:52 Last Admin: 10/09/22 16:51 Dose: 15 gm Glucose (Glucose 10 Tab/Tube) 4 - 8 tab PO UD PRN; Protocol PRN Reason: Hypoglycemia Treatment Stop: 11/08/22 02:52 Heparin Sodium (Porcine) (Heparin Sod 5,000 Unit/0.5 Ml Vial) 5,000 units SQ Q8 [facility] Stop: 11/08/22 05:59 Last Admin: 10/10/22 06:07 Dose: 5,000 units Promethazine HCl 12.5 mg/ (Sodium Chloride) 50.5 mls @ 202 mls/hr IV Q6H PRN PRN Reason: Nausea And Vomiting Stop: 11/08/22 02:52 Dextrose/Sodium Chloride (D5w And 1/2nss) 1,000 mls @ 80 mls/hr IV .[id number] [facility] Stop: 11/08/22 20:44 Last Admin: 10/10/22 08:53 Dose: 80 mls/hr Levothyroxine Sodium (Levothyroxine Sodium 25 Mcg Tablet) 25 mcg PO DAILYBB [facility] Stop: 11/08/22 06:29 Last Admin: 10/10/22 06:07 Dose: 25 mcg Metformin HCl (Metformin Hcl Er 500 Mg Tabcr) 500 mg PO QAM [facility] Stop: 11/09/22 08:59 Last Admin: 10/10/22 07:25 Dose: 500 mg Miconazole Nitrate (Miconazole Nitrate Powder 43 Gm) 1 appln EXT BID [facility] Stop: 11/08/22 04:09 Last Admin: 10/10/22 07:26 Dose: 1 appln Miscellaneous (Carbohydrates For Hypoglycemia ) 15 - 30 gm PO UD PRN PRN Reason: Hypoglycemia Protocol Stop: 11/08/22 02:52 Last Admin: 10/09/22 20:15 Dose: 15 gm Nitroglycerin (Nitroglycerin Sl 0.4 Mg/Tab Tab) 0.4 mg SL UD PRN PRN Reason: Chest Pain Stop: 11/08/22 02:52 Nitroglycerin (Nitroglycerin 2% Ointment 30gm Tube) 0.5 inch EXT Q6H [facility] Stop: 11/09/22 02:29 Last Admin: 10/10/22 07:32 Dose: 0.5 inch
[2022-10-10] MEDS ORDERED: ONDANSETRON INJ 2 MG/ML 2 ML VIAL IV PRN (09:44)
[2022-10-10] MEDS: POTASSIUM CHLORIDE / WTR 10 MEQ/100 ML PLCT IV SCH ×2 (10:20→11:28)
--- NOTE | 2022-10-10 13:36 | Hospitalist Progress Note ---
Date of Service October 10, 2022 Assessment & Plan (1) Encephalopathy: Plan: Underlying cognitive impairment and functional disability Multifactorial : Hypertensive crisis, secondary to medication noncompliance Decompensated heart failure, history systolic dysfunction, predominant subacute right-sided heart failure symptoms, underlying pulmonary hypertension, JT on CPAP ARF on CKD New onset hypothyroidism Initiate low-dose levothyroxine, TSH recheck outpatient next month Abnormal CT chest initial read findings (right upper lobe density, mediastinal adenopathy):: 1. Moderate bilateral pleural effusions, right larger than left. Anasarca with small to moderate upper abdominal ascites. Suspected mild pulmonary edema. 2. No evidence for central venous occlusion on unenhanced exam. 3. 2.4 cm water attenuation focus within the right middle lobe. This is likely benign. However, a follow-up chest CT in 3 months to ensure resolution is recommended. 4. Mild lingular and right middle lobe bronchiectasis. Mild groundglass opacity within the superior segment of right lower lobe. This may reflect a chronic infectious/inflammatory process. Remains stable clinically with drowsiness hx CLL, per observation by local oncologist Chronic anemia, hemoglobin better than baseline hx ICH, cerebral amyloid angiopathy as per records (2) T2DM (type 2 diabetes mellitus): Plan: DM2 insulin requiring, suboptimal control as of recent hemoglobin A1c of 8.7 last May 2022 Blood sugar has been running low and the patient is not eating and drinking enough and now requiring intravenous dextrose Basal bolus insulin, ISS BG goal 1 10-1 40, carb count coverage, update hemoglobin A1c Appreciate telehealth nurse educator input and recommended Will likely to stop insulin and metformin Plan to restart Ozempic on discharge (3) Ischemic cardiomyopathy: Plan: Aortic stenosis status post bioprosthetic AVR Valvular heart disease (moderate TR, mild MR, mild paravalvular aortic valve prosthesis regurgitation) SSS status post PPM, PAF not on anticoagulation secondary to bleeding risk Appreciate cardiology input and recommendation (4) JT on CPAP: Plan: Outpatient sleep medicine follow-up to check on current CPAP settings (patient overdue for visit, last visit was 2017) (5) Chronic atrial fibrillation: Plan: Rate remains controlled Plan PT OT eval DVT prophylaxis. Heparin subcu Full code Patient daughters requesting updates from providers. [address] S[address] Yolanda, contact #[phone], contact #[phone] Discussed with the daughter Admission and Anticipated Discharge Date Admission Date: October 09, 2022 Subjective 10/10/2022 The patient was seen and examined in telemetry unit in presence of the daughter He has been very drowsy and does not want to talk Much Not in any distress and denies any significant symptoms but wanted to take rest He has not been drinking and eating much and the blood sugar level remains low Review of Systems Review of Systems: All systems reviewed and are unremarkable except as noted below Physical Exam Physical Exam: Lying in bed comfortably though remains very weak and lethargic Constitutional: well developed, well nourished, + ill appearing and + obese Eyes: PERRL, conjunctivae normal, anicteric sclerae ENMT: external ear and nose normal, oropharynx normal Neck: trachea midline, no thyromegaly Respiratory: no respiratory distress Auscultation: lungs clear to auscul tation bilaterally Cardiovascular: Rate/Rhythm: regular rate and regular rhythm; not tachycardic Heart Sounds: normal S1 and normal S2; no murmur Extremities: no edema Gastrointestinal (Abdomen): Inspection/Auscultation: normal bowel sounds; abdomen not distended Percussion/Palpation: abdomen soft; abdomen nontender Musculoskeletal: No acute arthritis in any joint Neurologic: Alert and awake. Very weak and lethargic but not in any distress. Moving all limbs equally. No focal neurodeficit Lymphatic: no cervical or axillary lymphadenopathy Results & Data Results & Data ([facility]) Vital Signs (Past 12 Hours) Vital Signs Temp Pulse Pulse Resp BP Pulse Ox Pulse Ox 10/10/22 11:38 36.3 C L 60 20 161/99 H 97 10/10/22 07:59 60 18 176/96 H 98 10/10/22 07:45 60 10/10/22 07:45 10/10/22 07:45 99 10/10/22 06:08 182/102 H 10/10/22 02:19 36.8 C 61 18 194/113 H 99 10/10/22 02:12 62 15 95 O2 Del Method O2 Del Method FiO2 10/10/22 11:38 Room Air 10/10/22 07:59 CPAP 10/10/22 07:45 10/10/22 07:45 Room Air, CPAP 10/10/22 07:45 CPAP 10/10/22 06:08 10/10/22 02:19 CPAP 10/10/22 02:12 21 Medications Administered Current Inpatient Medications Acetaminophen (Acetaminophen 325 Mg Tab) 650 mg PO Q4H PRN PRN Reason: Pain or Fever Stop: 11/08/22 02:52 Amlodipine Besylate (Amlodipine Besylate 5 Mg Tab) 5 mg PO QAM [facility] Stop: 11/08/22 04:09 Last Admin: 10/10/22 07:25 Dose: 5 mg Atorvastatin Calcium (Atorvastatin 40 Mg Tab) 40 mg PO QAM [facility] Stop: 11/08/22 08:59 Last Admin: 10/10/22 07:25 Dose: 40 mg Carvedilol (Carvedilol 6.25 Mg Tab) 6.25 mg PO BID [facility] Stop: 11/08/22 08:59 Last Admin: 10/10/22 07:25 Dose: 6.25 mg Cyanocobalamin (Cyanocobalamin (B-12) 500 Mcg Tablet) 1,000 mcg PO QAM [facility] Stop: 11/08/22 08:59 Last Admin: 10/10/22 07:25 Dose: 1,000 mcg Dextrose (Dextrose 50% 50 Ml Syringe) 25 - 50 ml IV UD PRN; Protocol PRN Reason: Hypoglycemia Protocol Stop: 11/08/22 02:52 Last Admin: 10/09/22 20:40 Dose: 25 ml Ferrous Sulfate (Ferrous Sulfate 325 Mg Tab) 325 mg PO DAILY [facility] Stop: 11/08/22 08:59 Last Admin: 10/10/22 07:26 Dose: 325 mg Glucagon (Glucagon For Inj 1 Mg Vial) 1 mg SQ UD PRN; Protocol PRN Reason: Hypoglycemia Protocol Stop: 11/08/22 02:52 Glucose (Glucose 40% Gel 15 Gm Tube) 15 - 30 gm PO UD PRN; Protocol PRN Reason: Hypoglycemia Protocol Stop: 11/08/22 02:52 Last Admin: 10/09/22 16:51 Dose: 15 gm Glucose (Glucose 10 Tab/Tube) 4 - 8 tab PO UD PRN; Protocol PRN Reason: Hypoglycemia Treatment Stop: 11/08/22 02:52 Heparin Sodium (Porcine) (Heparin Sod 5,000 Unit/0.5 Ml Vial) 5,000 units SQ Q8 [facility] Stop: 11/08/22 05:59 Last Admin: 10/10/22 06:07 Dose: 5,000 units Promethazine HCl 12.5 mg/ (Sodium Chloride) 50.5 mls @ 202 mls/hr IV Q6H PRN PRN Reason: Nausea And Vomiting Stop: 11/08/22 02:52 Dextrose/Sodium Chloride (D5w And 1/2nss) 1,000 mls @ 80 mls/hr IV .[id number] [facility] Stop: 11/08/22 20:44 Last Admin: 10/10/22 08:53 Dose: 80 mls/hr Levothyroxine Sodium (Levothyroxine Sodium 25 Mcg Tablet) 25 mcg PO DAILYBB [facility] Stop: 11/08/22 06:29 Last Admin: 10/10/22 06:07 Dose: 25 mcg Metformin HCl (Metformin Hcl Er 500 Mg Tabcr) 500 mg PO QAM [facility] Stop: 11/09/22 08:59 Last Admin: 10/10/22 07:25 Dose: 500 mg Miconazole Nitrate (Miconazole Nitrate Powder 43 Gm) 1 appln EXT BID [facility] Stop: 11/08/22 04:09 Last Admin: 10/10/22 07:26 Dose: 1 appln Miscellaneous (Carbohydrates For Hypoglycemia ) 15 - 30 gm PO UD PRN PRN Reason: Hypoglycemia Protocol Stop: 11/08/22 02:52 Last Admin: 10/09/22 20:15 Dose: 15 gm Nitroglycerin (Nitroglycerin Sl 0.4 Mg/Tab Tab) 0.4 mg SL UD PRN PRN Reason: Chest Pain Stop: 11/08/22 02:52 Nitroglycerin (Nitroglycerin 2% Ointment 30gm Tube) 0.5 inch EXT Q6H [facility] Stop: 11/09/22 02:29 Last Admin: 10/10/22 07:32 Dose: 0.5 inch Ondansetron HCl (Ondansetron Inj 2 Mg/Ml 2 Ml Vial) 4 mg IV Q6H PRN PRN Reason: Nausea And Vomiting Stop: 11/09/22 09:43 Last Admin: 10/10/22 10:00 Dose: 4 mg
--- NOTE | 2022-10-10 21:25 | Electrocardiogram Report ---
Test Reason : Blood Pressure : / mmHG Vent. Rate : 071 BPM Atrial Rate : 089 BPM P-R Int : 000 ms QRS Dur : 128 ms QT Int : 414 ms P-R-T Axes : 000 098 082 degrees QTc Int : 449 ms Atrial fibrillation with frequent ventricular-paced complexes and with premature ventricular or aberr antly conducted complexes Rightward axis Nonspecific T wave abnormality Abnormal ECG When compared with ECG of 10-OCT-2019 07:04, Vent. rate has increased BY 2 BPM Confirmed by Juve Horvath ([id number]) on 10/10/2022 9:25:45 PM Referred By: REFERRED SELF Confirmed By:Juve Horvath
[2022-10-11] MEDS: NITROGLYCERIN 2% OINTMENT 30GM TUBE EXT SCH ×4 (02:29→21:37)
[2022-10-11] MEDS: HEPARIN SOD 5,000 UNIT/0.5 ML VIAL SQ SCH ×3 (06:00→21:39)
[2022-10-11] MEDS: LEVOTHYROXINE SODIUM 25 MCG TABLET PO SCH (06:01)
[2022-10-11 06:23] LABS: Hematocrit (blood only) 39.8 % (40.1-51.0); Hemoglobin 13.4 g/dl (14.0-18.0); Mean Corpuscular Hemoglobin 30.6 pg (25.0-34.0); Mean Corpuscular Hgb Conc 33.7 g/dL (32.0-36.0); Mean Corpuscular Volume 90.9 fL (80.0-100.0); Mean Platelet Volume 10.8 fL (9.4-12.4); Platelet Count 148 K/uL (130-400); RDW Coefficient of Variation 15.9 % (11.5-14.5); Red Blood Count 4.38 M/uL (4.63-6.08)
[2022-10-11 06:40] LABS: BUN Creatinine Ratio 19.3 (10-20); Calcium 8.2 mg/dl (8.5-10.1); Creatinine Clr Calc Pharmacy 52.1 ml/min; Est GFR (African American) 47.8 ml/min; Est GFR (Non-African American) 41.2 ml/min; Magnesium 1.7 mg/dl (1.7-2.4); Phosphorus 3.4 mg/dl (2.5-4.9)
[2022-10-11 07:16] LABS: Basophils # (auto) 0.01 K/uL (0-0.2); Basophils % (auto) 0.2 %; Eosinophils # (auto) 0.11 K/uL (0-0.50); Eosinophils % (auto) 1.9 %; Immature Granulocytes # (auto) 0.01 K/uL (0.00-0.02); Immature Granulocytes % (auto) 0.2 %; Lymphocytes # (auto) 2.47 K/uL (1.2-3.4); Lymphocytes % (auto) 43.3 %; Monocytes # (auto) 0.36 K/uL (0.24-0.82); Monocytes % (auto) 6.3 %; Neutrophils # (auto) 2.74 K/uL (1.4-6.5); Neutrophils % (auto) 48.1 %; Smudge Cells Present
[2022-10-11] MEDS: amLODIPine BESYLATE 5 MG TAB PO SCH (07:46)
[2022-10-11] MEDS: carvediloL 6.25 MG TAB PO SCH ×2 (07:47→21:39)
[2022-10-11] MEDS: ATORVASTATIN 40 MG TAB PO SCH (07:47)
[2022-10-11] MEDS: FERROUS SULFATE 325 MG TAB PO SCH (07:48)
[2022-10-11] MEDS: CYANOCOBALAMIN (B-12) 500 MCG TABLET PO SCH (07:48)
[2022-10-11] MEDS: metFORMIN HCL ER 500 MG TABCR PO SCH (07:49)
[2022-10-11] MEDS: MICONAZOLE NITRATE POWDER 43 GM EXT SCH ×2 (07:49→21:40)
[2022-10-11] MEDS ORDERED: POTASSIUM CHLORIDE CRTAB 20 MEQ TABCR PO STA (07:52)
[2022-10-11] MEDS: POTASSIUM CHLORIDE / WTR 10 MEQ/100 ML PLCT IV SCH ×3 (08:37→11:16)
--- NOTE | 2022-10-11 11:00 | Cardiology Progress Note ---
Date of Service October 11, 2022 Assessment & Plan (1) Encephalopathy: (2) Confusion: (3) Generalized weakness: (4) Aortic valve stenosis: (5) Ischemic cardiomyopathy: (6) Systolic heart failure secondary to coronary artery disease: Plan Hemodynamically stable. The patient is to start physical therapy today. Admission and Anticipated Discharge Date Admission Date: October 09, 2022 Subjective The patient seems to be more alert today. According nursing he is eating. No additional vomiting. Review of Systems Review of Systems: Review of Systems: See HPI for pertinent positives. All other 10 point review of systems are negative. Physical Exam Physical Exam: General: no acute distress and stated age Head: normocephalic, no masses, lesions, tenderness or abnormalities Eyes: conjunctiva are pink and non-injected, sclera clear Neck: supple, no adenopathy, no bruits, normal jugular venous pulse, no hepatojugular reflux Chest: normal shape and normal respiratory effort Lungs: clear to auscultation and percussion Cardiac Exam: - regular rate & rhythm, no murmurs gallops or rubs - normal S1, normal S2 Pulses: 2(+) throughout Abdomen: abdomen soft, non-tender, no abnormal masses and no hepatosplenomegaly Musculoskeletal: no gait disturbance, no joint inflammation, no deforming arthritis Extremities: no edema and no cyanosis Neuro: grossly normal exam Results & Data ([facility]) Vital Signs (Past 12 Hours) Vital Signs Temp Pulse Pulse Resp BP BP Pulse Ox 10/11/22 10:16 36.7 C 59 L 17 148/76 H 96 10/11/22 08:00 62 10/11/22 08:00 10/11/22 07:02 36.3 C L 60 17 122/70 97 10/11/22 05:07 143/83 H 10/11/22 03:16 36.4 C L 60 18 143/80 H 96 10/11/22 02:22 60 178/102 H 10/11/22 02:12 61 15 96 10/11/22 00:05 36.3 C L 60 20 172/83 H 96 10/10/22 23:40 61 O2 Del Method FiO2 10/11/22 10:16 Room Air 10/11/22 08:00 10/11/22 08:00 Room Air 10/11/22 07:02 Room Air 10/11/22 05:07 10/11/22 03:16 Room Air, CPAP 10/11/22 02:22 10/11/22 02:12 21 10/11/22 00:05 CPAP 10/10/22 23:40 Laboratory Results Laboratory Results - last 24 hr 10/10/22 10/10/22 10/10/22 11:22 16:18 20:16 WBC RBC Hgb Hct MCV MCH MCHC RDW Std Deviation RDW Coeff of Solis Plt Count MPV Immature Gran % (Auto) Neut % (Auto) Lymph % (Auto) [place] % (Auto) Eos % (Auto) Baso % (Auto) Neut # (Auto) Lymph # (Auto) [place] # (Auto) Eos # (Auto) Baso # (Auto) Immature Gran # (Auto) Smudge Cells Sodium Potassium Chloride Carbon Dioxide Anion Gap BUN Creatinine Est Cr Clr Drug Dosing Est GFR ( Amer) Est GFR (Non-Af Amer) BUN/Creatinine Ratio Glucose POC Glucose 84 84 81 Calcium Phosphorus Magnesium 10/11/22 10/11/22 10/11/22 05:38 05:38 07:05 WBC 5.70 RBC 4.38 L Hgb 13.4 L Hct 39.8 L MCV 90.9 MCH 30.6 MCHC 33.7 RDW Std Deviation 53.0 H RDW Coeff of Solis 15.9 H Plt Count 148 MPV 10.8 Immature Gran % (Auto) 0.2 Neut % (Auto) 48.1 Lymph % (Auto) 43.3 [place] % (Auto) 6.3 Eos % (Auto) 1.9 Baso % (Auto) 0.2 Neut # (Auto) 2.74 Lymph # (Auto) 2.47 [place] # (Auto) 0.36 Eos # (Auto) 0.11 Baso # (Auto) 0.01 Immature Gran # (Auto) 0.01 Smudge Cells Present Sodium 138 Potassium 3.0 L Chloride 103 Carbon Dioxide 30 Anion Gap 5 BUN 31 H Creatinine 1.61 H Est Cr Clr Drug Dosing 52.1 Est GFR ( Amer) 47.8 Est GFR (Non-Af Amer) 41.2 BUN/Creatinine Ratio 19.3 Glucose 95 POC Glucose 120 H Calcium 8.2 L Phosphorus 3.4 Magnesium 1.7 Medications Administered Current Inpatient Medications Acetaminophen (Acetaminophen 325 Mg Tab) 650 mg PO Q4H PRN PRN Reason: Pain or Fever Stop: 11/08/22 02:52 Amlodipine Besylate (Amlodipine Besylate 5 Mg Tab) 5 mg PO QAM [facility] Stop: 11/08/22 04:09 Last Admin: 10/11/22 07:46 Dose: 5 mg Atorvastatin Calcium (Atorvastatin 40 Mg Tab) 40 mg PO QAM [facility] Stop: 11/08/22 08:59 Last Admin: 10/11/22 07:47 Dose: 40 mg Carvedilol (Carvedilol 6.25 Mg Tab) 6.25 mg PO BID [facility] Stop: 11/08/22 08:59 Last Admin: 10/11/22 07:47 Dose: 6.25 mg Cyanocobalamin (Cyanocobalamin (B-12) 500 Mcg Tablet) 1,000 mcg PO QAM [facility] Stop: 11/08/22 08:59 Last Admin: 10/11/22 07:48 Dose: 1,000 mcg Dextrose (Dextrose 50% 50 Ml Syringe) 25 - 50 ml IV UD PRN; Protocol PRN Reason: Hypoglycemia Protocol Stop: 11/08/22 02:52 Last Admin: 10/09/22 20:40 Dose: 25 ml Ferrous Sulfate (Ferrous Sulfate 325 Mg Tab) 325 mg PO DAILY [facility] Stop: 11/08/22 08:59 Last Admin: 10/11/22 07:48 Dose: 325 mg Glucagon (Glucagon For Inj 1 Mg Vial) 1 mg SQ UD PRN; Protocol PRN Reason: Hypoglycemia Protocol Stop: 11/08/22 02:52 Glucose (Glucose 40% Gel 15 Gm Tube) 15 - 30 gm PO UD PRN; Protocol PRN Reason: Hypoglycemia Protocol Stop: 11/08/22 02:52 Last Admin: 10/09/22 16:51 Dose: 15 gm Glucose (Glucose 10 Tab/Tube) 4 - 8 tab PO UD PRN; Protocol PRN Reason: Hypoglycemia Treatment Stop: 11/08/22 02:52 Heparin Sodium (Porcine) (Heparin Sod 5,000 Unit/0.5 Ml Vial) 5,000 units SQ Q8 [facility] Stop: 11/08/22 05:59 Last Admin: 10/11/22 06:00 Dose: 5,000 units Promethazine HCl 12.5 mg/ (Sodium Chloride) 50.5 mls @ 202 mls/hr IV Q6H PRN PRN Reason: Nausea And Vomiting Stop: 11/08/22 02:52 Dextrose/Sodium Chloride (D5w And 1/2nss) 1,000 mls @ 80 mls/hr IV .[id number] [facility] Stop: 11/08/22 20:44 Last Admin: 10/10/22 22:47 Dose: 80 mls/hr Levothyroxine Sodium (Levothyroxine Sodium 25 Mcg Tablet) 25 mcg PO DAILYBB [facility] Stop: 11/08/22 06:29 Last Admin: 10/11/22 06:01 Dose: 25 mcg Metformin HCl (Metformin Hcl Er 500 Mg Tabcr) 500 mg PO QAM [facility] Stop: 11/09/22 08:59 Last Admin: 10/11/22 07:49 Dose: 500 mg Miconazole Nitrate (Miconazole Nitrate Powder 43 Gm) 1 appln EXT BID [facility] Stop: 11/08/22 04:09 Last Admin: 10/11/22 07:49 Dose: 1 appln Miscellaneous (Carbohydrates For Hypoglycemia ) 15 - 30 gm PO UD PRN PRN Reason: Hypoglycemia Protocol Stop: 11/08/22 02:52 Last Admin: 10/09/22 20:15 Dose: 15 gm Nitroglycerin (Nitroglycerin Sl 0.4 Mg/Tab Tab) 0.4 mg SL UD PRN PRN Reason: Chest Pain Stop: 11/08/22 02:52 Nitroglycerin (Nitroglycerin 2% Ointment 30gm Tube) 0.5 inch EXT Q6H [facility] Stop: 11/09/22 02:29 Last Admin: 10/11/22 07:53 Dose: 0.5 inch Ondansetron HCl (Ondansetron Inj 2 Mg/Ml 2 Ml Vial) 4 mg IV Q6H PRN PRN Reason: Nausea And Vomiting Stop: 11/09/22 09:43 Last Admin: 10/10/22 10:00 Dose: 4 mg
[2022-10-11] MEDS: D5W AND 1/2NSS 1,000 ML IV SCH ×2 (11:17→22:28)
--- NOTE | 2022-10-11 15:19 | Hospitalist Progress Note ---
Date of Service October 11, 2022 Assessment & Plan (1) Encephalopathy: Plan: Underlying cognitive impairment and functional disability Multifactorial : Hypertensive crisis, secondary to medication noncompliance Decompensated heart failure, history systolic dysfunction, predominant subacute right-sided heart failure symptoms, underlying pulmonary hypertension, JT on CPAP ARF on CKD New onset hypothyroidism Initiate low-dose levothyroxine, TSH recheck outpatient next month Abnormal CT chest initial read findings (right upper lobe density, mediastinal adenopathy):: 1. Moderate bilateral pleural effusions, right larger than left. Anasarca with small to moderate upper abdominal ascites. Suspected mild pulmonary edema. 2. No evidence for central venous occlusion on unenhanced exam. 3. 2.4 cm water attenuation focus within the right middle lobe. This is likely benign. However, a follow-up chest CT in 3 months to ensure resolution is recommended. 4. Mild lingular and right middle lobe bronchiectasis. Mild groundglass opacity within the superior segment of right lower lobe. This may reflect a chronic infectious/inflammatory process. Remains stable clinically with drowsiness Clinically much better and seems to be at his baseline Started to eat and drink normally and has been communicating normally We will get PT and OT evaluation hx CLL, per observation by local oncologist Chronic anemia, hemoglobin better than baseline hx ICH, cerebral amyloid angiopathy as per records No acute symptoms (2) T2DM (type 2 diabetes mellitus): Plan: DM2 insulin requiring, suboptimal control as of recent hemoglobin A1c of 8.7 last May 2022 Blood sugar has been running low and the patient is not eating and drinking enough and now requiring intravenous dextrose Basal bolus insulin, ISS BG goal 1 10-1 40, carb count coverage, update hemoglobin A1c Appreciate food services coordinator input and recommended Will likely to stop insulin and metformin Plan to restart Ozempic on discharge (3) Ischemic cardiomyopathy: Plan: Aortic stenosis status post bioprosthetic AVR Valvular heart disease (moderate TR, mild MR, mild paravalvular aortic valve prosthesis regurgitation) SSS status post PPM, PAF not on anticoagulation secondary to bleeding risk Appreciate cardiology input and recommendation Will start his usual dose of Lasix as an outpatient (4) JT on CPAP: Plan: Outpatient sleep medicine follow-up to check on current CPAP settings (patient overdue for visit, last visit was 2016) (5) Chronic atrial fibrillation: Plan: Rate remains controlled Plan PT OT eval DVT prophylaxis. Heparin subcu Full code Patient daughters requesting updates from providers. Ms. Sarthak Guerrero, contact #[phone] Sophia Carlin, contact #[phone] Discussed with the daughter Admission and Anticipated Discharge Date Admission Date: October 09, 2022 Subjective 10/10/2022 The patient was seen and examined in telemetry unit in presence of the daughter He has been very drowsy and does not want to talk Much Not in any distress and denies any significant symptoms but wanted to take rest He has not been drinking and eating much and the blood sugar level remains low 10/11/2022 The patient was seen and examined in telemetry unit He has been much better today, more alert awake and is communicating normally He denies any symptoms and has been ambulating in the room Has been eating and drinking normally Will need to have PT and OT evaluation prior to discharge Review of Systems Review of Systems: All systems reviewed and are unremarkable except as noted below Physical Exam Physical Exam: Lying in bed comfortably though remains very weak and lethargic Constitutional: well developed, well nourished, + ill appearing and + obese Eyes: PERRL, conjunctivae normal, anicteric sclerae ENMT: external ear and nose normal, oropharynx normal Neck: trachea midline, no thyromegaly Respiratory: no respiratory distress Auscultation: lungs clear to auscultation bilaterally Cardiovascular: Rate/Rhythm: regular rate and regular rhythm; not tachycardic Heart Sounds: normal S1 and normal S2; no murmur Extremities: no edema Gastrointestinal (Abdomen): Inspection/Auscultation: normal bowel sounds; abdomen not distended Percussion/Palpation: abdomen soft; abdomen nontender Musculoskeletal: No acute arthritis involving any joint Neurologic: normal touch/pain/proprioception and moves all extremities; no focal motor deficits Psychiatric: A+Ox3, euthymic affect Lymphatic: no cervical or axillary lymphadenopathy Results & Data Results & Data ([facility]) Vital Signs (Past 12 Hours) Vital Signs Temp Pulse Pulse Resp BP BP Pulse Ox 10/11/22 15:12 36.7 C 60 20 131/70 97 10/11/22 10:16 36.7 C 59 L 17 148/76 H 96 10/11/22 08:00 62 10/11/22 08:00 10/11/22 07:02 36.3 C L 60 17 122/70 97 10/11/22 05:07 143/83 H 10/11/22 03:16 36.4 C L 60 18 143/80 H 96 O2 Del Method 10/11/22 15:12 Room Air 10/11/22 10:16 Room Air 10/11/22 08:00 10/11/22 08:00 Room Air 10/11/22 07:02 Room Air 10/11/22 05:07 10/11/22 03:16 Room Air, CPAP Laboratory Results Short CBC 10/11/22 Range/Units 05:38 WBC 5.70 (4.8-10.8) K/ul Hgb 13.4 L (14.0-18.0) g/dl Hct 39.8 L (40.1-51.0) % Plt Count 148 (130-400) K/uL BMP 10/11/22 05:38 Sodium 138 Potassium 3.0 L Chloride 103 Carbon Dioxide 30 BUN 31 H Creatinine 1.61 H Glucose 95 Calcium 8.2 L Medications Administered Current Inpatient Medications Acetaminophen (Acetaminophen 325 Mg Tab) 650 mg PO Q4H PRN PRN Reason: Pain or Fever Stop: 11/08/22 02:52 Amlodipine Besylate (Amlodipine Besylate 5 Mg Tab) 5 mg PO QAM [facility] Stop: 11/08/22 04:09 Last Admin: 10/11/22 07:46 Dose: 5 mg Atorvastatin Calcium (Atorvastatin 40 Mg Tab) 40 mg PO QAM [facility] Stop: 11/08/22 08:59 Last Admin: 10/11/22 07:47 Dose: 40 mg Carvedilol (Carvedilol 6.25 Mg Tab) 6.25 mg PO BID [facility] Stop: 11/08/22 08:59 Last Admin: 10/11/22 07:47 Dose: 6.25 mg Cyanocobalamin (Cyanocobalamin (B-12) 500 Mcg Tablet) 1,000 mcg PO QAM [facility] Stop: 11/08/22 08:59 Last Admin: 10/11/22 07:48 Dose: 1,000 mcg Dextrose (Dextrose 50% 50 Ml Syringe) 25 - 50 ml IV UD PRN; Protocol PRN Reason: Hypoglycemia Protocol Stop: 11/08/22 02:52 Last Admin: 10/09/22 20:40 Dose: 25 ml Ferrous Sulfate (Ferrous Sulfate 325 Mg Tab) 325 mg PO DAILY [facility] Stop: 11/08/22 08:59 Last Admin: 10/11/22 07:48 Dose: 325 mg Glucagon (Glucagon For Inj 1 Mg Vial) 1 mg SQ UD PRN; Protocol PRN Reason: Hypoglycemia Protocol Stop: 11/08/22 02:52 Glucose (Glucose 40% Gel 15 Gm Tube) 15 - 30 gm PO UD PRN; Protocol PRN Reason: Hypoglycemia Protocol Stop: 11/08/22 02:52 Last Admin: 10/09/22 16:51 Dose: 15 gm Glucose (Glucose 10 Tab/Tube) 4 - 8 tab PO UD PRN; Protocol PRN Reason: Hypoglycemia Treatment Stop: 11/08/22 02:52 Heparin Sodium (Porcine) (Heparin Sod 5,000 Unit/0.5 Ml Vial) 5,000 units SQ Q8 [facility] Stop: 11/08/22 05:59 Last Admin: 10/11/22 13:29 Dose: 5,000 units Promethazine HCl 12.5 mg/ (Sodium Chloride) 50.5 mls @ 202 mls/hr IV Q6H PRN PRN Reason: Nausea And Vomiting Stop: 11/08/22 02:52 Dextrose/Sodium Chloride (D5w And 1/2nss) 1,000 mls @ 80 mls/hr IV .[id number] [facility] Stop: 11/08/22 20:44 Last Admin: 10/11/22 11:17 Dose: 80 mls/hr Levothyroxine Sodium (Levothyroxine Sodium 25 Mcg Tablet) 25 mcg PO DAILYBB [facility] Stop: 11/08/22 06:29 Last Admin: 10/11/22 06:01 Dose: 25 mcg Metformin HCl (Metformin Hcl Er 500 Mg Tabcr) 500 mg PO QAM [facility] Stop: 11/09/22 08:59 Last Admin: 10/11/22 07:49 Dose: 500 mg Miconazole Nitrate (Miconazole Nitrate Powder 43 Gm) 1 appln EXT BID [facility] Stop: 11/08/22 04:09 Last Admin: 10/11/22 07:49 Dose: 1 appln Miscellaneous (Carbohydrates For Hypoglycemia ) 15 - 30 gm PO UD PRN PRN Reason: Hypoglycemia Protocol Stop: 11/08/22 02:52 Last Admin: 10/09/22 20:15 Dose: 15 gm Nitroglycerin (Nitroglycerin Sl 0.4 Mg/Tab Tab) 0.4 mg SL UD PRN PRN Reason: Chest Pain Stop: 11/08/22 02:52 Nitroglycerin (Nitroglycerin 2% Ointment 30gm Tube) 0.5 inch EXT Q6H [facility] Stop: 11/09/22 02:29 Last Admin: 10/11/22 13:31 Dose: 0.5 inch Ondansetron HCl (Ondansetron Inj 2 Mg/Ml 2 Ml Vial) 4 mg IV Q6H PRN PRN Reason: Nausea And Vomiting Stop: 11/09/22 09:43 Last Admin: 10/10/22 10:00 Dose: 4 mg
[2022-10-11] MEDS: FUROSEMIDE 40 MG TAB PO SCH (17:42)
[2022-10-12] MEDS: NITROGLYCERIN 2% OINTMENT 30GM TUBE EXT SCH ×2 (02:29→08:21)
[2022-10-12] MEDS: HEPARIN SOD 5,000 UNIT/0.5 ML VIAL SQ SCH ×3 (05:50→21:37)
[2022-10-12] MEDS: LEVOTHYROXINE SODIUM 25 MCG TABLET PO SCH (05:50)
[2022-10-12] MEDS: ATORVASTATIN 40 MG TAB PO SCH (08:19)
[2022-10-12] MEDS: amLODIPine BESYLATE 5 MG TAB PO SCH (08:19)
[2022-10-12] MEDS: CYANOCOBALAMIN (B-12) 500 MCG TABLET PO SCH (08:19)
[2022-10-12] MEDS: FUROSEMIDE 40 MG TAB PO SCH (08:20)
[2022-10-12] MEDS: carvediloL 6.25 MG TAB PO SCH ×2 (08:20→21:37)
[2022-10-12] MEDS: FERROUS SULFATE 325 MG TAB PO SCH (08:20)
[2022-10-12] MEDS: PANTOprazole 40 MG TAB PO SCH (08:21)
[2022-10-12] MEDS: metFORMIN HCL ER 500 MG TABCR PO SCH (08:21)
[2022-10-12] MEDS: MICONAZOLE NITRATE POWDER 43 GM EXT SCH ×2 (08:24→21:37)
[2022-10-12 08:57] LABS: Hematocrit (blood only) 43.8 % (40.1-51.0); Hemoglobin 14.2 g/dl (14.0-18.0); Mean Corpuscular Hemoglobin 30.9 pg (25.0-34.0); Mean Corpuscular Hgb Conc 32.4 g/dL (32.0-36.0); Mean Corpuscular Volume 95.2 fL (80.0-100.0); Platelet Count 169 K/uL (130-400); RDW Coefficient of Variation 16.5 % (11.5-14.5); RDW Standard Deviation 57.4 fL (36.4-46.3); White Blood Count 5.87 K/ul (4.8-10.8)
[2022-10-12] MEDS ORDERED: lisinopril 40 MG TAB PO SCH (09:00)
[2022-10-12] MEDS ORDERED: lisinopril 20 MG TAB PO SCH (09:00)
[2022-10-12 09:18] LABS: BUN Creatinine Ratio 18.2 (10-20); Calcium 8.5 mg/dl (8.5-10.1); Creatinine Clr Calc Pharmacy 46.4 ml/min; Est GFR (African American) 41.5 ml/min; Est GFR (Non-African American) 35.8 ml/min; Magnesium 1.6 mg/dl (1.7-2.4); Potassium 3.4 mmol/L (3.5-5.1)
[2022-10-12] MEDS ORDERED: POTASSIUM CHLORIDE CRTAB 20 MEQ TABCR PO STA (09:19)
--- NOTE | 2022-10-12 09:19 | Hospitalist Progress Note ---
Date of Service October 12, 2022 Assessment & Plan (1) Encephalopathy: Plan: Underlying cognitive impairment and functional disability Multifactorial : Hypertensive crisis, secondary to medication noncompliance Decompensated heart failure, history systolic dysfunction, predominant subacute right-sided heart failure symptoms, underlying pulmonary hypertension, JT on CPAP ARF on CKD New onset hypothyroidism Initiate low-dose levothyroxine, TSH recheck outpatient next month Abnormal CT chest initial read findings (right upper lobe density, mediastinal adenopathy):: 1. Moderate bilateral pleural effusions, right larger than left. Anasarca with small to moderate upper abdominal ascites. Suspected mild pulmonary edema. 2. No evidence for central venous occlusion on unenhanced exam. 3. 2.4 cm water attenuation focus within the right middle lobe. This is likely benign. However, a follow-up chest CT in 3 months to ensure resolution is recommended. 4. Mild lingular and right middle lobe bronchiectasis. Mild groundglass opacity within the superior segment of right lower lobe. This may reflect a chronic infectious/inflammatory process. Clinically much improved, not drowsy, feeling well seems to be at his baseline Started to eat and drink normally and has been communicating normally PT and OT evaluation - recommend rehab, CM involved hx CLL, per observation by local oncologist Chronic anemia, hemoglobin better than baseline hx ICH, cerebral amyloid angiopathy as per records No acute symptoms (2) T2DM (type 2 diabetes mellitus): Plan: DM2 insulin requiring, suboptimal control as of recent hemoglobin A1c of 8.7 last May 2022 Blood sugar was running low and the patient was not eating and drinking enough and was requiring intravenous dextrose Basal bolus insulin, ISS BG goal 110-1 40, carb count coverage, update hemoglobin A1c Appreciate tobacco educator input and recommended Will likely to stop insulin and metformin Plan to restart Ozempic on discharge/ as outpt (3) Ischemic cardiomyopathy: Plan: Aortic stenosis status post bioprosthetic AVR Valvular heart disease (moderate TR, mild MR, mild paravalvular aortic valve prosthesis regurgitation) SSS status post PPM, PAF not on anticoagulation secondary to bleeding risk Appreciate cardiology input and recommendation Will start his usual dose of Lasix as an outpatient (4) JT on CPAP: Plan: Outpatient sleep medicine follow-up to check on current CPAP settings (patient overdue for visit, last visit was 2016) (5) Chronic atrial fibrillation: Plan: Rate remains controlled per cardiology note - Anticoagulation risks felt to be greater than the benefit secondary to ambulatory dysfunction, iron deficiency anemia, history of intracranial hemorrhage, history of amyloid angiopathy Plan PT OT eval DVT prophylaxis. Heparin subcu Full code Patient daughters contacts Ms. Sarthak Guerrero, contact #[phone] Ms. Sophia Carlin, contact #[phone] Admission and Anticipated Discharge Date Admission Date: October 09, 2022 Subjective Patient seen in follow-up of confusion, CHF He reports feeling quite well Denies any complaint Denies any shortness of breath, chest pain, palpitations Also denies any abdominal pain nausea vomiting, reports he has been eating well Says his family was just visiting, this was confirmed with RN he is answering questions appropriately Discussed rehab, CM involved Update: Later in the day, contacted by RN that patient was getting a little more confused Review of Systems Review of Systems: All systems reviewed & are unremarkable except as noted in Subjective Physical Exam Physical Exam: Physical Exam: Lying in bed comfo rtably in NAD Constitutional:L well developed, we ll nourished, + ob kylah Eyes: PERRL, EOMI, conju nctivae normal, an icteric sclerae ENMT: external ear and n ose normal, oropha rynx normal Neck: supple Respiratory: no respiratory dis tress Auscultatio n: lungs clear to auscultation bilat erally Cardiovascular:L Rate/Rhythm: regul ar rate and regula r rhythm; not tach ycardic Heart Bernie nds: normal S1 and normal S2 Gastrointestinal ( Abdomen): Inspection/Auscult ation: normal tyler l sounds; abdomen not distended Per cussion/Palpation: abdomen soft; abd omen nontender Musculoskeletal: moves extremities Neurologic: moves all extremit ies; speech fluent , no facial asymme try Psychiatric: A+Ox3, euthymic af fect Results & Data Results & Data ([facility]) Vital Signs (Past 12 Hours) Vital Signs Temp Pulse Pulse Resp BP Pulse Ox O2 Del Method 10/12/22 06:42 36.7 C 60 18 155/82 H 97 CPAP 10/12/22 02:49 36.9 C 59 L 18 169/80 H 95 CPAP 10/12/22 02:39 13 10/12/22 00:22 61 10/11/22 22:55 36.7 C 60 20 154/91 H 97 CPAP 10/11/22 22:20 68 14 98 10/11/22 22:13 Room Air, CPAP 10/11/22 21:39 61 Laboratory Results 10/12/22 10/12/22 10/12/22 Range/Units 07:50 07:50 07:14 WBC 5.87 (4.8-10.8) K/ul RBC 4.60 L (4.63-6.08) M/uL Hgb 14.2 (14.0-18.0) g/dl Hct 43.8 (40.1-51.0) % MCV 95.2 (80.0-100.0) fL MCH 30.9 (25.0-34.0) pg MCHC 32.4 (32.0-36.0) g/dL RDW Std Deviation 57.4 H (36.4-46.3) fL RDW Coeff of Solis 16.5 H (11.5-14.5) % Plt Count 169 (130-400) K/uL MPV 11.0 (9.4-12.4) fL Sodium 136 (136-145) mmol/L Potassium 3.4 L (3.5-5.1) mmol/L Chloride 100 (98-107) mmol/L Carbon Dioxide 33 H (21-32) mmol/L Anion Gap 3 (3-11) BUN 33 H (6-23) mg/dl Creatinine 1.81 H (0.6-1.4) mg/dl Est Cr Clr Drug Dosing 46.4 ml/min Est GFR ( Amer) 41.5 ml/min Est GFR (Non-Af Amer) 35.8 ml/min BUN/Creatinine Ratio 18.2 (10-20) Glucose 125 H (70-99(Fasting)) mg/dl POC Glucose 124 H (70-99) mg/dl Calcium 8.5 (8.5-10.1) mg/dl Magnesium 1.6 L (1.7-2.4) mg/dl 10/11/22 10/11/22 10/11/22 Range/Units 20:12 16:12 11:01 WBC (4.8-10.8) K/ul RBC (4.63-6.08) M/uL Hgb (14.0-18.0) g/dl Hct (40.1-51.0) % MCV (80.0-100.0) fL MCH (25.0-34.0) pg MCHC (32.0-36.0) g/dL RDW Std Deviation (36.4-46.3) fL RDW Coeff of Solis (11.5-14.5) % Plt Count (130-400) K/uL MPV (9.4-12.4) fL Sodium (136-145) mmol/L Potassium (3.5-5.1) mmol/L Chloride (98-107) mmol/L Carbon Dioxide (21-32) mmol/L Anion Gap (3-11) BUN (6-23) mg/dl Creatinine (0.6-1.4) mg/dl Est Cr Clr Drug Dosing ml/min Est GFR ( Amer) ml/min Est GFR (Non-Af Amer) ml/min BUN/Creatinine Ratio (10-20) Glucose (70-99(Fasting)) mg/dl POC Glucose 205 H 196 H 105 H (70-99) mg/dl Calcium (8.5-10.1) mg/dl Magnesium (1.7-2.4) mg/dl Medications Administered Current Inpatient Medications Acetaminophen (Acetaminophen 325 Mg Tab) 650 mg PO Q4H PRN PRN Reason: Pain or Fever Stop: 11/08/22 02:52 Amlodipine Besylate (Amlodipine Besylate 5 Mg Tab) [facility] [place] Stop: 11/08/22 04:09 Last Admin: 10/12/22 08:19 Dose: 5 mg Atorvastatin Calcium (Atorvastatin 40 Mg Tab) [facility] [place] Stop: 11/08/22 08:59 Last Admin: 10/12/22 08:19 Dose: 40 mg Carvedilol (Carvedilol 6.25 Mg Tab) 6.25 mg PO BID [facility] Stop: 11/08/22 08:59 Last Admin: 10/12/22 08:20 Dose: 6.25 mg Cyanocobalamin (Cyanocobalamin (B-12) 500 Mcg Tablet) 1,000 mcg PO QAM [facility] Stop: 11/08/22 08:59 Last Admin: 10/12/22 08:19 Dose: 1,000 mcg Dextrose (Dextrose 50% 50 Ml Syringe) 25 - 50 ml IV UD PRN; Protocol PRN Reason: Hypoglycemia Protocol Stop: 11/08/22 02:52 Last Admin: 10/09/22 20:40 Dose: 25 ml Ferrous Sulfate (Ferrous Sulfate 325 Mg Tab) 325 mg PO DAILY [facility] Stop: 11/08/22 08:59 Last Admin: 10/12/22 08:20 Dose: 325 mg Furosemide (Furosemide 40 Mg Tab) 40 mg PO QAM [facility] Stop: 11/10/22 15:29 Last Admin: 10/12/22 08:20 Dose: 40 mg Glucagon (Glucagon For Inj 1 Mg Vial) 1 mg SQ UD PRN; Protocol PRN Reason: Hypoglycemia Protocol Stop: 11/08/22 02:52 Glucose (Glucose 40% Gel 15 Gm Tube) 15 - 30 gm PO UD PRN; Protocol PRN Reason: Hypoglycemia Protocol Stop: 11/08/22 02:52 Last Admin: 10/09/22 16:51 Dose: 15 gm Glucose (Glucose 10 Tab/Tube) 4 - 8 tab PO UD PRN; Protocol PRN Reason: Hypoglycemia Treatment Stop: 11/08/22 02:52 Heparin Sodium (Porcine) (Heparin Sod 5,000 Unit/0.5 Ml Vial) 5,000 units SQ Q8 [facility] Stop: 11/08/22 05:59 Last Admin: 10/12/22 05:50 Dose: 5,000 units Promethazine HCl 12.5 mg/ (Sodium Chloride) 50.5 mls @ 202 mls/hr IV Q6H PRN PRN Reason: Nausea And Vomiting Stop: 11/08/22 02:52 Dextrose/Sodium Chloride (D5w And 1/2nss) 1,000 mls @ 80 mls/hr IV .[id number] [facility] Stop: 11/08/22 20:44 Last Admin: 10/11/22 22:28 Dose: 80 mls/hr Levothyroxine Sodium (Levothyroxine Sodium 25 Mcg Tablet) 25 mcg PO DAILYBB [facility] Stop: 11/08/22 06:29 Last Admin: 10/12/22 05:50 Dose: 25 mcg Lisinopril (Lisinopril 20 Mg Tab) 20 mg PO QAM [facility] Stop: 11/11/22 08:59 Last Admin: 10/12/22 08:20 Dose: 20 mg Metformin HCl (Metformin Hcl Er 500 Mg Tabcr) 500 mg PO QAM [facility] Stop: 11/09/22 08:59 Last Admin: 10/12/22 08:21 Dose: 500 mg Miconazole Nitrate (Miconazole Nitrate Powder 43 Gm) 1 appln EXT BID [facility] Stop: 11/08/22 04:09 Last Admin: 10/12/22 08:24 Dose: 1 appln Miscellaneous (Carbohydrates For Hypoglycemia ) 15 - 30 gm PO UD PRN PRN Reason: Hypoglycemia Protocol Stop: 11/08/22 02:52 Last Admin: 10/09/22 20:15 Dose: 15 gm Nitroglycerin (Nitroglycerin Sl 0.4 Mg/Tab Tab) 0.4 mg SL UD PRN PRN Reason: Chest Pain Stop: 11/08/22 02:52 Nitroglycerin (Nitroglycerin 2% Ointment 30gm Tube) 0.5 inch EXT Q6H [facility] Stop: 11/09/22 02:29 Last Admin: 10/12/22 08:21 Dose: 0.5 inch Ondansetron HCl (Ondansetron Inj 2 Mg/Ml 2 Ml Vial) 4 mg IV Q6H PRN PRN Reason: Nausea And Vomiting Stop: 11/09/22 09:43 Last Admin: 10/10/22 10:00 Dose: 4 mg Pantoprazole Sodium (Pantoprazole 40 Mg Tab) 40 mg PO DAILY [facility] Stop: 11/11/22 08:59 Last Admin: 10/12/22 08:21 Dose: 40 mg
--- NOTE | 2022-10-12 10:29 | Cardiology Progress Note ---
Date of Service October 12, 2022 Assessment & Plan (1) Confusion: (2) Generalized weakness: (3) Aortic valve stenosis: (4) Ischemic cardiomyopathy: (5) Systolic heart failure secondary to coronary artery disease: Plan The patient is more alert but confused today. From a cardiac standpoint he is stable. He is eating and I we will DC his IV fluids. Admission and Anticipated Discharge Date Admission Date: October 09, 2022 Subjective The patient is alert but confused to time. Review of Systems Review of Systems: Review of Systems: See HPI for pertinent positives. All other 10 point review of systems are negative. Physical Exam Physical Exam: General: no acute distress and stated age Head: normocephalic, no masses, lesions, tenderness or abnormalities Eyes: conjunctiva are pink and non-injected, sclera clear Neck: supple, no adenopathy, no bruits, normal jugular venous pulse, no hepatojugular reflux Chest: normal shape and normal respiratory effort Lungs: clear to auscultation and percussion Cardiac Exam: - regular rate & rhythm, no murmurs gallops or rubs - normal S1, normal S2 Pulses: 2(+) throughout Abdomen: abdomen soft, non-tender, no abnormal masses and no hepatosplenomegaly Musculoskeletal: no gait disturbance, no joint inflammation, no deforming arthritis Extremities: no edema and no cyanosis Neuro: grossly normal exam Results & Data ([facility]) Vital Signs (Past 12 Hours) Vital Signs Temp Pulse Pulse Resp BP Pulse Ox O2 Del Method 10/12/22 08:00 Room Air 10/12/22 06:42 36.7 C 60 18 155/82 H 97 CPAP 10/12/22 02:49 36.9 C 59 L 18 169/80 H 95 CPAP 10/12/22 02:39 13 10/12/22 00:22 61 10/11/22 22:55 36.7 C 60 20 154/91 H 97 CPAP Laboratory Results Laboratory Results - last 24 hr 10/11/22 10/11/22 10/11/22 11:01 16:12 20:12 WBC RBC Hgb Hct MCV MCH MCHC RDW Std Deviation RDW Coeff of Solis Plt Count MPV Sodium Potassium Chloride Carbon Dioxide Anion Gap BUN Creatinine Est Cr Clr Drug Dosing Est GFR ( Amer) Est GFR (Non-Af Amer) BUN/Creatinine Ratio Glucose POC Glucose 105 H 196 H 205 H Calcium Magnesium 10/12/22 10/12/22 10/12/22 07:14 07:50 07:50 WBC 5.87 RBC 4.60 L Hgb 14.2 Hct 43.8 MCV 95.2 MCH 30.9 MCHC 32.4 RDW Std Deviation 57.4 H RDW Coeff of Solis 16.5 H Plt Count 169 MPV 11.0 Sodium 136 Potassium 3.4 L Chloride 100 Carbon Dioxide 33 H Anion Gap 3 BUN 33 H Creatinine 1.81 H Est Cr Clr Drug Dosing 46.4 Est GFR ( Amer) 41.5 Est GFR (Non-Af Amer) 35.8 BUN/Creatinine Ratio 18.2 Glucose 125 H POC Glucose 124 H Calcium 8.5 Magnesium 1.6 L Medications Administered Current Inpatient Medications Acetaminophen (Acetaminophen 325 Mg Tab) 650 mg PO Q4H PRN PRN Reason: Pain or Fever Stop: 11/08/22 02:52 Amlodipine Besylate (Amlodipine Besylate 5 Mg Tab) [facility] [place]: 11/08/22 04:09 Last Admin: 10/12/22 08:19 Dose: 5 mg Atorvastatin Calcium (Atorvastatin 40 Mg Tab) [facility] [place] Stop: 11/08/22 08:59 Last Admin: 10/12/22 08:19 Dose: 40 mg Carvedilol (Carvedilol 6.25 Mg Tab) 6.25 mg PO BID [facility] Stop: 11/08/22 08:59 Last Admin: 10/12/22 08:20 Dose: 6.25 mg Cyanocobalamin (Cyanocobalamin (B-12) 500 Mcg Tablet) 1,000 mcg PO QAM [facility] Stop: 11/08/22 08:59 Last Admin: 10/12/22 08:19 Dose: 1,000 mcg Dextrose (Dextrose 50% 50 Ml Syringe) 25 - 50 ml IV UD PRN; Protocol PRN Reason: Hypoglycemia Protocol Stop: 11/08/22 02:52 Last Admin: 10/09/22 20:40 Dose: 25 ml Ferrous Sulfate (Ferrous Sulfate 325 Mg Tab) 325 mg PO DAILY [facility] Stop: 11/08/22 08:59 Last Admin: 10/12/22 08:20 Dose: 325 mg Furosemide (Furosemide 40 Mg Tab) 40 mg PO QAM [facility] Stop: 11/10/22 15:29 Last Admin: 10/12/22 08:20 Dose: 40 mg Glucagon (Glucagon For Inj 1 Mg Vial) 1 mg SQ UD PRN; Protocol PRN Reason: Hypoglycemia Protocol Stop: 11/08/22 02:52 Glucose (Glucose 40% Gel 15 Gm Tube) 15 - 30 gm PO UD PRN; Protocol PRN Reason: Hypoglycemia Protocol Stop: 11/08/22 02:52 Last Admin: 10/09/22 16:51 Dose: 15 gm Glucose (Glucose 10 Tab/Tube) 4 - 8 tab PO UD PRN; Protocol PRN Reason: Hypoglycemia Treatment Stop: 11/08/22 02:52 Heparin Sodium (Porcine) (Heparin Sod 5,000 Unit/0.5 Ml Vial) 5,000 units SQ Q8 [facility] Stop: 11/08/22 05:59 Last Admin: 10/12/22 05:50 Dose: 5,000 units Promethazine HCl 12.5 mg/ (Sodium Chloride) 50.5 mls @ 202 mls/hr IV Q6H PRN PRN Reason: Nausea And Vomiting Stop: 11/08/22 02:52 Dextrose/Sodium Chloride (D5w And 1/2nss) 1,000 mls @ 80 mls/hr IV .[id number] [facility] Stop: 11/08/22 20:44 Last Admin: 10/11/22 22:28 Dose: 80 mls/hr Levothyroxine Sodium (Levothyroxine Sodium 25 Mcg Tablet) 25 mcg PO DAILYBB [facility] Stop: 11/08/22 06:29 Last Admin: 10/12/22 05:50 Dose: 25 mcg Lisinopril (Lisinopril 20 Mg Tab) 20 mg PO QAM [facility] Stop: 11/11/22 08:59 Last Admin: 10/12/22 08:20 Dose: 20 mg Metformin HCl (Metformin Hcl Er 500 Mg Tabcr) 500 mg PO QAM [facility] Stop: 11/09/22 08:59 Last Admin: 10/12/22 08:21 Dose: 500 mg Miconazole Nitrate (Miconazole Nitrate Powder 43 Gm) 1 appln EXT BID [facility] Stop: 11/08/22 04:09 Last Admin: 10/12/22 08:24 Dose: 1 appln Miscellaneous (Carbohydrates For Hypoglycemia ) 15 - 30 gm PO UD PRN PRN Reason: Hypoglycemia Protocol Stop: 11/08/22 02:52 Last Admin: 10/09/22 20:15 Dose: 15 gm Nitroglycerin (Nitroglycerin Sl 0.4 Mg/Tab Tab) 0.4 mg SL UD PRN PRN Reason: Chest Pain Stop: 11/08/22 02:52 Nitroglycerin (Nitroglycerin 2% Ointment 30gm Tube) 0.5 inch EXT Q6H [facility] Stop: 11/09/22 02:29 Last Admin: 10/12/22 08:21 Dose: 0.5 inch Ondansetron HCl (Ondansetron Inj 2 Mg/Ml 2 Ml Vial) 4 mg IV Q6H PRN PRN Reason: Nausea And Vomiting Stop: 11/09/22 09:43 Last Admin: 10/10/22 10:00 Dose: 4 mg Pantoprazole Sodium (Pantoprazole 40 Mg Tab) 40 mg PO DAILY [facility] Stop: 11/11/22 08:59 Last Admin: 10/12/22 08:21 Dose: 40 mg
[2022-10-13] MEDS: HEPARIN SOD 5,000 UNIT/0.5 ML VIAL SQ SCH ×3 (05:35→22:00)
[2022-10-13] MEDS: LEVOTHYROXINE SODIUM 25 MCG TABLET PO SCH (05:37)
--- NOTE | 2022-10-13 07:38 | Hospitalist Progress Note ---
Date of Service October 13, 2022 Assessment & Plan (1) Encephalopathy: Plan: Underlying cognitive impairment and functional disability Multifactorial : Hypertensive crisis, secondary to medication noncompliance Decompensated heart failure, history systolic dysfunction, predominant subacute right-sided heart failure symptoms, underlying pulmonary hypertension, JT on CPAP ARF on CKD New onset hypothyroidism Initiate low-dose levothyroxine, TSH recheck outpatient next month Abnormal CT chest initial read findings (right upper lobe density, mediastinal adenopathy):: 1. Moderate bilateral pleural effusions, right larger than left. Anasarca with small to moderate upper abdominal ascites. Suspected mild pulmonary edema. 2. No evidence for central venous occlusion on unenhanced exam. 3. 2.4 cm water attenuation focus within the right middle lobe. This is likely benign. However, a follow-up chest CT in 3 months to ensure resolution is recommended. 4. Mild lingular and right middle lobe bronchiectasis. Mild groundglass opacity within the superior segment of right lower lobe. This may reflect a chronic infectious/inflammatory process. Clinically much improved, not drowsy, feeling well seems to be at his baseline Started to eat and drink normally and has been communicating normally PT and OT evaluation - recommend rehab, CM involved 10/13 cr up at 1.9 - hold lisinopril closely monitor BP and renal function hx CLL, per observation by local oncologist Chronic anemia, hemoglobin better than baseline hx ICH, cerebral amyloid angiopathy as per records No acute symptoms (2) T2DM (type 2 diabetes mellitus): Plan: DM2 insulin requiring, suboptimal control as of recent hemoglobin A1c of 8.7 last May 2022 Blood sugar was running low and the patient was not eating and drinking enough and was requiring intravenous dextrose Basal bolus insulin, ISS BG goal 110-1 40, carb count coverage, update hemoglobin A1c 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 delivery 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 worker input and recommended Will likely to stop insulin and metformin Plan to restart Ozempic on discharge/ as outpt (3) Ischemic cardiomyopathy: Plan: Aortic stenosis status post bioprosthetic AVR Valvular heart disease (moderate TR, mild MR, mild paravalvular aortic valve prosthesis regurgitation) SSS status post PPM, PAF not on anticoagulation secondary to bleeding risk Appreciate cardiology input and recommendation Will start his usual dose of Lasix as an outpatient (4) JT on CPAP: Plan: Outpatient sleep medicine follow-up to check on current CPAP settings (patient overdue for visit, last visit was 2016) (5) Chronic atrial fibrillation: Plan: Rate remains controlled per cardiology note - Anticoagulation risks felt to be greater than the benefit secondary to ambulatory dysfunction, iron deficiency anemia, history of intracranial hemorrhage, history of amyloid angiopathy Plan PT OT eval DVT prophylaxis. Heparin subcu Full code Patient daughters contacts Ms. Sarthak Guerrero, contact #[phone] Ms. Sophia Carlin, contact #[phone] Admission and Anticipated Discharge Date Admission Date: October 09, 2022 Subjective Patient seen in follow-up of confusion, CHF He reports feeling well Denies any complaint Denies any shortness of breath, chest pain, palpitations Also denies any abdominal pain nausea vomiting, reports he has been eating well he is answering questions appropriately Discussed rehab, CM involved Cr up at 1.9, lisinopril on hold Review of Systems Review of Systems: All systems reviewed & are unremarkable except as noted in Subjective Physical Exam Physical Exam: Physical Exam: Lying in bed comfo rtably in NAD Constitutional:L well developed, we ll nourished, + ob kylah Eyes: PERRL, EOMI, conju nctivae normal, an icteric sclerae ENMT: external ear and n ose normal, oropha rynx normal Neck: supple Respiratory: no respiratory dis tress Auscultatio n: lungs clear to auscultation bilat erally Cardiovascular:L Rate/Rhythm: regul ar rate and regula r rhythm; not tach ycardic Heart Bernie nds: normal S1 and normal S2 Gastrointestinal ( Abdomen): Inspection/Auscult ation: normal tyler l sounds; abdomen not distended Per cussion/Palpation: abdomen soft; abd omen nontender Musculoskeletal: moves extremities Neurologic: moves all extremit ies; speech fluent , no facial asymme try Psychiatric: A+Ox3, euthymic af fect Results & Data Results & Data ([facility]) Vital Signs (Past 12 Hours) Vital Signs Temp Pulse Pulse Resp BP Pulse Ox O2 Del Method 10/13/22 03:00 36.5 C 60 162/84 H 98 CPAP 10/13/22 02:33 18 10/12/22 23:48 60 10/12/22 23:24 162/98 H 10/12/22 23:00 36.5 C 69 18 120/62 98 CPAP 10/12/22 20:00 Room Air 10/12/22 20:11 59 L 12 97 Laboratory Results 10/13/22 10/13/22 10/12/22 Range/Units 07:22 06:42 20:13 Sodium 137 (136-145) mmol/L Potassium 3.5 (3.5-5.1) mmol/L Chloride 100 (98-107) mmol/L Carbon Dioxide 32 (21-32) mmol/L Anion Gap 5 (3-11) BUN 37 H (6-23) mg/dl Creatinine 1.94 H (0.6-1.4) mg/dl Est Cr Clr Drug Dosing 43.4 ml/min Est GFR ( Amer) 38.1 ml/min Est GFR (Non-Af Amer) 32.9 ml/min BUN/Creatinine Ratio 19.1 (10-20) Glucose 129 H (70-99(Fasting)) mg/dl POC Glucose 124 H 146 H (70-99) mg/dl Calcium 8.6 (8.5-10.1) mg/dl Phosphorus 3.0 (2.5-4.9) mg/dl Magnesium 1.6 L (1.7-2.4) mg/dl 10/12/22 10/12/22 Range/Units 16:17 11:10 Sodium (136-145) mmol/L Potassium (3.5-5.1) mmol/L Chloride (98-107) mmol/L Carbon Dioxide (21-32) mmol/L Anion Gap (3-11) BUN (6-23) mg/dl Creatinine (0.6-1.4) mg/dl Est Cr Clr Drug Dosing ml/min Est GFR ( Amer) ml/min Est GFR (Non-Af Amer) ml/min BUN/Creatinine Ratio (10-20) Glucose (70-99(Fasting)) mg/dl POC Glucose 123 H 132 H (70-99) mg/dl Calcium (8.5-10.1) mg/dl Phosphorus (2.5-4.9) mg/dl Magnesium (1.7-2.4) mg/dl Medications Administered Current Inpatient Medications Acetaminophen (Acetaminophen 325 Mg Tab) 650 mg PO Q4H PRN PRN Reason: Pain or Fever Stop: 11/08/22 02:52 Amlodipine Besylate (Amlodipine Besylate 5 Mg Tab) 10 mg PO QAM [facility] Stop: 11/12/22 08:59 Atorvastatin Calcium (Atorvastatin 40 Mg Tab) 40 mg PO QAM [facility] Stop: 11/08/22 08:59 Last Admin: 10/12/22 08:19 Dose: 40 mg Carvedilol (Carvedilol 6.25 Mg Tab) 6.25 mg PO BID [facility] Stop: 11/08/22 08:59 Last Admin: 10/12/22 21:37 Dose: 6.25 mg Cyanocobalamin (Cyanocobalamin (B-12) 500 Mcg Tablet) 1,000 mcg PO QAM [facility] Stop: 11/08/22 08:59 Last Admin: 10/12/22 08:19 Dose: 1,000 mcg Dextrose (Dextrose 50% 50 Ml Syringe) 25 - 50 ml IV UD PRN; Protocol PRN Reason: Hypoglycemia Protocol Stop: 11/08/22 02:52 Last Admin: 10/09/22 20:40 Dose: 25 ml Ferrous Sulfate (Ferrous Sulfate 325 Mg Tab) 325 mg PO DAILY [facility] Stop: 11/08/22 08:59 Last Admin: 10/12/22 08:20 Dose: 325 mg Furosemide ([facility] 40 Mg Tab) [facility] Stop: 11/10/22 15:29 Last Admin: 10/12/22 08:20 Dose: 40 mg Glucagon (Glucagon For Inj 1 Mg Vial) 1 mg SQ UD PRN; Protocol PRN Reason: Hypoglycemia Protocol Stop: 11/08/22 02:52 Glucose (Glucose 40% Gel 15 Gm Tube) 15 - 30 gm PO UD PRN; Protocol PRN Reason: Hypoglycemia Protocol Stop: 11/08/22 02:52 Last Admin: 10/09/22 16:51 Dose: 15 gm Glucose (Glucose 10 Tab/Tube) 4 - 8 tab PO UD PRN; Protocol PRN Reason: Hypoglycemia Treatment Stop: 11/08/22 02:52 Heparin Sodium (Porcine) (Heparin Sod 5,000 Unit/0.5 Ml Vial) 5,000 units SQ Q8 [facility] Stop: 11/08/22 05:59 Last Admin: 10/13/22 05:35 Dose: 5,000 units Promethazine HCl 12.5 mg/ (Sodium Chloride) 50.5 mls @ 202 mls/hr IV Q6H PRN PRN Reason: Nausea And Vomiting Stop: 11/08/22 02:52 Levothyroxine Sodium (Levothyroxine Sodium 25 Mcg Tablet) 25 mcg PO DAILYBB [facility] Stop: 11/08/22 06:29 Last Admin: 10/13/22 05:37 Dose: 25 mcg Lisinopril (Lisinopril 20 Mg Tab) 20 mg PO QAM [facility] Stop: 11/11/22 08:59 Last Admin: 10/12/22 08:20 Dose: 20 mg Metformin HCl (Metformin Hcl Er 500 Mg Tabcr) 500 mg PO [facility] Stop: 11/09/22 08:59 Last Admin: 10/12/22 08:21 Dose: 500 mg Miconazole Nitrate (Miconazole Nitrate Powder 43 Gm) 1 appln EXT BID [facility] Stop: 11/08/22 04:09 Last Admin: 10/12/22 21:37 Dose: 1 appln Miscellaneous (Carbohydrates For Hypoglycemia ) 15 - 30 gm PO UD PRN PRN Reason: Hypoglycemia Protocol Stop: 11/08/22 02:52 Last Admin: 10/09/22 20:15 Dose: 15 gm Nitroglycerin (Nitroglycerin Sl 0.4 Mg/Tab Tab) 0.4 mg SL UD PRN PRN Reason: Chest Pain Stop: 11/08/22 02:52 Ondansetron HCl (Ondansetron Inj 2 Mg/Ml 2 Ml Vial) 4 mg IV Q6H PRN PRN Reason: Nausea And Vomiting Stop: 11/09/22 09:43 Last Admin: 10/10/22 10:00 Dose: 4 mg Pantoprazole Sodium (Pantoprazole 40 Mg Tab) 40 mg PO DAILY [facility] Stop: 11/11/22 08:59 Last Admin: 10/12/22 08:21 Dose: 40 mg
[2022-10-13 08:06] LABS: BUN Creatinine Ratio 19.1 (10-20); Calcium 8.6 mg/dl (8.5-10.1); Creatinine Clr Calc Pharmacy 43.4 ml/min; Est GFR (African American) 38.1 ml/min; Est GFR (Non-African American) 32.9 ml/min; Magnesium 1.6 mg/dl (1.7-2.4); Potassium 3.5 mmol/L (3.5-5.1)
[2022-10-13] MEDS: FERROUS SULFATE 325 MG TAB PO SCH (08:28)
[2022-10-13] MEDS: PANTOprazole 40 MG TAB PO SCH (08:28)
[2022-10-13] MEDS: ATORVASTATIN 40 MG TAB PO SCH (08:29)
[2022-10-13] MEDS: FUROSEMIDE 40 MG TAB PO SCH (08:29)
[2022-10-13] MEDS: CYANOCOBALAMIN (B-12) 500 MCG TABLET PO SCH (08:29)
[2022-10-13] MEDS: metFORMIN HCL ER 500 MG TABCR PO SCH (08:29)
[2022-10-13] MEDS: amLODIPine BESYLATE 5 MG TAB PO SCH (08:30)
[2022-10-13] MEDS: MICONAZOLE NITRATE POWDER 43 GM EXT SCH ×2 (08:34→20:34)
[2022-10-13] MEDS: carvediloL 6.25 MG TAB PO SCH ×2 (10:03→20:34)
[2022-10-13] MEDS ORDERED: POTASSIUM CHLORIDE CRTAB 20 MEQ TABCR PO STA (10:14)
[2022-10-13] MEDS ORDERED: MAGNESIUM SULFATE / D5W 1 GM/100 ML BAG IV ONE (10:30)
[2022-10-13] MEDS: MAGNESIUM OXIDE 400 MG TAB PO SCH (14:59)
--- NOTE | 2022-10-13 15:21 | Cardiology Progress Note ---
Date of Service October 13, 2022 Assessment & Plan (1) Confusion: (2) Generalized weakness: (3) Aortic valve stenosis: (4) Ischemic cardiomyopathy: (5) Systolic heart failure secondary to coronary artery disease: Plan Patient conversant, but I am not sure how much of this might be confabulation. Blood pressure was above goal overnight, but improved on most recent measurement down to 145/80. Continue current treatment including subcutaneous heparin for DVT prophylaxis, carvedilol, atorvastatin, furosemide 40 mg p.o. daily. Lisinopril remains on hold, with creatinine of 1.94 today. Continue optimize blood pressure and fluid status. Ultimately, patient requires [facility]. Admission and Anticipated Discharge Date Admission Date: October 09, 2022 Subjective Patient seen in cardiology follow-up. No acute complaints. Telemetry reveals underlying atrial fibrillation, with ventricular pacing in the 60s. Physical Exam Constitutional: WD/WN, vitals as above Respiratory: normal respiratory effort, lungs clear to auscultation Cardiovascular: Rate/Rhythm: regular rate Vessels: no JVD Extremities: + edema (1+ bilateral lower extremity edema) Gastrointestinal (Abdomen): normal bowel sounds, soft, nontender, no hepatosplenomegaly Neurologic: patellar DTR's 2+ bilat, sensation intact Results & Data ([facility]) Vital Signs (Past 12 Hours) Vital Signs Temp Pulse Pulse Resp BP BP Pulse Ox 10/13/22 11:49 36.5 C 60 18 145/80 H 96 10/13/22 08:00 60 10/13/22 10:16 10/13/22 11:03 159/83 H 10/13/22 07:33 36.7 C 57 L 18 173/104 H 98 O2 Del Method 10/13/22 11:49 Room Air 10/13/22 08:00 10/13/22 10:16 Room Air 10/13/22 11:03 10/13/22 07:33 BiPAP Laboratory Results Comprehensive Metabolic Panel 10/13/22 Range/Units 06:42 Sodium 137 (136-145) mmol/L Potassium 3.5 (3.5-5.1) mmol/L Chloride 100 (98-107) mmol/L Carbon Dioxide 32 (21-32) mmol/L BUN 37 H (6-23) mg/dl Creatinine 1.94 H (0.6-1.4) mg/dl Glucose 129 H (70-99(Fasting)) mg/dl Calcium 8.6 (8.5-10.1) mg/dl Intake and Output 10/13/22 10/13/22 10/13/22 06:59 14:59 22:59 Intake Total 100 / 100 Output Total 450 / 2400 350 / 350 Balance -450 / -720.667 -250 / -250 Intake: IV 100 / 100 Magnesium Sulfate / D5w 1 gm In 100 / 100 100 ml @ 50 mls/hr IV ONE ONE Rx#:[id number] Output: Urine 450 / 1250 350 / 350 Other: Other Intake Source sips Weight 116.5 kg Weight Measurement Method Built in [facility]
[2022-10-14] MEDS: LEVOTHYROXINE SODIUM 25 MCG TABLET PO SCH (06:13)
[2022-10-14] MEDS: HEPARIN SOD 5,000 UNIT/0.5 ML VIAL SQ SCH ×3 (06:13→21:26)
[2022-10-14 07:51] LABS: BUN Creatinine Ratio 23.3 (10-20); Calcium 8.7 mg/dl (8.5-10.1); Creatinine Clr Calc Pharmacy 47.9 ml/min; Est GFR (African American) 42.9 ml/min; Magnesium 1.8 mg/dl (1.7-2.4); Phosphorus 2.7 mg/dl (2.5-4.9)
--- NOTE | 2022-10-14 07:55 | Hospitalist Progress Note ---
Date of Service October 14, 2022 Assessment & Plan (1) Encephalopathy: Plan: Underlying cognitive impairment and functional disability Multifactorial : Hypertensive crisis, secondary to medication noncompliance Decompensated heart failure, history systolic dysfunction, predominant subacute right-sided heart failure symptoms, underlying pulmonary hypertension, JT on CPAP ARF on CKD New onset hypothyroidism Initiate low-dose levothyroxine, TSH recheck outpatient next month Abnormal CT chest initial read findings (right upper lobe density, mediastinal adenopathy):: 1. Moderate bilateral pleural effusions, right larger than left. Anasarca with small to moderate upper abdominal ascites. Suspected mild pulmonary edema. 2. No evidence for central venous occlusion on unenhanced exam. 3. 2.4 cm water attenuation focus within the right middle lobe. This is likely benign. However, a follow-up chest CT in 3 months to ensure resolution is recommended. 4. Mild lingular and right middle lobe bronchiectasis. Mild groundglass opacity within the superior segment of right lower lobe. This may reflect a chronic infectious/inflammatory process. Clinically much improved, not drowsy, feeling well seems to be at his baseline Started to eat and drink normally and has been communicating normally PT and OT evaluation - recommend rehab, CM involved 10/13 cr up at 1.9 - hold lisinopril closely monitor BP and renal function 10/14 - Cr down to 1.5 - cont. to hold lisinopril closely monitor BP, volume status and renal function hx CLL, per observation by local oncologist Chronic anemia, hemoglobin better than baseline hx ICH, cerebral amyloid angiopathy as per records No acute symptoms (2) T2DM (type 2 diabetes mellitus): Plan: DM2 insulin requiring, suboptimal control as of recent hemoglobin A1c of 8.7 last May 2022 Blood sugar was running low and the patient was not eating and drinking enough and was requiring intravenous dextrose Basal bolus insulin, ISS BG goal 110-1 40, carb count coverage, update hemoglobin A1c Appreciate music educator input and recommended Will likely to stop insulin and metformin Plan to restart Ozempic on discharge/ as outpt (3) Ischemic cardiomyopathy: Plan: Aortic stenosis status post bioprosthetic AVR Valvular heart disease (moderate TR, mild MR, mild paravalvular aortic valve prosthesis regurgitation) SSS status post PPM, PAF not on anticoagulation secondary to bleeding risk Appreciate cardiology input and recommendation Will start his usual dose of Lasix as an outpatient (4) JT on CPAP: Plan: Outpatient sleep medicine follow-up to check on current CPAP settings (patient overdue for visit, last visit was 2016) (5) Chronic atrial fibrillation: Plan: Rate remains controlled per cardiology note - Anticoagulation risks felt to be greater than the benefit secondary to ambulatory dysfunction, iron deficiency anemia, history of intracranial hemorrhage, history of amyloid angiopathy Plan PT OT eval DVT prophylaxis. Heparin subcu Full code Patient daughters contacts Ms. Sarthak Guerrero, contact #[phone] Ms[address] Sophia Carlin, contact #[phone] Admission and Anticipated Discharge Date Admission Date: October 09, 2022 Subjective Patient seen in follow-up of confusion, CHF He reports feeling well Denies any complaint Denies any shortness of breath, chest pain, palpitations Also denies any abdominal pain nausea vomiting, reports he has been eating well he is answering questions appropriately Discussed rehab, CM involved Cr at 1.8 (down from 1.9 yesterday), lisinopril on hold Review of Systems Review of Systems: All systems reviewed & are unremarkable except as noted in Subjective Physical Exam Physical Exam: Physical Exam: Lying in bed comfo rtably in NAD Constitutional:L well developed, we ll nourished, + ob kylah Eyes: PERRL, EOMI, conju nctivae normal, an icteric sclerae ENMT: external ear and n ose normal, oropha rynx normal Neck: supple Respiratory: no respiratory dis tress Auscultatio n: lungs clear to auscultation bilat erally Cardiovascular:L Rate/Rhythm: regul ar rate and regula r rhythm; not tach ycardic Heart Bernie nds: normal S1 and normal S2, + LE e ch[place]ango Gastrointestinal ( Abdomen): Inspection/Auscult ation: normal tyler l sounds; abdomen not distended Per cussion/Palpation: abdomen soft; abd omen nontender Musculoskeletal: moves extremities Neurologic: moves all extremit ies; speech fluent , no facial asymme try Psychiatric: A+Ox3, euthymic af fect Results & Data Results & Data ([facility]) Vital Signs (Past 12 Hours) Vital Signs Temp Pulse Resp BP Pulse Ox O2 Del Method FiO2 10/14/22 07:32 36.6 C 59 L 18 159/89 H 99 Room Air 10/14/22 02:58 36.7 C 57 L 18 141/84 H 98 CPAP 10/13/22 20:00 CPAP 10/13/22 23:00 36.5 C 59 L 18 162/96 H 99 Room Air 10/13/22 22:44 17 95 21 Laboratory Results 10/14/22 10/14/22 10/13/22 Range/Units 07:46 07:04 20:25 Sodium 137 (136-145) mmol/L Potassium 4.0 (3.5-5.1) mmol/L Chloride 102 (98-107) mmol/L Carbon Dioxide 30 (21-32) mmol/L Anion Gap 5 (3-11) BUN 41 H (6-23) mg/dl Creatinine 1.76 H (0.6-1.4) mg/dl Est Cr Clr Drug Dosing 47.9 ml/min Est GFR ( Amer) 42.9 ml/min Est GFR (Non-Af Amer) 37.0 ml/min BUN/Creatinine Ratio 23.3 H (10-20) Glucose 136 H (70-99(Fasting)) mg/dl POC Glucose 118 H 155 H (70-99) mg/dl Calcium 8.7 (8.5-10.1) mg/dl Phosphorus 2.7 (2.5-4.9) mg/dl Magnesium 1.8 (1.7-2.4) mg/dl 10/13/22 10/13/22 10/13/22 Range/Units 16:32 11:20 06:42 Sodium 137 (136-145) mmol/L Potassium 3.5 (3.5-5.1) mmol/L Chloride 100 (98-107) mmol/L Carbon Dioxide 32 (21-32) mmol/L Anion Gap 5 (3-11) BUN 37 H (6-23) mg/dl Creatinine 1.94 H (0.6-1.4) mg/dl Est Cr Clr Drug Dosing 43.4 ml/min Est GFR ( Amer) 38.1 ml/min Est GFR (Non-Af Amer) 32.9 ml/min BUN/Creatinine Ratio 19.1 (10-20) Glucose 129 H (70-99(Fasting)) mg/dl POC Glucose 147 H 129 H (70-99) mg/dl Calcium 8.6 (8.5-10.1) mg/dl Phosphorus 3.0 (2.5-4.9) mg/dl Magnesium 1.6 L (1.7-2.4) mg/dl Medications Administered Current Inpatient Medications Acetaminophen (Acetaminophen 325 Mg Tab) 650 mg PO Q4H PRN PRN Reason: Pain or Fever Stop: 11/08/22 02:52 Amlodipine Besylate (Amlodipine Besylate 5 Mg Tab) 10 mg PO QAM [facility] Stop: 11/12/22 08:59 Last Admin: 10/13/22 08:30 Dose: 10 mg Atorvastatin Calcium (Atorvastatin 40 Mg Tab) 40 mg PO QAM [facility] Stop: 11/08/22 08:59 Last Admin: 10/13/22 08:29 Dose: 40 mg Carvedilol (Carvedilol 6.25 Mg Tab) 6.25 mg PO BID [facility] Stop: 11/08/22 08:59 Last Admin: 10/13/22 20:34 Dose: 6.25 mg Cyanocobalamin (Cyanocobalamin (B-12) 500 Mcg Tablet) 1,000 mcg PO QAM [facility] Stop: 11/08/22 08:59 Last Admin: 10/13/22 08:29 Dose: 1,000 mcg Dextrose (Dextrose 50% 50 Ml Syringe) 25 - 50 ml IV UD PRN; Protocol PRN Reason: Hypoglycemia Protocol Stop: 11/08/22 02:52 Last Admin: 10/09/22 20:40 Dose: 25 ml Ferrous Sulfate (Ferrous Sulfate 325 Mg Tab) 325 mg PO DAILY [facility] Stop: 11/08/22 08:59 Last Admin: 10/13/22 08:28 Dose: 325 mg Furosemide (Furosemide 40 Mg Tab) 40 mg PO QAM [facility] Stop: 11/10/22 15:29 Last Admin: 10/13/22 08:29 Dose: 40 mg Glucagon (Glucagon For Inj 1 Mg Vial) 1 mg SQ UD PRN; Protocol PRN Reason: Hypoglycemia Protocol Stop: 11/08/22 02:52 Glucose (Glucose 40% Gel 15 Gm Tube) 15 - 30 gm PO UD PRN; Protocol PRN Reason: Hypoglycemia Protocol Stop: 11/08/22 02:52 Last Admin: 10/09/22 16:51 Dose: 15 gm Glucose (Glucose 10 Tab/Tube) 4 - 8 tab PO UD PRN; Protocol PRN Reason: Hypoglycemia Treatment Stop: 11/08/22 02:52 Heparin Sodium (Porcine) (Heparin Sod 5,000 Unit/0.5 Ml Vial) 5,000 units SQ Q8 [facility] Stop: 11/08/22 05:59 Last Admin: 10/14/22 06:13 Dose: 5,000 units Promethazine HCl 12.5 mg/ (Sodium Chloride) 50.5 mls @ 202 mls/hr IV Q6H PRN PRN Reason: Nausea And Vomiting Stop: 11/08/22 02:52 Levothyroxine Sodium (Levothyroxine Sodium 25 Mcg Tablet) [facility] Stop: 11/08/22 06:29 Last Admin: 10/14/22 06:13 Dose: 25 mcg Lisinopril (Lisinopril 20 Mg Tab) 20 mg PO [facility] Stop: 11/11/22 08:59 Last Admin: 10/12/22 08:20 Dose: 20 mg Magnesium Oxide (Magnesium Oxide 400 Mg Tab) 400 mg PO [facility] Stop: 11/12/22 13:44 Last Admin: 10/13/22 14:59 Dose: 400 mg Metformin HCl (Metformin Hcl Er 500 Mg Tabcr) 500 mg PO [facility] Stop: 11/09/22 08:59 Last Admin: 10/13/22 08:29 Dose: 500 mg Miconazole Nitrate (Miconazole Nitrate Powder 43 Gm) 1 appln EXT BID [facility] Stop: 11/08/22 04:09 Last Admin: 10/13/22 20:34 Dose: 1 appln Miscellaneous (Carbohydrates For Hypoglycemia ) 15 - 30 gm PO UD PRN PRN Reason: Hypoglycemia Protocol Stop: 11/08/22 02:52 Last Admin: 10/09/22 20:15 Dose: 15 gm Nitroglycerin (Nitroglycerin Sl 0.4 Mg/Tab Tab) 0.4 mg SL UD PRN PRN Reason: Chest Pain Stop: 11/08/22 02:52 Ondansetron HCl (Ondansetron Inj 2 Mg/Ml 2 Ml Vial) 4 mg IV Q6H PRN PRN Reason: Nausea And Vomiting Stop: 11/09/22 09:43 Last Admin: 10/10/22 10:00 Dose: 4 mg Pantoprazole Sodium (Pantoprazole 40 Mg Tab) 40 mg PO DAILY [facility] Stop: 11/11/22 08:59 Last Admin: 10/13/22 08:28 Dose: 40 mg
[2022-10-14] MEDS: amLODIPine BESYLATE 5 MG TAB PO SCH (08:55)
[2022-10-14] MEDS: PANTOprazole 40 MG TAB PO SCH (08:55)
[2022-10-14] MEDS: metFORMIN HCL ER 500 MG TABCR PO SCH (08:56)
[2022-10-14] MEDS: ATORVASTATIN 40 MG TAB PO SCH (08:56)
[2022-10-14] MEDS: carvediloL 6.25 MG TAB PO SCH ×2 (08:56→20:08)
[2022-10-14] MEDS: FERROUS SULFATE 325 MG TAB PO SCH (08:56)
[2022-10-14] MEDS: CYANOCOBALAMIN (B-12) 500 MCG TABLET PO SCH (08:56)
[2022-10-14] MEDS: FUROSEMIDE 40 MG TAB PO SCH (08:56)
[2022-10-14] MEDS: MICONAZOLE NITRATE POWDER 43 GM EXT SCH ×2 (08:57→20:08)
[2022-10-14] MEDS: MAGNESIUM OXIDE 400 MG TAB PO SCH (11:09)
[2022-10-15] MEDS: LEVOTHYROXINE SODIUM 25 MCG TABLET PO SCH (06:03)
[2022-10-15] MEDS: HEPARIN SOD 5,000 UNIT/0.5 ML VIAL SQ SCH ×3 (06:04→21:01)
[2022-10-15 07:06] LABS: Hematocrit (blood only) 41.3 % (40.1-51.0); Hemoglobin 13.5 g/dl (14.0-18.0); Mean Corpuscular Hemoglobin 30.3 pg (25.0-34.0); Mean Corpuscular Hgb Conc 32.7 g/dL (32.0-36.0); Mean Corpuscular Volume 92.6 fL (80.0-100.0); Mean Platelet Volume 10.6 fL (9.4-12.4); Platelet Count 176 K/uL (130-400); RDW Coefficient of Variation 16.3 % (11.5-14.5); RDW Standard Deviation 55.2 fL (36.4-46.3); Red Blood Count 4.46 M/uL (4.63-6.08); White Blood Count 6.33 K/ul (4.8-10.8)
[2022-10-15 07:30] LABS: Calcium 8.7 mg/dl (8.5-10.1); Creatinine Clr Calc Pharmacy 45.2 ml/min; Est GFR (African American) 39.9 ml/min; Est GFR (Non-African American) 34.4 ml/min; Magnesium 1.8 mg/dl (1.7-2.4); Phosphorus 2.8 mg/dl (2.5-4.9); Potassium 3.5 mmol/L (3.5-5.1)
[2022-10-15] MEDS ORDERED: POTASSIUM CHLORIDE CRTAB 20 MEQ TABCR PO STA (07:44)
--- NOTE | 2022-10-15 07:47 | Hospitalist Progress Note ---
Date of Service October 15, 2022 Assessment & Plan (1) Encephalopathy: Plan: Underlying cognitive impairment and functional disability Multifactorial : Hypertensive crisis, secondary to medication noncompliance Decompensated heart failure, history systolic dysfunction, predominant subacute right-sided heart failure symptoms, underlying pulmonary hypertension, JT on CPAP ARF on CKD New onset hypothyroidism Initiate low-dose levothyroxine, TSH recheck outpatient next month Abnormal CT chest initial read findings (right upper lobe density, mediastinal adenopathy):: 1. Moderate bilateral pleural effusions, right larger than left. Anasarca with small to moderate upper abdominal ascites. Suspected mild pulmonary edema. 2. No evidence for central venous occlusion on unenhanced exam. 3. 2.4 cm water attenuation focus within the right middle lobe. This is likely benign. However, a follow-up chest CT in 3 months to ensure resolution is recommended. 4. Mild lingular and right middle lobe bronchiectasis. Mild groundglass opacity within the superior segment of right lower lobe. This may reflect a chronic infectious/inflammatory process. Clinically much improved, not drowsy, feeling well seems to be at his baseline Started to eat and drink normally and has been communicating normally PT and OT evaluation - recommend rehab, CM involved 10/13 cr up at 1.9 - holding lisinopril 10/14 - Cr down to 1.8 - cont. to hold lisinopril closely monitor BP, volume status and renal function 10/16 -creatinine still elevated above baseline. Patient with some mild edema. Discussed with cardiology, will add IV Lasix and will close monitor. In addition to control BP better, added Isordil. hx CLL, per observation by local oncologist Chronic anemia, hemoglobin better than baseline hx ICH, cerebral amyloid angiopathy as per records No acute symptoms (2) T2DM (type 2 diabetes mellitus): Plan: DM2 insulin requiring, suboptimal control as of recent hemoglobin A1c of 8.7 last May 2022 Blood sugar was running low and the patient was not eating and drinking enough and was requiring intravenous dextrose Basal bolus insulin, ISS BG goal 110-1 40, carb count coverage, update hemoglobin A1c Appreciate music educator input and recommended Will likely to stop insulin and metformin Plan to restart Ozempic on discharge/ as outpt (3) Ischemic cardiomyopathy: Plan: Aortic stenosis status post bioprosthetic AVR Valvular heart disease (moderate TR, mild MR, mild paravalvular aortic valve prosthesis regurgitation) SSS status post PPM, PAF not on anticoagulation secondary to bleeding risk Appreciate cardiology input and recommendation Will start his usual dose of Lasix as an outpatient (4) JT on CPAP: Plan: Outpatient sleep medicine follow-up to check on current CPAP settings (patient overdue for visit, last visit was 2016) (5) Chronic atrial fibrillation: Plan: Rate remains controlled per cardiology note - Anticoagulation risks felt to be greater than the benefit secondary to ambulatory dysfunction, iron deficiency anemia, history of intracranial hemorrhage, history of amyloid angiopathy Plan PT OT eval DVT prophylaxis. Heparin subcu Full code Patient daughters contacts Ms. Sarthak Guerrero, contact #[phone] Ms. Sophia Carlin, contact #[phone] Admission and Anticipated Discharge Date Admission Date: October 09, 2022 Subjective Patient seen in follow-up of confusion, CHF He reports feeling well Denies any complaint Denies any shortness of breath, chest pain, palpitations Also denies any abdominal pain nausea vomiting, reports he has been eating well he is answering questions appropriately Discussed rehab, CM involved Cr still elevated above his baseline, and patient was some mild edema. Discussed with cardiology, will add IV Lasix and will closely monitor. Review of Systems Review of Systems: All systems reviewed & are unremarkable except as noted in Subjective Physical Exam Physical Exam: Physical Exam: Lying in bed comfo rtably in NAD Constitutional:L well developed, we ll nourished, + ob kylah Eyes: PERRL, EOMI, conju nctivae normal, an icteric sclerae ENMT: external ear and n ose normal, oropha rynx normal Neck: supple Respiratory: no respiratory dis tress Auscultatio n: lungs clear to auscultation bilat erally Cardiovascular:L Rate/Rhythm: regul ar rate and regula r rhythm; not tach ycardic Heart Bernie nds: normal S1 and normal S2, + LE e chilango Gastrointestinal ( Abdomen): Inspection/Auscult ation: normal tyler l sounds; abdomen not distended Per cussion/Palpation: abdomen soft; abd omen nontender Musculoskeletal: moves extremities Neurologic: moves all extremit ies; speech fluent , no facial asymme try Psychiatric: A+Ox3, euthymic af fect Results & Data Results & Data ([facility]) Vital Signs (Past 12 Hours) Vital Signs Temp Pulse Pulse Resp BP Pulse Ox O2 Del Method 10/15/22 03:00 36.5 C 70 141/70 H 92 CPAP 10/15/22 02:38 61 16 97 10/14/22 20:00 Room Air 10/14/22 22:47 36.3 C L 89 18 132/80 100 CPAP FiO2 10/15/22 03:00 10/15/22 02:38 21 10/14/22 20:00 10/14/22 22:47 Laboratory Results 10/15/22 10/15/22 10/14/22 Range/Units 06:51 06:51 20:20 WBC 6.33 (4.8-10.8) K/ul RBC 4.46 L (4.63-6.08) M/uL Hgb 13.5 L (14.0-18.0) g/dl Hct 41.3 (40.1-51.0) % MCV 92.6 (80.0-100.0) fL MCH 30.3 (25.0-34.0) pg MCHC 32.7 (32.0-36.0) g/dL RDW Std Deviation 55.2 H (36.4-46.3) fL RDW Coeff of Solis 16.3 H (11.5-14.5) % Plt Count 176 (130-400) K/uL MPV 10.6 (9.4-12.4) fL Sodium 136 (136-145) mmol/L Potassium 3.5 (3.5-5.1) mmol/L Chloride 101 (98-107) mmol/L Carbon Dioxide 31 (21-32) mmol/L Anion Gap 4 (3-11) BUN 43 H (6-23) mg/dl Creatinine 1.87 H (0.6-1.4) mg/dl Est Cr Clr Drug Dosing 45.2 ml/min Est GFR ( Amer) 39.9 ml/min Est GFR (Non-Af Amer) 34.4 ml/min BUN/Creatinine Ratio 23.0 H (10-20) Glucose 161 H (70-99(Fasting)) mg/dl POC Glucose 166 H (70-99) mg/dl Calcium 8.7 (8.5-10.1) mg/dl Phosphorus 2.8 (2.5-4.9) mg/dl Magnesium 1.8 (1.7-2.4) mg/dl 10/14/22 10/14/22 10/14/22 Range/Units 11:15 07:46 07:04 WBC (4.8-10.8) K/ul RBC (4.63-6.08) M/uL Hgb (14.0-18.0) g/dl Hct (40.1-51.0) % MCV (80.0-100.0) fL MCH (25.0-34.0) pg MCHC (32.0-36.0) g/dL RDW Std Deviation (36.4-46.3) fL RDW Coeff of Solis (11.5-14.5) % Plt Count (130-400) K/uL MPV (9.4-12.4) fL Sodium 137 (136-145) mmol/L Potassium 4.0 (3.5-5.1) mmol/L Chloride 102 (98-107) mmol/L Carbon Dioxide 30 (21-32) mmol/L Anion Gap 5 (3-11) BUN 41 H (6-23) mg/dl Creatinine 1.76 H (0.6-1.4) mg/dl Est Cr Clr Drug Dosing 47.9 ml/min Est GFR ( Amer) 42.9 ml/min Est GFR (Non-Af Amer) 37.0 ml/min BUN/Creatinine Ratio 23.3 H (10-20) Glucose 136 H (70-99(Fasting)) mg/dl POC Glucose 137 H 118 H (70-99) mg/dl Calcium 8.7 (8.5-10.1) mg/dl Phosphorus 2.7 (2.5-4.9) mg/dl Magnesium 1.8 (1.7-2.4) mg/dl Medications Administered Current Inpatient Medications Acetaminophen (Acetaminophen 325 Mg Tab) 650 mg PO Q4H PRN PRN Reason: Pain or Fever Stop: 11/08/22 02:52 Amlodipine Besylate (Amlodipine Besylate 5 Mg Tab) 10 mg PO [facility] Stop: 11/12/22 08:59 Last Admin: 10/14/22 08:55 Dose: 10 mg Atorvastatin Calcium (Atorvastatin 40 Mg Tab) 40 mg PO [facility] Stop: 11/08/22 08:59 Last Admin: 10/14/22 08:56 Dose: 40 mg Carvedilol (Carvedilol 6.25 Mg Tab) 6.25 mg PO BID [facility] Stop: 11/08/22 08:59 Last Admin: 10/14/22 20:08 Dose: 6.25 mg Cyanocobalamin (Cyanocobalamin (B-12) 500 Mcg Tablet) 1,000 mcg PO QAM [facility] Stop: 11/08/22 08:59 Last Admin: 10/14/22 08:56 Dose: 1,000 mcg Dextrose (Dextrose 50% 50 Ml Syringe) 25 - 50 ml IV UD PRN; Protocol PRN Reason: Hypoglycemia Protocol Stop: 11/08/22 02:52 Last Admin: 10/09/22 20:40 Dose: 25 ml Ferrous Sulfate (Ferrous Sulfate 325 Mg Tab) 325 mg PO DAILY [facility] Stop: 11/08/22 08:59 Last Admin: 10/14/22 08:56 Dose: 325 mg Furosemide (Furosemide 40 Mg Tab) 40 mg PO QAM [facility] Stop: 11/10/22 15:29 Last Admin: 10/14/22 08:56 Dose: 40 mg Glucagon (Glucagon For Inj 1 Mg Vial) 1 mg SQ UD PRN; Protocol PRN Reason: Hypoglycemia Protocol Stop: 11/08/22 02:52 Glucose (Glucose 40% Gel 15 Gm Tube) 15 - 30 gm PO UD PRN; Protocol PRN Reason: Hypoglycemia Protocol Stop: 11/08/22 02:52 Last Admin: 10/09/22 16:51 Dose: 15 gm Glucose (Glucose 10 Tab/Tube) 4 - 8 tab PO UD PRN; Protocol PRN Reason: Hypoglycemia Treatment Stop: 11/08/22 02:52 Heparin Sodium (Porcine) (Heparin Sod 5,000 Unit/0.5 Ml Vial) 5,000 units SQ Q8 [facility] Stop: 11/08/22 05:59 Last Admin: 10/15/22 06:04 Dose: 5,000 units Promethazine HCl 12.5 mg/ (Sodium Chloride) 50.5 mls @ 202 mls/hr IV Q6H PRN PRN Reason: Nausea And Vomiting Stop: 11/08/22 02:52 Levothyroxine Sodium (Levothyroxine Sodium 25 Mcg Tablet) 25 mcg PO DAILYBB [facility] Stop: 11/08/22 06:29 Last Admin: 10/15/22 06:03 Dose: 25 mcg Lisinopril (Lisinopril 20 Mg Tab) 20 mg PO QAM [facility] Stop: 11/11/22 08:59 Last Admin: 10/12/22 08:20 Dose: 20 mg Magnesium Oxide (Magnesium Oxide 400 Mg Tab) 400 mg PO QAM [facility] Stop: 11/12/22 13:44 Last Admin: 10/14/22 11:09 Dose: 400 mg Metformin HCl (Metformin Hcl Er 500 Mg Tabcr) [facility] Stop: 11/09/22 08:59 Last Admin: 10/14/22 08:56 Dose: 500 mg Miconazole Nitrate (Miconazole Nitrate Powder 43 Gm) 1 appln EXT BID [facility] Stop: 11/08/22 04:09 Last Admin: 10/14/22 20:08 Dose: 1 appln Miscellaneous (Carbohydrates For Hypoglycemia ) 15 - 30 gm PO UD PRN PRN Reason: Hypoglycemia Protocol Stop: 11/08/22 02:52 Last Admin: 10/09/22 20:15 Dose: 15 gm Nitroglycerin (Nitroglycerin Sl 0.4 Mg/Tab Tab) 0.4 mg SL UD PRN PRN Reason: Chest Pain Stop: 11/08/22 02:52 Ondansetron HCl (Ondansetron Inj 2 Mg/Ml 2 Ml Vial) 4 mg IV Q6H PRN PRN Reason: Nausea And Vomiting Stop: 11/09/22 09:43 Last Admin: 10/10/22 10:00 Dose: 4 mg Pantoprazole Sodium (Pantoprazole 40 Mg Tab) 40 mg PO DAILY [facility] Stop: 11/11/22 08:59 Last Admin: 10/14/22 08:55 Dose: 40 mg Potassium Chloride (Potassium Chloride Crtab 20 Meq Tabcr) 40 meq PO [facility] Stop: 10/15/22 07:45
[2022-10-15] MEDS: FUROSEMIDE 40 MG TAB PO SCH (07:51)
[2022-10-15] MEDS: PANTOprazole 40 MG TAB PO SCH (07:51)
[2022-10-15] MEDS: FERROUS SULFATE 325 MG TAB PO SCH (07:51)
[2022-10-15] MEDS: metFORMIN HCL ER 500 MG TABCR PO SCH (07:52)
[2022-10-15] MEDS: CYANOCOBALAMIN (B-12) 500 MCG TABLET PO SCH (07:52)
[2022-10-15] MEDS: amLODIPine BESYLATE 5 MG TAB PO SCH (07:52)
[2022-10-15] MEDS: ATORVASTATIN 40 MG TAB PO SCH (07:52)
[2022-10-15] MEDS: MICONAZOLE NITRATE POWDER 43 GM EXT SCH ×2 (07:52→21:01)
[2022-10-15] MEDS: MAGNESIUM OXIDE 400 MG TAB PO SCH (07:52)
[2022-10-15] MEDS: carvediloL 6.25 MG TAB PO SCH ×2 (07:52→21:02)
[2022-10-15] MEDS: FUROSEMIDE INJ 20 MG/2 ML VIAL IV SCH ×3 (10:13→22:18)
--- NOTE | 2022-10-15 11:06 | Cardiology Progress Note ---
Date of Service October 15, 2022 Assessment & Plan (1) Confusion: (2) Systolic heart failure secondary to coronary artery disease: Plan - Patient's history of coronary disease, ischemic cardiomyopathy, LVEF 40-44% (outpatient echocardiogram August,, with normal TAVR prosthesis function noted at that time, severe mitral annular calcification, moderate mitral stenosis, moderate tricuspid regurgitation, moderate pulmonary hypertension. Baseline creatinine as an outpatient has recently been 1.3, above baseline this hospital stay, 1.87 today. -Clinically, suspect mild volume overload, hold oral furosemide, in favor of low-dose IV furosemide 20 mg IV every 6 hours. -With regards to hypertension, continue carvedilol, RELIEF PHARMACIST dose, 6.25 mg twice daily. -Amlodipine titrated earlier this hospital stay from 5 mg to 10 mg, given his history of fluid retention, would recommend we reduce this back to 5 mg. -Lisinopril on hold due to BRIAN -Start trial of Isordil for afterload reduction, blood pressure, antianginal effects. -Telemetry reveals rate controlled atrial fibrillation with ventricular pacing in the 60s to 70s. -Has a history of chronic atrial fibrillation, not on anticoagulation as the risks of bleeding felt to be greater than the prophylactic benefit, given his tory of ambulatory dysfunction, falls, baseline iron deficiency anemia, history of intracranial hemorrhage, history of amyloid angiopathy. -Continue subcutaneous heparin for DVT prophylaxis. Admission and Anticipated Discharge Date Admission Date: October 09, 2022 Subjective Patient seen in cardiology follow-up. Mentation appears to be improving back to his baseline, the fact that he does have some degree of chronic cognitive impairment. Ongoing mild lower extremity edema noted. Physical Exam Constitutional: WD/WN, vitals as above Respiratory: normal respiratory effort, lungs clear to auscultation Cardiovascular: Rate/Rhythm: regular rate Vessels: no JVD Extremities: + edema (1+ bilateral lower extremity edema) Gastrointestinal (Abdomen): normal bowel sounds, soft, nontender, no hepatosplenomegaly Neurologic: patellar DTR's 2+ bilat, sensation intact Results & Data ([facility]) Vital Signs (Past 12 Hours) Vital Signs Temp Pulse Pulse Resp BP Pulse Ox O2 Del Method 10/15/22 09:00 63 10/15/22 07:27 36.5 C 65 18 157/82 H 99 Room Air 10/15/22 03:00 36.5 C 70 141/70 H 92 CPAP 12/26/22 02:38 61 16 97 FiO2 10/15/22 09:00 10/15/22 07:27 10/15/22 03:00 10/15/22 02:38 21 Laboratory Results CBC 10/15/22 Range/Units 06:51 WBC 6.33 (4.8-10.8) K/ul RBC 4.46 L (4.63-6.08) M/uL Hgb 13.5 L (14.0-18.0) g/dl Hct 41.3 (40.1-51.0) % Plt Count 176 (130-400) K/uL Comprehensive Metabolic Panel 10/15/22 Range/Units 06:51 Sodium 136 (136-145) mmol/L Potassium 3.5 (3.5-5.1) mmol/L Chloride 101 (98-107) mmol/L Carbon Dioxide 31 (21-32) mmol/L BUN 43 H (6-23) mg/dl Creatinine 1.87 H (0.6-1.4) mg/dl Glucose 161 H (70-99(Fasting)) mg/dl Calcium 8.7 (8.5-10.1) mg/dl Intake and Output 10/14/22 10/15/22 10/15/22 22:59 06:59 14:59 Intake Total 150 / 150 Output Total 400 / 400 550 / 550 Balance 150 / -250 -400 / -250 -550 / -550 Intake: Oral 150 / 150 Output: Urine 400 / 400 550 / 550 Other: Weight 117.9 kg Weight Measurement Method Built in [facility]
[2022-10-15] MEDS: ISOSORBIDE DINITRATE 5 MG TAB PO SCH (12:05)
[2022-10-16] MEDS: FUROSEMIDE INJ 20 MG/2 ML VIAL IV SCH ×4 (05:03→21:25)
[2022-10-16] MEDS: HEPARIN SOD 5,000 UNIT/0.5 ML VIAL SQ SCH ×3 (05:16→21:25)
[2022-10-16] MEDS: LEVOTHYROXINE SODIUM 25 MCG TABLET PO SCH (05:33)
[2022-10-16] MEDS: ISOSORBIDE DINITRATE 5 MG TAB PO SCH ×2 (06:37→11:55)
[2022-10-16] MEDS: FERROUS SULFATE 325 MG TAB PO SCH (07:39)
[2022-10-16] MEDS: CYANOCOBALAMIN (B-12) 500 MCG TABLET PO SCH (07:40)
[2022-10-16] MEDS: amLODIPine BESYLATE 5 MG TAB PO SCH (07:40)
[2022-10-16] MEDS: ATORVASTATIN 40 MG TAB PO SCH (07:40)
[2022-10-16] MEDS: MAGNESIUM OXIDE 400 MG TAB PO SCH (07:40)
[2022-10-16] MEDS: metFORMIN HCL ER 500 MG TABCR PO SCH (07:40)
[2022-10-16] MEDS: carvediloL 6.25 MG TAB PO SCH ×2 (07:40→20:46)
[2022-10-16] MEDS: MICONAZOLE NITRATE POWDER 43 GM EXT SCH ×2 (07:41→20:47)
[2022-10-16] MEDS: PANTOprazole 40 MG TAB PO SCH (07:41)
[2022-10-16 09:12] LABS: Hematocrit (blood only) 40.3 % (40.1-51.0); Hemoglobin 13.1 g/dl (14.0-18.0); Mean Corpuscular Hemoglobin 30.6 pg (25.0-34.0); Mean Corpuscular Hgb Conc 32.5 g/dL (32.0-36.0); Mean Corpuscular Volume 94.2 fL (80.0-100.0); Mean Platelet Volume 10.4 fL (9.4-12.4); Platelet Count 174 K/uL (130-400); RDW Coefficient of Variation 16.6 % (11.5-14.5); RDW Standard Deviation 57.2 fL (36.4-46.3); Red Blood Count 4.28 M/uL (4.63-6.08); White Blood Count 5.14 K/ul (4.8-10.8)
[2022-10-16 09:30] LABS: BUN Creatinine Ratio 23.2 (10-20); Calcium 8.8 mg/dl (8.5-10.1); Creatinine Clr Calc Pharmacy 47.6 ml/min; Est GFR (African American) 42.6 ml/min; Est GFR (Non-African American) 36.8 ml/min; Magnesium 1.7 mg/dl (1.7-2.4); Phosphorus 2.7 mg/dl (2.5-4.9); Potassium 3.3 mmol/L (3.5-5.1)
[2022-10-16] MEDS ORDERED: POTASSIUM CHLORIDE CRTAB 20 MEQ TABCR PO STA (09:44)
[2022-10-16] MEDS ORDERED: MAGNESIUM SULFATE / D5W 1 GM/100 ML BAG IV ONE (09:44)
--- NOTE | 2022-10-16 09:53 | Hospitalist Progress Note ---
Date of Service October 16, 2022 Assessment & Plan (1) Encephalopathy: Plan: Underlying cognitive impairment and functional disability Multifactorial : Hypertensive crisis, secondary to medication noncompliance Decompensated heart failure, history systolic dysfunction, predominant subacute right-sided heart failure symptoms, underlying pulmonary hypertension, JT on CPAP ARF on CKD New onset hypothyroidism Initiate low-dose levothyroxine, TSH recheck outpatient next month Abnormal CT chest initial read findings (right upper lobe density, mediastinal adenopathy):: 1. Moderate bilateral pleural effusions, right larger than left. Anasarca with small to moderate upper abdominal ascites. Suspected mild pulmonary edema. 2. No evidence for central venous occlusion on unenhanced exam. 3. 2.4 cm water attenuation focus within the right middle lobe. This is likely benign. However, a follow-up chest CT in 3 months to ensure resolution is recommended. 4. Mild lingular and right middle lobe bronchiectasis. Mild groundglass opacity within the superior segment of right lower lobe. This may reflect a chronic infectious/inflammatory process. Clinically much improved, not drowsy, feeling well seems to be at his baseline Started to eat and drink normally and has been communicating normally PT and OT evaluation - recommend rehab, CM involved 10/13 cr up at 1.9 - holding lisinopril 10/14 - Cr down to 1.8 - cont. to hold lisinopril closely monitor BP, volume status and renal function 10/15 -creatinine still elevated above baseline. Patient with some mild edema. Discussed with cardiology, will add IV Lasix and will close monitor. In addition to control BP better, added Isordil. 10/16 Cr slightly improved. Mild chilango. Pt feeling well. hx CLL, per observation by local oncologist Chronic anemia, hemoglobin better than baseline hx ICH, cerebral amyloid angiopathy as per records No acute symptoms (2) T2DM (type 2 diabetes mellitus): Plan: DM2 insulin requiring, suboptimal control as of recent hemoglobin A1c of 8.7 last May 2022 Blood sugar was running low and the patient was not eating and drinking enough and was requiring intravenous dextrose Basal bolus insulin, ISS BG goal 110-1 40, carb count coverage, update hemoglobin A1c Appreciate life skills educator input and recommended Will likely to stop insulin and metformin Plan to restart Ozempic on discharge/ as outpt (3) Ischemic cardiomyopathy: Plan: Aortic stenosis status post bioprosthetic AVR Valvular heart disease (moderate TR, mild MR, mild paravalvular aortic valve prosthesis regurgitation) SSS status post PPM, PAF not on anticoagulation secondary to bleeding risk Appreciate cardiology input and recommendation Will start his usual dose of Lasix as an outpatient (4) JT on CPAP: Plan: Outpatient sleep medicine follow-up to check on current CPAP settings (patient overdue for visit, last visit was 2016) (5) Chronic atrial fibrillation: Plan: Rate remains controlled per cardiology note - Anticoagulation risks felt to be greater than the benefit secondary to ambulatory dysfunction, iron deficiency anemia, history of intracranial hemorrhage, history of amyloid angiopathy Plan PT OT eval DVT prophylaxis. Heparin subcu Full code Patient daughters contacts Ms. Sarthak Guerrero, contact #[phone] Ms. Sophia Carlin, contact #[phone] Admission and Anticipated Discharge Date Admission Date: October 09, 2022 Subjective Patient seen in follow-up of confusion, CHF He reports feeling much better Denies any complaint Denies any shortness of breath, chest pain, palpitations Also denies any abdominal pain nausea vomiting, reports he has been eating well he is answering questions appropriately Discussed rehab, CM involved Review of Systems Review of Systems: All systems reviewed & are unremarkable except as noted in Subjective Physical Exam Physical Exam: Physical Exam: Lying in bed comfo rtably in NAD Constitutional:L well developed, we ll nourished, + ob kylah Eyes: PERRL, EOMI, conju nctivae normal, an icteric sclerae ENMT: external ear and n ose normal, oropha rynx normal Neck: supple Respiratory: no respiratory dis tress Auscultatio n: lungs clear to auscultation bilat erally Cardiovascular:L Rate/Rhythm: regul ar rate and regula r rhythm; not tach ycardic Heart Bernie nds: normal S1 and normal S2, + LE e chilango Gastrointestinal ( Abdomen): Inspection/Auscult ation: normal tyler l sounds; abdomen not distended Per cussion/Palpation: abdomen soft; abd omen nontender Musculoskeletal: moves extremities Neurologic: moves all extremit ies; speech fluent , no facial asymme try Psychiatric: A+Ox3, euthymic af fect Results & Data Results & Data ([facility]) Vital Signs (Past 12 Hours) Vital Signs Temp Pulse Pulse Resp BP Pulse Ox O2 Del Method 10/16/22 08:00 60 10/16/22 08:00 Room Air, CPAP 10/16/22 07:21 36.7 C 62 20 149/75 H 99 CPAP 10/16/22 03:10 36.4 C L 60 169/83 H 97 CPAP 10/16/22 02:35 55 L 10/15/22 23:25 36.3 C L 78 20 152/83 H 94 CPAP Laboratory Results 10/16/22 10/16/22 10/16/22 Range/Units 08:50 08:50 07:29 WBC 5.14 (4.8-10.8) K/ul RBC 4.28 L (4.63-6.08) M/uL Hgb 13.1 L (14.0-18.0) g/dl Hct 40.3 (40.1-51.0) % MCV 94.2 (80.0-100.0) fL MCH 30.6 (25.0-34.0) pg MCHC 32.5 (32.0-36.0) g/dL RDW Std Deviation 57.2 H (36.4-46.3) fL RDW Coeff of Solis 16.6 H (11.5-14.5) % Plt Count 174 (130-400) K/uL MPV 10.4 (9.4-12.4) fL Sodium 137 (136-145) mmol/L Potassium 3.3 L (3.5-5.1) mmol/L Chloride 102 (98-107) mmol/L Carbon Dioxide 30 (21-32) mmol/L Anion Gap 5 (3-11) BUN 41 H (6-23) mg/dl Creatinine 1.77 H (0.6-1.4) mg/dl Est Cr Clr Drug Dosing 47.6 ml/min Est GFR ( Amer) 42.6 ml/min Est GFR (Non-Af Amer) 36.8 ml/min BUN/Creatinine Ratio 23.2 H (10-20) Glucose 168 H (70-99(Fasting)) mg/dl POC Glucose 140 H (70-99) mg/dl Calcium 8.8 (8.5-10.1) mg/dl Phosphorus 2.7 (2.5-4.9) mg/dl Magnesium 1.7 (1.7-2.4) mg/dl 10/15/22 Range/Units 21:09 WBC (4.8-10.8) K/ul RBC (4.63-6.08) M/uL Hgb (14.0-18.0) g/dl Hct (40.1-51.0) % MCV (80.0-100.0) fL MCH (25.0-34.0) pg MCHC (32.0-36.0) g/dL RDW Std Deviation (36.4-46.3) fL RDW Coeff of Solis (11.5-14.5) % Plt Count (130-400) K/uL MPV (9.4-12.4) fL Sodium (136-145) mmol/L Potassium (3.5-5.1) mmol/L Chloride (98-107) mmol/L Carbon Dioxide (21-32) mmol/L Anion Gap (3-11) BUN (6-23) mg/dl Creatinine (0.6-1.4) mg/dl Est Cr Clr Drug Dosing ml/min Est GFR ( Amer) ml/min Est GFR (Non-Af Amer) ml/min BUN/Creatinine Ratio (10-20) Glucose (70-99(Fasting)) mg/dl POC Glucose 168 H (70-99) mg/dl Calcium (8.5-10.1) mg/dl Phosphorus (2.5-4.9) mg/dl Magnesium (1.7-2.4) mg/dl Medications Administered Current Inpatient Medications Acetaminophen (Acetaminophen 325 Mg Tab) 650 mg PO Q4H PRN PRN Reason: Pain or Fever Stop: 11/08/22 02:52 Amlodipine Besylate (Amlodipine Besylate 5 Mg Tab) [facility]: 11/15/22 08:59 Last Admin: 10/16/22 07:40 Dose: 5 mg Atorvastatin Calcium (Atorvastatin 40 Mg Tab) 40 mg PO QAM [facility] Stop: 11/08/22 08:59 Last Admin: 10/16/22 07:40 Dose: 40 mg Carvedilol (Carvedilol 6.25 Mg Tab) 6.25 mg PO BID [facility] Stop: 11/08/22 08:59 Last Admin: 10/16/22 07:40 Dose: 6.25 mg Cyanocobalamin (Cyanocobalamin (B-12) 500 Mcg Tablet) 1,000 mcg PO QAM [facility] Stop: 11/08/22 08:59 Last Admin: 10/16/22 07:40 Dose: 1,000 mcg Dextrose (Dextrose 50% 50 Ml Syringe) 25 - 50 ml IV UD PRN; Protocol PRN Reason: Hypoglycemia Protocol Stop: 11/08/22 02:52 Last Admin: 10/09/22 20:40 Dose: 25 ml Ferrous Sulfate (Ferrous Sulfate 325 Mg Tab) 325 mg PO DAILY [facility] Stop: 11/08/22 08:59 Last Admin: 10/16/22 07:39 Dose: 325 mg Furosemide (Furosemide 40 Mg Tab) 40 mg PO QAM [facility] Stop: 11/10/22 15:29 Last Admin: 10/15/22 07:51 Dose: 40 mg Furosemide (Furosemide Inj 20 Mg/2 Ml Vial) 20 mg IV Q6H [facility] Stop: 11/14/22 10:14 Last Admin: 10/16/22 05:03 Dose: 20 mg Glucagon (Glucagon For Inj 1 Mg Vial) 1 mg SQ UD PRN; Protocol PRN Reason: Hypoglycemia Protocol Stop: 11/08/22 02:52 Glucose (Glucose 40% Gel 15 Gm Tube) 15 - 30 gm PO UD PRN; Protocol PRN Reason: Hypoglycemia Protocol Stop: 11/08/22 02:52 Last Admin: 10/09/22 16:51 Dose: 15 gm Glucose (Glucose 10 Tab/Tube) 4 - 8 tab PO UD PRN; Protocol PRN Reason: Hypoglycemia Treatment Stop: 11/08/22 02:52 Heparin Sodium (Porcine) (Heparin Sod 5,000 Unit/0.5 Ml Vial) 5,000 units SQ Q8 [facility] Stop: 11/08/22 05:59 Last Admin: 10/16/22 05:16 Dose: 5,000 units Promethazine HCl 12.5 mg/ (Sodium Chloride) 50.5 mls @ 202 mls/hr IV Q6H PRN PRN Reason: Nausea And Vomiting Stop: 11/08/22 02:52 Magnesium Sulfate/Dextrose (Magnesium Sulfate / D5w) 1 gm in 100 mls @ 50 mls/hr IV ONE ONE Stop: 10/16/22 11:43 Isosorbide Dinitrate (Isosorbide Dinitrate 5 Mg Tab) 2.5 mg PO BID@0700,1200 [facility] Stop: 11/14/22 11:59 Last Admin: 10/16/22 06:37 Dose: 2.5 mg Levothyroxine Sodium (Levothyroxine Sodium 25 Mcg Tablet) [facility] Stop: 11/08/22 06:29 Last Admin: 10/16/22 05:33 Dose: 25 mcg Lisinopril (Lisinopril 20 Mg Tab) [facility] Stop: 11/11/22 08:59 Last Admin: 10/12/22 08:20 Dose: 20 mg Magnesium Oxide (Magnesium Oxide 400 Mg Tab) 400 mg PO [facility] Stop: 11/12/22 13:44 Last Admin: 10/16/22 07:40 Dose: 400 mg Metformin HCl (Metformin Hcl Er 500 Mg Tabcr) 500 mg PO [facility] Stop: 11/09/22 08:59 Last Admin: 10/16/22 07:40 Dose: 500 mg Miconazole Nitrate (Miconazole Nitrate Powder 43 Gm) 1 appln EXT BID [facility] Stop: 11/08/22 04:09 Last Admin: 10/16/22 07:41 Dose: 1 appln Miscellaneous (Carbohydrates For Hypoglycemia ) 15 - 30 gm PO UD PRN PRN Reason: Hypoglycemia Protocol Stop: 11/08/22 02:52 Last Admin: 10/09/22 20:15 Dose: 15 gm Nitroglycerin (Nitroglycerin Sl 0.4 Mg/Tab Tab) 0.4 mg SL UD PRN PRN Reason: Chest Pain Stop: 11/08/22 02:52 Ondansetron HCl (Ondansetron Inj 2 Mg/Ml 2 Ml Vial) 4 mg IV Q6H PRN PRN Reason: Nausea And Vomiting Stop: 11/09/22 09:43 Last Admin: 10/10/22 10:00 Dose: 4 mg Pantoprazole Sodium (Pantoprazole 40 Mg Tab) 40 mg PO DAILY [facility] Stop: 11/11/22 08:59 Last Admin: 10/16/22 07:41 Dose: 40 mg
--- NOTE | 2022-10-16 16:51 | Cardiology Progress Note ---
Date of Service October 16, 2022 Assessment & Plan (1) Confusion: (2) Systolic heart failure secondary to coronary artery disease: (3) Chronic atrial fibrillation: Plan - Patient's history of coronary disease, ischemic cardiomyopathy, LVEF 40-44% (outpatient echocardiogram August,, with normal TAVR prosthesis function noted at that time, severe mitral annular calcification, moderate mitral stenosis, moderate tricuspid regurgitation, moderate pulmonary hypertension. -Creatinine slightly improved today, 1.77 as compared to 1.87. Edema improved. Continue furosemide 20 mg IV every 6 hours. Likely transition him back to his prior to hospital treatment with furosemide 40 mg daily at time of discharge. -Telemetry reveals rate controlled atrial fibrillation with ventricular pacing in the 60s to 70s. -Has a history of chronic atrial fibrillation, not on anticoagulation as the risks of bleeding felt to be greater than the prophylactic benefit, given history of ambulatory dysfunction, falls, baseline iron deficiency anemia, history of intracranial hemorrhage, history of amyloid angiopathy. -Continue subcutaneous heparin for DVT prophylaxis. Admission and Anticipated Discharge Date Admission Date: October 09, 2022 Subjective Patient seen in cardiology follow-up. He notes feeling well. His mentation appears to be back to his usual baseline with some degree of baseline cognitive impairment. His daughter and son-in-law accompany him at the bedside visiting. Physical Exam Constitutional: WD/WN, vitals as above Respiratory: normal respiratory effort, lungs clear to auscultation Cardiovascular: Rate/Rhythm: regular rate Vessels: no JVD Extremities: + edema (1+ bilateral lower extremity edema) Gastrointestinal (Abdomen): normal bowel sounds, soft, nontender, no hepatosplenomegaly Neurologic: patellar DTR's 2+ bilat, sensation intact Results & Data ([facility]) Vital Signs (Past 12 Hours) Vital Signs Temp Pulse Pulse Resp BP Pulse Ox O2 Del Method 10/16/22 15:48 36.3 C L 60 17 131/70 96 Room Air 10/16/22 15:33 60 10/16/22 13:43 59 L 18 133/68 96 Room Air 10/16/22 08:00 60 10/16/22 08:00 Room Air, CPAP 10/16/22 07:21 36.7 C 62 20 149/75 H 99 CPAP
[2022-10-17] MEDS: FUROSEMIDE INJ 20 MG/2 ML VIAL IV SCH ×2 (05:10→10:07)
[2022-10-17] MEDS: HEPARIN SOD 5,000 UNIT/0.5 ML VIAL SQ SCH ×3 (05:13→21:15)
[2022-10-17 06:10] LABS: Hematocrit (blood only) 40.1 % (40.1-51.0); Hemoglobin 12.9 g/dl (14.0-18.0); Mean Corpuscular Hemoglobin 30.3 pg (25.0-34.0); Mean Corpuscular Hgb Conc 32.2 g/dL (32.0-36.0); Mean Corpuscular Volume 94.1 fL (80.0-100.0); Mean Platelet Volume 10.6 fL (9.4-12.4); Platelet Count 182 K/uL (130-400); RDW Coefficient of Variation 16.6 % (11.5-14.5); RDW Standard Deviation 58.2 fL (36.4-46.3); Red Blood Count 4.26 M/uL (4.63-6.08)
[2022-10-17] MEDS: ISOSORBIDE DINITRATE 5 MG TAB PO SCH ×2 (06:26→11:58)
[2022-10-17] MEDS: LEVOTHYROXINE SODIUM 25 MCG TABLET PO SCH (06:26)
[2022-10-17 06:38] LABS: BUN Creatinine Ratio 20.3 (10-20); Calcium 8.8 mg/dl (8.5-10.1); Creatinine Clr Calc Pharmacy 42.9 ml/min; Est GFR (African American) 37.4 ml/min; Est GFR (Non-African American) 32.3 ml/min; Magnesium 1.8 mg/dl (1.7-2.4); Phosphorus 2.8 mg/dl (2.5-4.9); Potassium 3.5 mmol/L (3.5-5.1)
[2022-10-17] MEDS: ATORVASTATIN 40 MG TAB PO SCH (08:52)
[2022-10-17] MEDS: PANTOprazole 40 MG TAB PO SCH (08:52)
[2022-10-17] MEDS: carvediloL 6.25 MG TAB PO SCH ×2 (08:53→21:17)
[2022-10-17] MEDS: CYANOCOBALAMIN (B-12) 500 MCG TABLET PO SCH (08:53)
[2022-10-17] MEDS: MAGNESIUM OXIDE 400 MG TAB PO SCH (08:53)
[2022-10-17] MEDS: FERROUS SULFATE 325 MG TAB PO SCH (08:53)
[2022-10-17] MEDS: metFORMIN HCL ER 500 MG TABCR PO SCH (08:53)
[2022-10-17] MEDS: amLODIPine BESYLATE 5 MG TAB PO SCH (08:53)
[2022-10-17] MEDS: MICONAZOLE NITRATE POWDER 43 GM EXT SCH ×2 (08:54→21:14)
[2022-10-17] MEDS ORDERED: POTASSIUM CHLORIDE CRTAB 20 MEQ TABCR PO STA (11:09)
--- NOTE | 2022-10-17 11:17 | Hospitalist Progress Note ---
Date of Service October 17, 2022 Assessment & Plan (1) Encephalopathy: Plan: Underlying cognitive impairment and functional disability Multifactorial : Hypertensive crisis, secondary to medication noncompliance Decompensated heart failure, history systolic dysfunction, predominant subacute right-sided heart failure symptoms, underlying pulmonary hypertension, JT on CPAP ARF on CKD New onset hypothyroidism Initiate low-dose levothyroxine, TSH recheck outpatient next month Abnormal CT chest initial read findings (right upper lobe density, mediastinal adenopathy):: 1. Moderate bilateral pleural effusions, right larger than left. Anasarca with small to moderate upper abdominal ascites. Suspected mild pulmonary edema. 2. No evidence for central venous occlusion on unenhanced exam. 3. 2.4 cm water attenuation focus within the right middle lobe. This is likely benign. However, a follow-up chest CT in 3 months to ensure resolution is recommended. 4. Mild lingular and right middle lobe bronchiectasis. Mild groundglass opacity within the superior segment of right lower lobe. This may reflect a chronic infectious/inflammatory process. Clinically much improved, not drowsy, feeling well seems to be at his baseline Started to eat and drink normally and has been communicating normally PT and OT evaluation - recommend rehab, CM involved 10/13 cr up at 1.9 - holding lisinopril 10/14 - Cr down to 1.8 - cont. to hold lisinopril closely monitor BP, volume status and renal function 10/15 -creatinine still elevated above baseline. Patient with some mild edema. Discussed with cardiology, will add IV Lasix and will close monitor. In addition to control BP better, added Isordil. 10/16 Cr slightly improved. Mild chilango. Pt feeling well. 10/17 Cr up again, IV lasix on hold now hx CLL, per observation by local oncologist Chronic anemia, hemoglobin better than baseline hx ICH, cerebral amyloid angiopathy as per records No acute symptoms (2) T2DM (type 2 diabetes mellitus): Plan: DM2 insulin requiring, suboptimal control as of recent hemoglobin A1c of 8.7 last May 2022 Blood sugar was running low and the patient was not eating and drinking enough and was requiring intravenous dextrose Basal bolus insulin, ISS BG goal 110-1 40, carb count coverage, update hemoglobin A1c Appreciate family life educator input and recommended Will likely to stop insulin and metformin Plan to restart Ozempic on discharge/ as outpt (3) Ischemic cardiomyopathy: Plan: Aortic stenosis status post bioprosthetic AVR Valvular heart disease (moderate TR, mild MR, mild paravalvular aortic valve prosthesis regurgitation) SSS status post PPM, PAF not on anticoagulation secondary to bleeding risk Appreciate cardiology input and recommendation Will start his usual dose of Lasix as an outpatient (4) JT on CPAP: Plan: Outpatient sleep medicine follow-up to check on current CPAP settings (patient overdue for visit, last visit was 2016) (5) Chronic atrial fibrillation: Plan: Rate remains controlled per cardiology note - Anticoagulation risks felt to be greater than the benefit secondary to ambulatory dysfunction, iron deficiency anemia, history of intracranial hemorrhage, history of amyloid angiopathy Plan PT OT eval DVT prophylaxis. Heparin subcu Full code Patient daughters contacts Ms. Sarthak Guerrero, contact #[phone] Sophia Carlin, contact #[phone] Admission and Anticipated Discharge Date Admission Date: October 09, 2022 Subjective Patient seen in follow-up of confusion, CHF He reports feeling well Denies any complaint Denies any shortness of breath, chest pain, palpitations Also denies any abdominal pain nausea vomiting, reports he has been eating well he is answering questions appropriately Discussed rehab, CM involved Cr up again after IV lasix Review of Systems Review of Systems: All systems reviewed & are unremarkable except as noted in Subjective Physical Exam Physical Exam: Physical Exam: Lying in bed comfo rtably in NAD Constitutional:L well developed, we ll nourished, + ob kylah Eyes: PERRL, EOMI, conju nctivae normal, an icteric sclerae ENMT: external ear and n ose normal, oropha rynx normal Neck: supple Respiratory: no respiratory dis tress Auscultatio n: lungs clear to auscultation bilat erally Cardiovascular:L Rate/Rhythm: regul ar rate and regula r rhythm; not tach ycardic Heart Bernie nds: normal S1 and normal S2, + LE e chilango Gastrointestinal ( Abdomen): Inspection/Auscult ation: normal tyler l sounds; abdomen not distended Per cussion/Palpation: abdomen soft; abd omen nontender Musculoskeletal: moves extremities Neurologic: moves all extremit ies; speech fluent , no facial asymme try Psychiatric: A+Ox3, euthymic af fect Results & Data Results & Data ([facility]) Vital Signs (Past 12 Hours) Vital Signs Temp Pulse Pulse Resp BP Pulse Ox O2 Del Method 10/17/22 08:50 Room Air 10/17/22 06:02 62 10/17/22 07:50 36.5 C 63 18 152/73 H 97 Room Air 10/17/22 03:21 36.5 C 61 16 143/81 H 96 Room Air Laboratory Results 10/17/22 10/17/22 10/17/22 Range/Units 07:40 05:34 05:34 WBC 5.90 (4.8-10.8) K/ul RBC 4.26 L (4.63-6.08) M/uL Hgb 12.9 L (14.0-18.0) g/dl Hct 40.1 (40.1-51.0) % MCV 94.1 (80.0-100.0) fL MCH 30.3 (25.0-34.0) pg MCHC 32.2 (32.0-36.0) g/dL RDW Std Deviation 58.2 H (36.4-46.3) fL RDW Coeff of Solis 16.6 H (11.5-14.5) % Plt Count 182 (130-400) K/uL MPV 10.6 (9.4-12.4) fL Sodium 139 (136-145) mmol/L Potassium 3.5 (3.5-5.1) mmol/L Chloride 101 (98-107) mmol/L Carbon Dioxide 33 H (21-32) mmol/L Anion Gap 5 (3-11) BUN 40 H (6-23) mg/dl Creatinine 1.97 H (0.6-1.4) mg/dl Est Cr Clr Drug Dosing 42.9 ml/min Est GFR ( Amer) 37.4 ml/min Est GFR (Non-Af Amer) 32.3 ml/min BUN/Creatinine Ratio 20.3 H (10-20) Glucose 154 H (70-99(Fasting)) mg/dl POC Glucose 164 H (70-99) mg/dl Calcium 8.8 (8.5-10.1) mg/dl Phosphorus 2.8 (2.5-4.9) mg/dl Magnesium 1.8 (1.7-2.4) mg/dl 10/16/22 10/16/2222 Range/Units 20:01 16:30 11:07 WBC (4.8-10.8) K/ul RBC (4.63-6.08) M/uL Hgb (14.0-18.0) g/dl Hct (40.1-51.0) % MCV (80.0-100.0) fL MCH (25.0-34.0) pg MCHC (32.0-36.0) g/dL RDW Std Deviation (36.4-46.3) fL RDW Coeff of Solis (11.5-14.5) % Plt Count (130-400) K/uL MPV (9.4-12.4) fL Sodium (136-145) mmol/L Potassium (3.5-5.1) mmol/L Chloride (98-107) mmol/L Carbon Dioxide (21-32) mmol/L Anion Gap (3-11) BUN (6-23) mg/dl Creatinine (0.6-1.4) mg/dl Est Cr Clr Drug Dosing ml/min Est GFR ( Amer) ml/min Est GFR (Non-Af Amer) ml/min BUN/Creatinine Ratio (10-20) Glucose (70-99(Fasting)) mg/dl POC Glucose 207 H 184 H 149 H (70-99) mg/dl Calcium (8.5-10.1) mg/dl Phosphorus (2.5-4.9) mg/dl Magnesium (1.7-2.4) mg/dl Medications Administered Current Inpatient Medications Acetaminophen (Acetaminophen 325 Mg Tab) 650 mg PO Q4H PRN PRN Reason: Pain or Fever Stop: 11/08/22 02:52 Amlodipine Besylate (Amlodipine Besylate 5 Mg Tab) [facility]: 11/15/22 08:59 Last Admin: 10/17/22 08:53 Dose: 5 mg Atorvastatin Calcium (Atorvastatin 40 Mg Tab) 40 mg PO QAM [facility] Stop: 11/08/22 08:59 Last Admin: 10/17/22 08:52 Dose: 40 mg Carvedilol (Carvedilol 6.25 Mg Tab) 6.25 mg PO BID [facility] Stop: 11/08/22 08:59 Last Admin: 10/17/22 08:53 Dose: 6.25 mg Cyanocobalamin (Cyanocobalamin (B-12) 500 Mcg Tablet) 1,000 mcg PO QAM [facility] Stop: 11/08/22 08:59 Last Admin: 10/17/22 08:53 Dose: 1,000 mcg Dextrose (Dextrose 50% 50 Ml Syringe) 25 - 50 ml IV UD PRN; Protocol PRN Reason: Hypoglycemia Protocol Stop: 11/08/22 02:52 Last Admin: 10/09/22 20:40 Dose: 25 ml Ferrous Sulfate (Ferrous Sulfate 325 Mg Tab) 325 mg PO DAILY [facility] Stop: 11/08/22 08:59 Last Admin: 10/17/22 08:53 Dose: 325 mg Furosemide (Furosemide 40 Mg Tab) 40 mg PO QAM [facility] Stop: 11/10/22 15:29 Last Admin: 10/15/22 07:51 Dose: 40 mg Furosemide (Furosemide Inj 20 Mg/2 Ml Vial) 20 mg IV Q6H [facility] Stop: 11/14/22 10:14 Last Admin: 10/17/22 10:07 Dose: 20 mg Glucagon (Glucagon For Inj 1 Mg Vial) 1 mg SQ UD PRN; Protocol PRN Reason: Hypoglycemia Protocol Stop: 11/08/22 02:52 Glucose (Glucose 40% Gel 15 Gm Tube) 15 - 30 gm PO UD PRN; Protocol PRN Reason: Hypoglycemia Protocol Stop: 11/08/22 02:52 Last Admin: 10/09/22 16:51 Dose: 15 gm Glucose (Glucose 10 Tab/Tube) 4 - 8 tab PO UD PRN; Protocol PRN Reason: Hypoglycemia Treatment Stop: 11/08/22 02:52 Heparin Sodium (Porcine) (Heparin Sod 5,000 Unit/0.5 Ml Vial) 5,000 units SQ Q8 [facility] Stop: 11/08/22 05:59 Last Admin: 10/17/22 05:13 Dose: 5,000 units Promethazine HCl 12.5 mg/ (Sodium Chloride) 50.5 mls @ 202 mls/hr IV Q6H PRN PRN Reason: Nausea And Vomiting Stop: 11/08/22 02:52 Isosorbide Dinitrate (Isosorbide Dinitrate 5 Mg Tab) 2.5 mg PO BID@0700,1200 [facility] Stop: 11/14/22 11:59 Last Admin: 10/17/22 06:26 Dose: 2.5 mg Levothyroxine Sodium (Levothyroxine Sodium 25 Mcg Tablet) 25 mcg PO DAILYBB [facility] Stop: 11/08/22 06:29 Last Admin: 10/17/22 06:26 Dose: 25 mcg Lisinopril (Lisinopril 20 Mg Tab) 20 mg PO QAM [facility] Stop: 11/11/22 08:59 Last Admin: 10/12/22 08:20 Dose: 20 mg Magnesium Oxide (Magnesium Oxide 400 Mg Tab) [facility] Stop: 11/12/22 13:44 Last Admin: 10/17/22 08:53 Dose: 400 mg Metformin HCl (Metformin Hcl Er 500 Mg Tabcr) 500 mg PO [facility] Stop: 11/09/22 08:59 Last Admin: 10/17/22 08:53 Dose: 500 mg Miconazole Nitrate (Miconazole Nitrate Powder 43 Gm) 1 appln EXT BID [facility] Stop: 11/08/22 04:09 Last Admin: 10/17/22 08:54 Dose: 1 appln Miscellaneous (Carbohydrates For Hypoglycemia ) 15 - 30 gm PO UD PRN PRN Reason: Hypoglycemia Protocol Stop: 11/08/22 02:52 Last Admin: 10/09/22 20:15 Dose: 15 gm Nitroglycerin (Nitroglycerin Sl 0.4 Mg/Tab Tab) 0.4 mg SL UD PRN PRN Reason: Chest Pain Stop: 11/08/22 02:52 Ondansetron HCl (Ondansetron Inj 2 Mg/Ml 2 Ml Vial) 4 mg IV Q6H PRN PRN Reason: Nausea And Vomiting Stop: 11/09/22 09:43 Last Admin: 10/10/22 10:00 Dose: 4 mg Pantoprazole Sodium (Pantoprazole 40 Mg Tab) 40 mg PO DAILY [facility] Stop: 11/11/22 08:59 Last Admin: 10/17/22 08:52 Dose: 40 mg Potassium Chloride (Potassium Chloride Crtab 20 Meq Tabcr) 20 meq PO NOW STA Stop: 10/17/22 11:10
--- NOTE | 2022-10-17 16:45 | Cardiology Progress Note ---
Date of Service October 17, 2022 Assessment & Plan (1) Confusion: (2) Systolic heart failure secondary to coronary artery disease: (3) Chronic atrial fibrillation: Plan - Patient's history of coronary disease, ischemic cardiomyopathy, LVEF 40-44% (outpatient echocardiogram August,, with normal TAVR prosthesis function noted at that time, severe mitral annular calcification, moderate mitral stenosis, moderate tricuspid regurgitation, moderate pulmonary hypertension. -DC IV furosemide. -If if creatine stable, tomorrow, plan to resume outpt furosemide 40 mg daily. -Telemetry reveals rate controlled atrial fibrillation with ventricular pacing in the 60s to 70s. -Has a history of chronic atrial fibrillation, not on anticoagulation as the risks of bleeding felt to be greater than the prophylactic benefit, given history of ambulatory dysfunction, falls, baseline iron deficiency anemia, history of intracranial hemorrhage, history of amyloid angiopathy. -Continue subcutaneous heparin for DVT prophylaxis. -Anticipate DC to SNF on 10/19 . -OK to transfer off of telemetry from cardiology perspective. Chronic AF, paced. Admission and Anticipated Discharge Date Admission Date: October 09, 2022 Subjective Pt seen in follow up. Feels well. AF with V pacing noted on telemetry in the 60s. Physical Exam Constitutional: WD/WN, vitals as above Respiratory: normal respiratory effort, lungs clear to auscultation Cardiovascular: Rate/Rhythm: regular rate Vessels: no JVD Extremities: + edema (1+ bilateral lower extremity edema) Gastrointestinal (Abdomen): normal bowel sounds, soft, nontender, no hepatosplenomegaly Neurologic: patellar DTR's 2+ bilat, sensation intact Results & Data ([facility]) Vital Signs (Past 12 Hours) Vital Signs Temp Pulse Pulse Resp BP Pulse Ox O2 Del Method 10/17/22 14:06 60 10/17/22 11:51 36.5 C 60 18 135/72 96 Room Air 10/17/22 08:50 Room Air 10/17/22 06:02 62 10/17/22 07:50 36.5 C 63 18 152/73 H 97 Room Air
[2022-10-18] MEDS: HEPARIN SOD 5,000 UNIT/0.5 ML VIAL SQ SCH ×3 (06:18→21:21)
[2022-10-18] MEDS: ISOSORBIDE DINITRATE 5 MG TAB PO SCH ×2 (06:19→10:45)
[2022-10-18] MEDS: LEVOTHYROXINE SODIUM 25 MCG TABLET PO SCH (06:19)
[2022-10-18 08:12] LABS: BUN Creatinine Ratio 21.6 (10-20); Calcium 8.8 mg/dl (8.5-10.1); Creatinine Clr Calc Pharmacy 49.6 ml/min; Est GFR (African American) 44.4 ml/min; Est GFR (Non-African American) 38.3 ml/min; Magnesium 1.8 mg/dl (1.7-2.4); Potassium 3.4 mmol/L (3.5-5.1)
[2022-10-18] MEDS: CYANOCOBALAMIN (B-12) 500 MCG TABLET PO SCH (08:20)
[2022-10-18] MEDS: MAGNESIUM OXIDE 400 MG TAB PO SCH (08:20)
[2022-10-18] MEDS: ATORVASTATIN 40 MG TAB PO SCH (08:20)
[2022-10-18] MEDS: metFORMIN HCL ER 500 MG TABCR PO SCH (08:20)
[2022-10-18] MEDS: FERROUS SULFATE 325 MG TAB PO SCH (08:20)
[2022-10-18] MEDS: PANTOprazole 40 MG TAB PO SCH (08:20)
[2022-10-18] MEDS: amLODIPine BESYLATE 5 MG TAB PO SCH (08:20)
[2022-10-18] MEDS ORDERED: POTASSIUM CHLORIDE CRTAB 20 MEQ TABCR PO STA (08:21)
[2022-10-18] MEDS: carvediloL 6.25 MG TAB PO SCH ×2 (08:21→21:21)
[2022-10-18] MEDS: MICONAZOLE NITRATE POWDER 43 GM EXT SCH ×2 (08:21→21:20)
--- NOTE | 2022-10-18 08:28 | Hospitalist Progress Note ---
Date of Service October 18, 2022 Assessment & Plan (1) Encephalopathy: Plan: Underlying cognitive impairment and functional disability Multifactorial : Hypertensive crisis, secondary to medication noncompliance Decompensated heart failure, history systolic dysfunction, predominant subacute right-sided heart failure symptoms, underlying pulmonary hypertension, JT on CPAP ARF on CKD New onset hypothyroidism Initiate low-dose levothyroxine, TSH recheck outpatient next month Abnormal CT chest initial read findings (right upper lobe density, mediastinal adenopathy):: 1. Moderate bilateral pleural effusions, right larger than left. Anasarca with small to moderate upper abdominal ascites. Suspected mild pulmonary edema. 2. No evidence for central venous occlusion on unenhanced exam. 3. 2.4 cm water attenuation focus within the right middle lobe. This is likely benign. However, a follow-up chest CT in 3 months to ensure resolution is recommended. 4. Mild lingular and right middle lobe bronchiectasis. Mild groundglass opacity within the superior segment of right lower lobe. This may reflect a chronic infectious/inflammatory process. Clinically much improved, not drowsy, feeling well seems to be at his baseline Started to eat and drink normally and has been communicating normally PT and OT evaluation - recommend rehab, CM involved 10/13 Cr up at 1.9 - holding lisinopril 10/15 -creatinine still elevated above baseline. Patient with some mild edema. Discussed with cardiology, will add IV Lasix and will closely monitor. In addition to control BP better, added Isordil. 10/18 - slightly improved Cr 1.7, resumed his p.o. Lasix 40 mg daily hx CLL, per observation by local oncologist Chronic anemia, hemoglobin better than baseline hx ICH, cerebral amyloid angiopathy as per records No acute symptoms (2) T2DM (type 2 diabetes mellitus): Plan: DM2 insulin requiring, suboptimal control as of recent hemoglobin A1c of 8.7 last May 2022 Blood sugar was running low and the patient was not eating and drinking enough and was requiring intravenous dextrose Basal bolus insulin, ISS BG goal 110-1 40, carb count coverage, update hemoglobin A1c Appreciate personal development educator input and recommended Will likely to stop insulin and metformin Plan to restart Ozempic on discharge/ as outpt (3) Ischemic cardiomyopathy: Plan: Aortic stenosis status post bioprosthetic AVR Valvular heart disease (moderate TR, mild MR, mild paravalvular aortic valve prosthesis regurgitation) SSS status post PPM, PAF not on anticoagulation secondary to bleeding risk Appreciate cardiology input and recommendation Lasix on hold d/t elev. Cr -questionable about resuming Lasix on discharge/as outpatient (4) JT on CPAP: Plan: Outpatient sleep medicine follow-up to check on current CPAP settings (patient overdue for visit, last visit was 2016) (5) Chronic atrial fibrillation: Plan: Rate remains controlled per cardiology note - Anticoagulation risks felt to be greater than the benefit secondary to ambulatory dysfunction, iron deficiency anemia, history of intracranial hemorrhage, history of amyloid angiopathy Plan PT OT eval DVT prophylaxis. Heparin subcu Full code Patient daughters contacts Ms. Sarthak Guerrero, contact #[phone] Ms. Sophia Carlin, contact #[phone] Admission and Anticipated Discharge Date Admission Date: October 09, 2022 Subjective Patient seen in follow-up of confusion, CHF He reports feeling well Denies any complaint Denies any shortness of breath, chest pain, palpitations Also denies any abdominal pain nausea vomiting, reports he has been eating well he is answering questions appropriately Discussed rehab/snf, CM involved Cr 1.7 lisinopril still on hold Resumed home p.o. Lasix 40 mg daily Review of Systems Review of Systems: All systems reviewed & are unremarkable except as noted in Subjective Physical Exam Physical Exam: Physical Exam: Lying in bed comfo rtably in NAD Constitutional:L well developed, we ll nourished, + ob kylah Eyes: PERRL, EOMI, conju nctivae normal, an icteric sclerae ENMT: external ear and n ose normal, oropha rynx normal Neck: supple Respiratory: no respiratory dis tress Auscultatio n: lungs clear to auscultation bilat erally Cardiovascular:L Rate/Rhythm: regul ar rate and regula r rhythm; not tach ycardic Heart Bernie nds: normal S1 and normal S2, + LE e chilango Gastrointestinal ( Abdomen): Inspection/Auscult ation: normal tyler l sounds; abdomen not distended Per cussion/Palpation: abdomen soft; abd omen nontender Musculoskeletal: moves extremities Neurologic: moves all extremit ies; speech fluent , no facial asymme try Psychiatric: A+Ox3, euthymic af fect Results & Data Results & Data ([facility]) Vital Signs (Past 12 Hours) Vital Signs Temp Pulse Pulse Resp BP Pulse Ox O2 Del Method 10/18/22 06:17 36.4 C L 60 18 147/86 H 99 Room Air 10/18/22 03:33 15 10/17/22 22:33 54 L 17 95 10/17/22 21:15 36.5 C 64 16 150/87 H 98 Room Air FiO2 10/18/22 06:17 10/18/22 03:33 21 10/17/22 22:33 21 10/17/22 21:15 Laboratory Results 10/18/22 10/17/22 10/17/22 Range/Units 07:18 21:39 16:27 Sodium 138 (136-145) mmol/L Potassium 3.4 L (3.5-5.1) mmol/L Chloride 102 (98-107) mmol/L Carbon Dioxide 31 (21-32) mmol/L Anion Gap 5 (3-11) BUN 37 H (6-23) mg/dl Creatinine 1.71 H (0.6-1.4) mg/dl Est Cr Clr Drug Dosing 49.6 ml/min Est GFR ( Amer) 44.4 ml/min Est GFR (Non-Af Amer) 38.3 ml/min BUN/Creatinine Ratio 21.6 H (10-20) Glucose 142 H (70-99(Fasting)) mg/dl POC Glucose 142 H 162 H (70-99) mg/dl Calcium 8.8 (8.5-10.1) mg/dl Magnesium 1.8 (1.7-2.4) mg/dl 10/17/22 Range/Units 11:28 Sodium (136-145) mmol/L Potassium (3.5-5.1) mmol/L Chloride (98-107) mmol/L Carbon Dioxide (21-32) mmol/L Anion Gap (3-11) BUN (6-23) mg/dl Creatinine (0.6-1.4) mg/dl Est Cr Clr Drug Dosing ml/min Est GFR ( Amer) ml/min Est GFR (Non-Af Amer) ml/min BUN/Creatinine Ratio (10-20) Glucose (70-99(Fasting)) mg/dl POC Glucose 173 H (70-99) mg/dl Calcium (8.5-10.1) mg/dl Magnesium (1.7-2.4) mg/dl Medications Administered Current Inpatient Medications Acetaminophen (Acetaminophen 325 Mg Tab) 650 mg PO Q4H PRN PRN Reason: Pain or Fever Stop: 11/08/22 02:52 Amlodipine Besylate (Amlodipine Besylate 5 Mg Tab) 5 mg PO QAM [facility] Stop: 11/15/22 08:59 Last Admin: 10/18/22 08:20 Dose: 5 mg Atorvastatin Calcium (Atorvastatin 40 Mg Tab) [facility] [place] Stop: 11/08/22 08:59 Last Admin: 10/18/22 08:20 Dose: 40 mg Carvedilol (Carvedilol 6.25 Mg Tab) 6.25 mg PO BID [facility] [place] Stop: 11/08/22 08:59 Last Admin: 10/18/22 08:21 Dose: 6.25 mg Cyanocobalamin (Cyanocobalamin (B-12) 500 Mcg Tablet) 1,000 mcg PO QAM [facility] [place] Stop: 11/08/22 08:59 Last Admin: 10/18/22 08:20 Dose: 1,000 mcg Dextrose (Dextrose 50% 50 Ml Syringe) 25 - 50 ml IV UD PRN; Protocol PRN Reason: Hypoglycemia Protocol Stop: 11/08/22 02:52 Last Admin: 10/09/22 20:40 Dose: 25 ml Ferrous Sulfate (Ferrous Sulfate 325 Mg Tab) 325 mg PO DAILY [facility] [place] Stop: 11/08/22 08:59 Last Admin: 10/18/22 08:20 Dose: 325 mg Furosemide (Furosemide 40 Mg Tab) 40 mg PO QAM [facility] [place] Stop: 11/10/22 15:29 Last Admin: 10/15/22 07:51 Dose: 40 mg Furosemide (Furosemide Inj 20 Mg/2 Ml Vial) 20 mg IV Q6H [facility] [place] Stop: 11/14/22 10:14 Last Admin: 10/17/22 10:07 Dose: 20 mg Glucagon (Glucagon For Inj 1 Mg Vial) 1 mg SQ UD PRN; Protocol PRN Reason: Hypoglycemia Protocol Stop: 11/08/22 02:52 Glucose (Glucose 40% Gel 15 Gm Tube) 15 - 30 gm PO UD PRN; Protocol PRN Reason: Hypoglycemia Protocol Stop: 11/08/22 02:52 Last Admin: 10/09/22 16:51 Dose: 15 gm Glucose (Glucose 10 Tab/Tube) 4 - 8 tab PO UD PRN; Protocol PRN Reason: Hypoglycemia Treatment Stop: 11/08/22 02:52 Heparin Sodium (Porcine) (Heparin Sod 5,000 Unit/0.5 Ml Vial) 5,000 units SQ Q8 [facility] [place] Stop: 11/08/22 05:59 Last Admin: 10/18/22 06:18 Dose: 5,000 units Promethazine HCl 12.5 mg/ (Sodium Chloride) 50.5 mls @ 202 mls/hr IV Q6H PRN PRN Reason: Nausea And Vomiting Stop: 11/08/22 02:52 Isosorbide Dinitrate (Isosorbide Dinitrate 5 Mg Tab) 2.5 mg PO BID@0700,1200 [facility] [place] Stop: 11/14/22 11:59 Last Admin: 10/18/22 06:19 Dose: 2.5 mg Levothyroxine Sodium (Levothyroxine Sodium 25 Mcg Tablet) 25 mcg PO DAILYBB [facility] [place] Stop: 11/08/22 06:29 Last Admin: 10/18/22 06:19 Dose: 25 mcg Lisinopril (Lisinopril 20 Mg Tab) 20 mg PO QAM [facility] [place] Stop: 11/11/22 08:59 Last Admin: 10/12/22 08:20 Dose: 20 mg Magnesium Oxide (Magnesium Oxide 400 Mg Tab) 400 [facility] [place] Stop: 11/12/22 13:44 Last Admin: 10/18/22 08:20 Dose: 400 mg Metformin HCl (Metformin Hcl Er 500 Mg Tabcr) 500 mg PO QAM [facility] [place] Stop: 11/09/22 08:59 Last Admin: 10/18/22 08:20 Dose: 500 mg Miconazole Nitrate (Miconazole Nitrate Powder 43 Gm) 1 appln EXT BID [facility] [place] Stop: 11/08/22 04:09 Last Admin: 10/18/22 08:21 Dose: Not Given Miscellaneous (Carbohydrates For Hypoglycemia ) 15 - 30 gm PO UD PRN PRN Reason: Hypoglycemia Protocol Stop: 11/08/22 02:52 Last Admin: 10/09/22 20:15 Dose: 15 gm Nitroglycerin (Nitroglycerin Sl 0.4 Mg/Tab Tab) 0.4 mg SL UD PRN PRN Reason: Chest Pain Stop: 11/08/22 02:52 Ondansetron HCl (Ondansetron Inj 2 Mg/Ml 2 Ml Vial) 4 mg IV Q6H PRN PRN Reason: Nausea And Vomiting Stop: 11/09/22 09:43 Last Admin: 10/10/22 10:00 Dose: 4 mg Pantoprazole Sodium (Pantoprazole 40 Mg Tab) 40 mg PO DAILY [facility] [place] Stop: 11/11/22 08:59 Last Admin: 10/18/22 08:20 Dose: 40 mg
[2022-10-18] MEDS: FUROSEMIDE 40 MG TAB PO SCH (10:23)
--- NOTE | 2022-10-18 15:37 | Cardiology Progress Note ---
Date of Service October 18, 2022 Assessment & Plan (1) Confusion: (2) Systolic heart failure secondary to coronary artery disease: (3) Chronic atrial fibrillation: Plan - Patient's history of coronary disease, ischemic cardiomyopathy, LVEF 40-44% (outpatient echocardiogram August,, with normal TAVR prosthesis function noted at that time, severe mitral annular calcification, moderate mitral stenosis, moderate tricuspid regurgitation, moderate pulmonary hypertension. -He is back on his RN TRIAGE dose of furosemide 40 mg PO daily. -Potassium repleted. -Has a history of chronic atrial fibrillation, not on anticoagulation as the risks of bleeding felt to be greater than the prophylactic benefit, given history of ambulatory dysfunction, falls, baseline iron deficiency anemia, history of intracranial hemorrhage, history of amyloid angiopathy. -Continue subcutaneous heparin for DVT prophylaxis. -Anticipate DC to SNF on 10/19 . Admission and Anticipated Discharge Date Admission Date: October 09, 2022 Subjective Patient seen in cardiology follow up. No complaints. Physical Exam Constitutional: no acute distress Respiratory: normal respiratory effort, lungs clear to auscultation Cardiovascular: Rate/Rhythm: regular rate Heart Sounds: no murmur Extremities: + edema (trace to 1+ biltateral LE edema ) Gastrointestinal (Abdomen): normal bowel sounds, soft, nontender, no hepatosplenomegaly Neurologic: PERRL, EOMI, accommodation nl, no face palsy, no dysarthria Results & Data ([facility]) Vital Signs (Past 12 Hours) Vital Signs Temp Pulse Resp BP BP Pulse Ox O2 Del Method 10/18/22 15:11 36.6 C 59 L 18 144/70 H 97 CPAP 10/18/22 06:17 36.4 C L 60 18 147/86 H 99 Room Air Laboratory Results Comprehensive Metabolic Panel 10/18/22 Range/Units 07:18 Sodium 138 (136-145) mmol/L Potassium 3.4 L (3.5-5.1) mmol/L Chloride 102 (98-107) mmol/L Carbon Dioxide 31 (21-32) mmol/L BUN 37 H (6-23) mg/dl Creatinine 1.71 H (0.6-1.4) mg/dl Glucose 142 H (70-99(Fasting)) mg/dl Calcium 8.8 (8.5-10.1) mg/dl Intake and Output 10/18/22 10/18/22 10/18/22 06:59 14:59 22:59 Output Total 300 / 2000 750 / 950 200 / 950 Balance -300 / -1060 -750 / -950 -200 / -950 Output: Urine 300 / 2000 750 / 950 200 / 950
[2022-10-19] MEDS: ISOSORBIDE DINITRATE 5 MG TAB PO SCH ×2 (06:18→12:16)
[2022-10-19] MEDS: LEVOTHYROXINE SODIUM 25 MCG TABLET PO SCH (06:18)
[2022-10-19] MEDS: HEPARIN SOD 5,000 UNIT/0.5 ML VIAL SQ SCH (06:18)
[2022-10-19 07:47] LABS: BUN Creatinine Ratio 23.4 (10-20); Calcium 8.7 mg/dl (8.5-10.1); Creatinine Clr Calc Pharmacy 50.8 ml/min; Est GFR (African American) 45.7 ml/min; Est GFR (Non-African American) 39.4 ml/min; Potassium 3.7 mmol/L (3.5-5.1)
[2022-10-19] MEDS: carvediloL 6.25 MG TAB PO SCH (08:49)
[2022-10-19] MEDS: MAGNESIUM OXIDE 400 MG TAB PO SCH (08:49)
[2022-10-19] MEDS: PANTOprazole 40 MG TAB PO SCH (08:49)
[2022-10-19] MEDS: ATORVASTATIN 40 MG TAB PO SCH (08:49)
[2022-10-19] MEDS: FUROSEMIDE 40 MG TAB PO SCH (08:49)
[2022-10-19] MEDS: CYANOCOBALAMIN (B-12) 500 MCG TABLET PO SCH (08:49)
[2022-10-19] MEDS: amLODIPine BESYLATE 5 MG TAB PO SCH (08:49)
[2022-10-19] MEDS: FERROUS SULFATE 325 MG TAB PO SCH (08:49)
[2022-10-19] MEDS: metFORMIN HCL ER 500 MG TABCR PO SCH (08:50)
[2022-10-19] MEDS: MICONAZOLE NITRATE POWDER 43 GM EXT SCH (08:50)
--- NOTE | 2022-10-19 12:19 | Discharge Summary ---
Date of Service October 19, 2022 Admission HPI Per Admitting Provider History obtained from patient, family, and records. Medical history significant for chronic systolic heart failure (EF 40 to 44%, 2021), aortic stenosis status post bioprosthetic AVR, valvular heart disease (moderate TR, mild MR, mild paravalvular aortic valve prosthesis regurgitation), SSS status post PPM, PAF not on anticoagulation secondary to risk, pulmonary hypertension, JT on CPAP, DM2 insulin requiring, CRI (baseline creatinine 1.3- 1.4), CLL, chronic anemia (baseline hemoglobin 13), hx ICH/cerebral amyloid angiopathy as per records, memory changes as per records. Last confinement 2018 for open fracture left great toe status post surgery. Patient noted by family to be increasingly tired and fatigued the last 2 weeks. Patient sleeping a lot as per daughter. Patient did not respond to multiple phone calls from family members over the weekend. Patient son-in-law checked on patient today at his apartment. Patient noted to be somewhat confused. Patient denies chest pain. Usual shortness of breath on exertion as per patient. Patient not sure about weight gain. Both arms more swollen than usual. No headaches. Patient cannot recall the last time he took his medications. Family thinks patient not able to take his meds like he should. SBP 190s upon arrival at the ER. IV Lasix administered for CHF. 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 Admission Exam Per Admitting Provider GENERAL: Comfortable, pleasant, morbidly obese, unkempt, no respiratory distress SKIN: Pallor, warm HEENT: Partial alopecia, bespectacled, pale palpebral conjunctivae, no ptosis, dry buccal mucosa NECK : Supple, short neck, no tenderness CHEST : Decreased breath sounds, no tenderness HEART : Irregular, no obvious murmurs ABDOMEN: distention, nontender EXTREMITIES : Bilateral upper extremity swelling (L>R), bilateral LE venous stasis, no LE tenderness, no other conspicuous deformities noted NEUROLOGIC : Coherent, no facial asymmetry, gait and stance not assessed Principal Diagnosis 35 minutes Discharge Exam Physical Exam: Lying in bed comfortably though remains very weak and lethargic Constitutional: well developed, well nourished, + ill appearing and + obese Eyes: PERRL, conjunctivae normal, anicteric sclerae ENMT: external ear and nose normal, oropharynx normal Neck: trachea midline, no thyromegaly Respiratory: no respiratory distress Auscultation: lungs clear to ausc ultation bilaterally Cardiovascular: Rate/Rhythm: regular rate and regular rhythm; not tachycardic Heart Sounds: normal S1 and normal S2; no murmur Extremities Gastrointestinal (Abdomen): Inspection/Auscultation: normal bowel sounds; abdomen not distended Percussion/Palpation: abdomen soft; abdomen nontender Musculoskeletal: No acute arthritis involving any joint Neurologic: normal touch/pain/proprioception and moves all extremities; no focal motor deficits Psychiatric: A+Ox3, euthymic affect Lymphatic: no cervical or axillary lymphadenopathy Discharge Data Allergies Allergy/AdvReac Type Severity Reaction Status Date / Time No Known Allergies Allergy Unknown NONE Verified 10/08/22 20:31 Consultations 10/08/22 22:30 ED Decision to Admit Stat 10/09/22 02:34 Consult Cardiology Routine Ordered Studies 10/08/22 19:10 CT head/brain wo con Stat 10/09/22 00:02 CT chest diagnostic wo con Stat Laboratory Results WBC 5.90 K/ul (4.8-10.8) 10/17/22 05:34 RBC 4.26 M/uL (4.63-6.08) L 10/17/22 05:34 Hgb 12.9 g/dl (14.0-18.0) L 10/17/22 05:34 Hct 40.1 % (40.1-51.0) 10/17/22 05:34 MCV 94.1 fL (80.0-100.0) 10/17/22 05:34 MCH 30.3 pg (25.0-34.0) 10/17/22 05:34 MCHC 32.2 g/dL (32.0-36.0) 10/17/22 05:34 RDW Std Deviation 58.2 fL (36.4-46.3) H 10/17/22 05:34 RDW Coeff of [place] 16.6 % (11.5-14.5) H 10/17/22 05:34 Plt Count 182 K/uL (130-400) 10/17/22 05:34 MPV 10.6 fL (9.4-12.4) 10/17/22 05:34 Immature Gran % (Auto) 0.2 % 10/11/22 05:38 Neut % (Auto) 48.1 % 10/11/22 05:38 Lymph % (Auto) 43.3 % 10/11/22 05:38 [place] % (Auto) 6.3 % 10/11/22 05:38 Eos % (Auto) 1.9 % 10/11/22 05:38 Baso % (Auto) 0.2 % 10/11/22 05:38 Neut # (Auto) 2.74 K/uL (1.4-6.5) 10/11/22 05:38 Lymph # (Auto) 2.47 K/uL (1.2-3.4) 10/11/22 05:38 [place] # (Auto) 0.36 K/uL (0.24-0.82) 10/11/22 05:38 Eos # (Auto) 0.11 K/uL (0-0.50) 10/11/22 05:38 Baso # (Auto) 0.01 K/uL (0-0.2) 10/11/22 05:38 Immature Gran # (Auto) 0.01 K/uL (0.00-0.02) 10/11/22 05:38 Absolute Nucleated RBC Cancelled 10/08/22 17:57 Nucleated RBC % (auto) Cancelled 10/08/22 17:57 Neutrophils % (Manual) Cancelled 10/08/22 17:57 Band Neutrophils % Cancelled 10/08/22 17:57 Lymphocytes % (Manual) Cancelled 10/08/22 17:57 Prolymphocyte % Cancelled 10/08/22 17:57 Reactive Lymphs % (Man) Cancelled 10/08/22 17:57 Monocytes % (Manual) Cancelled 10/08/22 17:57 Eosinophils % (Manual) Cancelled 10/08/22 17:57 Basophils % (Manual) Cancelled 10/08/22 17:57 Metamyelocytes % (Man) Cancelled 10/08/22 17:57 Myelocytes % (Man) Cancelled 10/08/22 17:57 Promyelocytes % (Man) Cancelled 10/08/22 17:57 Blast Cells % (Manual) Cancelled 10/08/22 17:57 Plasma Cell % (Manual) Cancelled 10/08/22 17:57 Other Cells % Cancelled 10/08/22 17:57 Nucleated RBC % Cancelled 10/08/22 17:57 Neutrophils # (Manual) Cancelled 10/08/22 17:57 Band Neutrophils # Cancelled 10/08/22 17:57 Total Absolute Neuts Cancelled 10/08/22 17:57 Lymphocytes # (Manual) Cancelled 10/08/22 17:57 Prolymphocyte # Cancelled 10/08/22 17:57 Reactive Lymphs # Cancelled 10/08/22 17:57 Total Abs Lymphocytes Cancelled 10/08/22 17:57 Monocytes # (Manual) Cancelled 10/08/22 17:57 Eosinophils # (Manual) Cancelled 10/08/22 17:57 Basophils # (Manual) Cancelled 10/08/22 17:57 Metamyelocytes # (Man) Cancelled 10/08/22 17:57 Myelocytes # (Manual) Cancelled 10/08/22 17:57 Promyelocytes # (Man) Cancelled 10/08/22 17:57 Blast Cells # (Man) Cancelled 10/08/22 17:57 Plasma Cell # (Manual) Cancelled 10/08/22 17:57 Other Cells # Cancelled 10/08/22 17:57 Nucleated RBCs # (Man) Cancelled 10/08/22 17:57 Hypersegmented Neuts Cancelled 10/08/22 17:57 Hyposegmented Neuts Cancelled 10/08/22 17:57 Hypogranular Neuts Cancelled 10/08/22 17:57 Large Granular Lymphs Cancelled 10/08/22 17:57 # Lrg Granular Lymphs Cancelled 10/08/22 17:57 Hairy Cells Cancelled 10/08/22 17:57 Smudge Cells Present 10/11/22 05:38 Toxic Granulation Cancelled 10/08/22 17:57 Toxic Vacuolation Cancelled 10/08/22 17:57 Dohle Bodies Cancelled 10/08/22 17:57 Porsha Rods Cancelled 10/08/22 17:57 Platelet Estimate Cancelled 10/08/22 17:57 Hypogranular Platelets Cancelled 10/08/22 17:57 Clumped Platelets Cancelled 10/08/22 17:57 Giant Platelets Cancelled 10/08/22 17:57 Platelet Satelliting Cancelled 10/08/22 17:57 RBC Morphology Cancelled 10/08/22 17:57 Polychromasia Cancelled 10/08/22 17:57 Hypochromasia Cancelled 10/08/22 17:57 Poikilocytosis Cancelled 10/08/22 17:57 Basophilic Stippling Cancelled 10/08/22 17:57 Anisocytosis Cancelled 10/08/22 17:57 Microcytosis Cancelled 10/08/22 17:57 Macrocytosis Cancelled 10/08/22 17:57 Spherocytes Cancelled 10/08/22 17:57 Pappenheimer Bodies Cancelled 10/08/22 17:57 Sickle Cells Cancelled 10/08/22 17:57 Target Cells Cancelled 10/08/22 17:57 Tear Drop Cells Cancelled 10/08/22 17:57 Ovalocytes Cancelled 10/08/22 17:57 Stomatocytes Cancelled 10/08/22 17:57 [place] Bodies Cancelled 10/08/22 17:57 Echinocytes Cancelled 10/08/22 17:57 Acanthocytes (Spur) Cancelled 10/08/22 17:57 Rouleaux Cancelled 10/08/22 17:57 RBC Agglutinates Cancelled 10/08/22 17:57 Schistocytes Cancelled 10/08/22 17:57 Sezary Cell Cancelled 10/08/22 17:57 PT 13.9 Seconds (9.0-12.0) H 10/08/22 17:57 INR 1.3 (0.9-1.1) H 10/08/22 17:57 Sodium 138 mmol/L (136-145) 10/19/22 07:05 Potassium 3.7 mmol/L (3.5-5.1) 10/19/22 07:05 Chloride 102 mmol/L (98-107) 10/19/22 07:05 Carbon Dioxide 31 mmol/L (21-32) 10/19/22 07:05 Anion Gap 5 (3-11) 10/19/22 07:05 BUN 39 mg/dl (6-23) H 10/19/22 07:05 Creatinine 1.67 mg/dl (0.6-1.4) H 10/19/22 07:05 Est Cr Clr Drug Dosing 50.8 ml/min 10/19/22 07:05 Est GFR ( Amer) 45.7 ml/min 10/19/22 07:05 Est GFR (Non-Af Amer) 39.4 ml/min 10/19/22 07:05 BUN/Creatinine Ratio 23.4 (10-20) H 10/19/22 07:05 Glucose 167 mg/dl (70-99(Fasting)) H 10/19/22 07:05 POC Glucose 166 mg/dl (70-99) H 10/19/22 11:53 Estimat Average Glucose 180 mg/dl 10/10/22 06:49 Hemoglobin A1c 7.9 % (4.5-5.6) H 10/10/22 06:49 Calcium 8.7 mg/dl (8.5-10.1) 10/19/22 07:05 Phosphorus 2.8 mg/dl (2.5-4.9) 10/17/22 05:34 Magnesium 1.8 mg/dl (1.7-2.4) 10/18/22 07:18 Total Bilirubin 2.3 mg/dl (0.2-1.0) H 10/08/22 17:57 AST 33 U/L (13-39) 10/08/22 19:45 ALT 21 U/L (7-52) 10/08/22 17:57 Alkaline Phosphatase 200 U/L (34-104) H 10/08/22 17:57 Ammonia 16.0 umol/L (18-72) L 10/08/22 20:53 Troponin I High Sens 52.2 pg/ml (0-20) H* 10/09/22 01:09 B-Natriuretic Peptide 1437 pg/ml (0-100) H 10/08/22 17:51 Total Protein 7.5 gm/dl (6.0-8.3) 10/08/22 17:57 Albumin 3.3 gm/dl (3.4-5.0) L 10/08/22 17:57 Globulin 4.2 gm/dl (2.5-4.0) H 10/08/22 17:57 Albumin/Globulin Ratio 0.8 (0.9-2) L 10/08/22 17:57 Lipase 7 U/L (11-82) L 10/08/22 19:45 TSH 12.237 uIu/ml (0.300-4.500) H 10/08/22 17:57 TSH 12.853 uIu/ml (0.300-4.500) H 10/08/22 17:57 Free T4 1.23 ng/dl (0.61-1.60) 10/08/22 17:57 Urine Color Yellow 10/09/22 04:14 Urine Appearance Clear (Clear) 10/09/22 04:14 Urine pH 5.0 (4.5-7.5) 10/09/22 04:14 Ur Specific [place] 1.008 (1.000-1.030) 10/09/22 04:14 Urine Protein 2+ (Negative) H 10/09/22 04:14 Urine Glucose (UA) Negative (Negative) 10/09/22 04:14 Urine Ketones Negative (Negative) 10/09/22 04:14 Urine Blood Trace (Negative) H 10/09/22 04:14 Urine Nitrite Negative (Negative) 10/09/22 04:14 Urine Bilirubin Negative (Negative) 10/09/22 04:14 Urine Urobilinogen Negative (Negative) 10/09/22 04:14 Ur Leukocyte Esterase Negative (Negative) 10/09/22 04:14 Urine WBC (Auto) 1-5 /hpf (0-5) 10/09/22 04:14 Urine RBC (Auto) 0-4 /hpf (0-4) 10/09/22 04:14 U Hyaline Cast (Auto) 1-5 /lpf (0-5) 10/09/22 04:14 U Epithel Cells (Auto) 5-10 /lpf (0-5) H 10/09/22 04:14 Urine Bacteria (Auto) Negative (Negative) 10/09/22 04:14 SARS-CoV-2 (PCR) NEGATIVE (Negative) 10/08/22 19:47 Influenza Type A (PCR) Negative (Neg) 10/08/22 19:47 Influenza Type B (PCR) Negative (Neg) 10/08/22 19:47 RSV (RT-PCR) Negative (Neg) 10/08/22 19:47 SARS-CoV-2, RNA, NAAT NEGATIVE (NEGATIVE) 10/19/22 Unknown Blood Parasites ID Cancelled 10/08/22 17:57 Impressions Chest X-Ray 10/08/22 16:29 XR chest 1V portable CLINICAL HISTORY: weakness TECHNIQUE: Single frontal radiograph of the chest was obtained. Comparison: Comparison is made to chest radiograph 05/06/2012 FINDINGS: Dual lead pacemaker is seen. Cardiomegaly is noted. The aortic arch is calcified. The lungs are clear. Small bilateral pleural effusions are seen. IMPRESSION: Small bilateral pleural effusions are seen. There is cardiomegaly without acute pulmonary abnormality. ACT 112: Negative or not required by law. Electronically signed by: Rasta Dumont M.D. 10/08/2022 7:[address] 10/08/22 19:10 CT head/brain wo con CLINICAL HISTORY: confusion Technique: Contiguous axial CT images of the head were acquired from the base of the skull to the vertex without intravenous contrast administration. Images were viewed in brain, subdural and bone windows. Automated dose lowering techniques and/or adjustment according to patient size were utilized for this exam. Comparison: Comparison is made to CT head 05/04/2012 Findings: Areas of decreased attenuation are present in the periventricular and subcortical white matter bilaterally consistent with small vessel ischemic disease. Generalized cerebral atrophy with commensurate enlargement of the ventricles, sulci, and cisterns is also present. There is no acute intracranial hemorrhage or evidence of acute territorial infarction. No shift of the midline structures, mass effect, or extra-axial abnormalities are shown. Atherosclerotic calcifications are present in the intracranial segments of the internal carotid arteries. Focal encephalomalacia is seen in the right parieto- occipital lobe and left parietal lobe. Imaged portions of the paranasal sinuses and mastoid air cells are clear. The orbits appear normal. There are no acute fractures of the calvaria or scalp swelling. Impression: No acute intracranial hemorrhage, no evidence of acute territorial infarction or other acute intracranial disease process. ACT 112: Negative or not required by law. Electronically signed by: Rasta Dumont M.D. 10/08/2022 7:[address] 10/09/22 00:02 CT OF THE CHEST WITHOUT IV CONTRAST CLINICAL HISTORY: Bilateral arm swelling. Evaluate for central venous obstruction. COMPARISON STUDY: Chest CT April 15, 2017 and chest radiograph October 08, 2022. CT DOSE: 728.49 mGy.cm TECHNIQUE: Axial images of the chest were obtained without IV contrast. Images were reviewed in the axial, sagittal, and coronal planes. IV contrast was not administered for this examination. Automated exposure control was utilized for the study. A dose lowering technique was utilized adhering to the principles of ALARA. FINDINGS: A dual-lead left subclavian pacemaker is in place. Prosthetic aortic valve is noted. There is moderate cardiomegaly and coronary artery calcification. No pericardial effusion is present. There is no pneumothorax. Moderate bilateral pleural effusions, right larger than left, are noted. Subpleural opacity represents compressive atelectasis. Although suboptimally assessed on this unenhanced exam, there is no evidence for central venous occlusion. A 2.4 cm water attenuation focus within the right middle lobe is noted. This is new since prior CT. There is mild bronchiectasis within the right middle lobe and lingula. Mild groundglass opacities within the superior segment of the right lower lobe are present. Central airways are patent. Prominent mediastinal and left axillary lymph nodes are noted. These are likely benign. There is pulmonary vascular congestion with possible mild pulmonary edema. Anasarca is noted. Small to moderate upper abdominal ascites is partially imaged on this exam. IMPRESSION: 1. Moderate bilateral pleural effusions, right larger than left. Anasarca with small to moderate upper abdominal ascites. Suspected mild pulmonary edema. 2. No evidence for central venous occlusion on unenhanced exam. 3. 2.4 cm water attenuation focus within the right middle lobe. This is likely benign. However, a follow-up chest CT in 3 months to ensure resolution is recommended. 4. Mild lingular and right middle lobe bronchiectasis. Mild groundglass opacity within the superior segment of right lower lobe. This may reflect a chronic infectious/inflammatory process. ACT 112: Negative or not required by law. Electronically signed by: Sebastian An M.D. 10/09/2022 7:49 AM Hospital Course (1) Encephalopathy: Underlying cognitive impairment and functional disability Multifactorial : Hypertensive crisis, secondary to medication noncompliance Decompensated heart failure, history systolic dysfunction, predominant subacute right-sided heart failure symptoms, underlying pulmonary hypertension, JT on CPAP ARF on CKD New onset hypothyroidism Initiate low-dose levothyroxine, TSH recheck outpatient next month Abnormal CT chest initial read findings (right upper lobe density, mediastinal adenopathy):: 1. Moderate bilateral pleural effusions, right larger than left. Anasarca with small to moderate upper abdominal ascites. Suspected mild pulmonary edema. 2. No evidence for central venous occlusion on unenhanced exam. 3. 2.4 cm water attenuation focus within the right middle lobe. This is likely benign. However, a follow-up chest CT in 3 months to ensure resolution is recommended. 4. Mild lingular and right middle lobe bronchiectasis. Mild groundglass opacity within the superior segment of right lower lobe. This may reflect a chronic infectious/inflammatory process. Clinically much improved, not drowsy, feeling well seems to be at his baseline Started to eat and drink normally and has been communicating normally PT and OT evaluation - recommend rehab, CM involved 10/13 Cr up at 1.9 - holding lisinopril 10/15 -creatinine still elevated above baseline. Patient with some mild edema. Discussed with cardiology, will add IV Lasix and will closely monitor. In addition to control BP better, added Isordil. 10/18 - slightly improved Cr 1.7, resumed his p.o. Lasix 40 mg daily hx CLL, per observation by local oncologist Chronic anemia, hemoglobin better than baseline hx ICH, cerebral amyloid angiopathy as per records No acute symptoms (2) T2DM (type 2 diabetes mellitus): DM2 insulin requiring, suboptimal control as of recent hemoglobin A1c of 8.7 last May 2022 Blood sugar was running low and the patient was not eating and drinking enough and was requiring intravenous dextrose Basal bolus insulin, ISS BG goal 110-1 40, carb count coverage, update hemoglobin A1c Appreciate staff development educator input and recommended Will likely to stop insulin and metformin Plan to restart Ozempic on discharge/ as outpt (3) Ischemic cardiomyopathy: Aortic stenosis status post bioprosthetic AVR Valvular heart disease (moderate TR, mild MR, mild paravalvular aortic valve prosthesis regurgitation) SSS status post PPM, PAF not on anticoagulation secondary to bleeding risk Appreciate cardiology input and recommendation Lasix on hold d/t elev. Cr -questionable about resuming Lasix on discharge/as outpatient (4) JT on CPAP: Outpatient sleep medicine follow-up to check on current CPAP settings (patient overdue for visit, last visit was 2016) (5) Chronic atrial fibrillation: Rate remains controlled per cardiology note - Anticoagulation risks felt to be greater than the benefit secondary to ambulatory dysfunction, iron deficiency anemia, history of intracranial hemorrhage, history of amyloid angiopathy Plan PT OT eval DVT prophylaxis. Heparin subcu Full code Patient daughters contacts Ms. Sarthak Guerrero, contact #[phone] Ms. Sophia Carlin, contact #[phone] Total Time Total Time Spent Total Time Spent (In Minutes): 35 minutes Discharge Plan Discharge Items Patient Disposition: Transfer [facility] Reason For Visit: HTN CRISIS Discharge Diagnosis: Confusion: Systolic heart failure secondary to coronary artery disease: Chronic atrial fibrillation: T2DM (type 2 diabetes mellitus): Ischemic cardiomyopathy: Activity: Resume your previous activity Non-emergency contact: Primary Care Provider and Pan Operator Call non-emergency contact if: you have any medication questions and your temperature is above 101 Follow-up/Referrals: Delaney Lopez MD [Primary Care Provider] - Diet: Heart Healthy Addtl Attending Provider Instructions: Follow up with primary care provider at the facility Follow up with cardiology outpatient Continue physical and occupational therapy Fall precaution Check BMP in 1 week to monitor renal function and kidney function Continue monitor your blood pressure (Your physician will adjust your blood pressure medication ) You will need a repeat Cat Scan of the chest in 3 months to to ensure resolution of the 2.4 cm water attenuation lesion Seek Medical attention if you develop any shortness of breath Continue Cpap at night Please restart Ozempic on discharge for your diabetes and discontinue Metformin Check Hba1c in 3 months Pending Studies at Discharge: No Stand-Alone Forms: My [facility] Skilled Items Patient informed of condition?: Yes DNR: No Discharge Level of Care: Skilled Communicable Disease: No Discharge Prognosis: Stable Lines: None Urinary Catheter: No Medications and DC Order Prescriptions: New magnesium oxide 400 mg (241.3 mg magnesium) Tablet 400 mg PO QAM Qty: 30 0RF isosorbide dinitrate 5 mg Tablet 2.5 mg PO BID@0700,1200 30 Days Qty: 30 0RF potassium chloride 10 mEq tablet extended release 10 meq PO DAILY Qty: 30 0RF Continued omeprazole 20 mg capsule,delayed release(DR/EC) 20 mg PO DAILY amoxicillin 500 mg capsule 2,000 mg PO DIRECTED PRN (Reason: PRIOR TO DENTAL APPT.) Rx Instructions: take 1 hour prior to any dental procedure furosemide 40 mg tablet 40 mg PO QAM atorvastatin 40 mg tablet 40 mg PO QAM amlodipine 10 mg tablet 5 mg PO QAM cyanocobalamin (vitamin B-12) 1,000 mcg Tablet 1,000 mcg PO QAM ferrous sulfate 325 mg (65 mg iron) Tablet 325 mg PO DAILY nitroglycerin 0.4 mg Tablet, Sublingual 0.4 mg sublingual UD PRN (Reason: Chest Pain) carvedilol 12.5 mg Tablet 6.25 mg PO BID Rx Instructions: must administer with a meal/food Discontinued lisinopril 40 mg tablet 40 mg PO QAM metformin 500 mg tablet extended release 24 hr 500 mg PO QAM Rx Instructions: PER PT'S DAUGHTERS "ORDERED 1,000 MG BID, HE ONLY TAKES 500 MG DAILY, D/T GI UPSET". Discharge Orders: Discharge Order (Routine); Ordered 10/19/22 Ordered By: Fredy Chavarria/Other Patient Handouts: Managing Type 2 Diabetes Admission Data Admit Date/Time: 10/09/22 00:06 Attending Provider: Fredy Gomez Admit Provider: Diego Birch Primary Care Provider: Delaney Lopez Other Providers: Aime Murphy ; [facility] ; [facility] ; [facility] ; Diego Birch ; Javid Johnson ; Mark Cardona ; Guillermo Villeda ; Jose Elias ; Mati Moreno ; Jose Manuel Triplett ; Sarai Smith ; Chaya Ma ; Purnima Brandon ; Damon Castelan ; Keenan Cannon
== END 2022-10-19 13:26 | DRG 291 ==
LOC: ED 16:24 → SUATTDRO 10-09 00:06 → EDINP 10-09 00:06 → 2S 10-09 02:54 → 3E 10-17 19:18

== ENCOUNTER 2022-10-25 19:37 | Inpatient (IN) ==
[2022-10-25 20:53] LABS: Hematocrit (blood only) 35.2 % (40.1-51.0); Mean Corpuscular Hemoglobin 31.3 pg (25.0-34.0); Mean Corpuscular Hgb Conc 34.1 g/dL (32.0-36.0); Mean Corpuscular Volume 91.9 fL (80.0-100.0); Mean Platelet Volume 11.2 fL (9.4-12.4); Nucleated RBC # (auto) 0.02 K/uL (0-0); Nucleated RBC % (auto) 0.4 %; Platelet Count 187 K/uL (130-400); RDW Coefficient of Variation 17.3 % (11.5-14.5); RDW Standard Deviation 57.8 fL (36.4-46.3); Red Blood Count 3.83 M/uL (4.63-6.08); White Blood Count 5.62 K/ul (4.8-10.8)
[2022-10-25 21:19] LABS: Base Excess ABG 0.9 mEq/L (-9-1.8); HCO3 ABG 22 mmol/L (19-24); Oxygen Saturation ABG 98.8 % (90-95); PCO2 ABG 25 mmHg (35-46); PO2 ABG 91 mmHg (80-95)
--- NOTE | 2022-10-25 21:21 | Emergency Department Note ---
History of Present Illness General Chief complaint: Illness Stated complaint: Illness, Fever, Wound Time Seen by Provider: 10/25/22 20:26 Source: family History of Present Illness Provider complaint: Shortness of breath confusion Onset (ago): day(s) 2 76-year-old male presents emergency department with daughter for shortness of breath and confusion. Patient's daughters report that over the last 2 days patient has becoming increasing confused swollen legs and difficulty breathing. They report that he does not usually wear oxygen. Denies any chest pains. Patient recently did fall. Patient is not on any blood thinners. Patient cur rently reports no pain. Home Medications Medication Instructions Recorded Confirmed Type atorvastatin 40 mg tablet 40 mg PO QAM 10/08/19 10/25/22 History furosemide 40 mg tablet 40 mg PO QAM 10/08/19 10/25/22 History cyanocobalamin (vitamin B-12) 1,000 mcg PO QAM 12/06/20 10/25/22 History 1,000 mcg tablet ferrous sulfate 325 mg (65 mg 325 mg PO DAILY 12/06/20 10/25/22 History iron) tablet nitroglycerin 0.4 mg sublingual 0.4 mg sublingual UD PRN Chest Pain 12/06/20 10/25/22 History tablet amoxicillin 500 mg capsule 2,000 mg PO DIRECTED PRN PRIOR 06/02/21 10/25/22 History TO DENTAL APPT. omeprazole 20 mg capsule,delayed 20 mg PO DAILY 06/02/21 10/25/22 History release isosorbide dinitrate 5 mg tablet 2.5 mg PO BID@0700,1200 30 days 10/19/22 10/25/22 Rx #30 tabs magnesium oxide 400 mg (241.3 mg 400 mg PO QAM #30 tabs 10/19/22 10/25/22 Rx magnesium) tablet potassium chloride 10 mEq 10 meq PO DAILY #30 tabs 10/19/22 10/25/22 Rx tablet,extended release acetaminophen 325 mg tablet 325 mg PO Q6H PRN FEVER/PAIN 10/25/22 10/25/22 History (Tylenol) amlodipine 5 mg tablet 5 mg PO DAILY 10/25/22 10/25/22 History carvedilol 6.25 mg tablet 6.25 mg PO BID 10/25/22 10/25/22 History levothyroxine 75 mcg tablet 75 mcg PO DAILY 10/25/22 10/25/22 History semaglutide 0.25 mg or 0.5 mg (2 0.5 mg subcut WK 10/25/22 10/25/22 History mg/1.5 mL) subcutaneous pen injector (Ozempic) Allergies Allergy/AdvReac Type Severity Reaction Status Date / Time No Known Allergies Allergy Unknown NONE Verified 10/25/22 22:43 Past Med/Surg History Medical History Acute blood loss anemia BRIAN (acute kidney injury) Brain bleed 2010 CAD (coronary artery disease) Cardiac pacemaker "SINCE 1973" FOLLOWS WITH DR. POZO Chronic atrial fibrillation CKD (chronic kidney disease), stage III PT DENIES Diabetes mellitus, type 2 Diabetic peripheral neuropathy associated with type 2 diabetes mellitus History of sick sinus syndrome s/p PPM HLD (hyperlipidemia) Hx of gastritis Hypertension Intracerebral hemorrhage Memory deficit Myocardial Infarction 1973 JT on CPAP SEVERE SLEEP APNEA Poor historian Stroke 1973 AND 1978 (DENIES ANY CUSTODIAL PROBLEMS FROM EVENTS) Surgical History History of anesthesia reaction PT STATES "THEY HAD A HARD TIME PUTTING ME TO SLEEP" 1973 ? PROCEDURE History of colonoscopy History of esophagogastroduodenoscopy (EGD) History of orthopedic surgery "repair of fracture right ankle" History of throat surgery History of tonsillectomy and adenoidectomy History of tooth extraction Hx of aortic valve replacement TAVR 2018 AT [facility] (FOLLOWED BY [facility]) Family History Father Coronary heart disease Stroke Brother Prostate cancer Sister Family history of diabetes mellitus Other No family history of adverse response to anesthesia Social History Smoking Status: Never smoker Second Hand Exposure: Yes ( A CHILD); Hx Alcohol Use: Yes Alcohol type: wine Alcohol Intake Frequency Comment: very very rarely Hx Substance Use: No Preferred Language: Greek Communication Ability: Effective Visual Impairment: Limited Hearing Ability: Hard of Hearing Tax [employer] Le[employer] Consultant Required: No Beliefs That Will Affect Care: None marital status: Current Living Situation: Alone and Personal Care Facility current occupational status: retired How many Children do You have: 3 How many Children do You have Comment: family involved with care and able to assist with care Feels Safe at Home: Yes during the past year weight has: decreased > 10 lbs Assistive Devices: CPAP Physical Exam Vital Signs Vital Signs - 24 hr 10/25/22 20:13 10/25/22 21:05 10/25/22 22:28 Temperature 36.2 C L Temperature Source Oral Pulse Rate 91 H Pulse Rate [Apical] 85 Pulse Rate from SpO2 Sensor Respiratory Rate 24 32 H Blood Pressure 108/59 L Blood Pressure [Right Arm] 99/63 L Blood Pressure Mean 75 Blood Pressure Mean [Right Arm] 75 Pulse Oximetry 98 87 L 97 Oxygen Delivery Method Nasal Cannula Room Air Room Air Oxygen Flow Rate 2 Sepsis Recent Fever Within 48 Hours Yes Sepsis New/Unexplained Change in Mental Status Yes Sepsis Action Taken by Nursing No Action Required 10/25/22 20:00 10/25/22 20:01 10/25/22 20:01 Temperature Temperature Source Pulse Rate 83 79 Pulse Rate [Apical] Pulse Rate from SpO2 Sensor 81 79 Respiratory Rate 27 H 23 Blood Pressure 108/59 L Blood Pressure [Right Arm] Blood Pressure Mean 75 Blood Pressure Mean [Right Arm] Pulse Oximetry 98 98 Oxygen Delivery Method Oxygen Flow Rate Sepsis Recent Fever Within 48 Hours Sepsis New/Unexplained Change in Mental Status Sepsis Action Taken by Nursing 10/25/22 20:10 10/25/22 20:20 10/25/22 20:30 Temperature Temperature Source Pulse Rate 78 77 Pulse Rate [Apical] Pulse Rate from SpO2 Sensor 81 84 79 Respiratory Rate 28 H 26 H 28 H Blood Pressure Blood Pressure [Right Arm] Blood Pressure Mean Blood Pressure Mean [Right Arm] Pulse Oximetry 97 97 98 Oxygen Delivery Method Oxygen Flow Rate Sepsis Recent Fever Within 48 Hours Sepsis New/Unexplained Change in Mental Status Sepsis Action Taken by Nursing 10/25/22 20:40 10/25/22 20:50 10/25/22 21:00 Temperature Temperature Source Pulse Rate 86 88 93 H Pulse Rate [Apical] Pulse Rate from SpO2 Sensor 83 Respiratory Rate 26 H Blood Pressure Blood Pressure [Right Arm] Blood Pressure Mean Blood Pressure Mean [Right Arm] Pulse Oximetry 97 Oxygen Delivery Method Oxygen Flow Rate Sepsis Recent Fever Within 48 Hours Sepsis New/Unexplained Change in Mental Status Sepsis Action Taken by Nursing 10/25/22 21:26 10/25/22 21:30 10/25/22 21:40 Temperature Temperature Source Pulse Rate 81 83 Pulse Rate [Apical] Pulse Rate from SpO2 Sensor 84 Respiratory Rate 29 H 26 H 23 Blood Pressure Blood Pressure [Right Arm] Blood Pressure Mean Blood Pressure Mean [Right Arm] Pulse Oximetry 96 Oxygen Delivery Method Oxygen Flow Rate Sepsis Recent Fever Within 48 Hours Sepsis New/Unexplained Change in Mental Status Sepsis Action Taken by Nursing 10/25/22 21:50 10/25/22 22:00 10/25/22 22:10 Temperature Temperature Source Pulse Rate 82 Pulse Rate [Apical] Pulse Rate from SpO2 Sensor 94 H 79 85 Respiratory Rate 25 H 27 H 27 H Blood Pressure Blood Pressure [Right Arm] Blood Pressure Mean Blood Pressure Mean [Right Arm] Pulse Oximetry 96 90 98 Oxygen Delivery Method Oxygen Flow Rate Sepsis Recent Fever Within 48 Hours Sepsis New/Unexplained Change in Mental Status Sepsis Action Taken by Nursing 10/25/22 22:20 10/25/22 22:27 10/25/22 22:27 Temperature Temperature Source Pulse Rate 96 H 94 H Pulse Rate [Apical] Pulse Rate from SpO2 Sensor 83 87 Respiratory Rate 27 H 27 H Blood Pressure 99/63 L Blood Pressure [Right Arm] Blood Pressure Mean 75 Blood Pressure Mean [Right Arm] Pulse Oximetry 92 93 Oxygen Delivery Method Oxygen Flow Rate Sepsis Recent Fever Within 48 Hours Sepsis New/Unexplained Change in Mental Status Sepsis Action Taken by Nursing 10/25/22 22:30 10/25/22 22:40 Temperature Temperature Source Pulse Rate 85 81 Pulse Rate [Apical] Pulse Rate from SpO2 Sensor 87 85 Respiratory Rate 27 H 29 H Blood Pressure Blood Pressure [Right Arm] Blood Pressure Mean Blood Pressure Mean [Right Arm] Pulse Oximetry 96 96 Oxygen Delivery Method Oxygen Flow Rate Sepsis Recent Fever Within 48 Hours Sepsis New/Unexplained Change in Mental Status Sepsis Action Taken by Nursing Physical Exam HENT: Exam performed. - Head: Normocephalic and atraumatic. EYES: Conjunctivae and EOM are normal. Pupils are equal, round, and reactive to light. Right eye exhibits no discharge. Left eye exhibits no discharge. No scleral icterus. NECK: Normal range of motion. Neck supple. No JVD present. No spinous process tenderness present. CV: Normal rate, regular rhythm, normal heart sounds and intact distal pulses. Palpable radial pulses bue. PULM/CHEST: Rales bilaterally. ABD: The abdomen is soft. MUSC/SKEL: Pelvis stable. 3+ pitting edema of the bilateral lower extremities. NEURO: Motor and sensation grossly intact. SKIN: Bullae lesion over the left lower extremity wheeler. Course Course 2025: The patient was evaluated in room A4. A complete history and physical exam was performed Cardiac monitoring: An order was placed for continuous cardiac monitoring. The monitor shows a rate of 90 with atrial fibrilation rhythm Patient was found to be hypoxic on room air. Daughter is at bedside reports that the patient does not usually wear oxygen. Supplemental oxygen was applied via nasal cannula which improved the patient's oxygen saturation. External medical records were reviewed. The patient was admitted to this facility from October 08 to October 19, 2022 for encephalopathy. The encephalopathy was thought to be due to cognitive impairment hypertensive crisis BRIAN new onset hypothyroidism. Patient has history of aortic stenosis status post bioprosthetic AVR. Patient has CKD and creatinine runs about 1.7. The patient was [facility] to [facility]. External medical records from [facility] were reviewed and today the patient had a temperature of 102.2. There is also note from October 23, 2022 at 11 5 0 that states that the patient was found on the floor in the bathroom lying there stating he lost his balance. Was unsure how long the patient was lying down for. 2200: Vital signs stable on supplemental oxygen via nasal cannula. Labs are significant for a white blood cell count of 5.62 hemoglobin of 12. INR 1.5. ABG shows a pH of 7.55 with a PCO2 of 25. Creatinine is now up to 2.11. Initial lactic acid 3. Patient will not be given 30 cc/kg fluid bolus as the patient does have a history of congestive heart failure, aortic stenosis and in addition clinically the patient has rales bilaterally. Chest x-ray confirms cardiomegaly with cephalization and fluid overload. Chest x-ray also shows a right middle lobe infiltrate. Patient will be treated for pneumonia with broad- spectrum antibiotics given his recent admission to the hospital cefepime and vancomycin ordered for the patient. Troponin elevated at 301.3. Patient not reporting any chest pain proBNP elevated greater than 4700, the elevated troponin is thought to be due to the patient's congestion and heart failure acute exacerbation. [facility] Dr. Sultana will be notified. Administered Medications Discontinued Medications Furosemide (Furosemide 40 Mg/4 Ml Vial) 40 mg IV ONE ONE Stop: 10/25/22 21:59 Last Admin: 10/25/22 22:19 Dose: 40 mg Documented By: RADHIKA Cefepime HCl (Maxipime) 2,000 mg in 20 mls @ 5 mls/min IV NOW STA; Protocol Stop: 10/25/22 22:00 Last Admin: 10/25/22 22:19 Dose: 5 mls/min Documented By: RADHIKA Critical Care Time Critical Care Time: Yes Total Critical Care Time: 57 I have personally spent greater than 57 minutes of critical care time in the direct management of this patient. This includes bedside care, interpretation of diagnostic studies, and testing, discussion with consultants, patient, and family members, and other required patient management activities. This 57 minutes is in excess of all separately billable procedures. Medical Decision Making Laboratory Data Attestation: I reviewed the patient's lab results. Result diagrams: 10/25/22 20:05 10/25/22 21:05 Lab Results 10/25/22 10/25/22 10/25/22 Range/Units 20:05 20:05 20:05 WBC 5.62 (4.8-10.8) K/ul RBC 3.83 L (4.63-6.08) M/uL Hgb 12.0 L (14.0-18.0) g/dl Hct 35.2 L (40.1-51.0) % MCV 91.9 (80.0-100.0) fL MCH 31.3 (25.0-34.0) pg MCHC 34.1 (32.0-36.0) g/dL RDW Std Deviation 57.8 H (36.4-46.3) fL RDW Coeff of Solis 17.3 H (11.5-14.5) % Plt Count 187 (130-400) K/uL MPV 11.2 (9.4-12.4) fL Absolute Nucleated RBC 0.02 H (0-0) K/uL Nucleated RBC % (auto) 0.4 % PT Cancelled INR Cancelled APTT Cancelled PTT Ratio Cancelled ABG pH (7.35-7.45) ABG pCO2 (35-46) mmHg ABG pO2 (80-95) mmHg ABG HCO3 (19-24) mmol/L ABG O2 Saturation (90-95) % ABG Base Excess (-9-1.8) mEq/L Conrado Test (Pos) Oxygen Given Sodium Cancelled Potassium Cancelled Chloride Cancelled Carbon Dioxide Cancelled Anion Gap Cancelled BUN Cancelled Creatinine Cancelled Est Cr Clr Drug Dosing Cancelled Est GFR ( Amer) Cancelled Est GFR (Non-Af Amer) Cancelled BUN/Creatinine Ratio Cancelled Glucose Cancelled Lactate (0.4-2.0) mmol/L Calcium Cancelled Magnesium Cancelled Total Bilirubin Cancelled Direct Bilirubin Cancelled AST Cancelled ALT Cancelled Alkaline Phosphatase Cancelled Troponin I High Sens Cancelled B-Natriuretic Peptide (0-100) pg/ml Total Protein Cancelled Albumin Cancelled Lipase Cancelled SARS-CoV-2 (PCR) (Negative) Influenza Type A (PCR) (Neg) Influenza Type B (PCR) (Neg) RSV (RT-PCR) (Neg) 10/25/22 10/25/22 10/25/22 Range/Units 21:04 21:05 21:05 WBC (4.8-10.8) K/ul RBC (4.63-6.08) M/uL Hgb (14.0-18.0) g/dl Hct (40.1-51.0) % MCV (80.0-100.0) fL MCH (25.0-34.0) pg MCHC (32.0-36.0) g/dL RDW Std Deviation (36.4-46.3) fL RDW Coeff of Solis (11.5-14.5) % Plt Count (130-400) K/uL MPV (9.4-12.4) fL Absolute Nucleated RBC (0-0) K/uL Nucleated RBC % (auto) % PT INR APTT PTT Ratio ABG pH 7.55 H* (7.35-7.45) ABG pCO2 25 L (35-46) mmHg ABG pO2 91 (80-95) mmHg ABG HCO3 22 (19-24) mmol/L ABG O2 Saturation 98.8 H (90-95) % ABG Base Excess 0.9 (-9-1.8) mEq/L Conrado Test Pos (Pos) Oxygen Given 2 Sodium Potassium Chloride Carbon Dioxide Anion Gap BUN Creatinine Est Cr Clr Drug Dosing Est GFR ( Amer) Est GFR (Non-Af Amer) BUN/Creatinine Ratio Glucose Lactate (0.4-2.0) mmol/L Calcium Magnesium Total Bilirubin Direct Bilirubin AST ALT Alkaline Phosphatase Troponin I High Sens B-Natriuretic Peptide > 4700 H (0-100) pg/ml Total Protein Albumin Lipase SARS-CoV-2 (PCR) NEGATIVE (Negative) Influenza Type A (PCR) Negative (Neg) Influenza Type B (PCR) Negative (Neg) RSV (RT-PCR) Negative (Neg) 10/25/22 10/25/22 10/25/22 Range/Units 21:05 21:05 21:05 WBC (4.8-10.8) K/ul RBC (4.63-6.08) M/uL Hgb (14.0-18.0) g/dl Hct (40.1-51.0) % MCV (80.0-100.0) fL MCH (25.0-34.0) pg MCHC (32.0-36.0) g/dL RDW Std Deviation (36.4-46.3) fL RDW Coeff of Solis (11.5-14.5) % Plt Count (130-400) K/uL MPV (9.4-12.4) fL Absolute Nucleated RBC (0-0) K/uL Nucleated RBC % (auto) % PT 15.8 H INR 1.5 H APTT 40.1 H PTT Ratio 1.5 ABG pH (7.35-7.45) ABG pCO2 (35-46) mmHg ABG pO2 (80-95) mmHg ABG HCO3 (19-24) mmol/L ABG O2 Saturation (90-95) % ABG Base Excess (-9-1.8) mEq/L Conrado Test (Pos) Oxygen Given Sodium 134 L Potassium 3.6 Chloride 102 Carbon Dioxide 20 L Anion Gap 12 H BUN 42 H Creatinine 2.11 H D Est Cr Clr Drug Dosing 40.5 Est GFR ( Amer) 34.4 Est GFR (Non-Af Amer) 29.7 BUN/Creatinine Ratio 19.9 Glucose 146 H Lactate 3.0 H* (0.4-2.0) mmol/L Calcium 8.7 Magnesium 1.7 Total Bilirubin 3.6 H Direct Bilirubin 1.7 H AST 31 ALT 19 Alkaline Phosphatase 191 H Troponin I High Sens 301.3 H* B-Natriuretic Peptide (0-100) pg/ml Total Protein 6.4 Albumin 2.7 L Lipase 6 L SARS-CoV-2 (PCR) (Negative) Influenza Type A (PCR) (Neg) Influenza Type B (PCR) (Neg) RSV (RT-PCR) (Neg) Imaging Data Attestation: I personally reviewed and interpreted this imaging study as follows: My Impression: Chest xray: cardiomegaly w cephalization RML infiltrate airway clear no free air under diapragm no skeletal fractures no pacemaker lead fracture pelvis xray: no acute fx or dislocation penile implant Radiologist's Impression: PreliminaryFindingsOnly See Final Report For Complete Findings CT HEAD: Comparison made to prior examdated 10/08/2022 Examis slightlylimited secondaryto patient motion artifact. Stable chronic left parietal and right temporal lobe infarcts. No newacute intracranial hemorrhage. No acute transcortical infarct present. Stable chronic bilateral cerebellar infarcts No midline shift. Radiologist: Fredi Grimes MD Study ready at 21:22 and initial results transmitted at 21:34 PreliminaryFindingsOnly See Final Report For Complete Findings CT C SPINE: Large bilateral right greater than left pleural effusions. Degenerative fusion of the C2-C3 and C3-C4 facets. Advanced multilevel facet arthropathywithout fracture or dislocation resulting in varying degrees of canal or foraminal stenosis. Radiologist: Fredi Grimes MD Study ready at 21:22 and initial results transmitted at 21:31 ECG Data Attestation: I personally reviewed and interpreted this ECG as follows: Indication: + SOB/dyspnea Rate (beats per minute): 86 Rhythm: + atrial fibrillation ECG Intervals/blocks: + Normal QT-c ECG ST segments: + Normal ST segments Additional Comments: QRS 122 MDM Narrative 2025: The patient was evaluated in room A4. A complete history and physical exam was performed Cardiac monitoring: An order was placed for continuous cardiac monitoring. The monitor shows a rate of 90 with atrial fibrilation rhythm Patient was found to be hypoxic on room air. Daughter is at bedside reports that the patient does not usually wear oxygen. Supplemental oxygen was applied via nasal cannula which improved the patient's oxygen saturation. External medical records were reviewed. The patient was admitted to this facility from October 08 to October 19, 2022 for encephalopathy. The encephalopathy was thought to be due to cognitive impairment hypertensive crisis BRIAN new onset hypothyroidism. Patient has history of aortic stenosis status post bioprosthetic AVR. Patient has CKD and creatinine runs about 1.7. The patient was discharged to [facility]. External medical records from [facility] were reviewed and today the patient h ad a temperature of 102.2. There is also note from October 23, 2022 at 11 5 0 that states that the patient was found on the floor in the bathroom lying there stating he lost his balance. Was unsure how long the patient was lying down for. 2200: Vital signs stable on supplemental oxygen via nasal cannula. Labs are significant for a white blood cell count of 5.62 hemoglobin of 12. INR 1.5. ABG shows a pH of 7.55 with a PCO2 of 25. Creatinine is now up to 2.11. Initial lactic acid 3. Patient will not be given 30 cc/kg fluid bolus as the patient does have a history of congestive heart failure, aortic stenosis and in addition clinically the patient has rales bilaterally. Chest x-ray confirms cardiomegaly with cephalization and fluid overload. Chest x-ray also shows a right middle lobe infiltrate. Patient will be treated for pneumonia with broad- spectrum antibiotics given his recent admission to the hospital cefepime and vancomycin ordered for the patient. Troponin elevated at 301.3. Patient not reporting any chest pain proBNP elevated greater than 4700, the elevated troponin is thought to be due to the patient's congestion and heart failure acute exacerbation. Patient will be admitted to the [facility] team Dr. Sultana will be notified. Impression & Plan Hypoxia, Pneumonia, Acute kidney injury superimposed on CKD, Acute exacerbation of CHF (congestive heart failure), Sepsis Discharge Plan Visit Data Chief Complaint: Illness Stated Complaint: Illness, Fever, Wound ED Provider: Kerwin Pedro Discharge Problem: Hypoxia, Pneumonia, Acute kidney injury superimposed on CKD, Acute exacerbation of CHF (congestive heart failure), Sepsis Patient Disposition: Admitted As Inpatient Forms Stand Alone Forms: [facility] Prescriptions Prescriptions: No Action omeprazole 20 mg capsule,delayed release(DR/EC) 20 mg PO DAILY amoxicillin 500 mg capsule 2,000 mg PO DIRECTED PRN (Reason: PRIOR TO DENTAL APPT.) Rx Instructions: take 1 hour prior to any dental procedure furosemide 40 mg tablet 40 mg PO QAM atorvastatin 40 mg tablet 40 mg PO QAM cyanocobalamin (vitamin B-12) 1,000 mcg Tablet 1,000 mcg PO QAM ferrous sulfate 325 mg (65 mg iron) Tablet 325 mg PO DAILY nitroglycerin 0.4 mg Tablet, Sublingual 0.4 mg sublingual UD PRN (Reason: Chest Pain) magnesium oxide 400 mg (241.3 mg magnesium) Tablet 400 mg PO QAM Qty: 30 0RF isosorbide dinitrate 5 mg Tablet 2.5 mg PO BID@0700,1200 30 Days Qty: 30 0RF potassium chloride 10 mEq tablet extended release 10 meq PO DAILY Qty: 30 0RF acetaminophen [Tylenol] 325 mg Tablet 325 mg PO Q6H MDD 3 GRAMS/24 HOURS PRN (Reason: FEVER/PAIN) carvedilol 6.25 mg Tablet 6.25 mg PO BID Rx Instructions: must administer with a meal/food amlodipine 5 mg Tablet 5 mg PO DAILY levothyroxine 75 mcg Tablet 75 mcg PO DAILY Ozempic 0.25 mg or 0.5 mg(2 mg/1.5 mL) Pen Injector 0.5 mg SUBCUT WK Rx Instructions: TAKES ON MONDAYS Referrals Referrals: [facility] [Primary Care Provider] -
[2022-10-25 21:22] LABS: Allen Test Pos (Pos)
[2022-10-25 21:26] LABS: pH ABG 7.55 (7.35-7.45)
[2022-10-25 21:31] LABS: INR 1.5 (0.9-1.1); Partial Thromboplastin Ratio 1.5; Partial Thromboplastin Time 40.1 Seconds (21.0-31.0); Prothrombin Time 15.8 Seconds (9.0-12.0)
[2022-10-25 21:44] LABS: Albumin Level 2.7 gm/dl (3.4-5.0); BUN Creatinine Ratio 19.9 (10-20); Bilirubin Direct 1.7 mg/dl (0-0.2); Bilirubin,Total 3.6 mg/dl (0.2-1.0); Calcium 8.7 mg/dl (8.5-10.1); Creatinine Clr Calc Pharmacy 40.5 ml/min; Est GFR (African American) 34.4 ml/min; Est GFR (Non-African American) 29.7 ml/min; Magnesium 1.7 mg/dl (1.7-2.4); Potassium 3.6 mmol/L (3.5-5.1); Total Protein 6.4 gm/dl (6.0-8.3)
[2022-10-25 21:51] LABS: Troponin I High Sensitivity 301.3 pg/ml (0-20)
[2022-10-25] MEDS ORDERED: VANCOMYCIN HCL 2,750 MG in SODIUM CHLORIDE 0.9% 500 ML IV ONE (21:57)
[2022-10-25] MEDS ORDERED: CEFEPIME 2,000 MG/20 ML VIAL IV STA (21:57)
[2022-10-25] MEDS ORDERED: VANCOMYCIN CONSULT ACTIVE PRN (21:57)
[2022-10-25] MEDS ORDERED: FUROSEMIDE 40 MG/4 ML VIAL IV ONE (21:58)
[2022-10-25 22:09] LABS: Influenza A virus by PCR Negative (Neg); Influenza B virus by PCR Negative (Neg); RSV by PCR Negative (Neg); SARS CoV2 RNA(COVID-19) Ceph NEGATIVE (Negative)
[2022-10-26] MEDS ORDERED: GLUCOSE 10 TAB/TUBE PO PRN (00:45)
[2022-10-26] MEDS ORDERED: GLUCOSE 40% GEL 15 GM TUBE PO PRN (00:45)
[2022-10-26] MEDS ORDERED: ACETAMINOPHEN 325 MG TAB PO PRN (00:45)
[2022-10-26] MEDS ORDERED: CARBOHYDRATES FOR HYPOGLYCEMIA PO PRN (00:45)
[2022-10-26] MEDS ORDERED: POLYETHYLENE (MIRALAX) 17 GM PACK PO PRN (00:45)
[2022-10-26] MEDS ORDERED: GLUCAGON FOR INJ 1 MG VIAL SQ PRN (00:45)
[2022-10-26] MEDS ORDERED: NITROGLYCERIN SL 0.4 MG/TAB TAB SL PRN ×2 (00:45)
[2022-10-26] MEDS ORDERED: DEXTROSE 50% 50 ML SYRINGE IV PRN (00:45)
[2022-10-26 00:46] LABS: Basophils # (auto) 0.01 K/uL (0-0.2); Basophils % (auto) 0.2 %; Immature Granulocytes # (auto) 0.05 K/uL (0.00-0.02); Immature Granulocytes % (auto) 0.9 %; Lymphocytes % (auto) 26.7 %; Monocytes # (auto) 0.07 K/uL (0.24-0.82); Monocytes % (auto) 1.2 %; Neutrophils # (auto) 3.99 K/uL (1.4-6.5); Toxic Vacuolation 1+
--- NOTE | 2022-10-26 01:40 | Pharmacy Report ---
Pharmacy PK ABX Note - Date of Service October 26, 2022 - Assessment and Plan Assessment 76 year old M receiving Vancomycin + Zosyn for treatment of possible PNA. Pertinent microbiologic data includes: blood culture x 2 pending. Plan Vancomycin * Loading dose: 2750 mg IV x 1 * Maintenance dose: 1250 mg IV every 24 hours * Regimen is predicted to achieve target AUC/ELVIA of 400-600 mg/L.hr Pharmacy will continue to follow and will adjust dose/frequency as necessary. Thank you. Pharmacy has transitioned to AUC monitoring for vancomycin. AUC/ELVIA is the preferred PK/PD target and is associated with decreased risk of nephrotoxicity compared to traditional trough targets. 4
--- NOTE | 2022-10-26 03:07 | History and Physical Report ---
DATE OF ADMISSION: 10/25/2022. CHIEF COMPLAINT: Shortness of breath. HISTORY OF PRESENT ILLNESS: This is a 76-year-old male with past medical history significant for chronic systolic heart failure, EF of 40% to 45%, aortic stenosis, status post bioprosthetic aortic valve replacement, valvular heart disease, moderate tricuspid regurgitation, mild mitral regurgitation, mild paravalvular aortic valve prosthetic regurgitation, sick sinus syndrome status post permanent pacemaker, paroxysmal atrial fibrillation not on anticoagulation secondary to fall risk and also bleeding risk, history of pulmonary hypertension, obstructive sleep apnea on CPAP, diabetes insulin requiring, chronic kidney disease baseline creatinine1.3 to 1.4, history of CLL, chronic anemia, baseline hemoglobin of 13, history of ICH, and cerebral amyloid angiopathy as per records, history of dementia, who was recently in the hospital, was treated for acute encephalopathy secondary to hypertensive crisis, heart failure, new onset hypothyroidism, BRIAN. The patient improved, resumed his Lasix 40 mg daily at discharge, currently his lisinopril is held and was discharged to [facility]. He is ambulating with a walker. He tried to get up by himself on the bed and fell on the left side and has some pain in the left arm and today he was getting more confused, he also had a fever at [facility] and was brought in here. Here he was somewhat short of breath requiring oxygen, also he has a big blister on the left wheeler that is the new as per the daughter. His appetite is poor. The patient has dementia, he knows his name, but does not know where he is, knows his daughters but not remembering their names. As per daughter, he has dementia, but his Mental status today is worse from his baseline. There was no complaint of any pain, no nausea or vomiting. No diarrhea or constipation. Since he is confused,could not get complete history at this time. In the ER when he came in his lactic acid was 3 and blood pressure was slightly on the lower side. He was given vancomycin and cefepime. His ABGs were okay. Creatinine came as 2.1, repeat lactic acid is 2.9. Troponin 301, BNP greater than 4700. CT of the head no acute findings. Cervical spine CT, no acute findings. No cough as per the daughter, the patient also denies any cough. Blood pressure is improved. Received dose of Lasix in the ER. ALLERGIES: No known drug allergies. PAST MEDICAL HISTORY: As mentioned above. PAST SURGICAL HISTORY: Penile prosthetic implant, colonoscopy, cardiac catheterization, EGDs, placement of dual chamber pacemaker, prosthetic aortic valve replacement, thoracic surgery as a child. MEDICATIONS: The patient is on Tylenol 325 mg p.o. 6 hours p.r.n., amlodipine 5 mg p.o. daily, amoxicillin 2 g as directed, atorvastatin 40 mg p.o. a.m., Coreg 6.25 mg p.o. b.i.d., vitamin B12 1000 mcg p.o. a.m., ferrous sulfate 325 mg p.o. daily, Lasix 40 mg p.o. daily, isosorbide dinitrate 2.5 mg p.o. b.i.d., levothyroxine 25 mcg p.o. daily, magnesium oxide 400 mg p.o. a.m., nitroglycerin 0.4 mg sublingual p.r.n., omeprazole 20 mg p.o. daily, potassium chloride 20 mEq p.o. daily, semaglutide 0.5 mg subcutaneous weekly. FAMILY HISTORY: Significant for brother has prostate cancer, sister has thyroid disorder, father has PA, sleep apnea, sister has sleep apnea, hypertension. SOCIAL HISTORY: No smoking, no alcohol, no drug use. REVIEW OF SYSTEMS: The patient has dementia, could not get full review of symptoms PHYSICAL EXAMINATION: GENERAL: The patient is confused, oriented to name only. VITAL SIGNS: Temperature 36.2, pulse 86, respiratory rate 22, blood pressure 134/74, oxygen 95% on 2 liters. HEENT: Pupils equal, round and reactive to light. Oral mucosa somewhat dry. NECK: No JVD, no neck masses. CARDIOVASCULAR: S1 and S2 heard. Regular rate and rhythm. No murmur, no gallop. RESPIRATORY SYSTEM: Normal AP diameter. No accessory muscle use. No wheezing, no crackles. ABDOMEN: Soft, bowel sounds present, nontender, no distention. CENTRAL NERVOUS SYSTEM: Oriented to name only, confused. EXTREMITIES: Bilateral lower extremity edema present with blister seen on the left wheeler. GENITOURINARY: Penis is hard and sensitive to touch. LABORATORY DATA: WBC 5.6, hemoglobin 12, hematocrit 35.2, platelets 187. PT 15.8, INR 1.5, PTT 40.1. ABG, pH of 7.55, pCO2 of 25, pO2 of 91, bicarb 22, oxygen 98%. Sodium 134, potassium 3.6, chloride 102, bicarbonate 20, BUN 42, creatinine 2.1, serum glucose 146. Lactate 3, repeat 2.9, calcium 8.7, magnesium 1.7, total bilirubin 3.6, direct bilirubin 1.7, AST 31, ALT 19, alkaline phosphatase 191. Troponin I high sensitivity 301. BNP greater than 4400. Lipase 6. SARS-CoV-2 PCR negative. Influenza A and B PCR negative. RSV PCR negative. IMAGING DATA: CT of the head, preliminary report unremarkable. Chest x-ray, possible right lung infiltrate. Cervical spine CT, preliminary report unremarkable. EKG: Atrial fibrillation at a rate of 86, nonspecific T-wave abnormalities. ASSESSMENT AND PLAN: This is a 76-year-old male who was recently in the hospital, treated for congestive heart failure, hypertension crisis, acute kidney injury, new onset hypothyroidism, was discharged to [facility], comes back because of increasing confusion, some shortness of breath and fever. 1. Encephalopathy. The patient has underlying dementia, could be from possible sepsis with elevated lactic acid with possible pneumonia, empirically treated in ER with vancomycin and cefepime. We will continue with vancomycin and Zosyn. Follow the cultures. Acute kidney injury contributing and congestive heart failure, he was 87% on room air could be contributing to encephalopathy. We will admit to tele floor. Monitor the response. 2. Possible pneumonia, we will get antibiotics as above. We will get CT chest to get a better picture. Follow the cultures. 3. Acute on chronic systolic congestive heart failure and also possible acute right sided heart failure, valvular heart disease, got a dose of IV Lasix in ER. We will continue with IV Lasix 40 daily. We will consult Cardiology for further recommendations. 4. Acute kidney injury. Presented with creatinine of 2.1. Possible cardiorenal syndrome. Baseline creatinine is around 1.4. Avoid nephrotoxic agents. We will follow the repeat labs in the a.m. 5. Elevated lactic acid, possibly from congestive heart failure, possibly from sepsis, improving, we will get antibiotics as above. We will follow the repeat labs Close monitor.. 6. Mild elevation of troponin mostly demand ischemia. We will follow the serial cardiac enzymes. 7. Questionable sensitive genitalia looks like he has a penis implant, we will get Urology opinion. 8. Hypertension. Continue Coreg with holding parameters. Holding amlodipine and isosorbide nitrate because of possible sepsis, restart as soon as possible. 9. Diabetes ISS. follow the blood sugars 10. History of coronary artery disease. Beta-oracio and statin. 11. History of paroxysmal atrial fibrillation. Not on anticoagulation because of bleeding risk because of hx of cerebral amyloid angiopathy and also risk of falls. 12. Dementia, monitor for any delirium. 13. Sick sinus syndrome status post pacemaker. 14. Obstructive sleep apnea, on CPAP at bedtime. 15. History of anemia. Follow the labs. 16. Deep venous thrombosis prophylaxis. Heparin subcutaneously. Addendum. Troponin elevated in am labs. Will follow repeat ekg. Starting on iv heparin low dose. DISPOSITION: Closely monitor in the tele floor. Level 1 full code as per my discussion with doctor. PT, OT prior to discharge. Social service to help with discharge planning. Job ID: [id number]
[2022-10-26] MEDS: PIPERACILLIN/TAZOBACTAM 3.375 GM in DEXTROSE 5% 100 ML IV SCH ×3 (03:45→18:06)
--- NOTE | 2022-10-26 03:49 | Urology Consultation ---
Date of Consultation October 26, 2022 Assessment & Plan (1) Pain in genitalia: The patient has been admitted on the hospital service and is currently being treated for sepsis for suspected pneumonia. We will defer treatment of this condition to the primary service. Concerning patient's genital pain, at the time of my exam the patient did not complain of any genital pain but this information was limited due to his altered mental status. On examination of the patient's genital palpation did not appear to cause any discomfort to the patient. There not appear to be any signs of active infection of the patient's genitalia. We will monitor the patient clinically and intervene if any signs or symptoms of genital infection develop. Supervising Physician Co-Signing Physician Notes I have discussed Mr. Guerrero's case with Arcadio Villatoro PA-C and agree with the above documentation. Firmness of the penis is likely related to penile implant. Would recommend checking a urinalysis/urine culture to rule out UTI or other abnormalities. No need for operative intervention at this time. History of Present Illness Reason for Consultation: Genital pain Attending Physician: Dave Dover MD History of Present Illness This is a 76-year-old male who presented to the emergency department secondary to altered mental status and shortness of breath. The patient has underlying dementia and therefore cannot provide any history regarding his current situa tion. Information was obtained from review of chart and discussion with staff. At the residential where patient resides he was noted by staff to have a fever and noted to be somewhat short of breath and more confused than usual. He was therefore brought to the emergency department. He has since been initiated on treatment for underlying sepsis. The admitting hospitalist service felt that the patient was having some pain in his genital area and therefore consulted urology service. Again the patient cannot provide any meaningful history due to his underlying dementia and altered mental status. At the time of my interview he did not complain of any pain in his genital area. Since arrival to the emergency department the patient has had labs and imaging which I independently reviewed. A CT scan of the head showed no evidence of acute intracranial hemorrhage. He was noted to have some stable chronic left parietal and right temporal lobe infarcts. A CT scan of the cervical spine s howed no evidence of acute fractures or dislocations. The patient did have a pelvic x-ray that showed patient had evidence of a penile implant. A chest x- ray did show some concern for infiltrative pattern greatest in the right lung. Labs include a CBC her white blood cell count was 5.6 in the normal range. Hemoglobin and hematocrit were 12.0 and 35.2. Platelet count was normal. Chemistry profile showed sodium was 134 with a normal potassium. BUN and creatinine were 42 and 2.1. Lactic acid level was initially 3.0 and on a subsequent draw was noted to be 2.9. The patient was noted to have elevated troponin at 301. A COVID test was noted to be negative as well as testing for RSV and influenza a and B. At the time of my interview the patient was resting comfortably in bed and he was in no distress. Allergies Allergy/AdvReac Type Severity Reaction Status Date / Time No Known Allergies Allergy Unknown NONE Verified 10/25/22 22:43 Home Medications Medication Instructions Recorded Confirmed Type atorvastatin 40 mg tablet 40 mg PO QAM 10/08/19 10/25/22 History furosemide 40 mg tablet 40 mg PO QAM 10/08/19 10/25/22 History cyanocobalamin (vitamin B-12) 1,000 mcg PO QAM 12/06/20 10/25/22 History 1,000 mcg tablet ferrous sulfate 325 mg (65 mg 325 mg PO DAILY 12/06/20 10/25/22 History iron) tablet nitroglycerin 0.4 mg sublingual 0.4 mg sublingual UD PRN Chest Pain 12/06/20 10/25/22 History tablet amoxicillin 500 mg capsule 2,000 mg PO DIRECTED PRN PRIOR 06/02/21 10/25/22 History TO DENTAL APPT. omeprazole 20 mg capsule,delayed 20 mg PO DAILY 06/02/21 10/25/22 History release isosorbide dinitrate 5 mg tablet 2.5 mg PO BID@0700,1200 30 days 10/19/22 10/25/22 Rx #30 tabs magnesium oxide 400 mg (241.3 mg 400 mg PO QAM #30 tabs 10/19/22 10/25/22 Rx magnesium) tablet potassium chloride 10 mEq 10 meq PO DAILY #30 tabs 10/19/22 10/25/22 Rx tablet,extended release acetaminophen 325 mg tablet 325 mg PO Q6H PRN FEVER/PAIN 10/25/22 10/25/22 History (Tylenol) amlodipine 5 mg tablet 5 mg PO DAILY 10/25/22 10/25/22 History carvedilol 6.25 mg tablet 6.25 mg PO BID 10/25/22 10/25/22 History levothyroxine 75 mcg tablet 75 mcg PO DAILY 10/25/22 10/25/22 History semaglutide 0.25 mg or 0.5 mg (2 0.5 mg subcut WK 10/25/22 10/25/22 History mg/1.5 mL) subcutaneous pen injector (Ozempic) Patient History Medical History Acute blood loss anemia BRIAN (acute kidney injury) Brain bleed 2010 CAD (coronary artery disease) Cardiac pacemaker "SINCE 1973" FOLLOWS WITH DR. 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 PROCEDURE History of colonoscopy History of esophagogastroduodenoscopy (EGD) History of orthopedic surgery "repair of fracture right ankle" History of throat surgery History of tonsillectomy and adenoidectomy History of tooth extraction Hx of aortic valve replacement [facility]AVR 2018 AT [facility] (FOLLOWED BY [facility]) Family History Father Coronary heart disease Stroke Brother Prostate cancer Sister Family history of diabetes mellitus Other No family history of adverse response to anesthesia Social History Smoking Status: Unknown if ever smoked Second Hand Exposure: Yes ( A CHILD); Hx Alcohol Use: Yes Alcohol type: wine Alcohol Intake Frequency Comment: very very rarely Hx Substance Use: No Preferred Language: Chinese Communication Ability: Effective Visual Impairment: Limited Hearing Ability: Hard of Hearing Train Driver Required: No Beliefs That Will Affect Care: None marital status: Current Living Situation: Alone current occupational status: retired How many Children do You have: 3 How many Children do You have Comment: family involved with care and able to assist with care Feels Safe at Home: Yes during the past year weight has: decreased > 10 lbs Assistive Devices: CPAP Review of Systems Review of Systems: Unobtainable due to cognitive status Physical Exam Constitutional: no acute distress Eyes: no conjunctival abnormality ENMT: Ears: no external ear abnormality Neck: trachea midline Respiratory: Breath sounds are decreased at bases but respirations were nonlabored at the time of my interview Cardiovascular: Rate/Rhythm: regular rate and regular rhythm Gastrointestinal (Abdomen): Soft and nondistended. Palpation did not appear to cause pain Neurologic: Patient was able to move all 4 extremities at the time of my exam but did not follow commands appropriately due to altered mental status Genitourinary: Patient's genitals and perineum were examined. There were no areas of cellulitis or erythema along the patient's penile shaft. The patient's penile shaft was semierect but as noted in the review of patient's chart he does have a history of a penile prosthesis. There are no areas of cellulitis or drainage or eschar or crepitus in the perineum, or scrotum. Results & Data ([facility]) Vital Signs (Past 12 Hours) Vital Signs Temp Pulse Pulse Resp BP BP Pulse Ox 10/26/22 03:06 81 19 95 10/26/22 01:00 10/26/22 00:45 86 16 121/50 L 95 10/26/22 02:30 78 20 96 10/26/22 02:11 78 26 H 121/50 L 95 10/26/22 01:30 79 18 137/66 96 10/26/22 00:30 87 18 134/63 95 10/26/22 00:48 10/25/22 23:45 25 H 94 10/25/22 23:30 86 22 134/74 94 10/25/22 22:40 81 29 H 96 10/25/22 22:30 85 27 H 96 10/25/22 22:27 99/63 L 10/25/22 22:27 94 H 27 H 93 10/25/22 22:20 96 H 27 H 92 10/25/22 22:10 27 H 98 10/25/22 22:00 27 H 90 10/25/22 21:50 82 25 H 96 10/25/22 21:40 83 23 96 10/25/22 21:30 81 26 H 10/25/22 21:26 29 H 10/25/22 21:00 93 H 26 H 97 10/25/22 20:50 88 10/25/22 20:40 86 10/25/22 20:30 77 28 H 98 10/25/22 20:20 26 H 97 10/25/22 20:10 78 28 H 97 10/25/22 20:01 79 23 98 10/25/22 20:01 108/59 L 10/25/22 20:00 83 27 H 98 10/25/22 22:28 85 32 H 99/63 L 97 10/25/22 21:05 87 L 10/25/22 20:13 36.2 C L 91 H 24 108/59 L 98 Pulse Ox O2 Del Method O2 Del Method O2 Flow Rate O2 Flow Rate 10/26/22 03:06 5 10/26/22 01:00 CPAP 10/26/22 00:45 CPAP 10/26/22 02:30 CPAP 5 10/26/22 02:11 CPAP 5 10/26/22 01:30 CPAP 10/26/22 00:30 Nasal Cannula 2 10/26/22 00:48 96 Nasal Cannula 2 10/25/22 23:45 5 10/25/22 23:30 Nasal Cannula 2 10/25/22 22:40 10/25/22 22:30 10/25/22 22:27 10/25/22 22:27 10/25/22 22:20 10/25/22 22:10 10/25/22 22:00 10/25/22 21:50 10/25/22 21:40 10/25/22 21:30 10/25/22 21:26 10/25/22 21:00 10/25/22 20:50 10/25/22 20:40 10/25/22 20:30 10/25/22 20:20 10/25/22 20:10 10/25/22 20:01 10/25/22 20:01 10/25/22 20:00 10/25/22 22:28 Room Air 10/25/22 21:05 Room Air 10/25/22 20:13 Nasal Cannula 2 PG Care Time/CCT Total # of Minutes Spent Total Time Spent with Patient: Total time spent is greater than 50% in coordination of care (as documented) at patient's floor/unit and/or counseling patient: Coding Level of Care Code INP/OBS CONSULT LVL 5, 80 MIN Diagnoses Pain in genitalia
[2022-10-26 05:32] LABS: BUN Creatinine Ratio 21.2 (10-20); Calcium 8.3 mg/dl (8.5-10.1); Creatinine Clr Calc Pharmacy 39.3 ml/min; Est GFR (African American) 33.3 ml/min; Est GFR (Non-African American) 28.7 ml/min; Magnesium 1.7 mg/dl (1.7-2.4); Potassium 3.4 mmol/L (3.5-5.1)
[2022-10-26 05:37] LABS: Troponin I High Sensitivity 1568.7 pg/ml (0-20)
[2022-10-26 05:45] LABS: A calco-baum cmplx NotReported Not Detected (NotDetected); Bact fragilis Not Reported Not Detected (NotDetected); C auris Not Reported Not Detected (NotDetected); Calbicans Not Reported Not Detected (NotDetected); Candida glabrata Not Reported Not Detected (NotDetected); Candida krusei Not Reported Not Detected (NotDetected); Cneoformans/gatti Not Reported Not Detected (NotDetected); Cparapsilosis Not Reported Not Detected (NotDetected); Ctropicalis Not Reported Not Detected (NotDetected); E cloacae compx Not Reported Not Detected (NotDetected); Efaecalis Not Reported Not Detected (NotDetected); Efaecium Not Reported Not Detected (NotDetected); Enterobacterales Not Reported Not Detected (NotDetected); Escherichia coli Not Reported Not Detected (NotDetected); H influenzae Not Reported Not Detected (NotDetected); K aerogenes Not Reported Not Detected (NotDetected); Koxytoca Not Reported Not Detected (NotDetected); Kpneumoniae grp Not Reported Not Detected (NotDetected); Lmonocyt Not Reported Not Detected (NotDetected); N meningitidis Not Reported Not Detected (NotDetected); P aeruginosa Not Reported Not Detected (NotDetected); Proteus spp Not Reported Not Detected (NotDetected); Salmonella spp Not Reported Not Detected (NotDetected); Smarcescens Not Reported Not Detected (NotDetected); Staph lugdunensis Not Reported Not Detected (NotDetected); Staph spp. Not Reported DETECTED (NotDetected); Staphaureus Not Reported DETECTED (NotDetected); Staphepi Not Reported Not Detected (NotDetected); Staphylococcus spp. DETECTED (NotDetected); Stenmaltophilia Not Reported Not Detected (NotDetected); Strep agal(GrpB) Not Reported Not Detected (NotDetected); Strep pneum Not Reported Not Detected (NotDetected); Strep pyog (GrpA) Not Reported Not Detected (NotDetected); Strep spp Not Reported Not Detected (NotDetected); mecAC+MREJ Resistant Gene MRSA Not Detected (NotDetected)
[2022-10-26] MEDS ORDERED: HEPARIN SOD 5,000 UNIT/0.5 ML VIAL SQ SCH (06:00)
[2022-10-26 06:30] LABS: Acanthocytes 1+; Basophils # (auto) 0.02 K/uL (0-0.2); Basophils % (auto) 0.3 %; Hematocrit (blood only) 34.5 % (40.1-51.0); Hemoglobin 11.7 g/dl (14.0-18.0); Immature Granulocytes # (auto) 0.08 K/uL (0.00-0.02); Immature Granulocytes % (auto) 1.2 %; Lymphocytes # (auto) 1.66 K/uL (1.2-3.4); Lymphocytes % (auto) 24.3 %; Mean Corpuscular Hemoglobin 30.9 pg (25.0-34.0); Mean Corpuscular Hgb Conc 33.9 g/dL (32.0-36.0); Mean Platelet Volume 10.6 fL (9.4-12.4); Monocytes # (auto) 0.08 K/uL (0.24-0.82); Monocytes % (auto) 1.2 %; Platelet Count 107 K/uL (130-400); Polychromasia 1+; RDW Coefficient of Variation 17.2 % (11.5-14.5); Red Blood Count 3.79 M/uL (4.63-6.08); White Blood Count 6.84 K/ul (4.8-10.8)
[2022-10-26 06:45] LABS: Estimated Average Glucose 171 mg/dl; Hemoglobin A1C 7.6 % (4.5-5.6)
[2022-10-26] MEDS ORDERED: ISOSORBIDE DINITRATE 5 MG TAB PO SCH (07:00)
--- NOTE | 2022-10-26 07:19 | CT Scan Report ---
HEAD CT NONCONTRAST CT DOSE: HISTORY: fall TECHNIQUE: Multiaxial CT images of the head were performed without the use of intravenous contrast. A utomated exposure control was utilized for this study. A dose lowering technique was utilized adheri ng to the principles of ALARA. Comparison: Head CT 10/08/2022. Findings: The paranasal sinuses and mastoid air cells are clear. The calvarium and skull base are int act. There is no mass, hematoma, midline shift, acute infarct. White matter hypodensity is nonspecifi c but suggestive of microvascular ischemic change. The ventricles and sulci demonstrate mild age-rela jamaal involutional changes. 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 Impression: No significant change compared to the prior study. No acute intracranial abnormality. ACT 112: Negative or not required by law. Electronically signed by: Iglesia Luu M.D. 10/26/2022 7:18 AM
[2022-10-26] MEDS: LEVOTHYROXINE SODIUM 75 MCG TABLET PO SCH (07:41)
[2022-10-26] MEDS: POTASSIUM CHLORIDE 10 MEQ TABCR PO SCH (08:34)
[2022-10-26] MEDS: CYANOCOBALAMIN (B-12) 500 MCG TABLET PO SCH (08:35)
[2022-10-26] MEDS: ATORVASTATIN 40 MG TAB PO SCH (08:35)
[2022-10-26] MEDS: FUROSEMIDE 40 MG/4 ML VIAL IV SCH (08:36)
[2022-10-26] MEDS: MAGNESIUM OXIDE 400 MG TAB PO SCH (08:36)
[2022-10-26] MEDS: PANTOprazole 40 MG TAB PO SCH (08:37)
[2022-10-26] MEDS: FERROUS SULFATE 325 MG TAB PO SCH (08:37)
[2022-10-26] MEDS: HEPARIN SODIUM/DEXTROSE 25,000 UNITS/500 ML BAG IV SCH (08:38)
[2022-10-26] MEDS: Heparin IV Adult Wt-Based Low-Dose *NO* Bolus Protocol IV SCH ×3 (08:38→09:02)
[2022-10-26] MEDS ORDERED: carvediloL 6.25 MG TAB PO SCH (09:00)
--- NOTE | 2022-10-26 09:02 | CT Scan Report ---
CT OF THE CERVICAL SPINE WITHOUT CONTRAST CLINICAL HISTORY: Fall. COMPARISON STUDY: No previous studies for comparison. TECHNIQUE: Helical axial images of the cervical spine were obtained without IV contrast. Sagittal a nd coronal reconstructions were viewed. Automated exposure control was utilized for the study. A do se lowering technique was utilized adhering to the principles of ALARA. FINDINGS: There is reversal of the cervical lordosis. Severe multilevel facet arthrosis is noted. The re is moderate multilevel degenerative disc disease. No acute fracture is present. There is no prever tebral edema. Bilateral pleural effusions are better depicted on the chest CT which will be reported separately. IMPRESSION: 1. No acute cervical spine fracture or subluxation. 2. Severe multilevel facet arthrosis and moderate degenerative disc disease within the cervical spine . ACT 112: Negative or not required by law. Electronically signed by: Sebastian An M.D. 10/26/2022 9:00 AM
--- NOTE | 2022-10-26 09:06 | CT Scan Report ---
CT chest diagnostic wo con CT DOSE: 1058.73 mGy.cm HISTORY: Shortness of breath. Infiltrates. TECHNIQUE: Multiaxial CT images of the chest were performed without contrast. A dose lowering techni que was utilized adhering to the principles of ALARA. COMPARISON: Chest CT 10/09/2022. FINDINGS: Respiratory motion artifact. The central airways are patent. No pneumothorax. Moderate bila teral pleural effusions are again noted. Compressive atelectasis within the bilateral lower lobes pos teriorly persists. Stable stable 2.4 cm low-density lesion within the base of the right middle lobe o n image 253. There is left-sided pacemaker. No suspicious lytic or blastic osseous lesions. Moderate diffuse body wall edema, unchanged. Normal thyroid gland. Mild mediastinal and left axillary lymphade nopathy remains unchanged. An aortic valve prosthesis is noted. The heart remains mildly enlarged. No rmal caliber esophagus. Normal caliber thoracic aorta. Severe coronary artery calcifications are note d. A cardiac valve prosthesis is again noted. Mild interlobular septal thickening with faint groundgl ass densities which may represent pulmonary edema. This is similar to the prior study IMPRESSION: 1. No significant change compared to the prior study. 2. Moderate bilateral pleural effusions with anasarca and possible mild pulmonary edema. 3. A 2.4 cm water attenuation focus within the right middle lobe. Continued [address] follow-u p recommended to ensure stability/resolution. ACT 112: Negative or not required by law. Electronically signed by: Iglesia Luu M.D. 10/26/2022 9:04 AM
--- NOTE | 2022-10-26 09:10 | Cardiology Consultation ---
Date of Consultation October 26, 2022 Assessment & Plan (1) Pneumonia: (2) Sepsis: (3) Encephalopathy: (4) Anasarca: (5) Acute kidney injury superimposed on CKD: (6) Systolic heart failure secondary to coronary artery disease: (7) Chronic atrial fibrillation: (8) Cardiac pacemaker: (9) Gram positive sepsis: Plan Patient admitted for worsening mental status (underlying dementia), weakness, hypoxia, likely underlying CHF and pneumonia. Also found to have BRIAN with possible recent urinary retention issues and now gram positive cocci bactermia Defer to hospitalist regarding antibiotic treatment for bacteremia, pneumonia. Patient with CHF, signs of anasarca and b/l pleural effusions. Agree with IV diuresis. Continue furosemide 40 mg IV today Monitor I+O's. Monitor renal function. Supplement potassium. Elevated troponin likely in setting of demand ischemia, type II event with hypoxia and sepsis. Echo results pending Currently on IV heparin, but low threshold to stop. He has no anginal complaints. No acute EKG changes. Continue ASA, statin, beta oracio Afib is chronic, with underlying pacemaker. He is not anticoagulated chronically due to fall risk, and history of intracranial hemorrhage. Case discussed with Dr. Elias. Will follow. Supervising Physician Co-Signing Physician Notes 76-year-old patient admitted secondary to declining mental status. Evidence of volume overload, CHF on admission. Blood cultures positive for gram-positive cocci in clusters. Patient currently on BiPAP. Unable to offer meaningful history. Family reports a steady decline in clinical status over the past weeks to months. No reports of chest discomfort recently. PE: Gen: Acutely ill. Heart: Regular rhythm, normal S1-S2. Lungs: Crackles bilaterally. Extremities: Bilateral lower extremity edema. 2+ left upper extremity edema. A/P: Agree with above PA-C history, physical exam, assessment and plan. Elevated troponin likely secondary to type II event in the setting of hypoxia and gram-positive sepsis. Echocardiogram demonstrates stable, mild LV systolic dysfunction. There is no evidence of endocarditis, however, diagnosis not excluded. Continue IV antibiotics as per internal medicine. Continue cautious diuresis, however, Lasix may be held if patient develops hypotension in the setting of sepsis. All questions answered to satisfaction of family at bedside. Prognosis is guarded. History of Present Illness Reason for Consultation: Acute systolic congestive heart failure Requesting Physician: Dr. Sultana Attending Physician: Dave Dover MD History of Present Illness Patient is a complex 76 year old male known to [facility], typically follows with Roseline Triplett PA-C. history includes, copied from outpatient records: 1.Longstanding hypertension, hypertensive heart disease 2.Medically treated inferior wall STEMI, 04/2012 3.Ischemic cardiomyopathy 4.Systolic heart failure 5.June 12, 2018 cardiac catheterization with diffuse minor irregularities, non-obstructive coronary artery disease. The left circumflex was noted to arise from the left sinus of valsalva and has a separate ostium. 6.Post catheterization patient hospitalized with renal dysfunction and diabetic issues, pulmonary embolism as well as a left atrial appendage thrombus. 7.Chronic atrial fibrillation. Anticoagulation risks felt to be greater than the benefit secondary to ambulatory dysfunction, iron deficiency anemia, history of intracranial hemorrhage, history of amyloid angiopathy 8.Sick sinus syndrome s/p permanent pacemaker implantation. 9.Aortic stenosis status post October 07, 2018 transcatheter aortic valve replacement with a 26 mm Robbins Terrie S3 valve 10.Cerebral amyloid angiopathy. 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 20.Type II diabetes mellitus with retinopathy, proteinuria 21.Stage III chronic kidney disease 22.Right tibia/ankle fracture status post surgical repair 23.Penile implant, 1999 24. Dementia Patient was admitted approx 10 days ago to [facility] with mental status changes, CHF exacerbation, weakness. Followed by Dr. Cardona. B/L pleural effusions noted. Treated with IV lasix, until creatinine increased. Lisinopril placed on hold. Discharged on oral furosemide 40 mg, prior dose. Due to worsening dementia, he was discharged to SNF for rehab. Daughter at bedside this morning. Patient sleeping soundly with CPAP in place. She reports he was declining rehab at SNF last week since hospital discharge. Mental status never fully recovered from last hospitalization. They were transitioning him to full skilled care at the facility. Last night, he apparently had a fever, worsening mental status changes, and was found to have diffuse edema in the upper/lower extremities. There is also reports he had trouble urinating. He was brought to ER for evaluation. UPon arrival patient was found to be hypoxic, with possible pneumonia and b/l pleural effusions. Elevated lactic acid concerning for sepsis. He was started on IV lasix and antibiotics. Creatinine higher this admission than last at 2.1. No complaints of chest pain. Troponin initially 303, trending higher to 1568. Started on IV heparin. EKG on admission demonstrating afib without acute changes. Blood cultures + this morning with gram positive cocci. At time of consult, patient was resting comfortably. Oxygen improved on CPAP currently. BP controlled. Daughter provided history. Review of systems not performed. Allergies Allergy/AdvReac Type Severity Reaction Status Date / Time No Known Allergies Allergy Unknown NONE Verified 10/25/22 22:43 Home Medications Medication Instructions Recorded Confirmed Type atorvastatin 40 mg tablet 40 mg PO QAM 10/08/19 10/25/22 History furosemide 40 mg tablet 40 mg PO QAM 10/08/19 10/25/22 History cyanocobalamin (vitamin B-12) 1,000 mcg PO QAM 12/06/20 10/25/22 History 1,000 mcg tablet ferrous sulfate 325 mg (65 mg 325 mg PO DAILY 12/06/20 10/25/22 History iron) tablet nitroglycerin 0.4 mg sublingual 0.4 mg sublingual UD PRN Chest Pain 12/06/20 10/25/22 History tablet amoxicillin 500 mg capsule 2,000 mg PO DIRECTED PRN PRIOR 06/02/21 10/25/22 History TO DENTAL APPT. omeprazole 20 mg capsule,delayed 20 mg PO DAILY 06/02/21 10/25/22 History release isosorbide dinitrate 5 mg tablet 2.5 mg PO BID@0700,1200 30 days 10/19/22 10/25/22 Rx #30 tabs magnesium oxide 400 mg (241.3 mg 400 mg PO QAM #30 tabs 10/19/22 10/25/22 Rx magnesium) tablet potassium chloride 10 mEq 10 meq PO DAILY #30 tabs 10/19/22 10/25/22 Rx tablet,extended release acetaminophen 325 mg tablet 325 mg PO Q6H PRN FEVER/PAIN 10/25/22 10/25/22 History (Tylenol) amlodipine 5 mg tablet 5 mg PO DAILY 10/25/22 10/25/22 History carvedilol 6.25 mg tablet 6.25 mg PO BID 10/25/22 10/25/22 History levothyroxine 75 mcg tablet 75 mcg PO DAILY 10/25/22 10/25/22 History semaglutide 0.25 mg or 0.5 mg (2 0.5 mg subcut WK 10/25/22 10/25/22 History mg/1.5 mL) subcutaneous pen injector (Ozempic) Patient History Medical History Acute blood loss anemia BRIAN (acute kidney injury) Brain bleed 2010 CAD (coronary artery disease) Cardiac pacemaker "SINCE 1973" FOLLOWS WITH DR. POZO Chronic atrial fibrillation CKD (chronic kidney disease), stage III PT DENIES Diabetes mellitus, type 2 Diabetic peripheral neuropathy associated with type 2 diabetes mellitus History of sick sinus syndrome s/p PPM HLD (hyperlipidemia) Hx of gastritis Hypertension Intracerebral hemorrhage Memory deficit Myocardial Infarction 1973 JT on CPAP SEVERE SLEEP APNEA Poor historian Stroke 1973 AND 1978 (DENIES ANY ZIPPER SETTER CHAINSTITCH PROBLEMS FROM EVENTS) Surgical History History of anesthesia reaction PT STATES "THEY HAD A HARD TIME PUTTING ME TO SLEEP" 1973 ? PROCEDURE History of colonoscopy History of esophagogastroduodenoscopy (EGD) History of orthopedic surgery "repair of fracture right ankle" History of throat surgery History of tonsillectomy and adenoidectomy History of tooth extraction Hx of aortic valve replacement TAVR 2018 AT [facility] (FOLLOWED BY [facility]) Family History Father Coronary heart disease Stroke Brother Prostate cancer Sister Family history of diabetes mellitus Other No family history of adverse response to anesthesia Social History Smoking Status: Unknown if ever smoked Second Hand Exposure: Yes ( A CHILD); Hx Alcohol Use: Yes Alcohol type: wine Alcohol Intake Frequency Comment: very very rarely Hx Substance Use: No Preferred Language: Barbadian Communication Ability: Effective Visual Impairment: Limited Hearing Ability: Hard of Hearing Residential Insurance Inspector Required: No Beliefs That Will Affect Care: None marital status: Current Living Situation: Alone current occupational status: retired How many Children do You have: 3 How many Children do You have Comment: family involved with care and able to assist with care Feels Safe at Home: Yes during the past year weight has: decreased > 10 lbs Assistive Devices: CPAP Review of Systems Review of Systems: All systems reviewed & are unremarkable except as noted in HPI & below Physical Exam Constitutional: WD/WN, vitals as above comfortable; no acute distress Neck: trachea midline, no thyromegaly Respiratory: normal respiratory effort Auscultation: + crackles and + rales CPAP in place at time of evaluation Cardiovascular: Rate/Rhythm: + irregularly irregular Heart Sounds: + murmur (II/) Vessels: + JVD Extremities: + edema (2+ upper and lower extremity edema. Large water blister left LE) Gastrointestinal (Abdomen): normal bowel sounds, soft, nontender, no hepatosplenomegaly Results & Data ([facility]) Vital Signs (Past 12 Hours) Vital Signs Pulse Pulse Resp BP BP Pulse Ox Pulse Ox 10/26/22 07:32 63 16 114/55 L 96 10/26/22 06:00 76 18 112/59 L 95 10/26/22 05:51 70 26 H 94 10/26/22 03:06 81 19 95 10/26/22 01:00 10/26/22 00:45 86 16 121/50 L 95 10/26/22 02:30 78 20 96 10/26/22 02:11 78 26 H 121/50 L 95 10/26/22 01:30 79 18 137/66 96 10/26/22 00:30 87 18 134/63 95 10/26/22 00:48 96 10/25/22 23:45 25 H 94 10/25/22 23:30 86 22 134/74 94 10/25/22 22:40 81 29 H 96 10/25/22 22:30 85 27 H 96 10/25/22 22:27 99/63 L 10/25/22 22:27 94 H 27 H 93 10/25/22 22:20 96 H 27 H 92 10/25/22 22:10 27 H 98 10/25/22 22:00 27 H 90 10/25/22 21:50 82 25 H 96 10/25/22 21:40 83 23 96 10/25/22 21:30 81 26 H 10/25/22 21:26 29 H 10/25/22 22:28 85 32 H 99/63 L 97 O2 Del Method O2 Del Method O2 Flow Rate O2 Flow Rate 10/26/22 07:32 CPAP 10/26/22 06:00 CPAP 5 10/26/22 05:51 5 10/26/22 03:06 5 10/26/22 01:00 CPAP 10/26/22 00:45 CPAP 10/26/22 02:30 CPAP 5 10/26/22 02:11 CPAP 5 10/26/22 01:30 CPAP 10/26/22 00:30 Nasal Cannula 2 10/26/22 00:48 Nasal Cannula 2 10/25/22 23:45 5 10/25/22 23:30 Nasal Cannula 2 10/25/22 22:40 10/25/22 22:30 10/25/22 22:27 10/25/22 22:27 10/25/22 22:20 10/25/22 22:10 10/25/22 22:00 10/25/22 21:50 10/25/22 21:40 10/25/22 21:30 10/25/22 21:26 10/25/22 22:28 Room Air Laboratory Results Cardiac Enzymes 10/25/22 10/25/22 10/25/22 Range/Units 20:05 21:05 21:05 AST Cancelled 31 Troponin I High Sens Cancelled 301.3 H* B-Natriuretic Peptide > 4700 H (0-100) pg/ml 10/26/22 Range/Units 04:54 AST Troponin I High Sens 1568.7 H* D B-Natriuretic Peptide (0-100) pg/ml Coagulation 10/25/22 10/25/22 10/25/22 Range/Units 20:05 21:05 21:05 PT Cancelled 15.8 H APTT Cancelled 40.1 H B-Natriuretic Peptide > 4700 H (0-100) pg/ml CBC 10/25/22 10/26/22 Range/Units 20:05 04:54 WBC 5.62 6.84 (4.8-10.8) K/ul RBC 3.83 L 3.79 L (4.63-6.08) M/uL Hgb 12.0 L 11.7 L (14.0-18.0) g/dl Hct 35.2 L 34.5 L (40.1-51.0) % Plt Count 187 107 L (130-400) K/uL Neut # (Auto) 3.99 5.00 (1.4-6.5) K/uL Lymph # (Auto) 1.50 1.66 (1.2-3.4) K/uL Stephenson # (Auto) 0.07 L 0.08 L (0.24-0.82) K/uL Eos # (Auto) 0.00 0.00 (0-0.50) K/uL Baso # (Auto) 0.01 0.02 (0-0.2) K/uL Comprehensive Metabolic Panel 10/25/22 10/25/22 10/26/22 Range/Units 20:05 21:05 04:54 Sodium Cancelled 134 L 136 Potassium Cancelled 3.6 3.4 L Chloride Cancelled 102 103 Carbon Dioxide Cancelled 20 L 23 BUN Cancelled 42 H 46 H Creatinine Cancelled 2.11 H D 2.17 H Glucose Cancelled 146 H 124 H Calcium Cancelled 8.7 8.3 L Direct Bilirubin Cancelled 1.7 H AST Cancelled 31 ALT Cancelled 19 Alkaline Phosphatase Cancelled 191 H Total Protein Cancelled 6.4 Albumin Cancelled 2.7 L Intake and Output 10/25/22 10/26/22 10/26/22 22:59 06:59 14:59 Intake Total 115 / 115 Balance 115 / 115 Intake: IV 115 / 115 Piperacillin/Tazobactam 3.375 115 / 115 gm In Dextrose 5% 100 ml @ 28. 75 mls/hr IV Q8H [facility] Rx#: [id number] Other: Weight 120 kg 120 kg Weight Measurement Method Built in [facility] Built in [facility] Diagnostic Findings telemetry reviewed: Afib with controlled rates, intermittent ventricular pacing EKG on arrival: Atrial fibrillation Right axis deviation Non-specific intra-ventricular conduction delay Nonspecific T wave abnormality No significant changes noted Repeat EKG this morning: Atrial fibrillation Indeterminate axis Non-specific intra-ventricular conduction delay ST & T wave abnormality, consider lateral ischemia No significant change was found Echo completed as outpatient - 08/2022: Interpretation Summary The examination is adequate to evaluate the referral indication. The left ventricular cavity size is normal. The LV wall thickness is moderately increased (concentric). There is mild diffuse left ventricular hypokinesis. The qualitative LV ejection fraction is 40-44% (mildly reduced). The left atrium is moderately enlarged. The patient is status post TAVR with Terrie type prosthetic valve. Prosthetic leaflets open well The aortic valve prosthesis systolic gradients are normal for this type prosthesis. Mild paravalvular aortic valve prosthesis regurgitation is present. The mitral valve leaflets thickness is moderately increased. There is severe mitral annular calcification. Image and Doppler assessment of mitral stenosis severity is discordant: Moderate mitral stenosis is suspected. Mild mitral regurgitation is present. Moderate tricuspid regurgitation is present. Moderate pulmonary hypertension is present. The estimated pulmonary artery systolic pressure is 45-50mm Hg. Medications Administered Current Inpatient Medications Acetaminophen (Acetaminophen 325 Mg Tab) 650 mg PO Q4H PRN PRN Reason: Pain or Fever Stop: 11/25/22 00:44 Atorvastatin Calcium (Atorvastatin 40 Mg Tab) 40 mg PO QAM [facility] Stop: 11/25/22 08:59 Last Admin: 10/26/22 08:35 Dose: 40 mg Cyanocobalamin (Cyanocobalamin (B-12) 500 Mcg Tablet) 1,000 mcg PO QAM [facility] Stop: 11/25/22 08:59 Last Admin: 10/26/22 08:35 Dose: 1,000 mcg Dextrose (Dextrose 50% 50 Ml Syringe) 25 - 50 ml IV UD PRN; Protocol PRN Reason: Hypoglycemia Protocol Stop: 11/25/22 00:44 Ferrous Sulfate (Ferrous Sulfate 325 Mg Tab) 325 mg PO DAILY [facility] Stop: 11/25/22 08:59 Last Admin: 10/26/22 08:37 Dose: Not Given Furosemide (Furosemide 40 Mg/4 Ml Vial) 40 mg IV DAILY [facility] Stop: 11/25/22 08:59 Last Admin: 10/26/22 08:36 Dose: 40 mg Glucagon (Glucagon For Inj 1 Mg Vial) 1 mg SQ UD PRN; Protocol PRN Reason: Hypoglycemia Protocol Stop: 11/25/22 00:44 Glucose (Glucose 40% Gel 15 Gm Tube) 15 - 30 gm PO UD PRN; Protocol PRN Reason: Hypoglycemia Protocol Stop: 11/25/22 00:44 Glucose (Glucose 10 Tab/Tube) 4 - 8 tab PO UD PRN; Protocol PRN Reason: Hypoglycemia Treatment Stop: 11/25/22 00:44 Piperacillin Sod/Tazobactam (Sod 3.375 gm/ Dextrose) 115 mls @ 28.75 mls/hr IV Q8H [facility]; Protocol Stop: 11/02/22 01:59 Last Admin: 10/26/22 10:36 Dose: 28.8 mls/hr Vancomycin HCl 1,250 mg/ (Sodium Chloride) 275 mls @ 200 mls/hr IV Q24H [facility]; Protocol Stop: 11/02/22 21:59 Heparin Sodium/Dextrose (Heparin Sodium/Dextrose) 25,000 units in 500 mls @ 20 mls/hr IV .Q24H [facility]; Protocol Stop: 11/25/22 07:29 Last Admin: 10/26/22 08:38 Dose: 1,000 units/hr, 20 mls/hr Insulin Aspart (Insulin Aspart Per Unit) 0 units SC ACHS [facility] Stop: 11/25/22 07:29 Last Admin: 10/26/22 09:12 Dose: Not Given Isosorbide Dinitrate (Isosorbide Dinitrate 5 Mg Tab) 2.5 mg PO BID@0700,1200 [facility] Stop: 11/25/22 06:59 Last Admin: 10/26/22 08:34 Dose: Not Given Levothyroxine Sodium (Levothyroxine Sodium 75 Mcg Tablet) 75 mcg PO DAILYBB [facility] Stop: 11/25/22 06:29 Last Admin: 10/26/22 07:41 Dose: 75 mcg Magnesium Oxide (Magnesium Oxide 400 Mg Tab) 400 mg PO QAM [facility] Stop: 11/25/22 08:59 Last Admin: 10/26/22 08:36 Dose: 400 mg Miscellaneous (Carbohydrates For Hypoglycemia ) 15 - 30 gm PO UD PRN PRN Reason: Hypoglycemia Protocol Stop: 11/25/22 00:44 Miscellaneous Information (Vancomycin Consult Active) 1 each N/A UD PRN PRN Reason: Consult Stop: 11/24/22 21:56 Nitroglycerin (Nitroglycerin Sl 0.4 Mg/Tab Tab) 0.4 mg SL UD PRN PRN Reason: Chest Pain Stop: 11/25/22 00:44 Nitroglycerin (Nitroglycerin Sl 0.4 Mg/Tab Tab) 0.4 mg SL UD PRN PRN Reason: Chest Pain Stop: 11/25/22 00:44 Pantoprazole Sodium (Pantoprazole 40 Mg Tab) 40 mg PO DAILY [facility] Stop: 11/25/22 08:59 Last Admin: 10/26/22 08:37 Dose: Not Given Polyethylene Glycol (Polyethylene (Miralax) 17 Gm Pack) 17 gm PO DAILY PRN PRN Reason: Constipation Stop: 11/25/22 00:44 Potassium Chloride (Potassium Chloride 10 Meq Tabcr) 10 meq PO DAILY [facility] Stop: 11/25/22 08:59 Last Admin: 10/26/22 08:34 Dose: 10 meq (1) Sepsis Acute renal failure type: unspecified Sepsis acute organ dysfunction status: with acute organ dysfunction Sepsis type: sepsis due to unspecified organism Severe sepsis acute organ dysfunction type: acute renal failure Severe sepsis shock status: unspecified Qualified Code(s): A41.9 - Sepsis, unspecified organism; R65.20 - Severe sepsis without septic shock; N17.9 - Acute kidney failure, unspecified (2) Pneumonia Laterality: right Lung location: middle lobe of lung Pneumonia type: due to unspecified organism Qualified Code(s): J18.9 - Pneumonia, unspecified organism
[2022-10-26] MEDS: INSULIN ASPART PER UNIT SC SCH ×4 (09:12→20:26)
--- NOTE | 2022-10-26 09:38 | XRay Report ---
XR pelvis 1-2V routine CLINICAL HISTORY: fall. Pelvic pain. COMPARISON STUDY: None. FINDINGS: No fracture or dislocation within the pelvis or hips. Mild degenerative changes within the bilateral hips. Vascular calcifications are noted. The sacrum appears intact. A penile implant is not ed. IMPRESSION: No acute fracture or dislocation within the pelvis or hips. ACT 112: Negative or not required by law. Electronically signed by: Iglesia Luu M.D. 10/26/2022 9:36 AM
--- NOTE | 2022-10-26 09:39 | XRay Report ---
XR chest 1V portable HISTORY: fall COMPARISON: Chest 10/08/2022. FINDINGS: No pneumothorax. Small bilateral pleural effusions persist. The heart remains enlarged. The re is a left-sided pacemaker and a cardiac valve prosthesis again noted. There are patchy hazy airspa ce perihilar airspace opacities and interstitial thickening consistent with asymmetric pulmonary sherita a IMPRESSION: Asymmetric pulmonary edema with small bilateral pleural effusions. ACT 112: Negative or not required by law. Electronically signed by: Iglesia Luu M.D. 10/26/2022 9:37 AM
--- NOTE | 2022-10-26 13:33 | Hospitalist Progress Note ---
Date of Service October 26, 2022 Assessment & Plan (1) Sepsis due to methicillin susceptible Staphylococcus aureus (MSSA) with acute renal failure: (2) Acute congestive heart failure: (3) Demand ischemia: (4) Acute kidney failure: (5) Encephalopathy due to infection: Plan Patient is a 76-year-old male with past medical history of CHF, AAS status post bioprosthetic aortic valve, sick sinus syndrome status post pacemaker, paroxysmal A. fib, JT, type 2 diabetes, CKD, history of ICH, dementia who presented to the hospital from [facility] with confusion and fever. Sepsis secondary to MSSA bacteremia Encephalopathy secondary to sepsis Acute on chronic systolic heart failure Demand ischemia Acute kidney injury on CKD Presented with confusion and fever Hypotensive on presentation, required BiPAP on admission AO x0; opens eyes to noxious stimuli Lactic acidosis present on admission; improved No leukocytosis Blood culture 3/4 positive for MSSA. Creatinine up to 2.17; baseline of 1.51.6. BNP markedly elevated High-sensitivity troponin elevated to 2500s CT chestmoderate bilateral pleural effusion with anasarca CT headno acute intracranial abnormality Plan; Continue on Zosyn for MSSA bacteremia. Discontinue Zosyn. Will repeat blood culture tomorrow AM. Echo-no report of any vegetation. Infectious disease consult. -Continue CPAP for now; will remove CPAP after mentation is improved. Transition to oxygen by nasal cannula after improvement in mental status. On Lasix 40 mg IV once daily. Currently on heparin drip low-dose; will appreciate cardiology input. -Hold antihypertensive at the moment. -[place] inserted for strict input and output monitoring. Avoid nephrotoxic agent. Chronic conditions: History of penile implanturology consulted; recommended urinalysis/urine culture. No other intervention needed for now Hypertensionhold off on antihypertensive. Continue on Lasix IV once daily Type 2 diabetes mell[place] scale insulin. Monitor blood glucose level History of paroxysmal A. fib; not on anticoagulation due to risks of bleeding. Monitor on telemetry Discussed goals of care with patient's daughters at bedside. Discussed about patient's critical condition and overall prognosis. They want to continue medical interventions for now. If patient decompensate further and has multiorgan failure resulting in cardiac arrest; they want him to pass away peacefully. No CPR/intubation. Admission and Anticipated Discharge Date Admission Date: October 25, 2022 Subjective Patient seen and examined in the emergency department in the morning and in afternoon. He is lethargic; able to open his eyes to noxious stimuli. Review of Systems Review of Systems: Unobtainable due to reduced consciousness Physical Exam Physical Exam: Constitutional: Lethargic; awake able by noxious stimuli. On BiPAP. Respiratory: Decreased breath sound at bases. Cardiovascular: RRR, no murmur, no edema Vessels: no JVD or carotid bruit Chest: normal inspection of chest Abdomen: normal bowel sounds, soft, nontender, no hepatosplenomegaly Musculoskeletal: Multiple bruises present in extremities; including boil in left leg. Skin: no rashes, warm and dry normal turgor Neurologic: Obtunded; awake with noxious stimuli Psychiatric: A+OxO Lymphatic: no cervical or axillary lymphadenopathy : deferred Results & Data Results & Data ([facility]) Vital Signs (Past 12 Hours) Vital Signs Pulse Pulse Resp BP Pulse Ox O2 Del Method O2 Flow Rate 10/26/22 12:48 66 20 110/78 96 CPAP 10/26/22 10:39 71 18 118/61 98 CPAP 10/26/22 07:32 63 16 114/55 L 96 CPAP 10/26/22 06:00 76 18 112/59 L 95 CPAP 5 10/26/22 05:51 70 26 H 94 5 10/26/22 03:06 81 19 95 5 10/26/22 02:30 78 20 96 CPAP 5 10/26/22 02:11 78 26 H 121/50 L 95 CPAP 5 Laboratory Results Laboratory Results WBC 6.84 K/ul (4.8-10.8) 10/26/22 04:54 RBC 3.79 M/uL (4.63-6.08) L 10/26/22 04:54 Hgb 11.7 g/dl (14.0-18.0) L 10/26/22 04:54 Hct 34.5 % (40.1-51.0) L 10/26/22 04:54 MCV 91.0 fL (80.0-100.0) 10/26/22 04:54 MCH 30.9 pg (25.0-34.0) 10/26/22 04:54 MCHC 33.9 g/dL (32.0-36.0) 10/26/22 04:54 RDW Std Deviation 57.0 fL (36.4-46.3) H 10/26/22 04:54 RDW Coeff of Solis 17.2 % (11.5-14.5) H 10/26/22 04:54 Plt Count 107 K/uL (130-400) L 10/26/22 04:54 MPV 10.6 fL (9.4-12.4) 10/26/22 04:54 Immature Gran % (Auto) 1.2 % 10/26/22 04:54 Neut % (Auto) 73.0 % 10/26/22 04:54 Lymph % (Auto) 24.3 % 10/26/22 04:54 [place] % (Auto) 1.2 % 10/26/22 04:54 Eos % (Auto) 0.0 % 10/26/22 04:54 Baso % (Auto) 0.3 % 10/26/22 04:54 Neut # (Auto) 5.00 K/uL (1.4-6.5) 10/26/22 04:54 Lymph # (Auto) 1.66 K/uL (1.2-3.4) 10/26/22 04:54 [place] # (Auto) 0.08 K/uL (0.24-0.82) L 10/26/22 04:54 Eos # (Auto) 0.00 K/uL (0-0.50) 10/26/22 04:54 Baso # (Auto) 0.02 K/uL (0-0.2) 10/26/22 04:54 Immature Gran # (Auto) 0.08 K/uL (0.00-0.02) H 10/26/22 04:54 Absolute Nucleated RBC 0.02 K/uL (0-0) H 10/25/22 20:05 Nucleated RBC % (auto) 0.4 % 10/25/22 20:05 Toxic Vacuolation 1+ 10/25/22 20:05 Polychromasia 1+ 10/26/22 04:54 Acanthocytes (Spur) 1+ 10/26/22 04:54 PT 15.8 Seconds (9.0-12.0) H 10/25/22 21:05 INR 1.5 (0.9-1.1) H 10/25/22 21:05 APTT 40.1 Seconds (21.0-31.0) H 10/25/22 21:05 PTT Ratio 1.5 10/25/22 21:05 ABG pH 7.55 (7.35-7.45) H* 10/25/22 21:05 ABG pCO2 25 mmHg (35-46) L 10/25/22 21:05 ABG pO2 91 mmHg (80-95) 10/25/22 21:05 ABG HCO3 22 mmol/L (19-24) 10/25/22 21:05 ABG O2 Saturation 98.8 % (90-95) H 10/25/22 21:05 ABG Base Excess 0.9 mEq/L (-9-1.8) 10/25/22 21:05 [place] Test Pos (Pos) 10/25/22 21:05 Oxygen Given 2 10/25/22 21:05 Sodium 136 mmol/L (136-145) 10/26/22 04:54 Potassium 3.4 mmol/L (3.5-5.1) L 10/26/22 04:54 Chloride 103 mmol/L (98-107) 10/26/22 04:54 Carbon Dioxide 23 mmol/L (21-32) 10/26/22 04:54 Anion Gap 10 (3-11) 10/26/22 04:54 BUN 46 mg/dl (6-23) H 10/26/22 04:54 Creatinine 2.17 mg/dl (0.6-1.4) H 10/26/22 04:54 Est Cr Clr Drug Dosing 39.3 ml/min 10/26/22 04:54 Est GFR ( Amer) 33.3 ml/min 10/26/22 04:54 Est GFR (Non-Af Amer) 28.7 ml/min 10/26/22 04:54 BUN/Creatinine Ratio 21.2 (10-20) H 10/26/22 04:54 Glucose 124 mg/dl (70-99(Fasting)) H 10/26/22 04:54 POC Glucose 130 mg/dl (70-99) H 10/26/22 12:01 Estimat Average Glucose 171 mg/dl 10/26/22 04:54 Hemoglobin A1c 7.6 % (4.5-5.6) H 10/26/22 04:54 Lactate 1.9 mmol/L (0.4-2.0) 10/26/22 08:03 Calcium 8.3 mg/dl (8.5-10.1) L 10/26/22 04:54 Magnesium 1.7 mg/dl (1.7-2.4) 10/26/22 04:54 Total Bilirubin 3.6 mg/dl (0.2-1.0) H 10/25/22 21:05 Direct Bilirubin 1.7 mg/dl (0-0.2) H 10/25/22 21:05 AST 31 U/L (13-39) 10/25/22 21:05 ALT 19 U/L (7-52) 10/25/22 21:05 Alkaline Phosphatase 191 U/L (34-104) H 10/25/22 21:05 Troponin I High Sens 2423.1 pg/ml (0-20) H* D 10/26/22 10:56 B-Natriuretic Peptide > 4700 pg/ml (0-100) H 10/25/22 21:05 Total Protein 6.4 gm/dl (6.0-8.3) 10/25/22 21:05 Albumin 2.7 gm/dl (3.4-5.0) L 10/25/22 21:05 Lipase 6 U/L (11-82) L 10/25/22 21:05 Nasal Screen MRSA (PCR) Negative (Negative) 10/26/22 09:55 SARS-CoV-2 (PCR) NEGATIVE (Negative) 10/25/22 21:04 Influenza Type A (PCR) Negative (Neg) 10/25/22 21:04 Influenza Type B (PCR) Negative (Neg) 10/25/22 21:04 RSV (RT-PCR) Negative (Neg) 10/25/22 21:04 Staphylococcus sp PCR DETECTED (NotDetected) A 10/25/22 21:05 Staph aureus (PCR) DETECTED (NotDetected) A 10/25/22 21:05 mecA/C & MREJ Resist Gene MRSA Not Detected (NotDetected) 10/25/22 21:05 Bld Cult ID Panel PCR See PCR Comment (NotDetected) 10/25/22 21:[address] 10/25/22 20:37 CT OF THE CERVICAL SPINE WITHOUT CONTRAST CLINICAL HISTORY: Fall. COMPARISON STUDY: No previous studies for comparison. TECHNIQUE: Helical axial images of the cervical spine were obtained without IV contrast. Sagittal and coronal reconstructions were viewed. Automated exposure control was utilized for the study. A dose lowering technique was utilized adhering to the principles of ALARA. FINDINGS: There is reversal of the cervical lordosis. Severe multilevel facet arthrosis is noted. There is moderate multilevel degenerative disc disease. No acute fracture is present. There is no prevertebral edema. Bilateral pleural effusions are better depicted on the chest CT which will be reported separately. IMPRESSION: 1. No acute cervical spine fracture or subluxation. 2. Severe multilevel facet arthrosis and moderate degenerative disc disease within the cervical spine. ACT 112: Negative or not required by law. Electronically signed by: Sebastian An M.D. 10/26/2022 9:00 AM Chest X-Ray 10/25/22 20:37 XR chest 1V portable HISTORY: fall COMPARISON: Chest 10/08/2022. FINDINGS: No pneumothorax. Small bilateral pleural effusions persist. The heart remains enlarged. There is a left-sided pacemaker and a cardiac valve prosthesis again noted. There are patchy hazy airspace perihilar airspace opacities and interstitial thickening consistent with asymmetric pulmonary edema IMPRESSION: Asymmetric pulmonary edema with small bilateral pleural effusions. ACT 112: Negative or not required by law. Electronically signed by: Iglesia Luu M.D. 10/26/2022 9:[address] 10/25/22 20:[address] DOSE: HISTORY: fall TECHNIQUE: Multiaxial CT images of the head were performed without the use of intravenous contrast. Automated exposure control was utilized for this study. A dose lowering technique was utilized adhering to the principles of ALARA. Comparison: Head CT 10/08/2022. Findings: The paranasal sinuses and mastoid air cells are clear. The calvarium and skull base are intact. There is no mass, hematoma, midline shift, acute infarct. White matter hypodensity is nonspecific but suggestive of microvascular ischemic change. The ventricles and sulci demonstrate mild age-related involuti onal changes. 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 Impression: No significant change compared to the prior study. No acute intracranial abnormality. ACT 112: Negative or not required by law. Electronically signed by: Iglesia Luu M.D. 10/26/2022 7:18 AM Pelvis X-Ray 10/25/22 20:37 XR pelvis 1-2V routine CLINICAL HISTORY: fall. Pelvic pain. COMPARISON STUDY: None. FINDINGS: No fracture or dislocation within the pelvis or hips. Mild degenerative changes within the bilateral hips. Vascular calcifications are noted. The sacrum appears intact. A penile implant is noted. IMPRESSION: No acute fracture or dislocation within the pelvis or hips. ACT 112: Negative or not required by law. Electronically signed by: Iglesia Luu M.D. 10/26/2022 9:[address] 10/26/22 00:45 CT chest diagnostic wo con CT DOSE: 1058.73 mGy.cm HISTORY: Shortness of breath. Infiltrates. TECHNIQUE: Multiaxial CT images of the chest were performed without contrast. A dose lowering technique was utilized adhering to the principles of ALARA. COMPARISON: Chest CT 10/09/2022. FINDINGS: Respiratory motion artifact. The central airways are patent. No pneumothorax. Moderate bilateral pleural effusions are again noted. Compressive atelectasis within the bilateral lower lobes posteriorly persists. Stable stable 2.4 cm low-density lesion within the base of the right middle lobe on image 253. There is left-sided pacemaker. No suspicious lytic or blastic osseous lesions. Moderate diffuse body wall edema, unchanged. Normal thyroid gland. Mild mediastinal and left axillary lymphadenopathy remains unchanged. An aortic valve prosthesis is noted. The heart remains mildly enlarged. Normal caliber esophagus. Normal caliber thoracic aorta. Severe coronary artery calcifications are noted. A cardiac valve prosthesis is again noted. Mild interlobular septal thickening with faint groundglass densities which may represent pulmonary edema. This is similar to the prior study IMPRESSION: 1. No significant change compared to the prior study. 2. Moderate bilateral pleural effusions with anasarca and possible mild pulmonary edema. 3. A 2.4 cm water attenuation focus within the right middle lobe. Continued [address] follow-up recommended to ensure stability/resolution. ACT 112: Negative or not required by law. Electronically signed by: Iglesia Luu M.D. 10/26/2022 9:04 AM
[2022-10-26 15:13] LABS: Partial Thromboplastin Ratio 5.1
[2022-10-26 15:41] LABS: Partial Thromboplastin Time 138.9 Seconds (21.0-31.0)
--- NOTE | 2022-10-26 15:54 | Electrocardiogram Report ---
Test Reason : Blood Pressure : / mmHG Vent. Rate : 086 BPM Atrial Rate : 227 BPM P-R Int : 000 ms QRS Dur : 122 ms QT Int : 340 ms P-R-T Axes : 000 115 154 degrees QTc Int : 406 ms Atrial fibrillation Right axis deviation Non-specific intra-ventricular conduction delay Nonspecific T wave abnormality Abnormal ECG When compared with ECG of 08-OCT-2022 17:39, Atrial fibrillation has replaced Electronic ventricular pacemaker Confirmed by Ad Machado ([id number]) on 10/26/2022 3:53:49 PM Referred By: [facility] Confirmed By:Ad Machado
--- NOTE | 2022-10-26 16:00 | Electrocardiogram Report ---
Test Reason : Blood Pressure : / mmHG Vent. Rate : 076 BPM Atrial Rate : 120 BPM P-R Int : 000 ms QRS Dur : 122 ms QT Int : 402 ms P-R-T Axes : 000 157 246 degrees QTc Int : 452 ms Atrial fibrillation Indeterminate axis Non-specific intra-ventricular conduction delay Abnormal ECG When compared with ECG of 25-OCT-2022 20:55, (unconfirmed) No significant change was found Confirmed by Ad Machado ([id number]) on 10/26/2022 4:00:02 PM Referred By: [facility] Confirmed By:Ad Machado
--- NOTE | 2022-10-26 16:14 | Electrocardiogram Report ---
Test Reason : Blood Pressure : / mmHG Vent. Rate : 076 BPM Atrial Rate : 083 BPM P-R Int : 000 ms QRS Dur : 122 ms QT Int : 416 ms P-R-T Axes : 000 -42 250 degrees QTc Int : 468 ms Poor data quality, interpretation may be adversely affected Atrial fibrillation with occasional ventricular-paced complexes Left axis deviation Non-specific intra-ventricular conduction delay Abnormal ECG When compared with ECG of 26-OCT-2022 07:53, (unconfirmed) Electronic ventricular pacemaker has replaced Atrial fibrillation Confirmed by Ad Machado ([id number]) on 10/26/2022 4:14:25 PM Referred By: [facility] Confirmed By:Ad Machado
[2022-10-26] MEDS ORDERED: VANCOMYCIN HCL 1,250 MG in SODIUM CHLORIDE 0.9% 250 ML IV SCH (22:00)
[2022-10-26 23:59] LABS: Partial Thromboplastin Ratio 2.1
[2022-10-27 00:11] LABS: Partial Thromboplastin Time 58.8 Seconds (21.0-31.0)
[2022-10-27 00:29] LABS: Appearance Urine Cloudy (Clear); Bacteria Urine Automated Negative (Negative); Bilirubin Urine Negative (Negative); Blood Urine 2+ (Negative); Color Urine Yellow; Epithelial Cell Urine Auto 20-30 /lpf (0-5); Glucose Urine UA Negative (Negative); Ketones Urine Negative (Negative); Leukocyte Esterase Urine 1+ (Negative); Nitrite Urine Negative (Negative); Protein Urine 1+ (Negative); RBC Urine Automated 0-4 /hpf (0-4); Specific Gravity Urine 1.016 (1.000-1.030); Urobilinogen Urine Negative (Negative)
[2022-10-27] MEDS: PIPERACILLIN/TAZOBACTAM 3.375 GM in DEXTROSE 5% 100 ML IV SCH ×3 (02:13→18:10)
[2022-10-27] MEDS: LEVOTHYROXINE SODIUM 75 MCG TABLET PO SCH (06:31)
[2022-10-27 07:52] LABS: Hematocrit (blood only) 34.9 % (40.1-51.0); Hemoglobin 11.6 g/dl (14.0-18.0); Mean Corpuscular Hemoglobin 30.5 pg (25.0-34.0); Mean Corpuscular Hgb Conc 33.2 g/dL (32.0-36.0); Mean Corpuscular Volume 91.8 fL (80.0-100.0); Mean Platelet Volume 11.8 fL (9.4-12.4); Platelet Count 86 K/uL (130-400); RDW Coefficient of Variation 17.2 % (11.5-14.5); RDW Standard Deviation 58.4 fL (36.4-46.3); White Blood Count 6.34 K/ul (4.8-10.8)
[2022-10-27 07:59] LABS: Partial Thromboplastin Ratio 1.7
[2022-10-27 08:00] LABS: Albumin Globulin Ratio 0.7 (0.9-2); Albumin Level 2.4 gm/dl (3.4-5.0); BUN Creatinine Ratio 22.3 (10-20); Bilirubin,Total 2.3 mg/dl (0.2-1.0); Calcium 7.8 mg/dl (8.5-10.1); Creatinine Clr Calc Pharmacy 32.5 ml/min; Est GFR (African American) 27.3 ml/min; Est GFR (Non-African American) 23.5 ml/min; Globulin 3.3 gm/dl (2.5-4.0); Potassium 3.3 mmol/L (3.5-5.1); Total Protein 5.7 gm/dl (6.0-8.3)
[2022-10-27 08:11] LABS: Basophils # (auto) 0.02 K/uL (0-0.2); Basophils % (auto) 0.3 %; Eosinophils # (auto) 0.02 K/uL (0-0.50); Eosinophils % (auto) 0.3 %; Immature Granulocytes # (auto) 0.05 K/uL (0.00-0.02); Immature Granulocytes % (auto) 0.8 %; Lymphocytes # (auto) 1.95 K/uL (1.2-3.4); Lymphocytes % (auto) 30.8 %; Monocytes % (auto) 1.6 %; Neutrophils % (auto) 66.2 %
[2022-10-27] MEDS: PANTOprazole 40 MG TAB PO SCH (08:52)
[2022-10-27] MEDS: ATORVASTATIN 40 MG TAB PO SCH (08:52)
[2022-10-27] MEDS: FUROSEMIDE 40 MG/4 ML VIAL IV SCH (08:52)
[2022-10-27] MEDS: FERROUS SULFATE 325 MG TAB PO SCH (08:52)
[2022-10-27] MEDS: CYANOCOBALAMIN (B-12) 500 MCG TABLET PO SCH (08:52)
[2022-10-27] MEDS: POTASSIUM CHLORIDE 10 MEQ TABCR PO SCH (08:53)
[2022-10-27] MEDS: HEPARIN SODIUM/DEXTROSE 25,000 UNITS/500 ML BAG IV SCH (08:57)
[2022-10-27] MEDS: INSULIN ASPART PER UNIT SC SCH ×4 (08:57→19:52)
[2022-10-27] MEDS: MAGNESIUM OXIDE 400 MG TAB PO SCH (09:55)
[2022-10-27] MEDS ORDERED: CARBOHYDRATES FOR HYPOGLYCEMIA PO PRN (13:15)
--- NOTE | 2022-10-27 14:21 | Hospitalist Progress Note ---
Date of Service October 27, 2022 Assessment & Plan (1) Sepsis due to methicillin susceptible Staphylococcus aureus (MSSA) with acute renal failure: (2) Acute congestive heart failure: (3) Demand ischemia: (4) Acute kidney failure: (5) Encephalopathy due to infection: Plan Patient is a 76-year-old male with past medical history of CHF, AAS status post bioprosthetic aortic valve, sick sinus syndrome status post pacemaker, paroxysmal A. fib, JT, type 2 diabetes, CKD, history of ICH, dementia who presented to the hospital from [facility] with confusion and fever. Sepsis POA, secondary to MSSA bacteremia Encephalopathy secondary to sepsis Acute on chronic systolic heart failure Demand ischemia Acute kidney injury on CKD Presented with confusion and fever Hypotensive on presentation, required BiPAP on admission AO x0; opens eyes to noxious stimuli Lactic acidosis present on admission; improved No leukocytosis Blood culture 3/4 positive for MSSA. Overnight, patient's mentation improved and he was more interactive. Creatinine bumped up; urine output assuring. CT chestmoderate bilateral pleural effusion with anasarca CT headno acute intracranial abnormality Plan; Continue on Zosyn for MSSA bacteremia. Vanc dced. Echo-no report of any vegetation. Infectious disease consult. Blood culture obtained today and tomorrow; we will follow-up on results. Hold Lasix for today. Currently on heparin drip low-dose; will appreciate cardiology input. CPAP at night. -Discontinue heparin -Hold antihypertensive at the moment. -Will obtain CT of left leg given the overlying boil to rule out underlying abscess. -Wound care consult -We will continue Valencia given his renal function. Chronic conditions: History of penile implanturology consulted; recommended urinalysis/urine culture. No other intervention needed for now Hypertensionhold off on antihypertensive. Hold off Lasix. Type 2 diabetes mellitussliding scale insulin. Monitor blood glucose level History of paroxysmal A. fib; not on anticoagulation due to risks of bleeding. Monitor on telemetry DNR/DNI DVT prophylaxis Heparin Admission and Anticipated Discharge Date Admission Date: October 25, 2022 Subjective Patient seen and examined at bedside. He is more awake and interactive today. He is comfortable; not in any distress. Denies any discomfort. No complaint of shortness of breath or chest pain. Review of Systems Review of Systems: All systems reviewed & are unremarkable except as noted in Subjective Physical Exam Physical Exam: Constitutional: Awake, alert, oriented to self and place. Respiratory: Decreased breath sound at bases. Cardiovascular: RRR, no murmur, no edema Vessels: no JVD or carotid bruit Chest: normal inspection of chest Abdomen: normal bowel sounds, soft, nontender, no hepatosplenomegaly Musculoskeletal: Multiple bruises present in extremities; including boil in left leg. Skin: no rashes, warm and dry normal turgor Neurologic: Obtunded; awake with noxious stimuli Psychiatric: Awake, alert, oriented to self and place Lymphatic: no cervical or axillary lymphadenopathy : deferred Results & Data Results & Data ([facility]) Vital Signs (Past 12 Hours) Vital Signs Temp Pulse Pulse Resp BP Pulse Ox O2 Del Method 10/27/22 11:12 36.8 C 62 19 102/60 100 Nasal Cannula 10/27/22 08:00 Nasal Cannula 10/27/22 08:28 36.6 C 68 19 105/64 100 Nasal Cannula 10/27/22 03:32 70 22 97 10/27/22 02:48 36.3 C L 69 18 109/63 100 BiPAP O2 Flow Rate 10/27/22 11:12 2.0 10/27/22 08:00 2 10/27/22 08:28 2.0 10/27/22 03:32 2 10/27/22 02:48 Laboratory Results Laboratory Results WBC 6.34 K/ul (4.8-10.8) 10/27/22 07:04 RBC 3.80 M/uL (4.63-6.08) L 10/27/22 07:04 Hgb 11.6 g/dl (14.0-18.0) L 10/27/22 07:04 Hct 34.9 % (40.1-51.0) L 10/27/22 07:04 MCV 91.8 fL (80.0-100.0) 10/27/22 07:04 MCH 30.5 pg (25.0-34.0) 10/27/22 07:04 MCHC 33.2 g/dL (32.0-36.0) 10/27/22 07:04 RDW Std Deviation 58.4 fL (36.4-46.3) H 10/27/22 07:04 RDW Coeff of Solis 17.2 % (11.5-14.5) H 10/27/22 07:04 Plt Count 86 K/uL (130-400) L 10/27/22 07:04 MPV 11.8 fL (9.4-12.4) 10/27/22 07:04 Immature Gran % (Auto) 0.8 % 10/27/22 07:04 Neut % (Auto) 66.2 % 10/27/22 07:04 Lymph % (Auto) 30.8 % 10/27/22 07:04 Door % (Auto) 1.6 % 10/27/22 07:04 Eos % (Auto) 0.3 % 10/27/22 07:04 Baso % (Auto) 0.3 % 10/27/22 07:04 Neut # (Auto) 4.20 K/uL (1.4-6.5) 10/27/22 07:04 Lymph # (Auto) 1.95 K/uL (1.2-3.4) 10/27/22 07:04 Door # (Auto) 0.10 K/uL (0.24-0.82) L 10/27/22 07:04 Eos # (Auto) 0.02 K/uL (0-0.50) 10/27/22 07:04 Baso # (Auto) 0.02 K/uL (0-0.2) 10/27/22 07:04 Immature Gran # (Auto) 0.05 K/uL (0.00-0.02) H 10/27/22 07:04 Absolute Nucleated RBC 0.02 K/uL (0-0) H 10/25/22 20:05 Nucleated RBC % (auto) 0.4 % 10/25/22 20:05 Toxic Vacuolation 1+ 10/25/22 20:05 Polychromasia 1+ 10/26/22 04:54 Acanthocytes (Spur) 1+ 10/26/22 04:54 PT 15.8 Seconds (9.0-12.0) H 10/25/22 21:05 INR 1.5 (0.9-1.1) H 10/25/22 21:05 APTT 48.0 Seconds (21.0-31.0) H* 10/27/22 07:04 PTT Ratio 1.7 10/27/22 07:04 ABG pH 7.55 (7.35-7.45) H* 10/25/22 21:05 ABG pCO2 25 mmHg (35-46) L 10/25/22 21:05 ABG pO2 91 mmHg (80-95) 10/25/22 21:05 ABG HCO3 22 mmol/L (19-24) 10/25/22 21:05 ABG O2 Saturation 98.8 % (90-95) H 10/25/22 21:05 ABG Base Excess 0.9 mEq/L (-9-1.8) 10/25/22 21:05 Conrado Test Pos (Pos) 10/25/22 21:05 Oxygen Given 2 10/25/22 21:05 Sodium 136 mmol/L (136-145) 10/27/22 07:04 Potassium 3.3 mmol/L (3.5-5.1) L 10/27/22 07:04 Chloride 101 mmol/L (98-107) 10/27/22 07:04 Carbon Dioxide 25 mmol/L (21-32) 10/27/22 07:04 Anion Gap 10 (3-11) 10/27/22 07:04 BUN 57 mg/dl (6-23) H 10/27/22 07:04 Creatinine 2.56 mg/dl (0.6-1.4) H D 10/27/22 07:04 Est Cr Clr Drug Dosing 32.5 ml/min 10/27/22 07:04 Est GFR ( Amer) 27.3 ml/min 10/27/22 07:04 Est GFR (Non-Af Amer) 23.5 ml/min 10/27/22 07:04 BUN/Creatinine Ratio 22.3 (10-20) H 10/27/22 07:04 Glucose 152 mg/dl (70-99(Fasting)) H 10/27/22 07:04 POC Glucose 156 mg/dl (70-99) H 10/27/22 12:13 Estimat Average Glucose 171 mg/dl 10/26/22 04:54 Hemoglobin A1c 7.6 % (4.5-5.6) H 10/26/22 04:54 Lactate 1.9 mmol/L (0.4-2.0) 10/26/22 08:03 Calcium 7.8 mg/dl (8.5-10.1) L 10/27/22 07:04 Magnesium 1.7 mg/dl (1.7-2.4) 10/26/22 04:54 Total Bilirubin 2.3 mg/dl (0.2-1.0) H 10/27/22 07:04 Direct Bilirubin 1.7 mg/dl (0-0.2) H 10/25/22 21:05 AST 44 U/L (13-39) H 10/27/22 07:04 ALT 22 U/L (7-52) 10/27/22 07:04 Alkaline Phosphatase 110 U/L (34-104) H 10/27/22 07:04 Total Creatine Kinase 209 U/L (30-223) 10/27/22 07:04 Troponin I High Sens 1260.0 pg/ml (0-20) H* D 10/27/22 13:19 B-Natriuretic Peptide > 4700 pg/ml (0-100) H 10/25/22 21:05 Total Protein 5.7 gm/dl (6.0-8.3) L 10/27/22 07:04 Albumin 2.4 gm/dl (3.4-5.0) L 10/27/22 07:04 Globulin 3.3 gm/dl (2.5-4.0) 10/27/22 07:04 Albumin/Globulin Ratio 0.7 (0.9-2) L 10/27/22 07:04 Lipase 6 U/L (11-82) L 10/25/22 21:05 Urine Color Yellow 10/26/22 Unknown Urine Appearance Cloudy (Clear) A 10/26/22 Unknown Urine pH 5.0 (4.5-7.5) 10/26/22 Unknown Ur Specific [place] 1.016 (1.000-1.030) 10/26/22 Unknown Urine Protein 1+ (Negative) H 10/26/22 Unknown Urine Glucose (UA) Negative (Negative) 10/26/22 Unknown Urine Ketones Negative (Negative) 10/26/22 Unknown Urine Blood 2+ (Negative) H 10/26/22 Unknown Urine Nitrite Negative (Negative) 10/26/22 Unknown Urine Bilirubin Negative (Negative) 10/26/22 Unknown Urine Urobilinogen Negative (Negative) 10/26/22 Unknown Ur Leukocyte Esterase 1+ (Negative) H 10/26/22 Unknown Urine WBC (Auto) 5-10 /hpf (0-5) H 10/26/22 Unknown Urine RBC (Auto) 0-4 /hpf (0-4) 10/26/22 Unknown U Hyaline Cast (Auto) 5-10 /lpf (0-5) H 10/26/22 Unknown U Epithel Cells (Auto) 20-30 /lpf (0-5) H 10/26/22 Unknown Urine Bacteria (Auto) Negative (Negative) 10/26/22 Unknown Urine Yeast Not Reportable 10/26/22 Unknown Nasal Screen MRSA (PCR) Negative (Negative) 10/26/22 09:55 SARS-CoV-2 (PCR) NEGATIVE (Negative) 10/25/22 21:04 Influenza Type A (PCR) Negative (Neg) 10/25/22 21:04 Influenza Type B (PCR) Negative (Neg) 10/25/22 21:04 RSV (RT-PCR) Negative (Neg) 10/25/22 21:04 Staphylococcus sp PCR DETECTED (NotDetected) A 10/25/22 21:05 Staph aureus (PCR) DETECTED (NotDetected) A 10/25/22 21:05 mecA/C & MREJ Resist Gene MRSA Not Detected (NotDetected) 10/25/22 21:05 Bld Cult ID Panel PCR See PCR Comment (NotDetected) 10/25/22 21:[address] 10/25/22 20:37 CT OF THE CERVICAL SPINE WITHOUT CONTRAST CLINICAL HISTORY: Fall. COMPARISON STUDY: No previous studies for comparison. TECHNIQUE: Helical axial images of the cervical spine were obtained without IV contrast. Sagittal and coronal reconstructions were viewed. Automated exposure control was utilized for the study. A dose lowering technique was utilized adhering to the principles of ALARA. FINDINGS: There is reversal of the cervical lordosis. Severe multilevel facet arthrosis is noted. There is moderate multilevel degenerative disc disease. No acute fracture is present. There is no prevertebral edema. Bilateral pleural effusions are better depicted on the chest CT which will be reported separately. IMPRESSION: 1. No acute cervical spine fracture or subluxation. 2. Severe multilevel facet arthrosis and moderate degenerative disc disease within the cervical spine. ACT 112: Negative or not required by law. Electronically signed by: Sebastian An M.D. 10/26/2022 9:00 AM Chest X-Ray 10/25/22 20:37 XR chest 1V portable HISTORY: fall COMPARISON: Chest 10/08/2022. FINDINGS: No pneumothorax. Small bilateral pleural effusions persist. The heart remains enlarged. There is a left-sided pacemaker and a cardiac valve prosthesis again noted. There are patchy hazy airspace perihilar airspace opacities and interstitial thickening consistent with asymmetric pulmonary edema IMPRESSION: Asymmetric pulmonary edema with small bilateral pleural effusions. ACT 112: Negative or not required by law. Electronically signed by: Iglesia Luu M.D. 10/26/2022 9:[address] 10/25/22 20:[address] DOSE: HISTORY: fall TECHNIQUE: Multiaxial CT images of the head were performed without the use of intravenous contrast. Automated exposure control was utilized for this study. A dose lowering technique was utilized adhering to the principles of ALARA. Comparison: Head CT 10/08/2022. Findings: The paranasal sinuses and mastoid air cells are clear. The calvarium and skull base are intact. There is no mass, hematoma, midline shift, acute infarct. White matter hypodensity is nonspecific but suggestive of microvascular ischemic change. The ventricles and sulci demonstrate mild age-related involutional changes. 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 Impression: No significant change compared to the prior study. No acute intracranial abnormality. ACT 112: Negative or not required by law. Electronically signed by: Iglesia Luu M.D. 10/26/2022 7:18 AM Pelvis X-Ray 10/25/22 20:37 XR pelvis 1-2V routine CLINICAL HISTORY: fall. Pelvic pain. COMPARISON STUDY: None. FINDINGS: No fracture or dislocation within the pelvis or hips. Mild degenerative changes within the bilateral hips. Vascular calcifications are noted. The sacrum appears intact. A penile implant is noted. IMPRESSION: No acute fracture or dislocation within the pelvis or hips. ACT 112: Negative or not required by law. Electronically signed by: Iglesia Luu M.D. 10/26/2022 9:[address] 10/26/22 00:45 CT chest diagnostic wo con CT DOSE: 1058.73 mGy.cm HISTORY: Shortness of breath. Infiltrates. TECHNIQUE: Multiaxial CT images of the chest were performed without contrast. A dose lowering technique was utilized adhering to the principles of ALARA. COMPARISON: Chest CT 10/09/2022. FINDINGS: Respiratory motion artifact. The central airways are patent. No pneumothorax. Moderate bilateral pleural effusions are again noted. Compressive atelectasis within the bilateral lower lobes posteriorly persists. Stable stable 2.4 cm low-density lesion within the base of the right middle lobe on image 253. There is left-sided pacemaker. No suspicious lytic or blastic osseous lesions. Moderate diffuse body wall edema, unchanged. Normal thyroid gland. Mild mediastinal and left axillary lymphadenopathy remains unchanged. An aortic valve prosthesis is noted. The heart remains mildly enlarged. Normal caliber esophagus. Normal caliber thoracic aorta. Severe coronary artery calcifications are noted. A cardiac valve prosthesis is again noted. Mild interlobular septal thickening with faint groundglass densities which may represent pulmonary edema. This is similar to the prior study IMPRESSION: 1. No significant change compared to the prior study. 2. Moderate bilateral pleural effusions with anasarca and possible mild pulmonary edema. 3. A 2.4 cm water attenuation focus within the right middle lobe. Continued [address] follow-up recommended to ensure stability/resolution. ACT 112: Negative or not required by law. Electronically signed by: Iglesia Luu M.D. 10/26/2022 9:04 AM
--- NOTE | 2022-10-27 17:20 | CT Scan Report ---
CT tib/fib LT wo con HISTORY: 76 years-old Male Concern for abscess; overlying blister present acute pain and swelling of the left lower leg. Possible abscess with osteomyelitis. COMPARISON: None TECHNIQUE: Multiple axial CT images of the left tibia and fibula were obtained without the use of IV contrast. A dose lowering technique was used consistent with the principals of PATRICIA. FINDINGS: There is moderate diffuse subcutaneous edema with moderate muscular atrophy. Trace knee joint effusio n. Arterial calcifications. There is a focal cutaneous blister type homogeneous lesion involving the lower pretibial tissues measuring 7.7 x 1.3 x 6.1 cm. Tendons and ligaments are not well evaluated by CT technique. No abscess. Marked thickening of the Achilles tendon. Degenerative spurring of the josue caneus. Osteoarthritis of the knee, foot and ankle. No acute fracture, dislocation or osseous erosion . IMPRESSION: 1. No acute osseous abnormality. 2. Moderate diffuse subcutaneous edema suggestive of cellulitis, venous stasis or lymphedema. 3. 7.7 cm cutaneous blister type lesion centered within the distal pretibial tissues. 4. Soft tissue thickening of the Achilles tendon suspicious for an Achilles tendon xanthoma. Severe t endinosis could appear similarly. ACT 112: Negative or not required by law. The above report was generated using voice recognition software. It may contain grammatical, syntax o r spelling errors. Electronically signed by: Merlin Mendoza M.D. 10/27/2022 5:17 PM
[2022-10-28] MEDS: PIPERACILLIN/TAZOBACTAM 3.375 GM in DEXTROSE 5% 100 ML IV SCH (02:30)
[2022-10-28 05:41] LABS: Partial Thromboplastin Ratio 1.2; Partial Thromboplastin Time 33.3 Seconds (21.0-31.0)
[2022-10-28 05:51] LABS: Albumin Globulin Ratio 0.7 (0.9-2); Albumin Level 2.4 gm/dl (3.4-5.0); BUN Creatinine Ratio 25.5 (10-20); Bilirubin,Total 2.3 mg/dl (0.2-1.0); Calcium 8.3 mg/dl (8.5-10.1); Creatinine Clr Calc Pharmacy 31.2 ml/min; Est GFR (African American) 25.9 ml/min; Est GFR (Non-African American) 22.4 ml/min; Globulin 3.6 gm/dl (2.5-4.0); Potassium 3.4 mmol/L (3.5-5.1)
[2022-10-28 06:10] LABS: Hematocrit (blood only) 33.8 % (40.1-51.0); Hemoglobin 11.6 g/dl (14.0-18.0); Mean Corpuscular Hemoglobin 30.9 pg (25.0-34.0); Mean Corpuscular Hgb Conc 34.3 g/dL (32.0-36.0); Mean Corpuscular Volume 89.9 fL (80.0-100.0); Mean Platelet Volume 11.7 fL (9.4-12.4); Platelet Count 68 K/uL (130-400); RDW Coefficient of Variation 16.7 % (11.5-14.5); RDW Standard Deviation 55.4 fL (36.4-46.3); Red Blood Count 3.76 M/uL (4.63-6.08); White Blood Count 5.82 K/ul (4.8-10.8)
[2022-10-28 06:41] LABS: Basophils # (auto) 0.03 K/uL (0-0.2); Basophils % (auto) 0.5 %; Echinocytes 1+; Eosinophils # (auto) 0.03 K/uL (0-0.50); Eosinophils % (auto) 0.5 %; Immature Granulocytes # (auto) 0.03 K/uL (0.00-0.02); Immature Granulocytes % (auto) 0.5 %; Lymphocytes % (auto) 34.4 %; Monocytes # (auto) 0.09 K/uL (0.24-0.82); Monocytes % (auto) 1.5 %; Neutrophils # (auto) 3.64 K/uL (1.4-6.5); Neutrophils % (auto) 62.6 %; Toxic Vacuolation 3+
[2022-10-28] MEDS: LEVOTHYROXINE SODIUM 75 MCG TABLET PO SCH (06:50)
[2022-10-28] MEDS: ATORVASTATIN 40 MG TAB PO SCH (08:49)
[2022-10-28] MEDS: FERROUS SULFATE 325 MG TAB PO SCH (08:49)
[2022-10-28] MEDS: MAGNESIUM OXIDE 400 MG TAB PO SCH (08:49)
[2022-10-28] MEDS: CYANOCOBALAMIN (B-12) 500 MCG TABLET PO SCH (08:49)
[2022-10-28] MEDS: PANTOprazole 40 MG TAB PO SCH (08:49)
[2022-10-28] MEDS: ceFAZolin 1000MG 1,000 MG/7.5 ML SYR IV SCH ×2 (08:49→19:51)
[2022-10-28] MEDS: POTASSIUM CHLORIDE 10 MEQ TABCR PO SCH (08:52)
[2022-10-28] MEDS: INSULIN ASPART PER UNIT SC SCH ×4 (09:13→20:06)
--- NOTE | 2022-10-28 10:54 | Cardiology Progress Note ---
Date of Service October 28, 2022 Assessment & Plan (1) Pneumonia: (2) Sepsis: (3) Encephalopathy: (4) Anasarca: (5) Acute kidney injury superimposed on CKD: (6) Systolic heart failure secondary to coronary artery disease: (7) Chronic atrial fibrillation: (8) Cardiac pacemaker: (9) Gram positive sepsis: Plan Patient admitted for worsening mental status (underlying dementia), weakness, hypoxia, likely underlying CHF and pneumonia. Also found to have BRIAN with possible recent urinary retention issues and now gram positive cocci bactermia Defer to hospitalist regarding antibiotic treatment for bacteremia, pneumonia. Patient with CHF, signs of anasarca and b/l pleural effusions. Continue to follow volume status clinically Monitor I+O's. Monitor renal function. Supplement potassium. Elevated troponin likely in setting of demand ischemia, type II event with hypoxia and sepsis. He has no anginal complaints. No acute EKG changes. Continue ASA, statin, beta oracio Afib is chronic, with underlying pacemaker. He is not anticoagulated chronically due to fall risk, and history of intracranial hemorrhage. Okay to DC telemetry or to home from a cardiac standpoint Admission and Anticipated Discharge Date Admission Date: October 25, 2022 Subjective Patient seen and examined. Telemetry reviewed. Chart reviewed. Review of Systems Review of Systems: All systems reviewed & are unremarkable except as noted in HPI & below Physical Exam Physical Exam: General: Awake, alert and oriented x 3. No acute distress. HEENT: Normocephalic, atraumatic. Pupils equal, round and reactive to light and accommodation. Extraocular muscles are intact. Anicteric sclera. Moist mucous membranes. Neck: No JVD. No bruit. Cardiovascular: Regular. Positive S-4. Normal S-1 and S-2. No S-3. 3/6 mid to late systolic ejection murmur, greatest at the right sternal border, second intercostal space with radiation to the bilateral carotids. No rubs. Pulmonary: Clear to auscultation bilaterally. No rales, rhonchi, or wheezing. Abdomen: Bowel sounds x 4, soft. No rebound, guarding or tenderness. No organomegaly. Extremities: No clubbing, cyanosis or edema. +2 pedal pulses bilaterally. Skin: Warm and dry. Results & Data ([facility]) Vital Signs (Past 12 Hours) Vital Signs Temp Pulse Pulse Resp BP Pulse Ox O2 Del Method 10/28/22 08:00 Nasal Cannula 10/28/22 08:22 66 10/28/22 07:23 36.6 C 65 17 115/69 98 Nasal Cannula 10/28/22 04:48 36.9 C 67 18 118/72 97 BiPAP 10/28/22 02:02 17 10/27/22 23:44 37.1 C 71 16 118/84 99 BiPAP 10/27/22 23:31 65 21 100 O2 Flow Rate 10/28/22 08:00 2 10/28/22 08:22 10/28/22 07:23 2 10/28/22 04:48 10/28/22 02:02 2 10/27/22 23:44 10/27/22 23:31 2 (1) Sepsis Acute renal failure type: unspecified Sepsis acute organ dysfunction status: with acute organ dysfunction Sepsis type: sepsis due to unspecified organism Severe sepsis acute organ dysfunction type: acute renal failure Severe sepsis shock status: unspecified Qualified Code(s): A41.9 - Sepsis, unspecified organism; R65.20 - Severe sepsis without septic shock; N17.9 - Acute kidney failure, unspecified (2) Pneumonia Laterality: right Lung location: middle lobe of lung Pneumonia type: due to unspecified organism Qualified Code(s): J18.9 - Pneumonia, unspecified organism
--- NOTE | 2022-10-28 13:34 | Hospitalist Progress Note ---
Date of Service October 28, 2022 Assessment & Plan (1) Sepsis due to methicillin susceptible Staphylococcus aureus (MSSA) with acute renal failure: (2) Acute congestive heart failure: (3) Demand ischemia: (4) Acute kidney failure: (5) Encephalopathy due to infection: Plan Patient is a 76-year-old male with past medical history of CHF, AAS status post bioprosthetic aortic valve, sick sinus syndrome status post pacemaker, paroxysmal A. fib, JT, type 2 diabetes, CKD, history of ICH, dementia who presented to the hospital from [facility] with confusion and fever. Sepsis POA, secondary to MSSA bacteremia Encephalopathy secondary to sepsis Acute on chronic systolic heart failure Demand ischemia Acute kidney injury on CKD Left leg cellulitis with cutaneous boil Presented with confusion and fever Hypotensive on presentation, required BiPAP on admission AO x0; opens eyes to noxious stimuli Lactic acidosis present on admission; improved No leukocytosis Overnight, patient's mentation improved and he was more interactive. Creatinine bumped up; urine output assuring. CT chestmoderate bilateral pleural effusion with anasarca CT headno acute intracranial abnormality CT of left leg was done; no underlying abscess. Presence of cutaneous boil. Blood culture on admission 12/22 positive for MSSA. Blood culture on Plan; Change to Cefzolin today. Echo-no report of any vegetation. Infectious disease consult. Will obtain repeat blood culture tomorrow a.m. Consulted podiatry for presence of cutaneous boil. Could be ?likely source for MSSA bacteremia. Wound care to see him tomorrow. Hold Lasix for today. Antihypertensive on hold presently. CPAP at night. -Creatinine trending up; nonoliguric. Likely ATN secondary to hypotension from sepsis. Monitor kidney function. We will continue to hold Lasix and antihypertensives for now. Thrombocytopenia: -Likely secondary to sepsis -Platelets 68 today. - will monitor CBC daily. Obtain venous duplex to rule out consumptive thrombocytopenia. -Is received heparin in the past; no history of HIT. -Will consult hematology if he continues to be thrombocytopenic. Chronic conditions: History of penile implanturology consulted; recommended urinalysis/urine culture. No other intervention needed for now Hypertensionhold off on antihypertensive. Hold off Lasix. Type 2 diabetes mellitussliding scale insulin. Monitor blood glucose level History of paroxysmal A. fib; not on anticoagulation due to risks of bleeding. Monitor on telemetry DNR/DNI DVT prophylaxis Heparin Admission and Anticipated Discharge Date Admission Date: October 25, 2022 Subjective Patient seen and examined at bedside. Is more awake and interactive; denies any shortness of breath or chest pain. Review of Systems Review of Systems: All systems reviewed & are unremarkable except as noted in Subjective Physical Exam Physical Exam: Constitutional: Awake, alert, oriented to self and place. Respiratory: Decreased breath sound at bases. Cardiovascular: Irregular, no murmur, no edema Vessels: no JVD or carotid bruit Chest: normal inspection of chest Abdomen: normal bowel sounds, soft, nontender, no hepatosplenomegaly Musculoskeletal: Multiple bruises present in extremities; including boil in left leg with surrounding swelling/edema. Skin: no rashes, warm and dry normal turgor Neurologic: Awake alert ; moves all extremities. Psychiatric: Awake, alert, oriented to self and place Lymphatic: no cervical or axillary lymphadenopathy : deferred Results & Data Results & Data ([facility]) Vital Signs (Past 12 Hours) Vital Signs Temp Pulse Pulse Resp BP Pulse Ox O2 Del Method 10/28/22 12:23 36.5 C 61 17 125/73 100 Nasal Cannula 10/28/22 08:00 Nasal Cannula 10/28/22 08:22 66 10/28/22 07:23 36.6 C 65 17 115/69 98 Nasal Cannula 10/28/22 04:48 36.9 C 67 18 118/72 97 BiPAP 10/28/22 02:02 17 O2 Flow Rate 10/28/22 12:23 2 10/28/22 08:00 2 10/28/22 08:22 10/28/22 07:23 2 10/28/22 04:48 10/28/22 02:02 2 Laboratory Results Laboratory Results WBC 5.82 K/ul (4.8-10.8) 10/28/22 04:54 RBC 3.76 M/uL (4.63-6.08) L 10/28/22 04:54 Hgb 11.6 g/dl (14.0-18.0) L 10/28/22 04:54 Hct 33.8 % (40.1-51.0) L 10/28/22 04:54 MCV 89.9 fL (80.0-100.0) 10/28/22 04:54 MCH 30.9 pg (25.0-34.0) 10/28/22 04:54 MCHC 34.3 g/dL (32.0-36.0) 10/28/22 04:54 RDW Std Deviation 55.4 fL (36.4-46.3) H 10/28/22 04:54 RDW Coeff of Solis 16.7 % (11.5-14.5) H 10/28/22 04:54 Plt Count 68 K/uL (130-400) L 10/28/22 04:54 MPV 11.7 fL (9.4-12.4) 10/28/22 04:54 Immature Gran % (Auto) 0.5 % 10/28/22 04:54 Neut % (Auto) 62.6 % 10/28/22 04:54 Lymph % (Auto) 34.4 % 10/28/22 04:54 [place] % (Auto) 1.5 % 10/28/22 04:54 Eos % (Auto) 0.5 % 10/28/22 04:54 Baso % (Auto) 0.5 % 10/28/22 04:54 Neut # (Auto) 3.64 K/uL (1.4-6.5) 10/28/22 04:54 Lymph # (Auto) 2.00 K/uL (1.2-3.4) 10/28/22 04:54 [place] # (Auto) 0.09 K/uL (0.24-0.82) L 10/28/22 04:54 Eos # (Auto) 0.03 K/uL (0-0.50) 10/28/22 04:54 Baso # (Auto) 0.03 K/uL (0-0.2) 10/28/22 04:54 Immature Gran # (Auto) 0.03 K/uL (0.00-0.02) H 10/28/22 04:54 Absolute Nucleated RBC 0.02 K/uL (0-0) H 10/25/22 20:05 Nucleated RBC % (auto) 0.4 % 10/25/22 20:05 Toxic Vacuolation 3+ 10/28/22 04:54 Polychromasia 1+ 10/26/22 04:54 Echinocytes 1+ 10/28/22 04:54 Acanthocytes (Spur) 1+ 10/26/22 04:54 PT 15.8 Seconds (9.0-12.0) H 10/25/22 21:05 INR 1.5 (0.9-1.1) H 10/25/22 21:05 APTT 33.3 Seconds (21.0-31.0) H 10/28/22 04:54 PTT Ratio 1.2 10/28/22 04:54 ABG pH 7.55 (7.35-7.45) H* 10/25/22 21:05 ABG pCO2 25 mmHg (35-46) L 10/25/22 21:05 ABG pO2 91 mmHg (80-95) 10/25/22 21:05 ABG HCO3 22 mmol/L (19-24) 10/25/22 21:05 ABG O2 Saturation 98.8 % (90-95) H 10/25/22 21:05 ABG Base Excess 0.9 mEq/L (-9-1.8) 10/25/22 21:05 Conrado Test Pos (Pos) 10/25/22 21:05 Oxygen Given 2 10/25/22 21:05 Sodium 136 mmol/L (136-145) 10/28/22 04:54 Potassium 3.4 mmol/L (3.5-5.1) L 10/28/22 04:54 Chloride 101 mmol/L (98-107) 10/28/22 04:54 Carbon Dioxide 24 mmol/L (21-32) 10/28/22 04:54 Anion Gap 11 (3-11) 10/28/22 04:54 BUN 68 mg/dl (6-23) H 10/28/22 04:54 Creatinine 2.67 mg/dl (0.6-1.4) H 10/28/22 04:54 Est Cr Clr Drug Dosing 31.2 ml/min 10/28/22 04:54 Est GFR ( Amer) 25.9 ml/min 10/28/22 04:54 Est GFR (Non-Af Amer) 22.4 ml/min 10/28/22 04:54 BUN/Creatinine Ratio 25.5 (10-20) H 10/28/22 04:54 Glucose 154 mg/dl (70-99(Fasting)) H 10/28/22 04:54 POC Glucose 182 mg/dl (70-99) H 10/28/22 12:22 Estimat Average Glucose 171 mg/dl 10/26/22 04:54 Hemoglobin A1c 7.6 % (4.5-5.6) H 10/26/22 04:54 Lactate 1.9 mmol/L (0.4-2.0) 10/26/22 08:03 Calcium 8.3 mg/dl (8.5-10.1) L 10/28/22 04:54 Magnesium 2.0 mg/dl (1.7-2.4) 10/28/22 04:54 Total Bilirubin 2.3 mg/dl (0.2-1.0) H 10/28/22 04:54 Direct Bilirubin 1.7 mg/dl (0-0.2) H 10/25/22 21:05 AST 46 U/L (13-39) H 10/28/22 04:54 ALT 29 U/L (7-52) 10/28/22 04:54 Alkaline Phosphatase 139 U/L (34-104) H 10/28/22 04:54 Total Creatine Kinase 209 U/L (30-223) 10/27/22 07:04 Troponin I High Sens 1260.0 pg/ml (0-20) H* D 10/27/22 13:19 B-Natriuretic Peptide > 4700 pg/ml (0-100) H 10/25/22 21:05 Total Protein 6.0 gm/dl (6.0-8.3) 10/28/22 04:54 Albumin 2.4 gm/dl (3.4-5.0) L 10/28/22 04:54 Globulin 3.6 gm/dl (2.5-4.0) 10/28/22 04:54 Albumin/Globulin Ratio 0.7 (0.9-2) L 10/28/22 04:54 Lipase 6 U/L (11-82) L 10/25/22 21:05 Urine Color Yellow 10/26/22 Unknown Urine Appearance Cloudy (Clear) A 10/26/22 Unknown Urine pH 5.0 (4.5-7.5) 10/26/22 Unknown Ur Specific Lindsay 1.016 (1.000-1.030) 10/26/22 Unknown Urine Protein 1+ (Negative) H 10/26/22 Unknown Urine Glucose (UA) Negative (Negative) 10/26/22 Unknown Urine Ketones Negative (Negative) 10/26/22 Unknown Urine Blood 2+ (Negative) H 10/26/22 Unknown Urine Nitrite Negative (Negative) 10/26/22 Unknown Urine Bilirubin Negative (Negative) 10/26/22 Unknown Urine Urobilinogen Negative (Negative) 10/26/22 Unknown Ur Leukocyte Esterase 1+ (Negative) H 10/26/22 Unknown Urine WBC (Auto) 5-10 /hpf (0-5) H 10/26/22 Unknown Urine RBC (Auto) 0-4 /hpf (0-4) 10/26/22 Unknown U Hyaline Cast (Auto) 5-10 /lpf (0-5) H 10/26/22 Unknown U Epithel Cells (Auto) 20-30 /lpf (0-5) H 10/26/22 Unknown Urine Bacteria (Auto) Negative (Negative) 10/26/22 Unknown Urine Yeast Not Reportable 10/26/22 Unknown Nasal Screen MRSA (PCR) Negative (Negative) 10/26/22 09:55 SARS-CoV-2 (PCR) NEGATIVE (Negative) 10/25/22 21:04 Influenza Type A (PCR) Negative (Neg) 10/25/22 21:04 Influenza Type B (PCR) Negative (Neg) 10/25/22 21:04 RSV (RT-PCR) Negative (Neg) 10/25/22 21:04 Staphylococcus sp PCR DETECTED (NotDetected) A 10/25/22 21:05 Staph aureus (PCR) DETECTED (NotDetected) A 10/25/22 21:05 mecA/C & MREJ Resist Gene MRSA Not Detected (NotDetected) 10/25/22 21:05 Bld Cult ID Panel PCR See PCR Comment (NotDetected) 10/25/22 21:[address] 10/25/22 20:37 CT OF THE CERVICAL SPINE WITHOUT CONTRAST CLINICAL HISTORY: Fall. COMPARISON STUDY: No previous studies for comparison. TECHNIQUE: Helical axial images of the cervical spine were obtained without IV contrast. Sagittal and coronal reconstructions were viewed. Automated exposure control was utilized for the study. A dose lowering technique was utilized adhering to the principles of ALARA. FINDINGS: There is reversal of the cervical lordosis. Severe multilevel facet arthrosis is noted. There is moderate multilevel degenerative disc disease. No acute fracture is present. There is no prevertebral edema. Bilateral pleural effusions are better depicted on the chest CT which will be reported separately. IMPRESSION: 1. No acute cervical spine fracture or subluxation. 2. Severe multilevel facet arthrosis and moderate degenerative disc disease within the cervical spine. ACT 112: Negative or not required by law. Electronically signed by: Sebastian An M.D. 10/26/2022 9:00 AM Chest X-Ray 10/25/22 20:37 XR chest 1V portable HISTORY: fall COMPARISON: Chest 10/08/2022. FINDINGS: No pneumothorax. Small bilateral pleural effusions persist. The heart remains enlarged. There is a left-sided pacemaker and a cardiac valve prosthesis again noted. There are patchy hazy airspace perihilar airspace opacities and interstitial thickening consistent with asymmetric pulmonary edema IMPRESSION: Asymmetric pulmonary edema with small bilateral pleural effusions. ACT 112: Negative or not required by law. Electronically signed by: Iglesia Luu M.D. 10/26/2022 9:[address] 10/25/22 20:[address] DOSE: HISTORY: fall TECHNIQUE: Multiaxial CT images of the head were performed without the use of intravenous contrast. Automated exposure control was utilized for this study. A dose lowering technique was utilized adhering to the principles of ALARA. Comparison: Head CT 10/08/2022. Findings: The paranasal sinuses and mastoid air cells are clear. The calvarium and skull base are intact. There is no mass, hematoma, midline shift, acute infarct. White matter hypodensity is nonspecific but suggestive of microvascular ischemic change. The ventricles and sulci demonstrate mild age-related involutional changes. 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 Impression: No significant change compared to the prior study. No acute intracranial abnormality. ACT 112: Negative or not required by law. Electronically signed by: Iglesia Luu M.D. 10/26/2022 7:18 AM Pelvis X-Ray 10/25/22 20:37 XR pelvis 1-2V routine CLINICAL HISTORY: fall. Pelvic pain. COMPARISON STUDY: None. FINDINGS: No fracture or dislocation within the pelvis or hips. Mild degenerative changes within the bilateral hips. Vascular calcifications are noted. The sacrum appears intact. A penile implant is noted. IMPRESSION: No acute fracture or dislocation within the pelvis or hips. ACT 112: Negative or not required by law. Electronically signed by: Iglesia Luu M.D. 10/26/2022 9:[address] 10/26/22 00:45 CT chest diagnostic wo con CT DOSE: 1058.73 mGy.cm HISTORY: Shortness of breath. Infiltrates. TECHNIQUE: Multiaxial CT images of the chest were performed without contrast. A dose lowering technique was utilized adhering to the principles of ALARA. COMPARISON: Chest CT 10/09/2022. FINDINGS: Respiratory motion artifact. The central airways are patent. No pneumothorax. Moderate bilateral pleural effusions are again noted. Compressive atelectasis within the bilateral lower lobes posteriorly persists. Stable stable 2.4 cm low-density lesion within the base of the right middle lobe on image 253. There is left-sided pacemaker. No suspicious lytic or blastic osseous lesions. Moderate diffuse body wall edema, unchanged. Normal thyroid gland. Mild mediastinal and left axillary lymphadenopathy remains unchanged. An aortic valve prosthesis is noted. The heart remains mildly enlarged. Normal caliber esophagus. Normal caliber thoracic aorta. Severe coronary artery calcifications are noted. A cardiac valve prosthesis is again noted. Mild interlobular septal thickening with faint groundglass densities which may represent pulmonary edema. This is similar to the prior study IMPRESSION: 1. No significant change compared to the prior study. 2. Moderate bilateral pleural effusions with anasarca and possible mild pulmonary edema. 3. A 2.4 cm water attenuation focus within the right middle lobe. Continued [address] follow-up recommended to ensure stability/resolution. ACT 112: Negative or not required by law. Electronically signed by: Iglesia Luu M.D. 10/26/2022 9:[address] 10/27/22 13:15 CT tib/fib LT wo con HISTORY: 76 years-old Male Concern for abscess; overlying blister present acute pain and swelling of the left lower leg. Possible abscess with osteomyelitis. COMPARISON: None TECHNIQUE: Multiple axial CT images of the left tibia and fibula were obtained without the use of IV contrast. A dose lowering technique was used consistent with the principals of ALARA. FINDINGS: There is moderate diffuse subcutaneous edema with moderate muscular atrophy. Trace knee joint effusion. Arterial calcifications. There is a focal cutaneous blister type homogeneous lesion involving the lower pretibial tissues measuring 7.7 x 1.3 x 6.1 cm. Tendons and ligaments are not well evaluated by CT technique. No abscess. Marked thickening of the Achilles tendon. Degenerative spurring of the calcaneus. Osteoarthritis of the knee, foot and ankle. No acute fracture, dislocation or osseous erosion. IMPRESSION: 1. No acute osseous abnormality. 2. Moderate diffuse subcutaneous edema suggestive of cellulitis, venous stasis or lymphedema. 3. 7.7 cm cutaneous blister type lesion centered within the distal pretibial tissues. 4. Soft tissue thickening of the Achilles tendon suspicious for an Achilles tendon xanthoma. Severe tendinosis could appear similarly. ACT 112: Negative or not required by law. The above report was generated using voice recognition software. It may contain grammatical, syntax or spelling errors. Electronically signed by: Merlin Mendoza M.D. 10/27/2022 5:17 PM
[2022-10-28] MEDS: HEPARIN SOD 5,000 UNIT/0.5 ML VIAL SQ SCH ×2 (14:41→21:59)
--- NOTE | 2022-10-28 20:20 | Orthopedic Consultation ---
Date of Consultation October 28, 2022 Assessment & Plan (1) Bullosis diabeticorum: Patient seen, evaluated, and treated. Diabetic bullae evacuated with 18 gauge needle. Approximately 60mL of serous fluid removed with out incident. Patient tolerated procedure well. Dressing applied followed by compressive selma wrap. Compression is an important part of management. Partial thickness left foot fourth and fifth interdigital diabetic ulcers presence. Will continue to follow while in house. Thank you for allowing me to participate in the care of this Patient. (2) Diabetic ulcer of left foot: (3) Diabetic peripheral neuropathy associated with type 2 diabetes mellitus: (4) Diabetic ulcer of right great toe: (5) Sepsis due to methicillin susceptible Staphylococcus aureus (MSSA) with acute renal failure: History of Present Illness Attending Physician: Dave Dover MD History of Present Illness Patient is a 76-year-old male is seen at bedside for left leg bullae. Patient is pleasant but confused with history of dementia. He was brought to [facility] 10/26/22 after fall on left side. Past medical history is taken from previous documentation. Patient past medical history significant for chronic systolic heart failure, EF of 40% to 45%, aortic stenosis, status post bioprosthetic aortic valve replacement, valvular heart disease, moderate tricuspid regurgitation, mild mitral regurgitation, mild paravalvular aortic valve prosthetic regurgitation, sick sinus syndrome status post permanent pacemaker, paroxysmal atrial fibrillation not on anticoagulation secondary to fall risk and also bleeding risk, history of pulmonary hypertension, obstructive sleep apnea on CPAP, diabetes insulin requiring, chronic kidney disease baseline creatinine1.3 to 1.4, history of CLL, chronic anemia, baseline hemoglobin of 13, history of ICH, and cerebral amyloid angiopathy as per records, history of dementia, who was recently in the hospital, was treated for acute encephalopathy secondary to hypertensive crisis, heart failure, new onset hypothyroidism, BIRAN. Patient currently in [facility]. Patient tried to get up by himself on the bed and fell on his left side and became more confused. Allergies Allergy/AdvReac Type Severity Reaction Status Date / Time No Known Allergies Allergy Unknown NONE Verified 10/25/22 22:43 Home Medications Medication Instructions Recorded Confirmed Type atorvastatin 40 mg tablet 40 mg PO QAM 10/08/19 10/25/22 History furosemide 40 mg tablet 40 mg PO QAM 10/08/19 10/25/22 History cyanocobalamin (vitamin B-12) 1,000 mcg PO QAM 12/06/20 10/25/22 History 1,000 mcg tablet ferrous sulfate 325 mg (65 mg 325 mg PO DAILY 12/06/20 10/25/22 History iron) tablet nitroglycerin 0.4 mg sublingual 0.4 mg sublingual UD PRN Chest Pain 12/06/20 10/25/22 History tablet amoxicillin 500 mg capsule 2,000 mg PO DIRECTED PRN PRIOR 06/02/21 10/25/22 History TO DENTAL APPT. omeprazole 20 mg capsule,delayed 20 mg PO DAILY 06/02/21 10/25/22 History release isosorbide dinitrate 5 mg tablet 2.5 mg PO BID@0700,1200 30 days 10/19/22 10/25/22 Rx #30 tabs magnesium oxide 400 mg (241.3 mg 400 mg PO QAM #30 tabs 10/19/22 10/25/22 Rx magnesium) tablet potassium chloride 10 mEq 10 meq PO DAILY #30 tabs 10/19/22 10/25/22 Rx tablet,extended release acetaminophen 325 mg tablet 325 mg PO Q6H PRN FEVER/PAIN 10/25/22 10/25/22 History (Tylenol) amlodipine 5 mg tablet 5 mg PO DAILY 10/25/22 10/25/22 History carvedilol 6.25 mg tablet 6.25 mg PO BID 10/25/22 10/25/22 History levothyroxine 75 mcg tablet 75 mcg PO DAILY 10/25/22 10/25/22 History semaglutide 0.25 mg or 0.5 mg (2 0.5 mg subcut WK 10/25/22 10/25/22 History mg/1.5 mL) subcutaneous pen injector (Ozempic) Patient History Medical History Acute blood loss anemia BRIAN (acute kidney injury) Brain bleed 2010 CAD (coronary artery disease) Cardiac pacemaker "SINCE 1973" FOLLOWS WITH DR. POZO Chronic atrial fibrillation CKD (chronic kidney disease), stage III PT DENIES Diabetes mellitus, type 2 Diabetic peripheral neuropathy associated with type 2 diabetes mellitus History of sick sinus syndrome s/p PPM HLD (hyperlipidemia) Hx of gastritis Hypertension Intracerebral hemorrhage Memory deficit Myocardial Infarction 1973 JT on CPAP SEVERE SLEEP APNEA Poor historian Stroke 1973 AND 1978 (DENIES ANY [facility] PROBLEMS FROM EVENTS) Surgical History History of anesthesia reaction PT STATES "THEY HAD A HARD TIME PUTTING ME TO SLEEP" 1973 ? PROCEDURE History of colonoscopy History of esophagogastroduodenoscopy (EGD) History of orthopedic surgery "repair of fracture right ankle" History of throat surgery History of tonsillectomy and adenoidectomy History of tooth extraction Hx of aortic valve replacement TAVR 2018 AT [facility] (FOLLOWED BY [facility]) Family History Father Coronary heart disease Stroke Brother Prostate cancer Sister Family history of diabetes mellitus Other No family history of adverse response to anesthesia Social History Smoking Status: Unknown if ever smoked Second Hand Exposure: Yes ( A CHILD); Hx Alcohol Use: Yes Alcohol type: wine Alcohol Intake Frequency Comment: very very rarely Hx Substance Use: No Preferred Language: Moldovan Communication Ability: Effective Visual Impairment: Limited Hearing Ability: Hard of Hearing 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: No Beliefs That Will Affect Care: None marital status: Current Living Situation: Alone current occupational status: retired How many Children do You have: 3 How many Children do You have Comment: family involved with care and able to assist with care Feels Safe at Home: Yes during the past year weight has: decreased > 10 lbs Assistive Devices: CPAP Review of Systems Review of Systems: All systems reviewed & are unremarkable except as noted in HPI & below Physical Exam Constitutional: well developed and cooperative Respiratory: normal respiratory effort Cardiovascular: Pedal pulses weakly palpable secondary to lower extremity edema. 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 Proximal distal cooling wnl. Skin: Left leg bullae. Left fourth and fifth interspace maceration partial thickness wound Neurologic: Awake alert ; moves all extremities. Psychiatric: Awake, alert Results & Data ([facility]) Vital Signs (Past 12 Hours) Vital Signs Temp Pulse Pulse Resp BP Pulse Ox O2 Del Method 10/28/22 19:40 36.9 C 71 21 112/64 100 Nasal Cannula 10/28/22 15:53 36.5 C 62 18 122/74 99 Nasal Cannula 10/28/22 14:07 60 10/28/22 12:23 36.5 C 61 17 125/73 100 Nasal Cannula 10/28/22 08:22 66 O2 Flow Rate 10/28/22 19:40 2 10/28/22 15:53 2 10/28/22 14:07 10/28/22 12:23 2 10/28/22 08:22
[2022-10-29] MEDS: LEVOTHYROXINE SODIUM 75 MCG TABLET PO SCH (05:35)
[2022-10-29] MEDS: HEPARIN SOD 5,000 UNIT/0.5 ML VIAL SQ SCH ×2 (05:35→21:56)
[2022-10-29 06:21] LABS: Basophils # (auto) 0.02 K/uL (0-0.2); Basophils % (auto) 0.4 %; Eosinophils # (auto) 0.03 K/uL (0-0.50); Eosinophils % (auto) 0.5 %; Hematocrit (blood only) 33.2 % (40.1-51.0); Hemoglobin 11.4 g/dl (14.0-18.0); Immature Granulocytes # (auto) 0.05 K/uL (0.00-0.02); Immature Granulocytes % (auto) 0.9 %; Lymphocytes # (auto) 2.45 K/uL (1.2-3.4); Lymphocytes % (auto) 43.1 %; Mean Corpuscular Hemoglobin 30.6 pg (25.0-34.0); Mean Corpuscular Hgb Conc 34.3 g/dL (32.0-36.0); Mean Platelet Volume 12.9 fL (9.4-12.4); Monocytes # (auto) 0.21 K/uL (0.24-0.82); Monocytes % (auto) 3.7 %; Neutrophils # (auto) 2.92 K/uL (1.4-6.5); Neutrophils % (auto) 51.4 %; Platelet Count 58 K/uL (130-400); RDW Coefficient of Variation 16.7 % (11.5-14.5); RDW Standard Deviation 54.2 fL (36.4-46.3); Red Blood Count 3.73 M/uL (4.63-6.08); White Blood Count 5.68 K/ul (4.8-10.8)
[2022-10-29 06:48] LABS: Calcium 7.8 mg/dl (8.5-10.1); Creatinine Clr Calc Pharmacy 32.3 ml/min; Est GFR (African American) 27.1 ml/min; Est GFR (Non-African American) 23.4 ml/min; Potassium 3.1 mmol/L (3.5-5.1)
--- NOTE | 2022-10-29 07:10 | Ultrasound Report ---
US venous doppler LE BI CLINICAL HISTORY: Rule out DVT TECHNIQUE: Right lower extremity real-time compression venous ultrasound with Color Doppler imaging. Utilizing real-time ultrasonic imaging multiple real time high-resolution ultrasonic images with comp ression and noncompression maneuvers of the deep venous system in addition to color doppler imaging w ere performed from the common femoral vein through the proximal calf veins. COMPARISON: None available at the time of this dictation. FINDINGS: Currently there is normal compressibility of the deep venous system from the common femoral vein thro ugh the proximal calf veins. Limited evaluation of calf vessels due to body edema and patient body h abitus. The popliteal vein was not visualized bilaterally due to patient positioning. Impression: No evidence of deep venous thrombus. ACT 112: Negative or not required by law. Electronically signed by: Rasta Dumont M.D. 10/29/2022 7:08 AM
[2022-10-29 08:05] LABS: Toxic Vacuolation 2+
[2022-10-29] MEDS: ceFAZolin 1000MG 1,000 MG/7.5 ML SYR IV SCH (08:36)
[2022-10-29] MEDS: ATORVASTATIN 40 MG TAB PO SCH (08:36)
[2022-10-29] MEDS: MAGNESIUM OXIDE 400 MG TAB PO SCH (08:37)
[2022-10-29] MEDS: PANTOprazole 40 MG TAB PO SCH (08:37)
[2022-10-29] MEDS: CYANOCOBALAMIN (B-12) 500 MCG TABLET PO SCH (08:37)
[2022-10-29] MEDS: INSULIN ASPART PER UNIT SC SCH ×4 (08:41→20:25)
[2022-10-29] MEDS ORDERED: POTASSIUM CHLORIDE PWD 20 MEQ PACK PO ONE (09:01)
[2022-10-29] MEDS: POTASSIUM CHLORIDE 10 MEQ TABCR PO SCH (09:25)
[2022-10-29] MEDS ORDERED: ceFAZolin 1000MG 1,000 MG/7.5 ML SYR IV ONE (09:45)
[2022-10-29] MEDS: FERROUS SULFATE 325 MG TAB PO SCH (10:00)
[2022-10-29 11:35] LABS: Fibrinogen 266 mg/dl (184-400); INR 1.3 (0.9-1.1); Partial Thromboplastin Ratio 1.3; Partial Thromboplastin Time 35.7 Seconds (21.0-31.0); Prothrombin Time 13.6 Seconds (9.0-12.0)
--- NOTE | 2022-10-29 14:16 | Hospitalist Progress Note ---
Date of Service October 29, 2022 Assessment & Plan (1) Sepsis due to methicillin susceptible Staphylococcus aureus (MSSA) with acute renal failure: (2) Acute congestive heart failure: (3) Demand ischemia: (4) Acute kidney failure: (5) Encephalopathy due to infection: Plan Patient is a 76-year-old male with past medical history of CHF, AAS status post bioprosthetic aortic valve, sick sinus syndrome status post pacemaker, paroxysmal A. fib, JT, type 2 diabetes, CKD, history of ICH, dementia who presented to the hospital from [facility] with confusion and fever. 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 Creatinine up trended initially; slight improvement noted today. Urine output reassuring CT chestmoderate bilateral pleural effusion with anasarca CT headno acute intracranial abnormality CT of left leg was done; no underlying abscess. Presence of cutaneous boil. Blood culture on admission / positive for MSSA. Blood culture on 10/27MSSA Blood culture from 10/28gram-positive cocci in cluster Plan; Change to Cefzolin today. Echo-no report of any vegetation. Infectious disease evaluated the patient; concerned regarding patient had infection of cardiac device and prosthetic valve. May need extraction of the device as well as the services of cardiac surgeon. Discussed with cardiology at transfer center in [facility]; recommended that the patient to be evaluated for TRINA prior to consideration for the transfer. Discussed with on-call supervisor machine setter (Dr. Johnson) regarding the TRINA. Recommended that he will have to see how the patient does clinically before the TRINA can be done. We will follow-up on cardiology recommendation. In the meantime, continue on IV Ancef and repeat blood culture serially till cultures negative for 48 hours. Podiatry evaluated the patient for left lower leg wound; blister was aspirated on 10/28. Wound care on board for management of wounds. Lasix for today. Antihypertensive on hold presently. CPAP at night. -Creatinine trended up and is stabilized. Likely ATN secondary to hypotension from sepsis. Monitor kidney function. We will continue to hold Lasix and ant ihypertensives for now. Thrombocytopenia: -Likely secondary to sepsis -Platelets 50s today. - Venous duplex negative for DVT. -Discussed with hematology regarding the possibility of HIT; 4 T score gives low probability; no further work-up to be done. -DIC ruled out as fibrinogen, PT/INR, APTT is within normal limits. -Continue to monitor CBC daily. Chronic conditions: History of penile implanturology consulted; recommended urinalysis/urine culture. No other intervention needed for now Hypertensionhold off on antihypertensive. Hold off Lasix. Type 2 diabetes mellitussliding scale insulin. Monitor blood glucose level History of paroxysmal A. fib; not on anticoagulation due to risks of bleeding. Monitor on telemetry DNR/DNI DVT prophylaxis Heparin Admission and Anticipated Discharge Date Admission Date: October 25, 2022 Subjective Patient seen and examined at bedside. Is awake, oriented to self and place. Afebrile, saturating well with 2 L of nasal cannula. Review of Systems Review of Systems: All systems reviewed & are unremarkable except as noted in Subjective Physical Exam Physical Exam: Constitutional: Awake, alert, oriented to self and place. Respiratory: Decreased breath sound at bases. Cardiovascular: Irregular, no murmur, no edema Vessels: no JVD or carotid bruit Chest: normal inspection of chest Abdomen: normal bowel sounds, soft, nontender, no hepatosplenomegaly Musculoskeletal: Multiple bruises present in extremities; including boil in left leg with surrounding swelling/edema. Skin: no rashes, warm and dry normal turgor Neurologic: Awake alert ; moves all extremities. Psychiatric: Awake, alert, oriented to self and place Lymphatic: no cervical or axillary lymphadenopathy : deferred Results & Data Results & Data ([facility]) Vital Signs (Past 12 Hours) Vital Signs Temp Pulse Pulse Resp BP Pulse Ox O2 Del Method 10/29/22 07:30 60 10/29/22 12:28 36.9 C 61 18 119/66 99 Nasal Cannula 10/29/22 08:00 Nasal Cannula 10/29/22 08:35 37.5 C 59 L 19 113/65 99 Nasal Cannula 10/29/22 02:52 36.8 C 60 18 134/76 99 Nasal Cannula O2 Flow Rate 10/29/22 07:30 10/29/22 12:28 2.0 10/29/22 08:00 2 10/29/22 08:35 2.0 10/29/22 02:52 2 Laboratory Results Laboratory Results WBC 5.68 K/ul (4.8-10.8) 10/29/22 06:04 RBC 3.73 M/uL (4.63-6.08) L 10/29/22 06:04 Hgb 11.4 g/dl (14.0-18.0) L 10/29/22 06:04 Hct 33.2 % (40.1-51.0) L 10/29/22 06:04 MCV 89.0 fL (80.0-100.0) 10/29/22 06:04 MCH 30.6 pg (25.0-34.0) 10/29/22 06:04 MCHC 34.3 g/dL (32.0-36.0) 10/29/22 06:04 RDW Std Deviation 54.2 fL (36.4-46.3) H 10/29/22 06:04 RDW Coeff of Solis 16.7 % (11.5-14.5) H 10/29/22 06:04 Plt Count 58 K/uL (130-400) L 10/29/22 06:04 MPV 12.9 fL (9.4-12.4) H 10/29/22 06:04 Immature Gran % (Auto) 0.9 % 10/29/22 06:04 Neut % (Auto) 51.4 % 10/29/22 06:04 Lymph % (Auto) 43.1 % 10/29/22 06:04 [place] % (Auto) 3.7 % 10/29/22 06:04 Eos % (Auto) 0.5 % 10/29/22 06:04 Baso % (Auto) 0.4 % 10/29/22 06:04 Neut # (Auto) 2.92 K/uL (1.4-6.5) 10/29/22 06:04 Lymph # (Auto) 2.45 K/uL (1.2-3.4) 10/29/22 06:04 [place] # (Auto) 0.21 K/uL (0.24-0.82) L 10/29/22 06:04 Eos # (Auto) 0.03 K/uL (0-0.50) 10/29/22 06:04 Baso # (Auto) 0.02 K/uL (0-0.2) 10/29/22 06:04 Immature Gran # (Auto) 0.05 K/uL (0.00-0.02) H 10/29/22 06:04 Absolute Nucleated RBC 0.02 K/uL (0-0) H 10/25/22 20:05 Nucleated RBC % (auto) 0.4 % 10/25/22 20:05 Toxic Vacuolation 3+ 10/28/22 04:54 Polychromasia 1+ 10/26/22 04:54 Echinocytes 1+ 10/28/22 04:54 Acanthocytes (Spur) 1+ 10/26/22 04:54 PT 13.6 Seconds (9.0-12.0) H 10/29/22 10:23 INR 1.3 (0.9-1.1) H 10/29/22 10:23 APTT 35.7 Seconds (21.0-31.0) H 10/29/22 10:23 PTT Ratio 1.3 10/29/22 10:23 Fibrinogen 266 mg/dl (184-400) 10/29/22 10:23 ABG pH 7.55 (7.35-7.45) H* 10/25/22 21:05 ABG pCO2 25 mmHg (35-46) L 10/25/22 21:05 ABG pO2 91 mmHg (80-95) 10/25/22 21:05 ABG HCO3 22 mmol/L (19-24) 10/25/22 21:05 ABG O2 Saturation 98.8 % (90-95) H 10/25/22 21:05 ABG Base Excess 0.9 mEq/L (-9-1.8) 10/25/22 21:05 [place]rado Test Pos (Pos) 10/25/22 21:05 Oxygen Given 2 10/25/22 21:05 Sodium 136 mmol/L (136-145) 10/29/22 06:04 Potassium 3.1 mmol/L (3.5-5.1) L 10/29/22 06:04 Chloride 102 mmol/L (98-107) 10/29/22 06:04 Carbon Dioxide 24 mmol/L (21-32) 10/29/22 06:04 Anion Gap 10 (3-11) 10/29/22 06:04 BUN 77 mg/dl (6-23) H 10/29/22 06:04 Creatinine 2.57 mg/dl (0.6-1.4) H 10/29/22 06:04 Est Cr Clr Drug Dosing 32.3 ml/min 10/29/22 06:04 Est GFR ( Amer) 27.1 ml/min 10/29/22 06:04 Est GFR (Non-Af Amer) 23.4 ml/min 10/29/22 06:04 BUN/Creatinine Ratio 30.0 (10-20) H 10/29/22 06:04 Glucose 128 mg/dl (70-99(Fasting)) H 10/29/22 06:04 POC Glucose 176 mg/dl (70-99) H 10/29/22 12:10 Estimat Average Glucose 171 mg/dl 10/26/22 04:54 Hemoglobin A1c 7.6 % (4.5-5.6) H 10/26/22 04:54 Lactate 1.9 mmol/L (0.4-2.0) 10/26/22 08:03 Calcium 7.8 mg/dl (8.5-10.1) L 10/29/22 06:04 Magnesium 2.0 mg/dl (1.7-2.4) 10/28/22 04:54 Total Bilirubin 2.3 mg/dl (0.2-1.0) H 10/28/22 04:54 Direct Bilirubin 1.7 mg/dl (0-0.2) H 10/25/22 21:05 AST 46 U/L (13-39) H 10/28/22 04:54 ALT 29 U/L (7-52) 10/28/22 04:54 Alkaline Phosphatase 139 U/L (34-104) H 10/28/22 04:54 Total Creatine Kinase 209 U/L (30-223) 10/27/22 07:04 Troponin I High Sens 1260.0 pg/ml (0-20) H* D 10/27/22 13:19 B-Natriuretic Peptide > 4700 pg/ml (0-100) H 10/25/22 21:05 Total Protein 6.0 gm/dl (6.0-8.3) 10/28/22 04:54 Albumin 2.4 gm/dl (3.4-5.0) L 10/28/22 04:54 Globulin 3.6 gm/dl (2.5-4.0) 10/28/22 04:54 Albumin/Globulin Ratio 0.7 (0.9-2) L 10/28/22 04:54 Lipase 6 U/L (11-82) L 10/25/22 21:05 Urine Color Yellow 10/26/22 Unknown Urine Appearance Cloudy (Clear) A 10/26/22 Unknown Urine pH 5.0 (4.5-7.5) 10/26/22 Unknown Ur Specific [place] 1.016 (1.000-1.030) 10/26/22 Unknown Urine Protein 1+ (Negative) H 10/26/22 Unknown Urine Glucose (UA) Negative (Negative) 10/26/22 Unknown Urine Ketones Negative (Negative) 10/26/22 Unknown Urine Blood 2+ (Negative) H 10/26/22 Unknown Urine Nitrite Negative (Negative) 10/26/22 Unknown Urine Bilirubin Negative (Negative) 10/26/22 Unknown Urine Urobilinogen Negative (Negative) 10/26/22 Unknown Ur Leukocyte Esterase 1+ (Negative) H 10/26/22 Unknown Urine WBC (Auto) 5-10 /hpf (0-5) H 10/26/22 Unknown Urine RBC (Auto) 0-4 /hpf (0-4) 10/26/22 Unknown U Hyaline Cast (Auto) 5-10 /lpf (0-5) H 10/26/22 Unknown U Epithel Cells (Auto) 20-30 /lpf (0-5) H 10/26/22 Unknown Urine Bacteria (Auto) Negative (Negative) 10/26/22 Unknown Urine Yeast Not Reportable 10/26/22 Unknown Nasal Screen MRSA (PCR) Negative (Negative) 10/26/22 09:55 SARS-CoV-2 (PCR) NEGATIVE (Negative) 10/25/22 21:04 Influenza Type A (PCR) Negative (Neg) 10/25/22 21:04 Influenza Type B (PCR) Negative (Neg) 10/25/22 21:04 RSV (RT-PCR) Negative (Neg) 10/25/22 21:04 Staphylococcus sp PCR DETECTED (NotDetected) A 10/25/22 21:05 Staph aureus (PCR) DETECTED (NotDetected) A 10/25/22 21:05 mecA/C & MREJ Resist Gene MRSA Not Detected (NotDetected) 10/25/22 21:05 Bld Cult ID Panel PCR See PCR Comment (NotDetected) 10/25/22 21:[address] 10/25/22 20:37 CT OF THE CERVICAL SPINE WITHOUT CONTRAST CLINICAL HISTORY: Fall. COMPARISON STUDY: No previous studies for comparison. TECHNIQUE: Helical axial images of the cervical spine were obtained without IV contrast. Sagittal and coronal reconstructions were viewed. Automated exposure control was utilized for the study. A dose lowering technique was utilized adhering to the principles of ALARA. FINDINGS: There is reversal of the cervical lordosis. Severe multilevel facet arthrosis is noted. There is moderate multilevel degenerative disc disease. No acute fracture is present. There is no prevertebral edema. Bilateral pleural effusions are better depicted on the chest CT which will be reported separately. IMPRESSION: 1. No acute cervical spine fracture or subluxation. 2. Severe multilevel facet arthrosis and moderate degenerative disc disease within the cervical spine. ACT 112: Negative or not required by law. Electronically signed by: Sebastian An M.D. 10/26/2022 9:00 AM Chest X-Ray 10/25/22 20:37 XR chest 1V portable HISTORY: fall COMPARISON: Chest 10/08/2022. FINDINGS: No pneumothorax. Small bilateral pleural effusions persist. The heart remains enlarged. There is a left-sided pacemaker and a cardiac valve prosthesis again noted. There are patchy hazy airspace perihilar airspace opacities and interstitial thickening consistent with asymmetric pulmonary edema IMPRESSION: Asymmetric pulmonary edema with small bilateral pleural effusions. ACT 112: Negative or not required by law. Electronically signed by: Iglesia Luu M.D. 10/26/2022 9:[address] 10/25/22 20:[address] DOSE: HISTORY: fall TECHNIQUE: Multiaxial CT images of the head were performed without the use of intravenous contrast. Automated exposure control was utilized for this study. A dose lowering technique was utilized adhering to the principles of ALARA. Comparison: Head CT 10/08/2022. Findings: The paranasal sinuses and mastoid air cells are clear. The calvarium a nd skull base are intact. There is no mass, hematoma, midline shift, acute infarct. White matter hypodensity is nonspecific but suggestive of microvascular ischemic change. The ventricles and sulci demonstrate mild age-related involutional changes. 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 Impression: No significant change compared to the prior study. No acute intracranial abnormality. ACT 112: Negative or not required by law. Electronically signed by: Iglesia Luu M.D. 10/26/2022 7:18 AM Pelvis X-Ray 10/25/22 20:37 XR pelvis 1-2V routine CLINICAL HISTORY: fall. Pelvic pain. COMPARISON STUDY: None. FINDINGS: No fracture or dislocation within the pelvis or hips. Mild degenerative changes within the bilateral hips. Vascular calcifications are n oted. The sacrum appears intact. A penile implant is noted. IMPRESSION: No acute fracture or dislocation within the pelvis or hips. ACT 112: Negative or not required by law. Electronically signed by: Iglesia Luu M.D. 10/26/2022 9:[address] 10/26/22 00:45 CT chest diagnostic wo con CT DOSE: 1058.73 mGy.cm HISTORY: Shortness of breath. Infiltrates. TECHNIQUE: Multiaxial CT images of the chest were performed without contrast. A dose lowering technique was utilized adhering to the principles of ALARA. COMPARISON: Chest CT 10/09/2022. FINDINGS: Respiratory motion artifact. The central airways are patent. No pneumothorax. Moderate bilateral pleural effusions are again noted. Compressive atelectasis within the bilateral lower lobes posteriorly persists. Stable stable 2.4 cm low-density lesion within the base of the right middle lobe on image 253. There is left-sided pacemaker. No suspicious lytic or blastic osseous lesions. M oderate diffuse body wall edema, unchanged. Normal thyroid gland. Mild mediastinal and left axillary lymphadenopathy remains unchanged. An aortic valve prosthesis is noted. The heart remains mildly enlarged. Normal caliber esophagus. Normal caliber thoracic aorta. Severe coronary artery calcifications are noted. A cardiac valve prosthesis is again noted. Mild interlobular septal thickening with faint groundglass densities which may represent pulmonary edema. This is similar to the prior study IMPRESSION: 1. No significant change compared to the prior study. 2. Moderate bilateral pleural effusions with anasarca and possible mild pulmonary edema. 3. A 2.4 cm water attenuation focus within the right middle lobe. Continued [address] follow-up recommended to ensure stability/resolution. ACT 112: Negative or not required by law. Electronically signed by: Iglesia Luu M.D. 10/26/2022 9:[address] 10/27/22 13:15 CT tib/fib LT wo con HISTORY: 76 years-old Male Concern for abscess; overlying blister present acute pain and swelling of the left lower leg. Possible abscess with osteomyelitis. COMPARISON: None TECHNIQUE: Multiple axial CT images of the left tibia and fibula were obtained without the use of IV contrast. A dose lowering technique was used consistent with the principals of PATRICIA. FINDINGS: There is moderate diffuse subcutaneous edema with moderate muscular atrophy. Trace knee joint effusion. Arterial calcifications. There is a focal cutaneous blister type homogeneous lesion involving the lower pretibial tissues measuring 7.7 x 1.3 x 6.1 cm. Tendons and ligaments are not well evaluated by CT technique. No abscess. Marked thickening of the Achilles tendon. Degenerative spurring of the calcaneus. Osteoarthritis of the knee, foot and ankle. No acute fracture, dislocation or osseous erosion. IMPRESSION: 1. No acute osseous abnormality. 2. Moderate diffuse subcutaneous edema suggestive of cellulitis, venous stasis or lymphedema. 3. 7.7 cm cutaneous blister type lesion centered within the distal pretibial tissues. 4. Soft tissue thickening of the Achilles tendon suspicious for an Achilles tendon xanthoma. Severe tendinosis could appear similarly. ACT 112: Negative or not required by law. The above report was generated using voice recognition software. It may contain grammatical, syntax or spelling errors. Electronically signed by: Merlin Mendoza M.D. 10/27/2022 5:17 PM Venous Doppler Study 10/28/22 13:38 US venous doppler LE BI CLINICAL HISTORY: Rule out DVT TECHNIQUE: Right lower extremity real-time compression venous ultrasound with Color Doppler imaging. Utilizing real-time ultrasonic imaging multiple real time high-resolution ultrasonic images with compression and noncompression maneuvers of the deep venous system in addition to color doppler imaging were performed from the common femoral vein through the proximal calf veins. COMPARISON: None available at the time of this dictation. FINDINGS: Currently there is normal compressibility of the deep venous system from the common femoral vein through the proximal calf veins. Limited evaluation of calf vessels due to body edema and patient body habitus. The popliteal vein was not visualized bilaterally due to patient positioning. Impression: No evidence of deep venous thrombus. ACT 112: Negative or not required by law. Electronically signed by: Rasta Dumont M.D. 10/29/2022 7:08 AM
[2022-10-29] MEDS ORDERED: FUROSEMIDE 40 MG/4 ML VIAL IV ONE (14:49)
--- NOTE | 2022-10-29 14:54 | Ultrasound Report ---
ULTRASOUND OF THE SPLEEN CLINICAL HISTORY: Splenomegaly. COMPARISON STUDY: Chest CT dated 10/26/2022. FINDINGS: Real-time lau scale sonography of the spleen is performed. The spleen is enlarged, measuri ng 16 cm in length. No splenic lesion is identified. There is perisplenic ascites. A left pleural eff usion is partially imaged. IMPRESSION: 1. Splenomegaly. 2. Left pleural effusion and perisplenic ascites. Electronically signed by: Jose Omer M.D. 10/29/2022 2:53 PM
[2022-10-29] MEDS: ceFAZolin 2000MG 2,000 MG/15 ML SYR IV SCH (20:00)
[2022-10-30] MEDS: HEPARIN SOD 5,000 UNIT/0.5 ML VIAL SQ SCH ×3 (06:00→21:01)
[2022-10-30] MEDS: LEVOTHYROXINE SODIUM 75 MCG TABLET PO SCH (06:00)
[2022-10-30 06:36] LABS: Hematocrit (blood only) 35.3 % (40.1-51.0); Hemoglobin 12.3 g/dl (14.0-18.0); Mean Corpuscular Hemoglobin 30.7 pg (25.0-34.0); Mean Corpuscular Hgb Conc 34.8 g/dL (32.0-36.0); Mean Platelet Volume 11.9 fL (9.4-12.4); Platelet Count 73 K/uL (130-400); RDW Coefficient of Variation 16.5 % (11.5-14.5); RDW Standard Deviation 53.7 fL (36.4-46.3); Red Blood Count 4.01 M/uL (4.63-6.08); White Blood Count 7.32 K/ul (4.8-10.8)
[2022-10-30 06:37] LABS: BUN Creatinine Ratio 31.3 (10-20); Calcium 8.2 mg/dl (8.5-10.1); Creatinine Clr Calc Pharmacy 33.2 ml/min; Est GFR (African American) 27.8 ml/min; Potassium 3.1 mmol/L (3.5-5.1)
[2022-10-30 07:07] LABS: Basophils # (auto) 0.01 K/uL (0-0.2); Basophils % (auto) 0.1 %; Eosinophils # (auto) 0.07 K/uL (0-0.50); Immature Granulocytes # (auto) 0.03 K/uL (0.00-0.02); Immature Granulocytes % (auto) 0.4 %; Lymphocytes # (auto) 3.79 K/uL (1.2-3.4); Lymphocytes % (auto) 51.8 %; Monocytes # (auto) 0.17 K/uL (0.24-0.82); Monocytes % (auto) 2.3 %; Neutrophils # (auto) 3.25 K/uL (1.4-6.5); Neutrophils % (auto) 44.4 %; Polychromasia 1+; Smudge Cells Present
[2022-10-30] MEDS: INSULIN ASPART PER UNIT SC SCH ×4 (08:53→20:26)
[2022-10-30] MEDS: CYANOCOBALAMIN (B-12) 500 MCG TABLET PO SCH (08:54)
[2022-10-30] MEDS: PANTOprazole 40 MG TAB PO SCH (08:54)
[2022-10-30] MEDS: ATORVASTATIN 40 MG TAB PO SCH (08:54)
[2022-10-30] MEDS: MAGNESIUM OXIDE 400 MG TAB PO SCH (08:54)
[2022-10-30] MEDS: ceFAZolin 2000MG 2,000 MG/15 ML SYR IV SCH ×2 (08:59→20:49)
--- NOTE | 2022-10-30 10:21 | Cardiology Progress Note ---
Date of Service October 30, 2022 Assessment & Plan (1) Pneumonia: (2) Sepsis: (3) Encephalopathy: (4) Anasarca: (5) Acute kidney injury superimposed on CKD: (6) Systolic heart failure secondary to coronary artery disease: (7) Chronic atrial fibrillation: (8) Cardiac pacemaker: (9) Gram positive sepsis: Plan Patient admitted for worsening mental status (underlying dementia), weakness, hypoxia, likely underlying CHF and pneumonia. Also found to have BRIAN with possible recent urinary retention issues and now gram positive cocci bactermia Defer to hospitalist regarding antibiotic treatment for bacteremia, pneumonia. Repeat limited echo today shows vegetation on bioprosthetic aortic valve (TAVR) luckily, valve functioning well recommend continuing to treat for endocarditis, generally IV abx for 6 weeks, will defer to ID no further cardiac testing or intervention necessary at this time Admission and Anticipated Discharge Date Admission Date: October 25, 2022 Subjective Pt seen and examined. Chart reviewed. Telemetry reviewed. Review of Systems Review of Systems: All systems reviewed & are unremarkable except as noted in HPI & below Physical Exam Physical Exam: General: Somnolent. Barely rousable to questioning. No acute distress. HEENT: Normocephalic, atraumatic. Pupils equal, round and reactive to light and accommodation. Extraocular muscles are intact. Anicteric sclera. Moist mucous membranes. Neck: No JVD. No bruit. Cardiovascular: Regular. Positive S-4. Normal S-1 and S-2. No S-3. 3/6 mid to late systolic ejection murmur, greatest at the right sternal border, second intercostal space with radiation to the bilateral carotids. No rubs. Pulmonary: Clear to auscultation bilaterally. No rales, rhonchi, or wheezing. Abdomen: Bowel sounds x 4, soft. No rebound, guarding or tenderness. No organomegaly. Extremities: No clubbing, cyanosis or edema. +2 pedal pulses bilaterally. Skin: Warm and dry. Results & Data ([facility]) Vital Signs (Past 12 Hours) Vital Signs Temp Pulse Pulse Pulse Resp BP BP 10/30/22 08:50 10/30/22 07:42 66 10/30/22 07:37 36.4 C L 61 19 137/75 10/30/22 03:46 36.6 C 78 18 145/82 H 01/09/23 23:48 36.8 C 76 18 128/80 Pulse Ox O2 Del Method O2 Flow Rate 10/30/22 08:50 Nasal Cannula 2 10/30/22 07:42 10/30/22 07:37 99 Nasal Cannula 2 10/30/22 03:46 100 Nasal Cannula 2 10/29/22 23:48 99 BiPAP, CPAP 2 (1) Pneumonia Laterality: right Lung location: middle lobe of lung Pneumonia type: due to unspecified organism Qualified Code(s): J18.9 - Pneumonia, unspecified organism (2) Sepsis Acute renal failure type: unspecified Sepsis acute organ dysfunction status: with acute organ dysfunction Sepsis type: sepsis due to unspecified organism Severe sepsis acute organ dysfunction type: acute renal failure Severe sepsis shock status: unspecified Qualified Code(s): A41.9 - Sepsis, unspecified organism; R65.20 - Severe sepsis without septic shock; N17.9 - Acute kidney failure, unspecified
[2022-10-30] MEDS: FERROUS SULFATE 325 MG TAB PO SCH (10:43)
[2022-10-30] MEDS ORDERED: FUROSEMIDE 40 MG/4 ML VIAL IV ONE (14:05)
--- NOTE | 2022-10-30 14:10 | Hospitalist Progress Note ---
Date of Service October 30, 2022 Assessment & Plan (1) Sepsis due to methicillin susceptible Staphylococcus aureus (MSSA) with acute renal failure: (2) Acute congestive heart failure: (3) Demand ischemia: (4) Acute kidney failure: (5) Encephalopathy due to infection: Plan Patient is a 76-year-old male with past medical history of CHF, AAS status post bioprosthetic aortic valve, sick sinus syndrome status post pacemaker, paroxysmal A. fib, JT, type 2 diabetes, CKD, history of ICH, dementia who presented to the hospital from [facility] with confusion and fever. 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 Creatinine up trended initially; slight improvement noted today. Urine output reassuring CT chestmoderate bilateral pleural effusion with anasarca CT headno acute intracranial abnormality CT of left leg was done; no underlying abscess. Presence of cutaneous boil. Blood culture on admission / positive for MSSA. Blood culture on 10/27MSSA Blood culture from 10/28gram-positive cocci in cluster Plan; - ON Cefzolin every 8 hours as per ID recommendation. Repeat echo was done today which showed vegetation in the aortic valve. Infectious disease had evaluated the patient; concerned regarding patient had infection of cardiac device and prosthetic valve. will need extraction of the device as well as the services of cardiac surgeon. Discussion was done with [facility] at [place]. Patient will need cardiothoracic surgeon evaluation for bioprosthetic valve end ocarditis. Patient accepted; accepting Triage Doctor ( Dr. Charles, Hospitalist Dr. Romero) Podiatry evaluated the patient for left lower leg wound; blister was aspirated on 10/28. Wound care on board for management of wounds. Lasix for today. Antihypertensive on hold presently. CPAP at night. -Creatinine trended up and is stabilized. Likely ATN secondary to hypotension from sepsis. Monitor kidney function. We will continue to hold Lasix and antihypertensives for now. Thrombocytopenia: -Likely secondary to sepsis -Platelet dropped to 50s; up trended to 70s today -Venous duplex negative for DVT. -Discussed with hematology regarding the possibility of HIT; 4 T score gives low probability; no further work-up to be done. Patient has a reported history of CLL; splenomegaly confirmed in abdominal ultrasound. -DIC ruled out as fibrinogen, PT/INR, APTT is within normal limits. -Continue to monitor CBC daily. Chronic conditions: History of penile implanturology consulted; recommended urinalysis/urine culture. No other intervention needed for now Hypertensionhold off on antihypertensive. Lasix daily Type 2 diabetes mellitussliding scale insulin. Monitor blood glucose level History of paroxysmal A. fib; not on anticoagulation due to risks of bleeding. Monitor on telemetry DNR/DNI DVT prophylaxis Heparin Admission and Anticipated Discharge Date Admission Date: October 25, 2022 Subjective Patient seen and examined at bedside. He is awake, alert orient x3. He is not in any distress. Review of Systems Review of Systems: All systems reviewed & are unremarkable except as noted in Subjective Physical Exam Physical Exam: Constitutional: Awake, alert, oriented to self and place. Respiratory: Decreased breath sound at bases. Cardiovascular: Irregular, no murmur, no edema Vessels: no JVD or carotid bruit Chest: normal inspection of chest Abdomen: normal bowel sounds, soft, nontender, no hepatosplenomegaly Musculoskeletal: Multiple bruises in upper and lower extremities; bandaged. Left lower extremity wound covered with dressing; clean dry and intact. Skin: no rashes, warm and dry normal turgor Neurologic: Awake alert ; moves all extremities. Psychiatric: Awake, alert, oriented to self and place Lymphatic: no cervical or axillary lymphadenopathy : deferred Results & Data Results & Data ([facility]) Vital Signs (Past 12 Hours) Vital Signs Temp Pulse Pulse Pulse Resp BP Pulse Ox 10/30/22 11:13 36.5 C 66 20 134/73 100 10/30/22 08:50 10/30/22 07:42 66 10/30/22 07:37 36.4 C L 61 19 137/75 99 10/30/22 03:46 36.6 C 78 18 145/82 H 100 O2 Del Method O2 Flow Rate 10/30/22 11:13 Nasal Cannula 2 10/30/22 08:50 Nasal Cannula 2 10/30/22 07:42 10/30/22 07:37 Nasal Cannula 2 10/30/22 03:46 Nasal Cannula 2 Laboratory Results Laboratory Results WBC 7.32 K/ul (4.8-10.8) 10/30/22 05:46 RBC 4.01 M/uL (4.63-6.08) L 10/30/22 05:46 Hgb 12.3 g/dl (14.0-18.0) L 10/30/22 05:46 Hct 35.3 % (40.1-51.0) L 10/30/22 05:46 MCV 88.0 fL (80.0-100.0) 10/30/22 05:46 MCH 30.7 pg (25.0-34.0) 10/30/22 05:46 MCHC 34.8 g/dL (32.0-36.0) 10/30/22 05:46 RDW Std Deviation 53.7 fL (36.4-46.3) H 10/30/22 05:46 RDW Coeff of Solis 16.5 % (11.5-14.5) H 10/30/22 05:46 Plt Count 73 K/uL (130-400) L 10/30/22 05:46 MPV 11.9 fL (9.4-12.4) 10/30/22 05:46 Immature Gran % (Auto) 0.4 % 10/30/22 05:46 Neut % (Auto) 44.4 % 10/30/22 05:46 Lymph % (Auto) 51.8 % 10/30/22 05:46 Yuba % (Auto) 2.3 % 10/30/22 05:46 Eos % (Auto) 1.0 % 10/30/22 05:46 Baso % (Auto) 0.1 % 10/30/22 05:46 Neut # (Auto) 3.25 K/uL (1.4-6.5) 10/30/22 05:46 Lymph # (Auto) 3.79 K/uL (1.2-3.4) H 10/30/22 05:46 Yuba # (Auto) 0.17 K/uL (0.24-0.82) L 10/30/22 05:46 Eos # (Auto) 0.07 K/uL (0-0.50) 10/30/22 05:46 Baso # (Auto) 0.01 K/uL (0-0.2) 10/30/22 05:46 Immature Gran # (Auto) 0.03 K/uL (0.00-0.02) H 10/30/22 05:46 Absolute Nucleated RBC 0.02 K/uL (0-0) H 10/25/22 20:05 Nucleated RBC % (auto) 0.4 % 10/25/22 20:05 Smudge Cells Present 10/30/22 05:46 Toxic Vacuolation 3+ 10/28/22 04:54 Polychromasia 1+ 10/30/22 05:46 Echinocytes 1+ 10/28/22 04:54 Acanthocytes (Spur) 1+ 10/26/22 04:54 PT 13.6 Seconds (9.0-12.0) H 10/29/22 10:23 INR 1.3 (0.9-1.1) H 10/29/22 10:23 APTT 35.7 Seconds (21.0-31.0) H 10/29/22 10:23 PTT Ratio 1.3 10/29/22 10:23 Fibrinogen 266 mg/dl (184-400) 10/29/22 10:23 ABG pH 7.55 (7.35-7.45) H* 10/25/22 21:05 ABG pCO2 25 mmHg (35-46) L 10/25/22 21:05 ABG pO2 91 mmHg (80-95) 10/25/22 21:05 ABG HCO3 22 mmol/L (19-24) 10/25/22 21:05 ABG O2 Saturation 98.8 % (90-95) H 10/25/22 21:05 ABG Base Excess 0.9 mEq/L (-9-1.8) 10/25/22 21:05 Conrado Test Pos (Pos) 10/25/22 21:05 Oxygen Given 2 10/25/22 21:05 Sodium 135 mmol/L (136-145) L 10/30/22 05:46 Potassium 3.1 mmol/L (3.5-5.1) L 10/30/22 05:46 Chloride 103 mmol/L (98-107) 10/30/22 05:46 Carbon Dioxide 24 mmol/L (21-32) 10/30/22 05:46 Anion Gap 8 (3-11) 10/30/22 05:46 BUN 79 mg/dl (6-23) H 10/30/22 05:46 Creatinine 2.52 mg/dl (0.6-1.4) H 10/30/22 05:46 Est Cr Clr Drug Dosing 33.2 ml/min 10/30/22 05:46 Est GFR ( Amer) 27.8 ml/min 10/30/22 05:46 Est GFR (Non-Af Amer) 24.0 ml/min 10/30/22 05:46 BUN/Creatinine Ratio 31.3 (10-20) H 10/30/22 05:46 Glucose 170 mg/dl (70-99(Fasting)) H 10/30/22 05:46 POC Glucose 153 mg/dl (70-99) H 10/30/22 12:00 Estimat Average Glucose 171 mg/dl 10/26/22 04:54 Hemoglobin A1c 7.6 % (4.5-5.6) H 10/26/22 04:54 Lactate 1.9 mmol/L (0.4-2.0) 10/26/22 08:03 Calcium 8.2 mg/dl (8.5-10.1) L 10/30/22 05:46 Magnesium 2.0 mg/dl (1.7-2.4) 10/28/22 04:54 Total Bilirubin 2.3 mg/dl (0.2-1.0) H 10/28/22 04:54 Direct Bilirubin 1.7 mg/dl (0-0.2) H 10/25/22 21:05 AST 46 U/L (13-39) H 10/28/22 04:54 ALT 29 U/L (7-52) 10/28/22 04:54 Alkaline Phosphatase 139 U/L (34-104) H 10/28/22 04:54 Total Creatine Kinase 209 U/L (30-223) 10/27/22 07:04 Troponin I High Sens 1260.0 pg/ml (0-20) H* D 10/27/22 13:19 B-Natriuretic Peptide > 4700 pg/ml (0-100) H 10/25/22 21:05 Total Protein 6.0 gm/dl (6.0-8.3) 10/28/22 04:54 Albumin 2.4 gm/dl (3.4-5.0) L 10/28/22 04:54 Globulin 3.6 gm/dl (2.5-4.0) 10/28/22 04:54 Albumin/Globulin Ratio 0.7 (0.9-2) L 10/28/22 04:54 Lipase 6 U/L (11-82) L 10/25/22 21:05 Urine Color Yellow 10/26/22 Unknown Urine Appearance Cloudy (Clear) A 10/26/22 Unknown Urine pH 5.0 (4.5-7.5) 10/26/22 Unknown Ur Specific Story 1.016 (1.000-1.030) 10/26/22 Unknown Urine Protein 1+ (Negative) H 10/26/22 Unknown Urine Glucose (UA) Negative (Negative) 10/26/22 Unknown Urine Ketones Negative (Negative) 10/26/22 Unknown Urine Blood 2+ (Negative) H 10/26/22 Unknown Urine Nitrite Negative (Negative) 10/26/22 Unknown Urine Bilirubin Negative (Negative) 10/26/22 Unknown Urine Urobilinogen Negative (Negative) 10/26/22 Unknown Ur Leukocyte Esterase 1+ (Negative) H 10/26/22 Unknown Urine WBC (Auto) 5-10 /hpf (0-5) H 10/26/22 Unknown Urine RBC (Auto) 0-4 /hpf (0-4) 10/26/22 Unknown U Hyaline Cast (Auto) 5-10 /lpf (0-5) H 10/26/22 Unknown U Epithel Cells (Auto) 20-30 /lpf (0-5) H 10/26/22 Unknown Urine Bacteria (Auto) Negative (Negative) 10/26/22 Unknown Urine Yeast Not Reportable 10/26/22 Unknown Nasal Screen MRSA (PCR) Negative (Negative) 10/26/22 09:55 SARS-CoV-2 (PCR) NEGATIVE (Negative) 10/25/22 21:04 Influenza Type A (PCR) Negative (Neg) 10/25/22 21:04 Influenza Type B (PCR) Negative (Neg) 10/25/22 21:04 RSV (RT-PCR) Negative (Neg) 10/25/22 21:04 SARS-CoV-2, RNA, NAAT NEGATIVE (NEGATIVE) 10/30/22 12:27 Staphylococcus sp PCR DETECTED (NotDetected) A 10/25/22 21:05 Staph aureus (PCR) DETECTED (NotDetected) A 10/25/22 21:05 mecA/C & MREJ Resist Gene MRSA Not Detected (NotDetected) 10/25/22 21:05 Bld Cult ID Panel PCR See PCR Comment (NotDetected) 10/25/22 21:[address] 10/25/22 20:37 CT OF THE CERVICAL SPINE WITHOUT CONTRAST CLINICAL HISTORY: Fall. COMPARISON STUDY: No previous studies for comparison. TECHNIQUE: Helical axial images of the cervical spine were obtained without IV contrast. Sagittal and coronal reconstructions were viewed. Automated exposure control was utilized for the study. A dose lowering technique was utilized adhering to the principles of ALARA. FINDINGS: There is reversal of the cervical lordosis. Severe multilevel facet arthrosis is noted. There is moderate multilevel degenerative disc disease. No acute fracture is present. There is no prevertebral edema. Bilateral pleural effusions are better depicted on the chest CT which will be reported separately. IMPRESSION: 1. No acute cervical spine fracture or subluxation. 2. Severe multilevel facet arthrosis and moderate degenerative disc disease within the cervical spine. ACT 112: Negative or not required by law. Electronically signed by: Sebastian An M.D. 10/26/2022 9:00 AM Chest X-Ray 10/25/22 20:37 XR chest 1V portable HISTORY: fall COMPARISON: Chest 10/08/2022. FINDINGS: No pneumothorax. Small bilateral pleural effusions persist. The heart remains enlarged. There is a left-sided pacemaker and a cardiac valve prosthesis again noted. There are patchy hazy airspace perihilar airspace opacities and interstitial thickening consistent with asymmetric pulmonary edema IMPRESSION: Asymmetric pulmonary edema with small bilateral pleural effusions. ACT 112: Negative or not required by law. Electronically signed by: Iglesia Luu M.D. 10/26/2022 9:[address] 10/25/22 20:[address] DOSE: HISTORY: fall TECHNIQUE: Multiaxial CT images of the head were performed without the use of intravenous contrast. Automated exposure control was utilized for this study. A dose lowering technique was utilized adhering to the principles of ALARA. Comparison: Head CT 10/08/2022. Findings: The paranasal sinuses and mastoid air cells are clear. The calvarium and skull base are intact. There is no mass, hematoma, midline shift, acute infarct. White matter hypodensity is nonspecific but suggestive of microvascular ischemic change. The ventricles and sulci demonstrate mild age-related involutional changes. 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 Impression: No significant change compared to the prior study. No acute intracranial abnormality. ACT 112: Negative or not required by law. Electronically signed by: Iglesia Luu M.D. 10/26/2022 7:18 AM Pelvis X-Ray 10/25/22 20:37 XR pelvis 1-2V routine CLINICAL HISTORY: fall. Pelvic pain. COMPARISON STUDY: None. FINDINGS: No fracture or dislocation within the pelvis or hips. Mild degenerative changes within the bilateral hips. Vascular calcifications are noted. The sacrum appears intact. A penile implant is noted. IMPRESSION: No acute fracture or dislocation within the pelvis or hips. ACT 112: Negative or not required by law. Electronically signed by: Iglesia Luu M.D. 10/26/2022 9:[address] 10/26/22 00:45 CT chest diagnostic wo con CT DOSE: 1058.73 mGy.cm HISTORY: Shortness of breath. Infiltrates. TECHNIQUE: Multiaxial CT images of the chest were performed without contrast. A dose lowering technique was utilized adhering to the principles of ALARA. COMPARISON: Chest CT 10/09/2022. FINDINGS: Respiratory motion artifact. The central airways are patent. No pneumothorax. Moderate bilateral pleural effusions are again noted. Compressive atelectasis within the bilateral lower lobes posteriorly persists. Stable stable 2.4 cm low-density lesion within the base of the right middle lobe on image 253. There is left-sided pacemaker. No suspicious lytic or blastic osseous lesions. Moderate diffuse body wall edema, unchanged. Normal thyroid gland. Mild mediastinal and left axillary lymphadenopathy remains unchanged. An aortic valve prosthesis is noted. The heart remains mildly enlarged. Normal caliber esophagus. Normal caliber thoracic aorta. Severe coronary artery calcifications are noted. A cardiac valve prosthesis is again noted. Mild interlobular septal thickening with faint groundglass densities which may represent pulmonary edema. This is similar to the prior study IMPRESSION: 1. No significant change compared to the prior study. 2. Moderate bilateral pleural effusions with anasarca and possible mild pulmonary edema. 3. A 2.4 cm water attenuation focus within the right middle lobe. Continued [address] follow-up recommended to ensure stability/resolution. ACT 112: Negative or not required by law. Electronically signed by: Iglesia Luu M.D. 10/26/2022 9:[address] 10/27/22 13:15 CT tib/fib LT wo con HISTORY: 76 years-old Male Concern for abscess; overlying blister present acute pain and swelling of the left lower leg. Possible abscess with osteomyelitis. COMPARISON: None TECHNIQUE: Multiple axial CT images of the left tibia and fibula were obtained without the use of IV contrast. A dose lowering technique was used consistent with the principals of PATRICIA. FINDINGS: There is moderate diffuse subcutaneous edema with moderate muscular atrophy. Trace knee joint effusion. Arterial calcifications. There is a focal cutaneous blister type homogeneous lesion involving the lower pretibial tissues measuring 7.7 x 1.3 x 6.1 cm. Tendons and ligaments are not well evaluated by CT technique. No abscess. Marked thickening of the Achilles tendon. Degenerative spurring of the calcaneus. Osteoarthritis of the knee, foot and ankle. No acute fracture, dislocation or osseous erosion. IMPRESSION: 1. No acute osseous abnormality. 2. Moderate diffuse subcutaneous edema suggestive of cellulitis, venous stasis or lymphedema. 3. 7.7 cm cutaneous blister type lesion centered within the distal pretibial tissues. 4. Soft tissue thickening of the Achilles tendon suspicious for an Achilles tendon xanthoma. Severe tendinosis could appear similarly. ACT 112: Negative or not required by law. The above report was generated using voice recognition software. It may contain grammatical, syntax or spelling errors. Electronically signed by: Merlin Mendoza M.D. 10/27/2022 5:17 PM Venous Doppler Study 10/28/22 13:38 US venous doppler LE BI CLINICAL HISTORY: Rule out DVT TECHNIQUE: Right lower extremity real-time compression venous ultrasound with Color Doppler imaging. Utilizing real-time ultrasonic imaging multiple real time high-resolution ultrasonic images with compression and noncompression maneuvers of the deep venous system in addition to color doppler imaging were performed from the common femoral vein through the proximal calf veins. COMPARISON: None available at the time of this dictation. FINDINGS: Currently there is normal compressibility of the deep venous system from the common femoral vein through the proximal calf veins. Limited evaluation of calf vessels due to body edema and patient body habitus. The popliteal vein was not visualized bilaterally due to patient positioning. Impression: No evidence of deep venous thrombus. ACT 112: Negative or not required by law. Electronically signed by: Rasta Dumont M.D. 10/29/2022 7:08 AM Abdomen Ultrasound 10/29/22 10:26 ULTRASOUND OF THE SPLEEN CLINICAL HISTORY: Splenomegaly. COMPARISON STUDY: Chest CT dated 10/26/2022. FINDINGS: Real-time lau scale sonography of the spleen is performed. The spleen is enlarged, measuring 16 cm in length. No splenic lesion is identified. There is perisplenic ascites. A left pleural effusion is partially imaged. IMPRESSION: 1. Splenomegaly. 2. Left pleural effusion and perisplenic ascites. Electronically signed by: Jose Omer M.D. 10/29/2022 2:53 PM
--- NOTE | 2022-10-30 14:17 | Communication Note ---
Patient is a 76-year-old male with past medical history of CHF, AAS status post bioprosthetic aortic valve, sick sinus syndrome status post pacemaker, paroxysmal A. fib, JT, type 2 diabetes, CKD, history of ICH, dementia who presented to the hospital from [facility] with confusion and fever. On arrival to the ED, patient was hypotensive and lethargic. He was in significant respiratory distress; BiPAP was placed. Labs were significant for acute kidney injury (baseline creatinine of 1.6-1.8). He had multiple bruises due to repeated fall. He had left leg cellulitis with cutaneous boil along with diabetic foot ulcer of left foot (between 3rd and 4th toe). CT chest showed moderate bilateral pleural effusion with anasarca. CT head did not show any acute cranial abnormality. Patient was admitted to telemetry floor. He was given diuretics; started on empiric antibiotic. Patient's mentation improved overnight along with his respiratory status; patient was placed on 2 L of oxygen. Patient's blood culture from 10/25, 10/27, 10/28 were positive for MSSA. Transthoracic echo done on 10/26 did not show any vegetation. Podiatry was consulted for leg wound; patient's cutaneous boil on the foot was aspirated. Wound care nurse was also consulted. Infectious disease consultation was done on 10/29; recommended patient to be reevaluated by cardiothoracic surgeon for removal of bioprosthetic valve and pacemaker. Repeat echo showed vegetation in the bioprosthetic valve. Discussion was done with [facility]. Patient was accepted for transfer.
--- NOTE | 2022-10-30 16:59 | Discharge Summary ---
Date of Service October 30, 2022 Admission HPI Per Admitting Provider This is a 76-year-old male with past medical history significant for chronic systolic heart failure, EF of 40% to 45%, aortic stenosis, status post bioprosthetic aortic valve replacement, valvular heart disease, moderate tricuspid regurgitation, mild mitral regurgitation, mild paravalvular aortic valve prosthetic regurgitation, sick sinus syndrome status post permanent pacemaker, paroxysmal atrial fibrillation not on anticoagulation secondary to fall risk and also bleeding risk, history of pulmonary hypertension, obstructive sleep apnea on CPAP, diabetes insulin requiring, chronic kidney disease baseline creatinine1.3 to 1.4, history of CLL, chronic anemia, baseline hemoglobin of 13, history of ICH, and cerebral amyloid angiopathy as per records, history of dementia, who was recently in the hospital, was treated for acute encephalopathy secondary to hypertensive crisis, heart failure, new onset hypothyroidism, BRIAN. The patient improved, resumed his Lasix 40 mg daily at discharge, currently his lisinopril is held and was discharged to [facility]. He is ambulating with a walker. He tried to get up by himself on the bed and fell on the left side and has some pain in the left arm and today he was getting more confused, he also had a fever at long-term and was brought in here. Here he was somewhat short of breath requiring oxygen, also he has a big blister on the left wheeler that is the new as per the daughter. His appetite is poor. The patient has dementia, he knows his name, but does not know where he is, knows his daughters but not remembering their names. As per daughter, he has dementia, but his Mental status today is worse from his baseline. There was no complaint of any pain, no nausea or vomiting. No diarrhea or constipation. Since he is confused,could not get complete history at this time. In the ER when he came in his lactic acid was 3 and blood pressure was slightly on the lower side. He was given vancomycin and cefepime. His ABGs were okay. Creatinine came as 2.1, repeat lactic acid is 2.9. Troponin 301, BNP greater than 4700. CT of the head no acute findings. Cervical spine CT, no acute findings. No cough as per the daughter, the patient also denies any cough. Blood pressure is improved. Received dose of Lasix in the ER. Admission Exam Per Admitting Provider GENERAL: The patient is confused, oriented to name only. VITAL SIGNS: Temperature 36.2, pulse 86, respiratory rate 22, blood pressure 134/74, oxygen 95% on 2 liters. HEENT: Pupils equal, round and reactive to light. Oral mucosa somewhat dry. NECK: No JVD, no neck masses. CARDIOVASCULAR: S1 and S2 heard. Regular rate and rhythm. No murmur, no gallop. RESPIRATORY SYSTEM: Normal AP diameter. No accessory muscle use. No wheezing, no crackles. ABDOMEN: Soft, bowel sounds present, nontender, no distention. CENTRAL NERVOUS SYSTEM: Oriented to name only, confused. EXTREMITIES: Bilateral lower extremity edema present with blister seen on the left wheeler. GENITOURINARY: Penis is hard and sensitive to touch. 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 Respiratory: Decreased breath sound at bases. Cardiovascular: Irregular, no murmur, no edema Vessels: no JVD or carotid bruit Chest: normal inspection of chest Abdomen: normal bowel sounds, soft, nontender, no hepatosplenomegaly Musculoskeletal: Multiple bruises in upper and lower extremities; bandaged. Left lower extremity wound covered with dressing; clean dry and intact. Skin: no rashes, warm and dry normal turgor Neurologic: Awake alert ; moves all extremities. Psychiatric: Awake, alert, oriented to self and place Lymphatic: no cervical or axillary lymphadenopathy : deferred Discharge Data Allergies Allergy/AdvReac Type Severity Reaction Status Date / Time No Known Allergies Allergy Unknown NONE Verified 10/25/22 22:43 Consultations 10/25/22 21:58 ED Decision to Admit Stat 10/26/22 08:00 Consult Cardiology Routine Consult Urology Routine 10/26/22 13:32 Consult Infectious Diseases Routine 10/28/22 07:56 Consult Podiatry Routine Ordered Studies 10/25/22 20:37 CT cervical spine wo con Urgent CT head/brain wo con Urgent 10/26/22 00:45 CT chest diagnostic wo con Urgent 10/27/22 13:15 CT tib/fib LT wo con Routine 10/28/22 13:38 US venous duplex leg [US venous doppler LE BI] Routine 10/29/22 10:26 US abdomen limited Routine Hospital Course (1) Sepsis due to methicillin susceptible Staphylococcus aureus (MSSA) with acute renal failure: (2) Acute congestive heart failure: (3) Demand ischemia: (4) Acute kidney failure: (5) Encephalopathy due to infection: Plan Sepsis POA, secondary to MSSA bacteremia Bioprosthetic Valve endocarditis Encephalopathy secondary to sepsis Acute on chronic systolic heart failure Demand ischemia Acute kidney injury on CKD Left leg cellulitis with cutaneous boil 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 fib, JT, type 2 diabetes, CKD, history of ICH, dementia who presented to the hospital from [facility] with confusion and fever. On arrival to the ED, patient was hypotensive and lethargic. He was in significant respiratory distress; BiPAP was placed. Labs were significant for acute kidney injury (baseline creatinine of 1.6-1.8). He had multiple bruises due to repeated fall. He had left leg cellulitis with cutaneous boil along with diabetic foot ulcer of left foot (between 3rd and 4th toe). CT chest showed moderate bilateral pleural effusion with anasarca. CT head did not show any acute cranial abnormality. Patient was admitted to telemetry floor. He was given diuretics; started on empiric antibiotic. Patient's mentation improved overnight along with his respiratory status; patient was placed on 2 L of oxygen. Patient's blood culture from 10/25, 10/27, 10/28 were positive for MSSA. Transthoracic echo done on 10/26 did not show any vegetation. Podiatry was consulted for leg wound; patient's cutaneous boil on the foot was aspirated. Wound care nurse was also consulted. Infectious disease consultation was done on 10/29; recommended patient to be reevaluated by cardiothoracic surgeon for removal of bioprosthetic valve and pacemaker. Repeat echo showed vegetation in the bioprosthetic valve. Discussion was done with [facility]. Patient was accepted for transfer. 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 fib, JT, type 2 diabetes, CKD, history of ICH, dementia who presented to the hospital from [facility] with confusion and fever. On arrival to the ED, patient was hypotensive and lethargic. He was in significant respiratory distress; BiPAP was placed. Labs were significant for acute kidney injury (baseline creatinine of 1.6-1.8). He had multiple bruises due to repeated fall. He had left leg cellulitis with cutaneous boil along with diabetic foot ulcer of left foot (between 3rd and 4th toe). CT chest showed moderate bilateral pleural effusion with anasarca. CT head did not show any acute cranial abnormality. Patient was admitted to telemetry floor. He was given diuretics; started on empiric antibiotic. Patient's mentation improved overnight along with his respiratory status; patient was placed on 2 L of oxygen. Patient's blood culture from 10/25, 10/27, 10/28 were positive for MSSA. Transthoracic echo done on 10/26 did not show any vegetation. Podiatry was consulted for leg wound; patient's cutaneous boil on the foot was aspirated. Wound care nurse was also consulted. Infectious disease consultation was done on 10/29; recommended patient to be reevaluated by cardiothoracic surgeon for removal of bioprosthetic valve and pacemaker. Repeat echo showed vegetation in the bioprosthetic valve. Discussion was done with [facility]. Patient was accepted for transfer. Addtl Physician Gynecologist Provider Instructions: The Current Inpatient Medications are as follows Acetaminophen (Acetaminophen 325 Mg Tab) 650 mg PO Q4H PRN PRN Reason: Pain or Fever Stop: 11/25/22 00:44 Last Admin: 10/29/22 08:36 Dose: 650 mg Atorvastatin Calcium (Atorvastatin 40 Mg Tab) 40 mg PO QAM [facility] Stop: 11/25/22 08:59 Last Admin: 10/30/22 08:54 Dose: 40 mg Cyanocobalamin (Cyanocobalamin (B-12) 500 Mcg Tablet) 1,000 mcg PO QAM [facility] Stop: 11/25/22 08:59 Last Admin: 10/30/22 08:54 Dose: 1,000 mcg Dextrose (Dextrose 50% 50 Ml Syringe) 25 - 50 ml IV UD PRN; Protocol PRN Reason: Hypoglycemia Protocol Stop: 11/25/22 00:44 Ferrous Sulfate (Ferrous Sulfate 325 Mg Tab) 325 mg PO DAILY [facility] Stop: 11/25/22 08:59 Last Admin: 10/30/22 10:43 Dose: 325 mg Furosemide (Furosemide 40 Mg/4 Ml Vial) 40 mg IV DAILY [facility] Stop: 11/25/22 08:59 Last Admin: 10/27/22 08:52 Dose: 40 mg Glucagon (Glucagon For Inj 1 Mg Vial) 1 mg SQ UD PRN; Protocol PRN Reason: Hypoglycemia Protocol Stop: 11/25/22 00:44 Glucose (Glucose 40% Gel 15 Gm Tube) 15 - 30 gm PO UD PRN; Protocol PRN Reason: Hypoglycemia Protocol Stop: 11/25/22 00:44 Glucose (Glucose 10 Tab/Tube) 4 - 8 tab PO UD PRN; Protocol PRN Reason: Hypoglycemia Treatment Stop: 11/25/22 00:44 Heparin Sodium (Porcine) (Heparin Sod 5,000 Unit/0.5 Ml Vial) 5,000 units SQ Q8 [facility] Stop: 11/27/22 13:59 Last Admin: 10/30/22 14:07 Dose: 5,000 units Cefazolin Sodium (Ancef 2000mg) 2,000 mg in 15 mls @ 3.75 mls/min IV Q12 [facility]; Protocol Stop: 11/11/22 20:59 Last Admin: 10/30/22 08:59 Dose: 3.75 mls/min Insulin Aspart (Insulin Aspart Per Unit) 0 units SC ACHS [facility] Stop: 11/26/22 16:29 Last Admin: 10/30/22 14:06 Dose: 3 units Isosorbide Dinitrate (Isosorbide Dinitrate 5 Mg Tab) 2.5 mg PO BID@0700,1200 [facility] Stop: 11/25/22 06:59 Last Admin: 10/26/22 08:34 Dose: Not Given Levothyroxine Sodium (Levothyroxine Sodium 75 Mcg Tablet) 75 mcg PO DAILYBB [facility] Stop: 11/25/22 06:29 Last Admin: 10/30/22 06:00 Dose: 75 mcg Magnesium Oxide (Magnesium Oxide 400 Mg Tab) 400 mg PO QAM [facility] Stop: 11/25/22 08:59 Last Admin: 10/30/22 08:54 Dose: 400 mg Miscellaneous (Carbohydrates For Hypoglycemia ) 15 - 30 gm PO UD PRN PRN Reason: Hypoglycemia Protocol Stop: 11/25/22 00:44 Nitroglycerin (Nitroglycerin Sl 0.4 Mg/Tab Tab) 0.4 mg SL UD PRN PRN Reason: Chest Pain Stop: 11/25/22 00:44 Nitroglycerin (Nitroglycerin Sl 0.4 Mg/Tab Tab) 0.4 mg SL UD PRN PRN Reason: Chest Pain Stop: 11/25/22 00:44 Pantoprazole Sodium (Pantoprazole 40 Mg Tab) 40 mg PO DAILY [facility] Stop: 11/25/22 08:59 Last Admin: 10/30/22 08:54 Dose: 40 mg Polyethylene Glycol (Polyethylene (Miralax) 17 Gm Pack) 17 gm PO DAILY PRN PRN Reason: Constipation Stop: 11/25/22 00:44 Pending Studies at Discharge: No Stand-Alone Forms: [facility] Skilled Items Patient informed of condition?: Yes DNR: Yes Discharge Level of Care: Other Communicable Disease: No Discharge Prognosis: Deteriorating Lines: Peripheral IV Urinary Catheter: Yes Medications and DC Order Prescriptions: Continued omeprazole 20 mg capsule,delayed release(DR/EC) 20 mg PO DAILY amoxicillin 500 mg capsule 2,000 mg PO DIRECTED PRN (Reason: PRIOR TO DENTAL APPT.) Rx Instructions: take 1 hour prior to any dental procedure furosemide 40 mg tablet 40 mg PO QAM atorvastatin 40 mg tablet 40 mg PO QAM cyanocobalamin (vitamin B-12) 1,000 mcg Tablet 1,000 mcg PO QAM ferrous sulfate 325 mg (65 mg iron) Tablet 325 mg PO DAILY nitroglycerin 0.4 mg Tablet, Sublingual 0.4 mg sublingual UD PRN (Reason: Chest Pain) magnesium oxide 400 mg (241.3 mg magnesium) Tablet 400 mg PO QAM Qty: 30 0RF isosorbide dinitrate 5 mg Tablet 2.5 mg PO BID@0700,1200 30 Days Qty: 30 0RF potassium chloride 10 mEq tablet extended release 10 meq PO DAILY Qty: 30 0RF acetaminophen [Tylenol] 325 mg Tablet 325 mg PO Q6H MDD 3 GRAMS/24 HOURS PRN (Reason: FEVER/PAIN) carvedilol 6.25 mg Tablet 6.25 mg PO BID Rx Instructions: must administer with a meal/food amlodipine 5 mg Tablet 5 mg PO DAILY levothyroxine 75 mcg Tablet 75 mcg PO DAILY Ozempic 0.25 mg or 0.5 mg(2 mg/1.5 mL) Pen Injector 0.5 mg SUBCUT WK Rx Instructions: TAKES ON MONDAYS Discharge Orders: Discharge Order (Routine); Ordered 10/30/22 Ordered By: Dave Chavarria/Other Patient Handouts: Managing Type 2 Diabetes Admission Data Admit Date/Time: 10/25/22 23:46 Attending Provider: Dave Dover Admit Provider: Damien Sultana Primary Care Provider: [facility] Other Providers: Damien Sultana ; Javid Johnson ; Mark Cardona ; Guillermo Villeda ; Jose Elias ; Mati Moreno ; Jose Manuel Triplett ; Sarai Smith ; Chaya Ma ; Purnima Brandon ; Damon Castelan ; José Miguel Castro ; Javid Gracia ; Kraig Braxton ; Ros Ortiz ; Shadi Rocha ; Kia Pablo ; Pyaton Amato ; Abdoulaye Turner ; Nisa Bowie ; Fabby Lamb ; Jose Mackenzie ; Aneesh Hi ; Vikram Washington ; Anneliese Muñoz ; Jona Castro I. ; Jenaro Horner II ; Daphney Huizar ; Jose Manuel Leal ; Roderick Granados ; Karen Woody ; Arsen Winn
--- NOTE | 2022-10-30 19:49 | Orthopedic Progress Note ---
Date of Service October 30, 2022 Assessment & Plan (1) Bullosis diabeticorum: Plan: Patient seen, evaluated, and treated. Dressing applied followed by compressive selma wrap to left lower foot and leg. Compression is an important part of management for prevention of bullae. Excellent signs of healing to partial thickness left foot fourth and fifth interdigital diabetic ulcers present and Ag Aquacel placed between toes. Will continue to follow while in house. Thank you for allowing me to participate in the care of this Patient. (2) Diabetic ulcer of left foot: (3) Diabetic peripheral neuropathy associated with type 2 diabetes mellitus: (4) Diabetic ulcer of right great toe: (5) Sepsis due to methicillin susceptible Staphylococcus aureus (MSSA) with acute renal failure: Admission and Anticipated Discharge Date Admission Date: October 25, 2022 Subjective Patient seen and examined at bedside. He is not in any distress. Patient has his daughters present. Physical Exam Constitutional: well developed and cooperative Respiratory: normal respiratory effort Results & Data ([facility]) Vital Signs (Past 12 Hours) Vital Signs Temp Pulse Pulse Resp BP Pulse Ox O2 Del Method 10/30/22 19:19 36.4 C L 71 16 143/68 H 100 Nasal Cannula 10/30/22 16:50 68 10/30/22 09:00 36.3 C L 68 20 120/77 100 Nasal Cannula 10/30/22 11:13 36.5 C 66 20 134/73 100 Nasal Cannula 10/30/22 08:50 Nasal Cannula O2 Flow Rate 10/30/22 19:19 2 10/30/22 16:50 10/30/22 09:00 2 10/30/22 11:13 2 10/30/22 08:50 2
== END 2022-10-30 21:37 | disposition short-term general hospital (02) | DRG 871 ==
LOC: ED 19:37 → EDINP 23:46 → 4W 10-26 00:40